=== PATIENT | male | born 1950 | race Caucasian/White ===

== ENCOUNTER 2020-08-05 13:33 | Outpatient (REF) | payer OTHER, SELFPAY ==
[2020-08-05 15:44] LABS: Blood Urea Nitrogen 28 mg/dL (9-16); Estimated Glomerular Filt Rate > 60
== END 2020-08-05 13:34 | disposition home or self-care (01) ==
LOC: HO.LAB 13:33
PROVIDERS: PCP General Practice; Visit Provider Surgery
DX: R22.1 Localized swelling, mass and lump, neck (principal)
CPT/HCPCS: 36415; 82565; 84520; 99202

== ENCOUNTER 2020-10-01 12:11 | Outpatient (REF) | payer MEDICARE, SELFPAY ==
--- NOTE | ~2020-10-01 | CT_ITS ---
EXAMINATION: CT SOFT TISSUE NECK WITH CONTRAST CLINICAL INFORMATION: Localized swelling, mass and lump. COMPARISON: None TECHNIQUE: Following the intravenous administration of 100 mL of Omnipaque 350 intravenous contrast, helical imaging was performed in the axial plane with generation of coronal and sagittal reformatted images. This CT examination was performed using dose optimization techniques as appropriate, variously including the following: *Automated exposure control *Adjustment of mA and/or kV according to patient size (this includes techniques or standardized protocols for targeted exams where dose is matched to indication/reason for exam; i.e. extremities or head) *Use of iterative reconstruction technique DLP: 307 mGy-cm FINDINGS: No cervical adenopathy is identified. The parotid glands are homogeneous in attenuation. The submandibular glands are normal. No contour abnormality or pathologic enhancement is seen within the oral cavity or pharyngeal mucosal space. However, the oral cavity is limited in visualization secondary to dental amalgam and filling-related artifacts. The laryngeal structures are normal. The parapharyngeal fat is preserved. The carotid sheath vasculature opacify normally. No extra mucosal soft tissue mass or fluid collection is seen. No retropharyngeal fluid collection is seen. The thyroid gland is normal. The superior mediastinum is unremarkable. The lung apices are clear. There are small polyps or retention cyst bilateral maxillary sinuses. The rest of the paranasal sinuses and mastoid air cells are well-aerated. The temporomandibular joints are normal. No periapical disease is identified. No osseous abnormalities are seen. The imaged portions of the brain parenchyma are unremarkable. CT/CT soft tissue neck w con IMPRESSION: Bilateral polyps and/or retention cysts in bilateral maxillary sinuses, larger on the left than right. Otherwise, unremarkable CT neck with IV contrast.
[2020-10-01 13:23] LABS: Blood Urea Nitrogen 20 mg/dL (9-16); Estimated Glomerular Filt Rate > 60
[2020-10-01] MEDS: iohexoL 350 MG/ML 100 ML INFUS..BTL IV (14:44)
== END 2020-10-01 12:12 | disposition home or self-care (01) ==
LOC: HO.CT 12:11
PROVIDERS: PCP General Practice; Visit Provider Surgery
DX: R22.1 Localized swelling, mass and lump, neck (principal)
CPT/HCPCS: 36415; 70491; 82565; 84520; Q9967

== ENCOUNTER → 2020-10-09 15:43 | Outpatient (BNVA) | payer MEDICARE, SELFPAY | PROVIDERS: PCP General Practice; Visit Provider Surgery | DX: R22.1 Localized swelling, mass and lump, neck (principal) | CPT/HCPCS: Q3014 ==

== ENCOUNTER 2022-04-01 14:25 | Emergency (ER) | payer MEDICARE, SELFPAY ==
--- NOTE | ~2022-04-01 | XR_ITS ---
EXAMINATION: XR ELBOW, LEFT CLINICAL INFORMATION: Left elbow pain. COMPARISON: None TECHNIQUE: AP, lateral, and oblique views of the left elbow. FINDINGS: Moderate degenerative joint changes are seen with joint space narrowing, periarticular sclerosis and marginal osteophyte formation. There is no acute fracture or dislocation. No definitive joint effusion. The soft tissues are unremarkable. XR/XR elbow LT min 3V IMPRESSION: Moderate degenerative joint changes. No overt acute abnormality.
[2022-04-01 15:29] VITALS: BP 145/69; PULSE 76; RESP 16; TEMP 36.5; O2SAT 98; BMI 23.6
--- NOTE | 2022-04-01 16:45 | ED_ITS ---
HPI - Extremity Problem General Chief complaint: Extremity Injury, Upper Stated complaint: pain in L arm Time Seen by Provider: 04/01/22 16:18 Source: patient Mode of arrival: ambulatory Limitations: language barrier (Armenian-speaking medical lab specialist utilized) History of Present Illness HPI Narrative: Patient is a 71-year-old male who presents to the emergency department for evaluation of left elbow pain. He reports onset to be 3-4 days ago. Pain is diffusely throughout the elbow, made worse with extension and flexion of the elbow. Overall Not worsening over the past few days but also not improving. H as trial Tylenol at home significant improvement. Denies any precipitating injury. Denies any past injury to this elbow. Denies numbness or tingling to the lower arm or hand, denies cold sensation. Denies weakness. Denies redness, swelling, rash, lesions, fevers, chills. He does report a history of joint pain to the bilateral knees and shoulders as well. Related Data Home Medications Medication Instructions Recorded Confirmed aspirin 81 mg chewable tablet 1 tab PO DAILY 08/05/20 10/09/20 atorvastatin 80 mg tablet 80 mg PO DAILY 08/05/20 10/09/20 blood pressure test kit-large #1 ea 08/05/20 10/09/20 lisinopril 20 mg tablet 20 mg PO DAILY 08/05/20 10/09/20 metformin 500 mg tablet 500 mg PO 08/05/20 10/09/20 omeprazole 40 mg capsule,delayed 40 mg PO DAILY 08/05/20 10/09/20 release sitagliptin 100 mg tablet 100 mg PO DAILY 08/05/20 10/09/20 zolpidem 10 mg tablet 10 mg PO BEDTIME PRN insomnia 08/05/20 10/09/20 Previous Rx's Medication Instructions Recorded diclofenac sodium 3 % topical gel 1 appl topical BID #100 grams 04/01/22 Allergies Allergy/AdvReac Type Severity Reaction Status Date / Time atorvastatin [Lipitor] Allergy Unknown unknown Verified 08/05/20 14:12 No Known Allergies Allergy Verified 08/05/20 14:12 Review of Systems Review of Systems: Constitutional: No weight loss, fever, chills, weakness or fatigue. Skin: No rash or itching. Cardiovascular: No chest pain No palpitations Respiratory: No shortness of breath, cough or sputum production. Gastrointestinal: No nausea, vomiting or diarrhea. No abdominal pain Genitourinary: No burning micturition. No urinary frequency or incontinence. Musculoskeletal: Positive joint pain Psychiatric: No depression or anxiety. Yes all other systems are reviewed and are negative [facility] Past Medical History Attestation statement: The following information was validated with the patient. Source: old records reviewed Medical History Mass of left side of neck Surgical History History of cholecystectomy Family History Family History Sister History of pancreatic cancer Social History Social History Alcohol intake: current Alcohol intake frequency: holidays/special occasions only Advance Directives: No Advance Directives Information Provided: No Physical Exam Vital Signs: Vital Signs: Last Vital Signs Temp 97.7 F 04/01/22 15:29 Pulse 76 04/01/22 15:29 Resp 16 04/01/22 15:29 BP 145/69 H 04/01/22 15:29 Pulse Ox 98 04/01/22 15:29 O2 Del Method 04/01/22 15:29 BMI result Body Mass Index 23.6 Appearance: Alert.?Oriented to person, place and time. No acute distress.?Normal affect. Eyes: Pupils equal, round and reactive to light.? ENT: Pharynx normal.?? Neck: Normal inspection.? Neck supple.?? CVS: Heart sounds normal. Normal heart rate and rhythm.? Pulses normal.?? Respiratory: No respiratory distress.? Lung sounds clear to auscultation bilaterally?? Abdomen: Soft and non-tender. Normoactive bowel sounds. Skin: Skin warm and dry.? Normal skin color.? Extremities: No lower extremity edema.? Left elbow with no acute deformity, no swelling, warmth, erythema. Decreased flexion and extension. Full AROM to left wrist. Neuro: Moves all extremities spontaneously. Sensation intact bilaterally. No focal neuro deficits. Ambulates with normal steady gait. Course Course Course Narrative: Patient is a 71-year-old male with a past medical history of hyperlipidemia, hypertension, diabetes who presents emergency department for evaluation of atraumatic left elbow pain. He is overall well-appearing. Vital signs are stable, afebrile without tachycardia. Left elbow with limited range of motion with extension and flexion your diffuse tenderness upon palpation medially and laterally, however no erythema warmth or swelling. Does not appear consistent with septic arthritis. XR obtained reveals no acute fracture or dislocation, there is however degenerative changes. Discussed these findings with patient, advised outpatient follow-up with primary care provider, reviewed gentle stretching/exercise, Tylenol, NSAID, new prescription for diclofenac gel. Reviewed worsening signs and symptoms to return back to the emergency department for. All questions were answered. Patient discharged home in stable condition. MDM - Extremity (Nontraumatic) Medical Records Attestation: I reviewed the patient's medical records. Imaging Data XR elbow: Radiologist's impression: XR/XR elbow LT min 3V IMPRESSION: Moderate degenerative joint changes. No overt acute abnormality. Discharge Plan Discharge Clinical Impression: Arthritis of elbow, left Patient Disposition: Home, Self-Care Instructions: Osteoarthritis (ED) Additional Instructions: Please engage in gentle stretching exercises to the left elbow. Apply Diclofenac gel to the left elbow twice daily as directed, prescription was sent to pharmacy You can take Tylenol 500 mg, 2 tablets (1,000mg) every 4-6 hours as needed for pain, but not to exceed 3 doses daily (3,000mg). Follow-up with your primary care provider within 1 week. If your pain is not improving over the next week or 2 you may need to be evaluated by Orthopedics. Return to the emergency department any new or worsening symptoms or concerns ? Prescriptions: New diclofenac sodium 3 % gel 1 appl topical BID Qty: 100 0RF No Action lisinopril 20 mg tablet 20 mg PO DAILY zolpidem 10 mg tablet 10 mg PO BEDTIME PRN (Reason: insomnia) omeprazole 40 mg capsule,delayed release(DR/EC) 40 mg PO DAILY aspirin 81 mg tablet,chewable 1 tab PO DAILY metformin 500 mg tablet 500 mg PO Januvia 100 mg tablet 100 mg PO DAILY (DME) blood pressure test kit-large Kit See Rx Instructions .ROUTE .MEDSUPPLY Qty: 1 Rx Instructions: As directed atorvastatin 80 mg tablet 80 mg PO DAILY Referrals: Haven Stiles MD [Primary Care Provider] - Monique Fishman PA-C [Physician Film Processor] - Interventions: ED Discharge Assessment Last Done: 04/01/22 18:21 Discharge Date/Time: 04/01/22 18:23
== END 2022-04-01 18:23 | disposition home or self-care (01) ==
PROVIDERS: Emergency Provider Emergency Medicine; PCP General Practice
DX: M19.022 Primary osteoarthritis, left elbow (principal)
CPT/HCPCS: 73080; 99283

== ENCOUNTER 2022-04-16 12:34 | Outpatient (REF) | payer OTHER, SELFPAY | END 2022-04-16 12:35 | disposition home or self-care (01) | LOC: HO.HOSX 12:34 | PROVIDERS: Visit Provider Physician Assistant | DX: Z13.89 Encounter for screening for other disorder (principal) ==

== ENCOUNTER 2022-05-07 14:19 | Outpatient (REF) | payer OTHER, SELFPAY ==
--- NOTE | ~2022-05-07 | XR_ITS ---
EXAMINATION: XR SHOULDER, RIGHT CLINICAL INFORMATION: Pain in the right shoulder COMPARISON: X-ray the right shoulder December 2017 TECHNIQUE: AP external rotation, Grashey, scapular Y, and axillary views of the right shoulder. FINDINGS: The bones and soft tissues are normal. No fracture. Glenohumeral and acromioclavicular alignment is anatomic with normal joint space. No abnormal soft tissue calcifications. XR/XR shoulder RT min 2V IMPRESSION: Normal right shoulder.
== END 2022-05-07 14:20 | disposition home or self-care (01) ==
LOC: HO.XRAY 14:19
PROVIDERS: PCP General Practice; Visit Provider Emergency Medicine
DX: M25.511 Pain in right shoulder (principal)
CPT/HCPCS: 73030

== ENCOUNTER → 2022-06-11 14:46 | Outpatient (BNVA) | payer OTHER, SELFPAY | PROVIDERS: PCP General Practice; Visit Provider Physician Assistant | DX: M75.21 Bicipital tendinitis, right shoulder (principal); M75.81 Other shoulder lesions, right shoulder | CPT/HCPCS: 20610; 99202; J1020 ==

== ENCOUNTER 2022-07-03 16:33 | Emergency (ER) | payer OTHER, SELFPAY ==
--- NOTE | ~2022-07-03 | XR_ITS ---
EXAMINATION: CR X-RAY SHOULDER AND HUMERUS RIGHT CLINICAL INFORMATION: 05/07/2022 right shoulder and elbow radiographs. COMPARISON: None TECHNIQUE: 3 views of the right shoulder and 2 views of the right humerus were obtained. FINDINGS: There is no acute fracture or dislocation. The joint spaces are unremarkable. The right humerus is intact. The visualized right ribs are intact with the soft tissues are unremarkable. XR/XR humerus RT IMPRESSION: Unremarkable right shoulder/humerus.
--- NOTE | ~2022-07-03 | XR_ITS ---
EXAMINATION: CR X-RAY SHOULDER AND HUMERUS RIGHT CLINICAL INFORMATION: 05/07/2022 right shoulder and elbow radiographs. COMPARISON: None TECHNIQUE: 3 views of the right shoulder and 2 views of the right humerus were obtained. FINDINGS: There is no acute fracture or dislocation. The joint spaces are unremarkable. The right humerus is intact. The visualized right ribs are intact with the soft tissues are unremarkable. XR/XR shoulder RT min 2V IMPRESSION: Unremarkable right shoulder/humerus.
--- NOTE | 2022-07-03 17:10 | ED_ITS ---
HPI - General Adult General Chief complaint: Extremity Injury, Upper <CAR Fishman - Last Filed: 07/03/22 17:16> Stated complaint: Shoulder pain, prev. inj? injections arent helping <CAR Fishman - Last Filed: 07/03/22 17:16> Time Seen by Provider: 07/03/22 18:25 <CAR Fishman - Last Filed: 07/03/22 17:16> Source: patient <Aye Baig NP - Last Filed: 07/03/22 23:20> Mode of arrival: ambulatory <Aye Baig NP - Last Filed: 07/03/22 23:20> Limitations: language barrier <Aye aBig NP - Last Filed: 07/03/22 23:20> History of Present Illness HPI narrative: 71-year-old male presents with several months of right shoulder pain. Patient did have a follow-up with physical therapy but did not attend, has had prior injections to the shoulder which he states did not relieve his pain. He does not report trauma, repetitive motion, or loss of sensation, decreased range of motion or decreased strength. <Aye Baig NP - Last Filed: 07/03/22 23:20> Onset (ago): month(s) <Aye Baig NP - Last Filed: 07/03/22 23:20> Location: right and upper extremity <Aye Baig NP - Last Filed: 07/03/22 23:20> Radiation: non-radiation <Aye Baig NP - Last Filed: 07/03/22 23:20> Severity: moderate <Aye Baig NP - Last Filed: 07/03/22 23:20> Severity scale (1-10): 6 <Aye Baig NP - Last Filed: 07/03/22 23:20> Quality: aching <Aye Baig NP - Last Filed: 07/03/22 23:20> Pain Consistency: constant <Aye Baig NP - Last Filed: 07/03/22 23:20> Relieving factors: rest <Aye Baig NP - Last Filed: 07/03/22 23:20> Exacerbating factors: movement <Aye Baig NP - Last Filed: 07/03/22 23:20> Associated symptoms: denies other symptoms <Aye Baig NP - Last Filed: 07/03/22 23:20> Treatments prior to arrival: none <Aye Baig NP - Last Filed: 07/03/22 23:20> Related Data Home medications: Home Medications Medication Instructions Recorded Confirmed aspirin 81 mg chewable tablet 1 tab PO DAILY 08/05/20 10/09/20 atorvastatin 80 mg tablet 80 mg PO DAILY 08/05/20 10/09/20 blood pressure test kit-large #1 ea 08/05/20 10/09/20 lisinopril 20 mg tablet 20 mg PO DAILY 08/05/20 10/09/20 metformin 500 mg tablet 500 mg PO 08/05/20 10/09/20 omeprazole 40 mg capsule,delayed 40 mg PO DAILY 08/05/20 10/09/20 release sitagliptin phosphate 100 mg tablet 100 mg PO DAILY 08/05/20 10/09/20 zolpidem 10 mg tablet 10 mg PO BEDTIME PRN insomnia 08/05/20 10/09/20 Previous Rx's Medication Instructions Recorded diclofenac sodium 3 % topical gel 1 appl topical BID #100 grams 04/01/22 <CAR Fishman - Last Filed: 07/03/22 17:16> Allergies/adverse reactions: Allergies Allergy/AdvReac Type Severity Reaction Status Date / Time atorvastatin [Lipitor] Allergy Unknown unknown Verified 06/11/22 14:54 No Known Allergies Allergy Verified 06/11/22 14:54 <CAR Fishman - Last Filed: 07/03/22 17:16> Review of Systems Review of Systems: Constitutional: No Fever, No Chills Cardiovascular: No Chest Pain, No SOB Respiratory: No Cough, No Dyspnea Gastrointestinal: No Nausea, No Vomiting, No Diarrhea, No abdominal Pain Genitourinary: No Dysuria, No Hematuria Musculoskeletal: positive right shoulder pain, No Myalgias, No Joint Swelling Skin: No Skin lacerations, No rash Neuro: No Weakness, No Numbness, No Paresthesias, No Dizziness, No Headache <RANCHO Vang Last Filed: 07/03/22 23:20> Yes all other systems are reviewed and are negative <Aye Baig NP - Last Filed: 07/03/22 23:20> [facility] Past Medical History Attestation statement: The following information was validated with the patient. <Aye Baig NP - Last Filed: 07/03/22 23:20> Source: old records reviewed <Aye Baig NP - Last Filed: 07/03/22 23:20> Medical History: Medical History Mass of left side of neck <CAR Fishman - Last Filed: 07/03/22 17:16> Surgical History: Surgical History History of cholecystectomy <CAR Fishman - Last Filed: 07/03/22 17:16> Family History Family History: Family History Sister History of pancreatic cancer <CAR Fishman - Last Filed: 07/03/22 17:16> Social History Social History: Social History Alcohol intake: current Alcohol intake frequency: holidays/special occasions only Patient Tobacco Use Status: Never used Tobacco Advance Directives: No Advance Directives Information Provided: Yes Current occupational status: disabled Current occupation: right hand dominant <CAR Fishman - Last Filed: 07/03/22 17:16> Physical Exam ED Vital Signs: Vital Signs - 24 hr 07/03/22 17:12 Temperature 97.7 F Pulse Rate 78 Respiratory Rate 18 Blood Pressure 127/69 Pulse Oximetry 98 Oxygen Delivery Method Room Air BMI result Body Mass Index 23.6 <CAR Fishman - Last Filed: 07/03/22 17:16> Vital Signs - 24 hr 07/03/22 17:12 Temperature 97.7 F Pulse Rate 78 Respiratory Rate 18 Blood Pressure 127/69 Pulse Oximetry 98 Oxygen Delivery Method Room Air BMI result Body Mass Index 23.6 <Aye Baig NP - Last Filed: 07/03/22 23:20> Appearance: Alert. Oriented X3. No acute distress. Eyes: Pupils equal, round and reactive to light. ENT: Pharynx normal. Neck: Normal inspection. Neck supple. CVS: Normal heart rate and rhythm. Pulses normal. Respiratory: No respiratory distress. Breath sounds normal. Abdomen: Soft and nontender. No distention or rigidity. No pulsatile masses. Skin: Skin warm and dry. Normal skin color. Normal skin turgor. Extremities: No lower extremity edema. Full range of motion to all extremities. Full active and passive range of motion. Brisk capillary refill and equal pulses. Strength 5/5 bilaterally. Neuro: No motor deficit. No sensory deficit. Cranial nerves 2-12 intact <Aye Baig NP - Last Filed: 07/03/22 23:20> Course Course Course Narrative: RME performed by Coty Tsang PA-C. Patient is a 71 year old male presenting to the emergency department with right shoulder pain. Patient states that he has chronic right shoulder pain secondary to rotator cuff tendonitis and bicep tendonitis of the right side. Patient states that the pain started after a fall. Patient states that he has had an injection in the right arm a month ago but it hasn't helped. XR of the right shoulder / humerus ordered. Patient placed back in waiting room pending results and room availability. <CAR Fishman - Last Filed: 07/03/22 17:16> RME performed by Coty Tsang PA-C. Patient is a 71 year old male presenting to the emergency department with right shoulder pain. Patient states that he has chronic right shoulder pain secondary to rotator cuff tendonitis and bicep tendonitis of the right side. Patient states that the pain started after a fall. Patient states that he has had an injection in the right arm a month ago but it hasn't helped. XR of the right shoulder / humerus ordered. Patient placed back in waiting room pending results and room availability. 71-year-old male presents for chronic right shoulder pain. X-rays were completed while he was in the emergency department waiting room which are negative for acute findings. Physical exam indicates tenderness to the acromion process however he does have full range of motion, full adduction and abduction, internal and external rotation of the shoulder. Strength 5/5, equal mica laminating machine feeder strength. Brisk capillary refill, and equal pulses. Considering the physical exam is unremarkable, and patient has prior history of injections, and poor compliance with physical therapy referral, I will refer patient back to his primary care physician for physical therapy referral once again, as well as referral to pain management for consult. Will give Toradol IM as patient did not take any medications to help alleviate his pain today. Patient verbalized understanding of and agrees to plan of care discharge home. Verbalized signs and symptoms indicating need for emergent intervention. director social utilized for all correspondence. Google translate utilized for discharge instructions. <Aye Baig NP - Last Filed: 07/03/22 23:20> Medications Administered Discontinued Medications Generic Name Dose Route Start Last Admin Trade Name Freq PRN Reason Stop Dose Admin Ketorolac Tromethamine 30 mg 07/03/22 18:35 07/03/22 18:47 Ketorolac Tromethamine 30 Mg/Ml Vial IM 07/03/22 18:36 30 mg ONCE ONE Administration <CAR Fishman - Last Filed: 07/03/22 17:16> Medications Administered Discontinued Medications Generic Name Dose Route Start Last Admin Trade Name Freq PRN Reason Stop Dose Admin Ketorolac Tromethamine 30 mg 07/03/22 18:35 07/03/22 18:47 Ketorolac Tromethamine 30 Mg/Ml Vial IM 07/03/22 18:36 30 mg ONCE ONE Administration <Aye Baig NP - Last Filed: 07/03/22 23:20> Medical Decision Making Differential Diagnosis Differential Diagnoses: The differential diagnosis associated with the presentation includes <Aye Baig NP - Last Filed: 07/03/22 23:20> Osteoarthritis, tendinitis, calcific tendinitis, musculoskeletal strain <Aye Baig NP - Last Filed: 07/03/22 23:20> Independent Interpretation I performed an independent interpretation of an: Plain X-Ray <Aye Baig NP - Last Filed: 07/03/22 23:20> Radiology Impression Discussion of test interpretation with radiology: I have reviewed the radiologist's reading. <Aye Baig NP - Last Filed: 07/03/22 23:20> Radiologist Impression: EXAMINATION: CR X-RAY SHOULDER AND HUMERUS RIGHT CLINICAL INFORMATION: 05/07/2022 right shoulder and elbow radiographs.? COMPARISON: None? TECHNIQUE: 3 views of the right shoulder and 2 views of the right humerus were obtained.? FINDINGS: There is no acute fracture or dislocation. The joint spaces are unremarkable. The right humerus is intact. The visualized right ribs are intact with the soft tissues are unremarkable.? XR/XR humerus RT IMPRESSION: Unremarkable right shoulder/humerus.? <Aye Baig NP - Last Filed: 07/03/22 23:20> External Record Review External record reviewed: Outpatient record <Aye Baig NP - Last Filed: 07/03/22 23:20> Discharge Plan Discharge Clinical Impression: Osteoarthritis of right shoulder, Chronic right shoulder pain <CAR Fishman - Last Filed: 07/03/22 17:16> Patient Disposition: Home, Self-Care <CAR Fishman - Last Filed: 07/03/22 17:16> Instructions: Osteoarthritis (ED), Arthralgia (ED), Arm Pain (ED) <CAR Fishman - Last Filed: 07/03/22 17:16> Additional Instructions: Le evaluaron por dolor cr?jacob en [facility]. Bryson un seguimiento con wilson m?dico de atenci?n primaria para obtener diana remisi?n a fisioterapia. Le dimos diana dosis de Toradol mientras estaba en el departamento de emergencias. Por favor, no tome Motrin hasta la medianoche. Lo he referido al Dr. Medina para el control del dolor. Llame y solicite diana veronique para diana evaluaci?n del dolor cr?jacob en [facility]. Sienna por elegir sajan departamento de emergencias para wilson evaluaci?n. Por favor, bryson un seguimiento con el m?dico de atenci?n primaria seg?n sea necesario. Regrese al departamento de emergencias por cualquier s?ntoma nuevo, preocupante o que empeore. You were evaluated for chronic right shoulder pain. Please follow-up with your primary care physician for physical therapy referral. We gave you a dose of Toradol while in the emergency department. Please do not take Motrin until midnight I have referred you to Dr. Medina for pain management. Please call and request an appointment for evaluation for chronic right shoulder pain. Thank you for choosing this emergency department for evaluation. Please follow-up with primary care physician as needed. Return to the emergency department for any new, concerning, or worsening symptoms. <CAR Fishman - Last Filed: 07/03/22 17:16> Prescriptions: No Action diclofenac sodium 3 % gel 1 appl topical BID Qty: 100 0RF lisinopril 20 mg tablet 20 mg PO DAILY zolpidem 10 mg tablet 10 mg PO BEDTIME PRN (Reason: insomnia) omeprazole 40 mg capsule,delayed release(DR/EC) 40 mg PO DAILY aspirin 81 mg tablet,chewable 1 tab PO DAILY metformin 500 mg tablet 500 mg PO Januvia 100 mg tablet 100 mg PO DAILY (DME) blood pressure test kit-large Kit See Rx Instructions .ROUTE .MEDSUPPLY Qty: 1 Rx Instructions: As directed atorvastatin 80 mg tablet 80 mg PO DAILY <CAR Fishman - Last Filed: 07/03/22 17:16> Referrals: Haven Stiles MD [Primary Care Provider] - 2 weeks (Chronic right shoulder pain) Wilner Medina MD [Physician] - 2 weeks (Chronic right shoulder pain) <CAR Fishman - Last Filed: 07/03/22 17:16> Interventions: ED Discharge Assessment Last Done: 07/03/22 19:09 <CAR Fishman - Last Filed: 07/03/22 17:16> Discharge Date/Time: 07/03/22 19:09 <CAR Fishman - Last Filed: 07/03/22 17:16> Print Language: Slovak <CAR Fishman - Last Filed: 07/03/22 17:16>
[2022-07-03 17:12] VITALS: BP 127/69; PULSE 78; RESP 18; TEMP 36.5; O2SAT 98; BMI 23.6
[2022-07-03] MEDS: Ketorolac Tromethamine 30 MG/ML VIAL IM (18:47)
== END 2022-07-03 19:09 | disposition home or self-care (01) ==
PROVIDERS: Emergency Provider Emergency Medicine; PCP General Practice
DX: M19.011 Primary osteoarthritis, right shoulder (principal); G89.29 Other chronic pain; M25.511 Pain in right shoulder
CPT/HCPCS: 73030; 73060; 96372; 99283; 99284; J1885

== ENCOUNTER 2022-08-11 11:00 | Outpatient (RCR) | payer OTHER, SELFPAY ==
--- NOTE | 2022-08-07 14:34 | MHC.PT.EP ---
[facility] [place] [facility] [place] [facility] [place] [facility] [address]ina Kirk [address] [phone] F: [phone] F: [phone] F: [phone] F: [phone] Physical Therapy Plan of Care Date of Evaluation: Date of Surgery: Diagnosis: right shoulder bicipital tendonitis (MD Dx) chronic R shoulder pain, ? RTC tear, cannot R/O cervical involvement due to radicular sxs Assessment: Patient is a 71 y.o. male who is referred to PT by CAR Keyes with Dx of R shoulder bicipital tendonitis. PT diagnosis is chronic R shoulder pain, questionable RTC tear due to limitations, cannot rule out cervical involvement as it does cause pain but not familiar pain but he has R UE radicular sxs. Patient impairments include pain, limited ROM, weakness. Patient current functional limitations are reaching overhead, daughter helps with cook/clean, unable to work (lifting anything).Patient will benefit from skilled PT to address aforementioned impairments and functional limitations to meet established goals. Patient prognosis is good, due to he may be a good candidate for further imaging. Frequency and Duration: The patient will be seen 2x/week for 4 weeks Short Term Goals: 2 weeks Patient demonstrates consistency and independence with HEP to self manage symptoms. Patient is able to centralize R hand symptoms with PT treatment. Hydrant Setter Goals: 4 weeks Patient presents with increased R shoulder flexion 170 degrees to reach to cabinets. Patient prssents with increased R shoulder flexion strength 4/5 to be able to lift/carry groceries. Treatment Plan: Modalities to reduce pain, spasms and effusion. Manual therapy to restore motion and function. Therapeutic exercise to improve strength and flexibility. Neuromuscular re-education for posture and balance. Therapeutic activities to return to functional activities of daily living. Electronically signed by: Jemima Garcia, PT, DPT Please sign and return to therapist. Thank you for your referral.
--- NOTE | 2022-09-03 16:52 | MHC.PT.DC ---
[facility] [place] Office [place] Office [place] Office [address] Shala Kirk [address] [phone] F: [phone] F: [phone] F: [phone] F: [phone] Physical Therapy Discharge Report Diagnosis: right shoulder bicipital tendonitis ( Dx) chronic R shoulder pain, ? RTC tear, cannot R/O cervical involvement due to radicular sxs Date of Surgery: Date of Evaluation: 08/07/22 Date of Discharge: 09/03/22 Treatments to Date: 2 Cancellations to Date: No Shows to Date: 4 Discharge Status: Visit Non-compliance Discharge Summary: Patient ceased attending PT on his own accord and did not show to any remaining PT session after first 2 visits. He is discharged from PT at this time. Electronically signed by: Jemima Garcia, PT, DPT Please sign and return to therapist. Thank you for your referral.
== END 2022-09-03 16:53 | disposition home or self-care (01) ==
LOC: HO.PT 11:00
PROVIDERS: PCP General Practice; Visit Provider Physician Assistant
DX: M75.21 Bicipital tendinitis, right shoulder (principal); M75.80 Other shoulder lesions, unspecified shoulder
CPT/HCPCS: 97035; 97110; 97161

== ENCOUNTER → 2022-09-17 09:27 | Outpatient (BNVA) | payer OTHER, SELFPAY | PROVIDERS: PCP General Practice; Visit Provider Physician Assistant | DX: M75.21 Bicipital tendinitis, right shoulder (principal); M75.81 Other shoulder lesions, right shoulder | CPT/HCPCS: 99212 ==

== ENCOUNTER 2022-10-25 20:59 | Emergency (ER) | payer OTHER, SELFPAY ==
--- NOTE | ~2022-10-25 | XR_ITS ---
EXAMINATION: XR SHOULDER, RIGHT CLINICAL INFORMATION: Pain COMPARISON: 07/03/2022 TECHNIQUE: Three views of the right shoulder. FINDINGS: Glenohumeral alignment is anatomic. There is mild spurring along the inferior glenoid. No acute fracture is seen. Acromioclavicular joint is intact. XR/XR shoulder RT min 2V IMPRESSION: No acute findings. Mild spurring along the inferior glenoid.
[2022-10-25 21:35] VITALS: BP 163/82; PULSE 78; RESP 18; TEMP 36.6; O2SAT 97; BMI 24.1
--- NOTE | 2022-10-26 00:49 | ED_ITS ---
HPI - Extremity Problem General Chief complaint: Extremity Injury, Upper Stated complaint: sharp pain in r arm Time Seen by Provider: 10/26/22 00:29 Source: patient Mode of arrival: ambulatory Limitations: no limitations History of Present Illness HPI Narrative: Patient comes to the emergency room complaining of chronic right shoulder pain. Patient has been seen by her primary care physician, has been doing physical therapy. Unfortunately, patient has skipped a few sessions because he had a family emergency in [place] and could not attend physical therapy for 2 weeks, patient was expelled from the PT program. Patient has also been seen by Orthopedics, last time approximately a month ago, given injections for bicipital tendinitis of the right shoulder. She comes in complaining of worsening pain. No falls, no new injuries. Patient still able to move his arm. Related Data Home Medications Medication Instructions Recorded Confirmed aspirin 81 mg chewable tablet 1 tab PO DAILY 08/05/20 10/09/20 atorvastatin 80 mg tablet 80 mg PO DAILY 08/05/20 10/09/20 blood pressure test kit-large #1 ea 08/05/20 10/09/20 lisinopril 20 mg tablet 20 mg PO DAILY 08/05/20 10/09/20 metformin 500 mg tablet 500 mg PO 08/05/20 10/09/20 omeprazole 40 mg capsule,delayed 40 mg PO DAILY 08/05/20 10/09/20 release sitagliptin phosphate 100 mg tablet 100 mg PO DAILY 08/05/20 10/09/20 zolpidem 10 mg tablet 10 mg PO BEDTIME PRN insomnia 08/05/20 10/09/20 Previous Rx's Medication Instructions Recorded diclofenac sodium 3 % topical gel 1 appl topical BID #100 grams 04/01/22 tramadol 50 mg tablet 50 mg PO BID PRN pain #7 tabs 10/26/22 Allergies Allergy/AdvReac Type Severity Reaction Status Date / Time atorvastatin [Lipitor] Allergy Unknown unknown Verified 10/25/22 21:39 Review of Systems Review of Systems: Constitutional : No Weight loss, No Fever, No Chills, No Night Sweats, No Fatigue, No Malaise ENT/Mouth : No Hearing loss, No Ear Pain, No Nasal Congestion, No Sinus Pain, No Hoarseness, No sore throat, No Rhinorrhea, No Swallowing Difficulty Eyes: No Eye Pain, No Swelling, No Redness, No Foreign Body, No Discharge, No Vision Changes Cardiovascular : No Chest Pain, No SOB, No Dyspnea on Exertion, No Orthopnea, No Edema, No Palpitations Respiratory : No Cough, No Sputum, No Wheezing, No Smoke Exposure, No Dyspnea Gastrointestinal : No Nausea, No Vomiting, No Diarrhea, No Constipation, No abdominal Pain, No Hematochezia, No Melena Genitourinary : no irregular bleeding, No Dysuria, No Urinary Frequency, No Hematuria, No Urinary Incontinence, No Urgency, No Flank Pain, No Urinary Flow Changes, No Hesitancy Musculoskeletal : Chronic right shoulder pain, No Myalgias, No Joint Swelling Skin : No Skin Lesions, No rash Neuro : No Weakness, No Numbness, No Paresthesias, No Loss of Consciousness, No Dizziness, No Headache Psych : No Anxiety/Panic, No Depression, No SI/HI/AH/VH, No Social Issues, Heme/Lymph: No Bruising, No Bleeding,No Lymphadenopathy Endocrine : No Polyuria, No Polydipsia, No Temperature Intolerance [facility] Past Medical History Medical History Mass of left side of neck Surgical History History of cholecystectomy Family History Family History Sister History of pancreatic cancer Social History Social History Alcohol intake: current Alcohol intake frequency: holidays/special occasions only Patient Tobacco Use Status: Never used Tobacco Current occupational status: disabled Current occupation: right hand dominant Physical Exam Vital Signs: Vital Signs: Last Vital Signs Temp 97.8 F 10/25/22 21:35 Pulse 78 10/25/22 21:35 Resp 18 10/25/22 21:35 BP 163/82 H 10/25/22 21:35 Pulse Ox 97 10/25/22 21:35 O2 Del Method Room Air 10/25/22 21:35 BMI result Body Mass Index 24.1 Const: Other: Appearance: Alert. Oriented X3. No acute distress. Eyes: Pupils equal, round and reactive to light. ENT: Pharynx normal. Neck: Normal inspection. Neck supple. No lymph nodes noted. No crepitus CVS: Normal heart rate and rhythm. Pulses normal. Normal S1 and S2 Respiratory: No respiratory distress. Breath sounds normal. No Wheezing. No rales Abdomen: Soft and nontender. No rigidity. No distention. Skin: Skin warm and dry. Normal skin color. Normal skin turgor. Extremities: No lower extremity edema. No Lacerations. No Rash. Patient is able to flex and extend the shoulders but with pain, limited range of motion. No deformity, no erythema, no swelling of the joint Neuro: Oriented X 3. No motor deficit. No sensory deficit. Moving all extremities. No slurred speech. CN 2 through 12 grossly intact Psych: calm, cooperative, normal affect Medical Decision Making Medical Decision Making MDM Narrative: -discussed with the patient that he may need to finish his physical therapy course, may need more joint injections, or an MRI. At this time in the ED, we can provide pain relief. Patient agreed to take 1 tablet of tramadol. Patient will be giving a small prescription and if needed, patient's primary care physician can extend the prescription. Discharge Plan Discharge Clinical Impression: Chronic right shoulder pain Patient Disposition: Home, Self-Care Instructions: Calcific Tendinitis (ED), Arthralgia (ED) Additional Instructions: Please follow-up with your primary care physician tomorrow. If you have any worsening or new symptoms, please return to the emergency room or call 911 Prescriptions: New tramadol 50 mg tablet 50 mg PO BID PRN (Reason: pain) Qty: 7 0RF No Action diclofenac sodium 3 % gel 1 appl topical BID Qty: 100 0RF lisinopril 20 mg tablet 20 mg PO DAILY zolpidem 10 mg tablet 10 mg PO BEDTIME PRN (Reason: insomnia) omeprazole 40 mg capsule,delayed release(DR/EC) 40 mg PO DAILY aspirin 81 mg tablet,chewable 1 tab PO DAILY metformin 500 mg tablet 500 mg PO Januvia 100 mg tablet 100 mg PO DAILY (DME) blood pressure test kit-large Kit See Rx Instructions .ROUTE .MEDSUPPLY Qty: 1 Rx Instructions: As directed atorvastatin 80 mg tablet 80 mg PO DAILY
[2022-10-26] MEDS: traMADoL HCL 50 MG TABLET PO (00:52)
== END 2022-10-26 01:06 | disposition home or self-care (01) ==
PROVIDERS: Emergency Provider Emergency Medicine; PCP General Practice
DX: G89.29 Other chronic pain (principal); M25.511 Pain in right shoulder; Z79.82 Long term (current) use of aspirin; Z79.02 Long term (current) use of antithrombotics/antiplatelets; Z79.84 Long term (current) use of oral hypoglycemic drugs
CPT/HCPCS: 73030; 99283

== ENCOUNTER 2022-11-09 09:34 | Outpatient (REF) | payer OTHER, SELFPAY ==
--- NOTE | ~2022-11-09 | MR_ITS ---
EXAMINATION: MR SHOULDER WITHOUT CONTRAST, RIGHT CLINICAL INFORMATION: Right shoulder pain and crepitus. Decreased range of motion. COMPARISON: Most recent right shoulder radiographs dated 10/25/2022. TECHNIQUE: MRI of the shoulder without contrast was performed on a high-field scanner. FINDINGS: ROTATOR CUFF: Irregular, complete full-thickness tear of the supraspinatus tendon with extension through the majority of the infraspinatus tendon. Overall tearing measures up to 3.1 x 3.7 cm with the torn tendon fibers retracted proximal to the humeral head apex. There are posterior and bursal surface infraspinatus tendon fibers which remain intact. Mild subscapularis tendinosis with distal articular surface partial tearing measuring up to 2.4 cm in ML dimension. Mild supraspinatus and infraspinatus muscle atrophy. BICEPS: Intact. CORACOACROMIAL ARCH: The undersurface of the acromion is curved with small subacromial spurs. Moderate acromioclavicular osteoarthritis. LABRUM/CAPSULE: Linear fluid signal within the undersurface of the superior labrum, likely indicating a nondisplaced undersurface tear. Intact inferior joint capsule. GLENOHUMERAL JOINT/MARROW: Mild glenohumeral articular cartilage signal heterogeneity with tiny marginal osteophytes. Degenerative cystic change at the greater tuberosity. Small joint effusion. MR/MR shoulder RT wo con IMPRESSION: 1. Complete, full-thickness tear of the supraspinatus tendon with extension through the majority of the infraspinatus tendon. The torn tendon fibers are retracted proximal to the humeral head apex. Mild supraspinatus and infraspinatus muscle atrophy. 2. Mild subscapularis tendinosis with distal articular surface partial tearing measuring 2.4 cm in ML dimension. 3. Moderate acromioclavicular osteoarthritis with small subacromial spurs. 4. Probable nondisplaced undersurface tear of the superior labrum. 5. Mild glenohumeral osteoarthritis. Small joint effusion.
== END 2022-11-09 09:35 | disposition home or self-care (01) ==
LOC: HO.MRI 09:34
PROVIDERS: PCP General Practice; Visit Provider Physician Assistant
DX: M75.21 Bicipital tendinitis, right shoulder (principal)
CPT/HCPCS: 73221

== ENCOUNTER 2023-01-07 13:16 | Outpatient (AMB) | payer OTHER, SELFPAY ==
--- NOTE | 2023-01-07 13:17 | A.OFFVIS_ITS ---
Intake Intake Visit Reasons: OV- MRI review/discuss surgery Intake Note: is a 72 year old male who presents today for an MRI follow up of Right shoulder/biceps. Allergies atorvastatin [Lipitor] Allergy (Unknown, Verified 01/07/23 13:19) unknown HPI OV- MRI review/discuss surgery HPI Details is a 72 year old man who presents for an MRI review of his right shoulder/biceps He complains of pain with daily activity, worse with overhead activity, lifting, and at night. He says his pain has been present for ~9 months after a lifting injury, and he found no relief from PT or prior injections [facility] Medical History Mass of left side of neck Surgical History History of cholecystectomy Family History Sister History of pancreatic cancer Social History Alcohol intake: current Alcohol intake frequency: holidays/special occasions on ly Patient Tobacco Use Status: Never used Tobacco Current occupational status: disabled Current occupation: right hand dominant Review of Systems Const All systems reviewed & are unremarkable except as noted in HPI and below Physical Exam Const General: no acute distress, alert and awake Orientation/consciousness: patient oriented x3 HEENT Head: Yes normocephalic and Yes atraumatic Eyes EOM: EOMs intact bilaterally Resp Effort & Inspection: normal respiratory effort and able to speak in complete sentences Cardio Jugular venous distension: no JVD Skin General skin exam: turgor normal Rashes: no rashes Neuro General: patient oriented x3 Extrem Other: Right Shoulder: 4/5 empty can ER 45 degrees Passively full ROM Psych Appearance: grossly normal Affect: normal affect Attitude: cooperative Results Reviewed Results Reviewed: I personally reviewed relevant MR images 1.? Complete, full-thickness tear of the supraspinatus tendon with extension through the majority of the infraspinatus tendon. The torn tendon fibers are retracted proximal to the humeral head apex. Mild supraspinatus and infraspinatus muscle atrophy. ? 2.? Mild subscapularis tendinosis with distal articular surface partial tearing measuring 2.4 cm in ML dimension. ? 3.? Moderate acromioclavicular osteoarthritis with small subacromial spurs. ? 4.? Probable nondisplaced undersurface tear of the superior labrum. ? 5.? Mild glenohumeral osteoarthritis. Small joint effusion. Assessment & Plan Assessment & Plan (1) Right rotator cuff tear: Code(s): M75.101 - Unspecified rotator cuff tear or rupture of right shoulder, not specified as traumatic Plan: This is a 72 year old man with a complete, full-thickness tear of the right supraspinatus tendon. He has pain with daily activity, worse with overhead activity, heavy lifting, and at night. He has failed conservative treatment options, feels limited in his ADLs, and that his QOL is diminished. He finds no relief of his pain with Tramadol or NSAIDs. I had a long discussion with him co ncerning his diagnosis and treatment options. I recommend a right shoulder RTC repair. I discussed the risks, benefits, and alternatives including, but not limited to, the risk of pain, infection, stiffness, need for further surgery as well as potential medical complications such as blood clots, pulmonary embolism and cardiac complications. There is some retraction and although he states this was an acute injury I did warn him of the possibility that we will not be able to repair the cuff. He expressed understanding. I discussed the recovery timeline and process as well as the importance of PT. is a good candidate for this surgery, and he wishes to proceed with this decision. He will speak with Latoya to schedule this procedure. He is a Diabetic but says this is well- controlled. Plan Scribed for Inocente Huerta MD by Deepak Cornelius, medical research scientist, on 01/07/23 at 1:55 PM, EST. Coding Level of Care Code Est Pt Level 4 (26042) Diagnoses Right rotator cuff tear M75.101
== END 2023-01-07 14:05 | disposition home or self-care (01) ==
PROVIDERS: PCP General Practice; Visit Provider Orthopaedic Surgery
DX: M75.121 Complete rotator cuff tear or rupture of right shoulder, not specified as traumatic (principal); M19.011 Primary osteoarthritis, right shoulder; S43.431A Superior glenoid labrum lesion of right shoulder, initial encounter
CPT/HCPCS: 20610; 99214

== ENCOUNTER → 2023-01-07 13:16 | Outpatient (BNVA) | payer OTHER, SELFPAY | PROVIDERS: PCP General Practice; Visit Provider Orthopaedic Surgery | DX: M75.101 Unspecified rotator cuff tear or rupture of right shoulder, not specified as traumatic (principal) | CPT/HCPCS: 20610; 99212 ==

== ENCOUNTER 2023-02-03 09:03 | Day surgery (SDC) | payer OTHER, SELFPAY ==
[2023-02-03] VITALS (9 sets, daily range): BP systolic 127–151; BP diastolic 69–82; PULSE 69–88; RESP 16–18; TEMP 36.3–36.8; O2SAT 96–99; BMI 23.9
--- NOTE | 2023-02-03 | ECG_ITS ---
Test Reason : dm, htn Blood Pressure : / mmHG Vent. Rate : 072 BPM Atrial Rate : 072 BPM P-R Int : 156 ms QRS Dur : 092 ms QT Int : 362 ms P-R-T Axes : 051 047 044 degrees QTc Int : 396 ms Normal sinus rhythm Normal ECG When compared with ECG of 09-JUL-2009 11:19, No significant change was found Referred By: Maddie Kilgore Electronically Signed By:JITENDRA PALMER
--- NOTE | 2023-02-03 09:05 | HO.ANESPROP2 ---
HPI - Anesthesia Eval Consult details Narrative: for rotator cuff reoair PMFSH Active Problems Active Problems: All Active Problems (Updated 01/07/23 @ 15:18 by Deepak Cornelius) Right rotator cuff tear (Acute) Rotator cuff tendonitis (Acute) Biceps tendonitis on right (Acute) Osteoarthritis of right shoulder (Acute) Mass of left side of neck (Acute) Past Medical History Medical History (Updated 02/03/23 @ 09:10 by Risa Lam RN) Mass of left side of neck Palpitations Family History Family History Sister History of pancreatic cancer Family history of problems with anesthesia: No Surgical History Surgical History History of cholecystectomy History of Problems with Anesthesia: No Social History Social History Alcohol intake: current Alcohol intake frequency: holidays/special occasions only Patient Tobacco Use Status: Never used Tobacco Current occupational status: disabled Current occupation: right hand dominant Meds Allergies Allergy/AdvReac Type Severity Reaction Status Date / Time atorvastatin [Lipitor] Allergy Unknown unknown Verified 01/07/23 13:19 Active Medications: Current Medications Lactated Ringer's (Lr) 1,000 mls @ 100 mls/hr IVCONT .Q10H MELINDA Cefazolin Sodium/Dextrose (Ancef) 2 gm in 50 mls @ 100 mls/hr IV PREOP ONE Stop: 02/03/23 09:33 Home Medications Medication Instructions Recorded Confirmed Last Taken Type aspirin 81 mg chewable tablet 1 tab PO DAILY 08/05/20 10/09/20 Unknown History atorvastatin 80 mg tablet 80 mg PO DAILY 08/05/20 10/09/20 Unknown History blood pressure test kit-large #1 ea 08/05/20 10/09/20 Unknown History lisinopril 20 mg tablet 20 mg PO DAILY 08/05/20 10/09/20 Unknown History metformin 500 mg tablet 500 mg PO 08/05/20 10/09/20 Unknown History omeprazole 40 mg capsule,delayed 40 mg PO DAILY 08/05/20 10/09/20 Unknown History release sitagliptin phosphate 100 mg tablet 100 mg PO DAILY 08/05/20 10/09/20 Unknown History zolpidem 10 mg tablet 10 mg PO BEDTIME PRN insomnia 08/05/20 10/09/20 Unknown History Exam Exam Date and Time: February 03, 2023904 Airway Mallampati Class: II TM Dist: >3cm Neck ROM: Full Heart: rrr Lungs: cta Assessment and Plan Assessment Anesthesia Assessment: Anesthesia Plan Discussed Final Anesthetic Review Family History of Problems with Anesthesia: No History of Problems with Anesthesia: No NPO: Yes ASA Class: III Final Preanesthetic Review: No Changes in Pt Med Stat, Meds/Allgs Chart Reviewed, Consent Obtained/Reviewed and Anes Risks/Benef Reviewed Patient Risk: Intermediate Anesthetic Plan Anesthetic Plan: GA and Regional Block Disposition: Standard PACU
--- OUTSIDE RECORDS SUMMARY | 2023-02-03 09:06 | XMS_ITS | Patient Health Record ---
Author Name Unknown Organization [facility] Address [address] [place] [address] Care Team Providers Care Under Seal Operator Name Role Phone Thierno Oakleydeepthi Primary Care Provider Jacob Roca Unavailable [phone] Nataliia Stark Unavailable [phone] ALLERGIES No Known Allergies RESULTS Component Value Reference Range Notes Hemoglobin A1c Reviewed date:10/15/2022 03:25:18 AM Interpretation: Performing Lab: Notes/Report: Hemoglobin A1c 7.4 REASON FOR REFERRAL No Information MEDICATIONS Medication SIG (Take, Route, Frequency, Duration) Notes Start Date End Date Status Atorvastatin Calcium 80 MG 1 tablet Oral ly Once a day Active Aspirin 81 MG 1 tablet Orally Once a day Active metFORMIN HCl 500 MG 1 tablet with meals Orally Twice a day Active Lisinopril 20 MG 1 tablet Orally Once a day Active Januvia 100 MG 1 tablet Orally Once a day Active Ibuprofen 800 MG 1 tablet with food o r milk as needed Orally Three times a day Active Methocarbamol 500 MG 1 tablet as needed Orally twice a day Active Zolpidem Tartrate 10 MG 1 tablet at bedt charles as needed Orally Once a day Active IMMUNIZATIONS Vaccine Route Administration Date Status Comme nts Flu Vac (Fluzone /Alfuria) QIV PFS Unknown 04/18/2021 A dministered Moderna COVID-19 Vaccine IM Unknown 08/19/2020 Administ ered Moderna COVID-19 Vaccine IM Unknown 09/16/2020 Administ ered Moderna COVID-19 Vaccine IM Unknown 05/19/2021 Administ ered SOCIAL HISTORY Sex Assigned At : Social History Observation Description Sex Assigned At Unknown PROBLEMS Problem Type ICD Code Onset Dates Problem Status W/U Status Risk SNOMED Code Notes Problem Anemia (D64.9) Active confirmed Anemia (908964999) Problem Essential (primary) hypertension (I10) Active confirmed Essential hypertension (57661784) Problem Insomnia (G47.00) Active confirmed Inso mnia (713819731) Problem Vitamin D deficiency (E55.9) Active confirmed Vitamin D deficiency (52735944) Problem Hyperlipidemia (E78.5) Active confirmed Hyperlipidemia (04321276) Problem DM (diabetes mellitus) (E11.9) Active confirmed DM - Diabe mari mellitus (71584996) Problem H. pylori infection (B96.81) Active confirmed Helicobacter pylori gastrointestinal tract infection (452367406) Problem Illiteracy (Z55.0) Active confirmed Illiteracy (771201599) Problem Forgetfulness (R68.89) Active confirmed Forgetful (55782502) Problem Tubular adenoma (D36.9) Active confirmed Tubular adenoma (005605811) Problem Age-related nuclear cataract of both eyes (H25.13) Active confirmed 942767387 Problem Back pain of lumbar region with sciatica (M54.40) Active confirmed Sciatica (03343265) Problem Cardiovascular event risk (Z91.89) Active confirmed Cardiovascular event risk (965813496) Encounters Encounter Location Date Provider Diagnosis [address] [address] 04/01/2022 Nataliia Stark Essential (primary) hypertension I10 ; DM (diabetes mellitus) E11.9 ; Insomnia G47.00 ; Hyperlipidemia E78.5 ; Anemia D64.9 ; Tubular adenoma D36.9 ; Vitamin D deficiency E55.9 ; Cardiovascular event risk Z91.89 ; H. pylori infection B96.81 ; Back pain of lumbar region with sciatica M54.40 ; Illiteracy Z55.0 ; Forgetfulness R68.89 and Age-related nuclear cataract of both eyes H25.13 [facility] [address] [place] [address] 09/25/2022 Jacob Sepulveda Essential (primary) hypertension I10 ; DM (diabetes mellitus) E11.9 ; Insomnia G47.00 ; Hyperlipidemia E78.5 ; Anemia D64.9 ; Tubular adenoma D36.9 ; Vitamin D deficiency E55.9 ; Cardiovascular event risk Z91.89 ; H. pylori infection B96.81 ; Back pain of lumbar region with sciatica M54.40 ; Illiteracy Z55.0 ; Forgetfulness R68.89 and Age-related nuclear cataract of both eyes H25.13 ASSESSMENTS Encounter Date Diagnosis Assessment Notes Treatment Notes Treatment Clinical Notes 04/01/2022 Essential (primary) hypertension (ICD-10 - I10) 09/25/2022 Essential (primary) hypertension (ICD-10 - I10) 09/25/2022 DM (diabetes mellitus) (ICD-10 - E11.9) 04/01/2022 DM (diabetes mellitus) (ICD-10 - E11.9) 04/01/2022 Insomnia (ICD-10 - G47.00) 09/25/2022 Insomnia (ICD-10 - G47.00) 04/01/2022 Hyperlipidemia (ICD-10 - E78.5) 09/25/2022 Hyperlipidemia (ICD-10 - E78.5) 04/01/2022 Anemia (ICD-10 - D64.9) 09/25/2022 Anemia (ICD-10 - D64.9) 04/01/2022 Tubular adenoma (ICD-10 - D36.9) 09/25/2022 Tubular adenoma (ICD-10 - D36.9) 04/01/2022 Vitamin D deficiency (ICD-10 - E55.9) 09/25/2022 Vitamin D deficiency (ICD-10 - E55.9) 04/01/2022 Cardiovascular event risk (ICD-10 - Z91.89) 09/25/2022 Cardiovascular event risk (ICD-10 - Z91.89) 04/01/2022 H. pylori infection (ICD-10 - B96.81) 09/25/2022 H. pylori infection (ICD-10 - B96.81) 09/25/2022 Back pain of lumbar region with sciatica (ICD-10 - M54.40) 04/01/2022 Back pain of lumbar region with sciatica (ICD-10 - M54.40) 04/01/2022 Illiteracy (ICD-10 - Z55.0) 09/25/2022 Illiteracy (ICD-10 - Z55.0) 09/25/2022 Forgetfulness (ICD-1 0 - R68.89) 04/01/2022 Forgetfulness (ICD-1 0 - R68.89) 09/25/2022 Age-related nuclear cataract of both eyes (ICD-10 - H25.13) 04/01/2022 Age-related nuclear cataract of both eyes (ICD-10 - H25.13) PLAN OF TREATMENT No Information Insurance Providers Payer Name Payer Address Payer Phone Subscriber Number Group Number Insured Name Patient Relationship to Insured Coverage Start Date Coverage End Date [facility] [employer] ([id number] [facility] [address] [place] [address] [id number] Carlos Hobbs Self - patient is the insured 8 9 MEDICAL (GENERAL) HISTORY Surgical History Surgery Date(Month/Year) cholecystectomy kidney stones
--- NOTE | 2023-02-03 09:20 | PC.NURSE ---
LABS BEING DRAWN
[2023-02-03 09:27] LABS: Hematocrit 41.5 % (42.0-52.0); Hemoglobin 13.6 g/dl (14.0-18.0); Mean Corpuscular HGB Conc 32.8 g/dl (31.0-36.0); Mean Corpuscular Hemoglobin 28.5 pg (27.0-33.0); Platelet Count 241 X10*3/uL (160-400); Red Blood Count 4.77 X10*6/uL (4.60-5.80); Red Cell Distribution Width 13.8 % (11.0-16.0); White Blood Count 6.9 X10*3/uL (4.8-10.8)
--- NOTE | 2023-02-03 09:31 | PC.NURSE ---
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 PATIENT POOR HISTORIAN WITH THE CARDIOLOGY.
[2023-02-03 09:47] LABS: Anion Gap 12 (12-20); Blood Urea Nitrogen 24 mg/dL (9-16); Calcium 9.9 mg/dL (8.4-10.2); Carbon Dioxide 26 mmol/L (22-29); Chloride 107 mmol/L (96-108); Creatinine Clr Calc Pharmacy 48.3; Estimated Glomerular Filt Rate > 60; Glucose Fasting 148 mg/dL (60-99); Potassium 5.3 mmol/L (3.3-5.1); Sodium 140 mmol/L (135-145)
[2023-02-03] MEDS: Lactated Ringers 1,000 ML 100 ML IVCONT (09:48)
[2023-02-03 09:51] LABS: Glucose, Whole Blood 133 mg/dL (60-115)
[2023-02-03 10:12] LABS: Base Excess Bedside Calculated 2 mmol/L (-3-3); Glucose, i-STAT 139 mg/dL (60-115); HCO3 Bedside Calculated 27 mmol/L (22-26); Hematocrit Bedside 37 %PCV (42-52); Hemoglobin Bedside 12.6 g/dL (14.0-18.0); Potassium Bedside 4.5 mmol/L (3.3-5.1); Sodium Bedside 139 mmol/L (135-145); TCO2 Bedside 28 mmol/L (24-29); pCO2 Bedside 45 mmhg (35-48); pH Bedside 7.39 (7.35-7.45)
--- NOTE | 2023-02-03 10:17 | MHC.SHP ---
Pre-Procedural Eval Section A Date of Service: 02/03/23 The patient is an INPATIENT: No Changes since office visit: No Cold of Flu in the past 2 weeks, No New Medical Problems, No Changes in Medication and No Patient answered all questions The History & Physical has been completed within 30 days and I have reviewed it.: Yes Section B Chief Complaint: Unspecified rotator cuff tear or rupture of right Allergies: Allergies Allergy/AdvReac Type Severity Reaction Status Date / Time atorvastatin [Lipitor] Allergy Unknown unknown Verified 01/07/23 13:19 Plan I have reviewed the history and physical and performed a pertinent physical examination on my patient. No changes have occurred unless specified. Time Spent With Patient Time: Total time managing care of this patient today ____ minutes.
--- NOTE | 2023-02-03 13:04 | P.BOP_ITS ---
Brief Operative Note Date of Service: 02/03/23 Pre-op diagnosis: left RTC tear Post-op diagnosis: same Procedure: Left rtc repair and SAD Implants: Vill[employer]enor [employer]hew Helacoil double loaded x 4 and 5.5 knotless Helacoil x 2 Surgeon: Inocente Huerta MD Anesthesia: GETA and regional Was an Sports Physiotherapist used for this Procedure?: Yes Sports Physiotherapist: Rukhsana Willett Estimated blood loss (mL): 5 IV fluids (mL): 1,000 Pathology: none sent Condition: stable Disposition: PACU
--- NOTE | 2023-02-03 13:06 | W.PM.OPN ---
Operative Note Operative Note Date of Service: 02/03/23 Narrative: Date of Service: 02/03/23 Pre-op diagnosis: Right RTC tear Post-op diagnosis: same Procedure: Right rtc repair and SAD Implants: Vill[employer]en[employer]hew Helacoil double loaded x 4 and 5.5 knotless Helacoil x 2 Surgeon: Inocente Huerta MD Anesthesia: GETA and regional Was an Quarter Inspector used for this Procedure?: Yes Quarter Inspector: Rukhsana Willett Estimated blood loss (mL): 5 IV fluids (mL): 1,000 Pathology: none sent Condition: stable Disposition: PACU Procedure in detail: Patient was brought to the operating room and placed the the beach chair position. All bony prominences were well padded and the limb was prepped and draped in standard sterile fashion. A time out was called to identify proper site, proper procedure and proper surgeon. IV antibiotics per weight were administered. I began by making a posterolateral stab incision with a 15 blade. A blunt trochar was placed into the glenohumeral joint and I insufflated the joint with saline and a 30 degree arthroscope was placed. I established an outside- in anterior portal just distal to the biceps tendon. I then began my inspection of the glenohumeral joint. There was an intact biceps that with fraying of the posterosuperior labrum and G2 degenerative changes of the humeral head and G1 changes of the glenoid. There was a full thickness undersurface RTC tear. The subcapularis was intact. I debrided the loose cartilage of the glenoid and the degenerative labral tearing. I then removed the trochar and entered the subacromial space. A direct lateral portal was then established and I performed a bursectomy. The cuff was then examined. There was a complete full thickness tear of the supra and infraspinatus with mild retraction. The tear was mobile. I placed three medial row double loaded anchors and then brought the suture tape through the medial cuff. One of the anchors pulled out and an additional one was implanted in the same space. I then debrided the bare area down to bleeding bone and, using a cross bridge configuration, brought 6 limbs to each of two lateral 5.5 anchors. This re-approximated the cuff anatomy near anatomically. I then performed a 5 mm subacromial decompression. Once I was satisfied with the repair final images were captured and I removed all instrumentation. Portals were closed with nylon. Patient was placed in an abduction sling, extubated and brought to the recovery room in stable condition. There were no known complications.
[2023-02-04 06:39] LABS: pO2 Bedside < 50 mmhg (83-108)
== END 2023-02-03 14:52 | disposition home or self-care (01) ==
PROVIDERS: Nurse Practitioner; PCP General Practice; Visit Provider Orthopaedic Surgery
PROC: (CPT 29827; principal; 2023-02-03 11:00)
DX: M75.101 Unspecified rotator cuff tear or rupture of right shoulder, not specified as traumatic (principal); M25.511 Pain in right shoulder; M19.011 Primary osteoarthritis, right shoulder; Z87.828 Personal history of other (healed) physical injury and trauma; I10 Essential (primary) hypertension; R22.1 Localized swelling, mass and lump, neck; Z88.8 Allergy status to other drugs, medicaments and biological substances; Z90.49 Acquired absence of other specified parts of digestive tract; R00.2 Palpitations; Z79.82 Long term (current) use of aspirin; Z79.84 Long term (current) use of oral hypoglycemic drugs; Z79.899 Other long term (current) drug therapy
CPT/HCPCS: 29827; 29826; 36415; 80048; 82947; 85027; 93005; C1713; J0171; J0690; J1100; J2405

== ENCOUNTER → 2023-02-03 09:03 | Outpatient (BNV) | payer OTHER, SELFPAY | PROVIDERS: PCP General Practice; Visit Provider Orthopaedic Surgery | DX: M75.121 Complete rotator cuff tear or rupture of right shoulder, not specified as traumatic (principal) | CPT/HCPCS: 29826; 29827 ==

== ENCOUNTER 2023-02-17 12:30 | Outpatient (AMB) | payer OTHER, SELFPAY ==
--- NOTE | 2023-02-17 12:34 | MHC.OFFVIS ---
Intake Intake Visit Reasons: PO - Right Should w/ RTC Repair 02/03/23 NE Intake Note: is a 72 year old male who presents today for a post op appointment s/p right shoulder w/ RTC repair 02/03/23 NE. Patient reports he is still having pain near the incision site. Allergies atorvastatin [Lipitor] Allergy (Unknown, Verified 01/07/23 13:19) unknown HPI PO - Right Should w/ RTC Repair 02/03/23 NE HPI Details 72-year-old male who returns to the office today with an platinum smith for post-op right shoulder and RTC repair, 02/03/[address] Huerta. He continues to have pain in his shoulder near the incision site. He also c/o discomfort in his shoulder with the use of sling which makes him difficult to sleep at night. [facility] Medical History (Updated 02/17/23 @ 13:27 by Monique Fishman PA-C) Palpitations Mass of left side of neck Surgical History History of cholecystectomy Family History Sister History of pancreatic cancer Social History Alcohol intake: current Alcohol intake frequency: holidays/special occasions only Patient Tobacco Use Status: Never used Tobacco Current occupational status: disabled Current occupation: right hand dominant Review of Systems Const All systems reviewed & are unremarkable except as noted in HPI and below Physical Exam Extrem Other: Right shoulder: Normal to inspection. Incision clean, dry and intact. He has no significant swelling. There is some ecchymosis along the proximal bicep region. NVI. Assessment & Plan Assessment & Plan (1) Biceps tendonitis on right: Code(s): M75.21 - Bicipital tendinitis, right shoulder (2) Rotator cuff tendonitis: Code(s): M75.80 - Other shoulder lesions, unspecified shoulder Qualifiers: Laterality: right Qualified Code(s): M75.81 - Other shoulder lesions, right shoulder Plan Intraoperative photos were reviewed with the patient today. I did explain the extent of the surgery. He will begin physical therapy tomorrow to work on ROM and periscapular stabilization. I stressed the importance of sling use and no reaching or lifting above shoulder height. Sutures removed today, steri strips applied. He will see back in the office in [address] Huerta, sooner if needed. Patient Instructions: Scribed for Monique Fishman PA-C, by Mateo Cazares, biomedical engineer, on 02/17/2023 at 12:30 PM EST. I, Monique Fishman PA-C, have personally reviewed and agree with the information entered by the scribe. Coding Level of Care Code Global (79552) Diagnoses Biceps tendonitis on right M75.21 Tendinitis of right rotator cuff M75.81 Laterality: right
== END 2023-02-17 13:18 | disposition home or self-care (01) ==
PROVIDERS: PCP General Practice; Visit Provider Physician Assistant
DX: M75.21 Bicipital tendinitis, right shoulder (principal); M75.81 Other shoulder lesions, right shoulder
CPT/HCPCS: 99024

== ENCOUNTER → 2023-02-17 12:30 | Outpatient (BNVA) | payer OTHER, SELFPAY | PROVIDERS: PCP General Practice; Visit Provider Physician Assistant ==

== ENCOUNTER 2023-03-18 14:03 | Outpatient (AMB) | payer OTHER, SELFPAY ==
--- NOTE | 2023-03-18 14:04 | A.OFFVIS_ITS ---
Intake Vital Signs 03/18/23 14:07 Height 5 ft 5 in Intake Visit Reasons: p.o -Rt rtc repair 02/03 w NE Intake Note: is a 72 year old -- hand dominant male who presents today for a post operative appointment s/p Right Rotator Cuff Repair 02/03/23. Patient reports that he is having continued pain. Allergies atorvastatin [Lipitor] Allergy (Unknown, Verified 03/18/23 14:05) unknown HPI p.o -Rt rtc repair 02/03 w NE HPI Details is a 72 year old man who presents ~10 weeks S/P right RTC repair with SAD. Romanian patient. He complains of continues pain that radiates from his shoulder down into his elbow. He has been attending PT and is seen today wearing his sling [facility] Medical History Palpitations Mass of left side of neck Surgical History History of cholecystectomy Family History Sister History of pancreatic cancer Social History Alcohol intake: current Alcohol intake frequency: holidays/special occasions only Patient Tobacco Use Status: Never used Tobacco Current occupational status: disabled Current occupation: right hand dominant Review of Systems Const All systems reviewed & are unremarkable except as noted in HPI and below Physical Exam Const General: no acute distress, alert and awake Orientation/consciousness: patient oriented x3 HEENT Head: Yes normocephalic and Yes atraumatic Eyes EOM: EOMs intact bilaterally Resp Effort & Inspection: normal respiratory effort and able to speak in complete sentences Cardio Jugular venous distension: no JVD Skin General skin exam: turgor normal Rashes: no rashes Neuro General: patient oriented x3 Extrem Other: Right Shoulder: Well-healed portals passive Psych Appearance: grossly normal Affect: normal affect Attitude: cooperative Assessment & Plan Assessment & Plan (1) Status post right rotator cuff repair: Code(s): Z98.890 - Other specified postprocedural states Plan: This is a 72 year old man S/P right RTC repair with SAD, DOS: 02/03/23. He continues to have pain that radiates down from his shoulder into his hand. He has been attending PT and has been wearing his sling since his surgery. I recommend he continue with PT, avoid any heavy or overhead activities, and NSAIDs. He will follow up in 6 weeks. Sent narcotics and recommend decrease dose. Discussed that pain is expected and he needs to take it ez which he is NOT doing. Plan Scribed for Inocente Huerta MD by Deepak Cornelius, medical claims examiner, on 03/18/23 at 2 :20 PM, EST. Medications: Changed From oxycodone-acetaminophen 5-325 mg Partial Fill upon patient request. 1 tab PO Q6H 7 days PRN 28 tabs 0RF pain (scale score 4-6) To oxycodone-acetaminophen 5-325 mg (Percocet) Partial Fill upon patient request. 1 tab PO DAILY 28 days PRN 28 tabs 0RF pain (scale score 4-6) Coding Level of Care Code Global (26866) Diagnoses Status post right rotator cuff repair Z98.890
== END 2023-03-18 15:18 | disposition home or self-care (01) ==
PROVIDERS: PCP General Practice; Visit Provider Orthopaedic Surgery
DX: Z98.890 Other specified postprocedural states (principal)
CPT/HCPCS: 99024

== ENCOUNTER → 2023-03-18 14:03 | Outpatient (BNVA) | payer OTHER, SELFPAY | PROVIDERS: PCP General Practice; Visit Provider Orthopaedic Surgery ==

== ENCOUNTER 2023-04-20 08:46 | Outpatient (REF) | payer OTHER, SELFPAY ==
[2023-04-20 11:38] LABS: MANUAL DIFF FLAG NO
[2023-04-20 11:40] LABS: Basophils Absolute Auto 0.1 X10*3/uL (0.0-0.2); Basophils Percent Auto 0.8 % (0-2); Eosinophils Absolute Auto 0.3 X10*3/uL (0.0-0.4); Eosinophils Percent Auto 4.4 % (0-4); Hematocrit 37.5 % (42.0-52.0); Imm Gran Abs Auto 0.02 X10*3/uL (0.00-0.03); Imm Gran Pct Auto 0.3 % (0.0-0.4); Lymphocytes Absolute Auto 1.6 X10*3/uL (1.2-4.9); Mean Corpuscular Volume 90.6 fL (80.0-98.0); Mean Platelet Volume 10.9 fL (9.4-12.4); Monocytes Absolute Auto 0.4 X10*3/uL (0.1-1.2); Monocytes Percent Auto 6.7 % (2-11); Neutrophils Absolute Auto 4.2 x10*3/uL (2.0-8.3); Neutrophils Percent Auto 63.8 % (45-73); Platelet Count 240 X10*3/uL (160-400); Red Blood Count 4.14 X10*6/uL (4.60-5.80); Red Cell Distribution Width 13.8 % (11.0-16.0); White Blood Count 6.6 X10*3/uL (4.8-10.8)
[2023-04-20 11:49] LABS: Estimated Average Glucose 157 mg/dL; Hemoglobin A1c % 7.1 % (<6.0)
[2023-04-20 12:00] LABS: Alanine Aminotransferase 9 U/L (0-40); Albumin Level 4.4 g/dL (3.5-5.0); Alkaline Phosphatase 63 U/L (39-117); Anion Gap 11 (12-20); Aspartate Amino Transferase 16 U/L (5-37); Bilirubin Direct 0.1 mg/dL (0.0-0.5); Bilirubin Total 0.4 mg/dL (0.0-1.0); Blood Urea Nitrogen 20 mg/dL (9-16); Calcium 9.5 mg/dL (8.4-10.2); Carbon Dioxide 28 mmol/L (22-29); Chloride 103 mmol/L (96-108); Cholesterol 249 mg/dL (<200); Estimated Glomerular Filt Rate > 60; Glucose Random 140 mg/dL (60-115); HDL Cholesterol 45 mg/dL (>40); LDL Cholesterol Calculated 166 mg/dL (<100); Potassium 4.4 mmol/L (3.3-5.1); Sodium 138 mmol/L (135-145); Total Protein 7.5 g/dL (6.5-8.0); Triglycerides 194 mg/dL (<150)
[2023-04-20 12:13] LABS: HBS Num1 279.41 mIU/mL (0-7.99); HBsAGNum1 0.31 S/CO (0.00-0.99); HIV AB/AG Nonreactive (Nonreactive); HIV Num 1 0.07 S/CO (0.00-0.99); Hepatitis A Antibody IgG REACTIVE (Nonreactive); Hepatitis B Surface Antigen Negative (Negative); ~HepC Num1 0.02 S/CO (0.00-0.79); ~Hepatitis A Antibody IgG 12.35 S/CO (0.00-0.99); ~Hepatitis B Surface Antibody REACTIVE (Nonreactive); ~Hepatitis C Antibody Nonreactive (Nonreactive)
[2023-04-20 12:14] LABS: Syphilis Screen Nonreactive (Nonreactive)
[2023-04-20 12:15] LABS: Creatinine Urine 122.74 mg/dL
[2023-04-20 12:16] LABS: Free T4 (Free Thyroxine) 0.96 ng/dL (0.71-1.85); Thyroid Stimulating Hormone 1.29 uIU/mL (0.32-4.0); Vitamin D 25-OH Total 35.3 ng/mL (>30)
[2023-04-20 13:32] LABS: CT PCR NOT DETECTED (Not Detect.); NG PCR NOT DETECTED (Not Detect.)
[2023-04-21 16:19] LABS: Iron 51 mcg/dL (45-160); Percent Iron Saturation 18 % (15-50); Total Iron Binding Capacity 286 mcg/dL (228-428); Unsaturated Iron Binding 235 ug/dL
[2023-04-21 16:47] LABS: Vitamin B12 467 pg/mL (200-900)
== END 2023-04-20 08:47 | disposition home or self-care (01) ==
LOC: HO.HHCL 08:46
PROVIDERS: Visit Provider Family Medicine
DX: E11.65 Type 2 diabetes mellitus with hyperglycemia (principal); Z20.2 Contact with and (suspected) exposure to infections with a predominantly sexual mode of transmission; E55.9 Vitamin D deficiency, unspecified
CPT/HCPCS: 0353U; 80048; 80061; 80076; 82043; 82306; 82570; 82607; 82746; 83036; 83540; 84439; 84443; 85025; 86706; 86708; 86780; 86803; 87340; 87389

== ENCOUNTER 2023-05-03 10:36 | Outpatient (AMB) | payer OTHER, SELFPAY ==
--- NOTE | 2023-05-03 10:39 | A.OFFVIS_ITS ---
Intake Intake Visit Reasons: p.o -Rt rtc repair 02/03 w NE Intake Note: is a 72 year old right hand dominant male who presents today for a post operative appointment s/p Right Rotator Cuff Repair 02/03/23 Allergies atorvastatin [Lipitor] Allergy (Unknown, Verified 05/03/23 10:42) unknown HPI p.o -Rt rtc repair 02/03 w NE HPI Details is a 72 year old man who presents ~3 months S/P right RTC repair with SAD. Upper Sorbian patient. He complains of night pain and right hand numbness at night. [facility] Medical History Palpitations Mass of left side of neck Surgical History History of cholecystectomy Family History Sister History of pancreatic cancer Alcohol intake: current Alcohol intake frequency: holidays/special occasions only Patient Tobacco Use Status: Never used Tobacco Current occupational status: disabled Current occupation: right hand dominant Physical Exam Const General: no acute distress, alert and awake Orientation/consciousness: patient oriented x3 HEENT Head: Yes normocephalic and Yes atraumatic Eyes EOM: EOMs intact bilaterally Resp Effort & Inspection: normal respiratory effort and able to speak in complete sentences Cardio Jugular venous distension: no JVD Skin General skin exam: turgor normal Rashes: no rashes Neuro General: patient oriented x3 Extrem Other: Right Shoulder: Well-healed portals passive Active ( with scapular recruitment). Right hand with TTP over LF A1 ashley and mildly + Tinel's at cubital tunnel. Psych Appearance: grossly normal Affect: normal affect Attitude: cooperative Assessment & Plan Assessment & Plan (1) Status post right rotator cuff repair: Code(s): Z98.890 - Other specified postprocedural states Plan: This is a 72 year old man S/P right RTC repair with SAD, DOS: 02/03/23. He continues to have pain that radiates down from his shoulder. He has been attending PT. I recommend he continue with PT, avoid any heavy or overhead activities, and NSAIDs. He should be mindful to not overuse his shoulder and not to push through pain. HE has been openly non compliant with his shoulder. It appears that the cuff is still intact. . (2) Numbness and tingling in right hand: Code(s): R20.0 - Anesthesia of skin; R20.2 - Paresthesia of skin Plan: EMG/NCV ordered. Orders: Orders NE nerve conduction velocity Today R20.0 - Anesthesia of skin NE electromyogram (EMG) Today R20.0 - Anesthesia of skin, R20.2 - Paresthesia of skin Coding Level of Care Code Global (20013) Diagnoses Status post right rotator cuff repair Z98.890 Numbness and tingling in right hand R20.0; R20.2
== END 2023-05-03 11:42 | disposition home or self-care (01) ==
PROVIDERS: PCP General Practice; Visit Provider Orthopaedic Surgery
DX: Z98.890 Other specified postprocedural states (principal); R20.0 Anesthesia of skin; R20.2 Paresthesia of skin
CPT/HCPCS: 99024

== ENCOUNTER → 2023-05-03 10:36 | Outpatient (BNVA) | payer OTHER, SELFPAY | PROVIDERS: PCP General Practice; Visit Provider Orthopaedic Surgery ==

== ENCOUNTER 2023-05-06 14:00 | Outpatient (RCR) | payer OTHER, SELFPAY ==
[2023-02-18 09:17] VITALS: BP 139/68; PULSE 73
--- NOTE | 2023-02-18 11:00 | MHC.PT.EP ---
[facility] [place] Office [place] Office [place] Office [address] [phone] F: [phone] F: [phone] F: [phone] F: [phone] Physical Therapy Plan of Care Date of Evaluation: 02/18/23 Date of Surgery: 02/03/23 Diagnosis: Unspecified rotator cuff tear or rupture of R shoulder, not specified as traumatic R RTC repair and SAD Assessment: is a 72 year old male who is referred to PT for Unspecified rotator cuff tear or rupture of R shoulder, not specified as traumatic, R RTC repair and SAD . He is 2 weeks post op. Supraspinatus and infraspinatus repair was done per op notes. Subscap was intact. On PT examination he came in with a sling which was not in a good position, presented with TTP all along shoulder joint line, decreased shoulder ROM, 9/10 shoulder pain at rest and with movement and altered posture. He lives with his daughter and is independent with self care activities but his daughter does all IADLS at home. He is unemployed. He would benefit from skilled PT to address the aforementioned impairments and improve tolerance to functional activities. Frequency and Duration: The patient will be seen 2 week for 12 weeks Short Term Goals: 1. Pt will demonstrate correct technique for donning and doffing sling in 2 weeks. 2. Pt will be able to move his shoulder through all planes of motion with pain no more than 3/10 which will enable him to dress himself without modifications in 6 weeks Cake Washer Goals: 1. Pt will demonstrate an increase in muscle strength by 1 grade which will enable him to participate in cleaning and cooking at home with pain no more than 3/10 in 10 weeks. 2. Pt will be independent with [facility] for symptom management and maintenance following d/c in 12 weeks. Treatment Plan: Modalities to reduce pain, spasms and effusion. Manual therapy to restore motion and function. Therapeutic exercise to improve strength and flexibility. Neuromuscular re-education for posture and balance. Therapeutic activities to return to functional activities of daily living. Electronically signed by: Vielka Capone PT DPT Please sign and return to therapist. Thank you for your referral.
--- NOTE | 2023-05-25 09:44 | MHC.PT.DC ---
[facility] [place] Office [place] Office [place] Office [address] Shala Kirk [address] [phone] F: [phone] F: [phone] F: [phone] F: [phone] Physical Therapy Discharge Report Diagnosis: Unspecified rotator cuff tear or rupture of R shoulder, not specified as traumatic R RTC repair and SAD Date of Surgery: 02/03/23 Date of Evaluation: 02/18/23 Date of Discharge: 05/25/23 Treatments to Date: 19 Cancellations to Date: 1 No Shows to Date: 0 Discharge Status: Improved Function Independent with HEP Discharge Summary: completed 19 PT visits and is independent with all HEP. He made significant improvements with PT. He is therefore being d/c from PT. Electronically signed by: Vielka Capone, PT DPT Please sign and return to therapist. Thank you for your referral.
== END 2023-05-25 09:44 | disposition home or self-care (01) ==
LOC: HO.PT 14:00
PROVIDERS: PCP General Practice; Visit Provider Physician Assistant
DX: M75.21 Bicipital tendinitis, right shoulder (principal); M75.101 Unspecified rotator cuff tear or rupture of right shoulder, not specified as traumatic
CPT/HCPCS: 97110; 97112; 97140; 97161; 97530

== ENCOUNTER 2023-05-28 11:03 | Outpatient (REF) | payer OTHER, SELFPAY | END 2023-05-28 11:04 | disposition home or self-care (01) | LOC: HO.HHCX 11:03 | PROVIDERS: Visit Provider Family Medicine | DX: M54.9 Dorsalgia, unspecified (principal); M79.601 Pain in right arm | CPT/HCPCS: 72040; 72070; 73030 ==

== ENCOUNTER 2023-06-17 12:46 | Outpatient (REF) | payer OTHER, SELFPAY ==
--- NOTE | 2023-06-17 12:54 | EMG_ITS ---
Chief complaint: Complaining of right hand numbness He did have Right Rotator Cuff Repair 02/03/23. Reason for referral: Evaluate for Carpal Tunnel Syndrome Referred by: Dr. Huerta Procedure done: Right upper extremity NCS/EMG Precautions and/or limitations: Kazakh speaking, seen with a teletype telegrapher The limb temperature was monitored continuously and remained between 32-36 degrees C during the performance of the NCS. Nerve Conduction Studies Anti Sensory Summary Table ?Stim Site NR Onset (ms) Norm Onset (ms) Peak (ms) Norm Peak (ms) O-P Amp (?V) Norm O-P Amp Site1 Site2 Delta-0 (ms) Dist (cm) Roman (m/s) Norm Roman (m/s) Right Median Anti Sensory (2nd Digit) Wrist ? 5.1 6.3 <3.6 8.9 >10 Wrist 2nd Digit 5.1 14.0 27 Right Radial Anti Sensory (Thumb) Forearm ? 1.9 2.3 <3.1 22.2 Forearm Thumb 1.9 0.0 Right Ulnar Anti Sensory (5th Digit) Wrist ? 2.1 3.1 <3.7 33.2 >15.0 Wrist 5th Digit 2.1 14.0 67 Motor Summary Table ?Stim Site NR Onset (ms) Norm Onset (ms) O-P Amp (mV) Norm O-P Amp iAmp (mV) Amp (1st) (%) Site1 Site2 Delta-0 (ms) Dist (cm) Roman (m/s) Norm Roman (m/s) Right Median Motor (Abd Poll Brev) Wrist ? 9.1 <3.9 2.5 >4.5 3.3 100.0 Elbow Wrist 4.8 23.0 48 >45 Elbow ? 13.9 1.9 2.4 76.0 Right Ulnar Motor (Abd Dig Minimi) Wrist ? 3.0 <3.0 7.8 >5 11.6 100.0 B Elbow Wrist 3.9 21.0 54 >45 B Elbow ? 6.9 6.8 10.8 87.2 A Elbow B Elbow 1.7 10.0 59 >45 A Elbow ? 8.6 6.6 9.9 84.6 EMG ?Side Muscle Nerve Root Ins Act Fibs Psw Amp Dur Poly Recrt Int Pat Comment Right 1stDorInt Ulnar C8-T1 Nml Nml Nml Nml Nml 0 Nml Complete Right FlexCarRad Median C6-7 Nml Nml Nml Nml Nml 0 Nml Complete Right Biceps Musculocut C5-6 Nml Nml Nml Nml Nml 0 Nml Complete Right Triceps Radial C6-7-8 Nml Nml Nml Nml Nml 0 Nml Complete Right Deltoid Axillary C5-6 Nml Nml Nml Nml Nml 0 Nml Complete Paraspinal EMG ?Side Muscle Nerve Root Ins Act Fibs Psw Comment Right Cervical Upper Rami Nml Nml Nml Right Cervical Mid Rami Nml Nml Nml Right Cervical Lower Rami Nml Nml Nml FINDINGS: Right median motor nerve showed prolonged distal latency, small amplitude and normal conduction velocity. Right median sensory nerve showed prolonged peak latency and small amplitude. All other nerves tested were within normal. Concentric needle EMG was performed in selected muscles of the right upper extremity and cervical paraspinals. Study did not reveal signs of electric abnormalities as shown in the table below. IMPRESSION: 1. This is an abnormal study. 2. 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 3. There is no electrodiagnostic evidence for ulnar neuropathy, brachial plexopathy, or cervical radiculopathy. Thank you for your kind referral. Heena Albarado MD, JACKELIN Board Certified, [place] Board of Physical Medicine and Rehabilitation (ABPMR) Board Certified, [place] Board of Electrodiagnostic Medicine (ABEM) CODIN [id number] MTDD
== END 2023-06-17 12:47 | disposition home or self-care (01) ==
LOC: HO.NEURO 12:46
PROVIDERS: PCP Family Medicine; Visit Provider Orthopaedic Surgery
DX: R20.0 Anesthesia of skin (principal); R20.2 Paresthesia of skin; M79.601 Pain in right arm
CPT/HCPCS: 95886; 95909

== ENCOUNTER → 2023-06-17 12:54 | Outpatient (BNV) | payer OTHER, SELFPAY | PROVIDERS: PCP Family Medicine; Visit Provider Physical Medicine & Rehabilitation | DX: G56.11 Other lesions of median nerve, right upper limb (principal); R20.2 Paresthesia of skin | CPT/HCPCS: 95886; 95909 ==

== ENCOUNTER 2023-08-31 18:02 | Outpatient (REF) | payer OTHER, SELFPAY | END 2023-08-31 18:03 | disposition home or self-care (01) | LOC: HO.HHCLNP 18:02 | PROVIDERS: Visit Provider Internal Medicine | DX: R39.9 Unspecified symptoms and signs involving the genitourinary system (principal) | CPT/HCPCS: 87086 ==

== ENCOUNTER 2023-10-29 16:13 | Emergency (ER) | payer OTHER, SELFPAY ==
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
[2023-10-29 16:26] VITALS: BP 100/62; BP 92/56; PULSE 80; RESP 16; TEMP 36.8; O2SAT 98; BMI 25.4
[2023-10-29 16:36] LABS: Glucose, Whole Blood 141 mg/dL (60-115)
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
[2023-10-29 16:52] LABS: MANUAL DIFF FLAG NO
[2023-10-29 17:00] LABS: Basophils Absolute Auto 0.1 X10*3/uL (0.0-0.2); Basophils Percent Auto 0.7 % (0-2); Eosinophils Absolute Auto 0.3 X10*3/uL (0.0-0.4); Eosinophils Percent Auto 4.4 % (0-4); Hematocrit 34.2 % (42.0-52.0); Hemoglobin 11.1 g/dl (14.0-18.0); Imm Gran Abs Auto 0.03 X10*3/uL (0.00-0.03); Imm Gran Pct Auto 0.4 % (0.0-0.4); Lymphocytes Absolute Auto 1.7 X10*3/uL (1.2-4.9); Lymphocytes Percent Auto 24.4 % (20-40); Mean Corpuscular HGB Conc 32.5 g/dl (31.0-36.0); Mean Corpuscular Hemoglobin 27.3 pg (27.0-33.0); Mean Corpuscular Volume 84.2 fL (80.0-98.0); Monocytes Absolute Auto 0.6 X10*3/uL (0.1-1.2); Monocytes Percent Auto 8.5 % (2-11); Neutrophils Absolute Auto 4.2 x10*3/uL (2.0-8.3); Neutrophils Percent Auto 61.6 % (45-73); Platelet Count 237 X10*3/uL (160-400); Red Blood Count 4.06 X10*6/uL (4.60-5.80); Red Cell Distribution Width 14.8 % (11.0-16.0); White Blood Count 6.8 X10*3/uL (4.8-10.8)
[2023-10-29 17:04] LABS: Ethanol 236 mg/dL
[2023-10-29 17:08] LABS: Alanine Aminotransferase 11 U/L (0-40); Alkaline Phosphatase 58 U/L (39-117); Anion Gap 12 (12-20); Aspartate Amino Transferase 15 U/L (5-37); Bilirubin Total 0.3 mg/dL (0.0-1.0); Blood Urea Nitrogen 21 mg/dL (9-16); Calcium 8.5 mg/dL (8.4-10.2); Carbon Dioxide 21 mmol/L (22-29); Chloride 104 mmol/L (96-108); Creatinine Clr Calc Pharmacy 38.5; Estimated Glomerular Filt Rate 47; Glucose Random 139 mg/dL (60-115); Lipase 36 U/L (8-78); Magnesium 2.4 mg/dL (1.6-2.6); Potassium 4.9 mmol/L (3.3-5.1); Sodium 132 mmol/L (135-145); Total Protein 6.9 g/dL (6.5-8.0)
[2023-10-29 17:09] LABS: Prothrombin Time 11.6 SEC (11.1-13.3)
[2023-10-29 17:16] LABS: Troponin-I High Sensitivity < 2.7 ng/L (<3.5-35.0)
--- NOTE | 2023-10-29 17:34 | PC.NURSE ---
pt to ct scan
[2023-10-29] MEDS: 0.9 % Sodium Chloride 1,000 ML 999 ML IV (17:50)
--- NOTE | 2023-10-29 17:51 | PC.NURSE ---
IVF per order
--- OUTSIDE RECORDS SUMMARY | 2023-10-29 17:52 | XMS_ITS | Patient Health Record ---
Author Organization [facility] liance Address [address] [place] [address] Care Team Providers Care Hospital Supervisor Name Role Phone Papi Oakleyerick Primary Care Provider Unavailabl e Clinical, Operations Unavailable Unavailable Gilda Quarles Unavailable [phone] Maddie Graff Unavailable [phone] ALLERGIES No Known Allergies REASON FOR REFERRAL No Information MEDICATIONS Medication SIG (Take, Route, Frequency, Duration) Notes Start Date End Date Status oxyCODONE HCl 5 MG 1 tablet as needed Orally three times daily Active Methocarbamol 500 MG 1 tablet as needed Orally twice a day Active Ibuprofen 800 MG 1 tablet with food or milk as needed Orally Three times a day Active Lisinopril 20 MG 1 tablet Orally Once a day Active metFORMIN HCl 500 MG 1 tablet with meals Orally Twice a day Active Januvia 100 MG 1 tablet Orally Once a day Active Atorvastatin Calcium 80 MG 1 tablet Orally Once a day Active Gabapentin 300 MG 1 capsule Orally Once a day Active Omeprazole 40 MG 1 capsule 30 minutes before morning meal Orally Once a day Active Zolpidem Tartrate 10 MG 1 tablet at bedtime as needed Orally Once a day Active Aspirin 81 MG 1 tablet Orally Once a day doctor discontinued Not-Taking IMMUNIZATIONS Vaccine Route Administration Date Status Comme nts COVID-19 COMIRNATY Vaccine, Fall 2022, SARS-CoV-2 virus strain Omicron XBB.1.5 Unknown 05/28/2023 Administered Flu Vac (Fluzone /Alfuria) QIV PFS Unknown 04/18/2021 A dministered Flu Vac (Fluzone /Alfuria) QIV PFS Unknown 05/28/2023 A dministered Moderna COVID-19 Vaccine IM Unknown 08/19/2020 Administ ered Moderna COVID-19 Vaccine IM Unknown 09/16/2020 Administ ered Moderna COVID-19 Vaccine IM Unknown 05/19/2021 Administ ered SOCIAL HISTORY Sex Assigned At : Social History Observation Description Sex Assigned At Unknown PROBLEMS Problem Type ICD Code Onset Dates Problem Status W/U Status Risk SNOMED Code Notes Problem Anemia (D64.9) Active confirmed Anemia (643917958) Problem Essential (primary) hypertension (I10) Active confirmed Essential hypertension (70720688) Problem Insomnia (G47.00) Active confirmed Inso mnia (663928240) Problem CAD in telida artery (I25.10) Active confirmed 51425049 Problem Vitamin D deficiency (E55.9) Active confirmed Vitamin D deficiency (56691677) Problem Hyperlipidemia (E78.5) Active confirmed Hyperlipidemia (31371721) Problem Dorsalgia (M54.9) Active confirmed 1618 90794 Problem DM (diabetes mellitus) (E11.9) Active confirmed DM - Diabe mari mellitus (37159994) Problem H. pylori infection (B96.81) Active confirmed Helicobacter py olivia gastrointestinal tract infection (019413689) Problem Spondylosis (M47.9) Active confirmed 6204622 Problem Illiteracy (Z55.0) Active confirmed Illiteracy (660423472) Problem Forgetfulness (R68.89) Active confirmed Forgetful (79289055) Problem Tubular adenoma (D36.9) Active confirmed Tubular adenoma (979605511) Problem Pain in right shoulder (M25.511) Active confirmed [id number] Problem Age-related nuclear cataract of both eyes (H25.13) Active confirmed 109808060 Problem Other chronic pain (G89.29) Active confirmed 90812425 Problem Osteoarthritis, unspecified osteoarthritis type, unspecified site (M19.90) Active confirmed 010800053 Problem Back pain of lumbar region with sciatica (M54.40) Active confirmed Sciatica (12249239) Problem Cardiovascular event risk (Z91.89) Active confirmed Cardiovascular event risk (040208879) Problem Tear of right rotator cuff, unspecified tear extent, unspecified whether traumatic (M75.101) Active confirmed [id number] Encounters Encounter Location Date Provider Diagnosis [address] [address] 03/09/2023 Maddie Graff [facility] [address] [place] [address] 04/22/2023 Gilda Quarles [facility] 10/22/2023 Operati ons Clinical Illiteracy Z55.0 ; Forgetfulness R68.89 ; Essential (primary) hypertension I10 ; CAD in telida artery I25.10 ; Osteoarthritis, unspecified osteoarthritis type, unspecified site M19.90 ; Age-related nuclear cataract of both eyes H25.13 ; DM (diabetes mellitus) E11.9 ; Tear of right rotator cuff, unspecified tear extent, unspecified whether traumatic M75.101 ; Spondylosis M47.9 ; Dorsalgia M54.9 ; Insomnia G47.00 ; Hyperlipidemia E78.5 ; Anemia D64.9 ; Tubular adenoma D36.9 ; Vitamin D deficiency E55.9 ; Cardiovascular event risk Z91.89 ; H. pylori infection B96.81 ; Back pain of lumbar region with sciatica M54.40 ; Other chronic pain G89.29 and Pain in right shoulder M25.511 ASSESSMENTS Encounter Date Diagnosis Assessment Notes Treatment Notes Treatment Clinical Notes 10/22/2023 Illiteracy (ICD-10 - Z55.0) 10/22/2023 Forgetfulness (ICD-1 0 - R68.89) 10/22/2023 Essential (primary) hypertension (ICD-10 - I10) 10/22/2023 CAD in telida artery (ICD-10 - I25.10) 10/22/2023 Osteoarthritis, unspecified osteoarthritis type, unspecified site (ICD-10 - M19.90) 10/22/2023 Age-related nuclear cataract of both eyes (ICD-10 - H25.13) 10/22/2023 DM (diabetes mellitus) (ICD-10 - E11.9) 10/22/2023 Tear of right rotato r cuff, unspecified tear extent, unspecified whether traumatic (ICD-10 - M75.101) 10/22/2023 Spondylosis (ICD-10 - M47.9) 10/22/2023 Dorsalgia (ICD-10 - M54.9) 10/22/2023 Insomnia (ICD-10 - G47.00) 10/22/2023 Hyperlipidemia (ICD-10 - E78.5) 10/22/2023 Anemia (ICD-10 - D64.9) 10/22/2023 Tubular adenoma (ICD-10 - D36.9) 10/22/2023 Vitamin D deficiency (ICD-10 - E55.9) 10/22/2023 Cardiovascular event risk (ICD-10 - Z91.89) 10/22/2023 H. pylori infection (ICD-10 - B96.81) 10/22/2023 Back pain of lumbar region with sciatica (ICD-10 - M54.40) 10/22/2023 Other chronic pain (ICD-10 - G89.29) 10/22/2023 Pain in right shoulder (ICD-10 - M25.511) PLAN OF TREATMENT No Information Insurance Providers Payer Name Payer Address Payer Phone Subscriber Number Group Number Insured Name Patient Relationship to Insured Coverage Start Date Coverage End Date [facility] ([id number]) [id number] [facility] [address] [place] [address] [id number] Carlos Hobbs Self - patient is the insured 8 9 MEDICAL (GENERAL) HISTORY Surgical History Surgery Date(Month/Year) cholecystectomy kidney stones
[2023-10-29 18:38] LABS: Appearance Urine Clear; Color Urine Yellow; Glucose Urine UA Negative (Negative); Leukocyte Esterase Urine Negative (Negative); Nitrite Urine Negative (Negative); Urine Blood Negative (Negative); Urine Ketones Negative (Negative); Urine Protein Negative (Neg-Trace)
[2023-10-29 18:40] LABS: Amphetamine Screen Urine Not Detected (Not Detect); Barbiturates, Urine Not Detected (Not Detect); Benzodiazepines Screen Urine Not Detected (Not Detect); Buprenorphine Scr Not Detected (Not Detect); Cannabinoid Screen Urine Not Detected (Not Detect); Cocaine Screen Urine Not Detected (Not Detect); Fentanyl, urine Not Detected (Not Detect); Methadone Screen, Urine Not Detected (Not Detect); Opiate Screen Urine Not Detected (Not Detect); Oxycodone Screen Urine Positive (Not Detect); Phencyclidine Screen Urine Not Detected (Not Detect)
[2023-10-29 19:56] VITALS: BP 133/75; PULSE 80; RESP 20; TEMP 36.8; O2SAT 98
[2023-10-29 21:15] VITALS: BP 130/72; PULSE 78; RESP 20; TEMP 36.7; O2SAT 98
[2023-10-29 21:28] VITALS: BP 130/72; PULSE 78; RESP 20; TEMP 36.7; O2SAT 98
== END 2023-10-29 21:29 | disposition home or self-care (01) ==
PROVIDERS: Nurse Practitioner Family; Emergency Provider Emergency Medicine
DX: N17.9 Acute kidney failure, unspecified (principal); R93.89 Abnormal findings on diagnostic imaging of other specified body structures; T14.90XA Injury, unspecified, initial encounter; V43.52XA Car driver injured in collision with other type car in traffic accident, initial encounter; Y93.9 Activity, unspecified; Y92.410 Unspecified street and highway as the place of occurrence of the external cause; Y99.9 Unspecified external cause status; R93.3 Abnormal findings on diagnostic imaging of other parts of digestive tract; R41.82 Altered mental status, unspecified; I95.9 Hypotension, unspecified; R10.31 Right lower quadrant pain; I11.0 Hypertensive heart disease with heart failure; E11.9 Type 2 diabetes mellitus without complications
CPT/HCPCS: 36415; 70450; 71250; 72125; 74176; 80053; 80307; 81003; 82947; 83690; 83735; 84484; 85025; 85610; 93005; 96360; 99284

== ENCOUNTER → 2023-10-29 16:45 | Outpatient (BNV) | payer OTHER, SELFPAY | PROVIDERS: Emergency Provider Emergency Medicine; Visit Provider Internal Medicine Cardiovascular Disease | DX: R41.82 Altered mental status, unspecified (principal) | CPT/HCPCS: 93010 ==

== ENCOUNTER 2023-11-09 12:05 | Emergency (ER) | payer OTHER, SELFPAY ==
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
--- NOTE | ~2023-11-09 | CT_ITS ---
EXAMINATION: CT HEAD WITHOUT CONTRAST CLINICAL INFORMATION: Left-sided headache. COMPARISON: CT dated 10/29/2023. TECHNIQUE: Contiguous axial imaging was performed from the skullbase to vertex without intravenous administration of contrast. This CT examination was performed using dose optimization techniques as appropriate, variously including the following: *Automated exposure control *Adjustment of mA and/or kV according to patient size (this includes techniques or standardized protocols for targeted exams where dose is matched to indication/reason for exam; i.e. extremities or head) *Use of iterative reconstruction technique DLP: 669 mGy-cm. FINDINGS: There is no evidence of acute intracranial hemorrhage or territorial infarction. No abnormal mass effect or midline shift is seen. No extra-axial fluid collections are identified. There is stable mild generalized brain parenchymal volume loss and mild ex vacuo prominence of the ventricles. Scattered areas of low-density in the cerebral white matter are also unchanged from suspected chronic ischemic microangiopathy. The osseous structures and soft tissues are normal. Retention cysts again visible in the maxillary sinuses. There is a mild amount of fluid in the dependent mastoid air cells bilaterally. CT/CT head/brain wo IV con IMPRESSION: No acute intracranial hemorrhage or territorial infarction. Stable mild chronic white matter microangiopathy.
--- NOTE | ~2023-11-09 | CT_ITS ---
EXAMINATION: CT abdomen pelvis w IV con CLINICAL INFORMATION: Reason for Exam RLQ pain and tenderenss COMPARISON: Recent CT scan from 10/29/2023 TECHNIQUE: Multidetector volumetric imaging was performed from the superior aspect of the liver through the pubic symphysis 85 mL of Omnipaque 350 injected Sagittal and coronal reformatted images were obtained on the technologist's workstation. This CT examination was performed using dose optimization techniques as appropriate, variously including the following: *Automated exposure control *Adjustment of mA and/or kV according to patient size (this includes techniques or standardized protocols for targeted exams where dose is matched to indication/reason for exam; i.e. extremities or head) *Use of iterative reconstruction technique DLP: 378 mGy-cm FINDINGS: LOWER THORAX: Included lung bases are clear. HEPATOBILIARY: No focal hepatic lesions. No biliary ductal dilatation. GALLBLADDER: Gallbladder has been removed. SPLEEN: Spleen is normal in size. PANCREAS: No focal mass or ductal dilatation. STOMACH AND GASTROINTESTINAL TRACT: There is a sliding hiatal hernia. Stomach is partially decompressed unopacified. There is heavy sigmoid diverticulosis without CT evidence of acute diverticulitis. Recently described segment of circumferential wall thickening of the transverse colon near the splenic flecture did not persist on today's exam, might have been peristalsis. No CT evidence of appendicitis. Short appendix with air. Melendrez image ADRENALS: No adrenal nodules. KIDNEYS/URETERS: No hydronephrosis, stones or solid mass lesions. URINARY BLADDER: Partially decompressed. PELVIC VISCERA: Prostate is enlarged 4.5 x 5.5 cm. PERITONEUM: No free air or fluid. LYMPH NODES: No lymphadenopathy. VASCULAR:Abdominal aorta normal in size, no aneurysm found. BONES, ABDOMINAL WALL AND SOFT TISSUES: Age-appropriate changes of the spine and skeletal system, no destructive osteolytic or osteosclerotic bone lesion found CT/CT abdomen pelvis w IV con IMPRESSION: 1. No CT evidence of acute intra-abdominal process to explain patient's pain symptoms. 2. Recently described segment of circumferential wall thickening of the transverse colon near the splenic flecture did not persist on today's exam, might have been peristalsis. 3. Heavy sigmoid diverticulosis without CT evidence of acute diverticulitis. 4. Enlarged prostate. 5. Status post cholecystectomy. 6. Sliding hiatal hernia.
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
[2023-11-09 12:42] VITALS: BP 128/74; PULSE 71; RESP 16; TEMP 36.9; O2SAT 97; BMI 29.0
[2023-11-09] MEDS: Acetaminophen 325 MG TABLET 975 MG PO (17:10)
[2023-11-09 17:41] VITALS: BP 139/66; PULSE 69; RESP 16; TEMP 36.9; O2SAT 98
[2023-11-09] MEDS: 0.9 % Sodium Chloride 1,000 ML 999 ML IV (18:25)
[2023-11-09 18:29] LABS: MANUAL DIFF FLAG NO
[2023-11-09 18:32] LABS: Basophils Absolute Auto 0.1 X10*3/uL (0.0-0.2); Basophils Percent Auto 0.7 % (0-2); Eosinophils Absolute Auto 0.3 X10*3/uL (0.0-0.4); Eosinophils Percent Auto 3.6 % (0-4); Hematocrit 35.2 % (42.0-52.0); Hemoglobin 11.5 g/dl (14.0-18.0); Imm Gran Abs Auto 0.02 X10*3/uL (0.00-0.03); Imm Gran Pct Auto 0.3 % (0.0-0.4); Lymphocytes Absolute Auto 1.4 X10*3/uL (1.2-4.9); Lymphocytes Percent Auto 19.5 % (20-40); Mean Corpuscular HGB Conc 32.7 g/dl (31.0-36.0); Mean Corpuscular Hemoglobin 27.8 pg (27.0-33.0); Mean Corpuscular Volume 85.2 fL (80.0-98.0); Mean Platelet Volume 10.4 fL (9.4-12.4); Monocytes Absolute Auto 0.5 X10*3/uL (0.1-1.2); Monocytes Percent Auto 7.4 % (2-11); Neutrophils Percent Auto 68.5 % (45-73); Platelet Count 213 X10*3/uL (160-400); Red Blood Count 4.13 X10*6/uL (4.60-5.80); Red Cell Distribution Width 14.7 % (11.0-16.0); White Blood Count 7.3 X10*3/uL (4.8-10.8)
[2023-11-09 18:47] LABS: Alanine Aminotransferase 9 U/L (0-40); Albumin Level 4.1 g/dL (3.5-5.0); Alkaline Phosphatase 60 U/L (39-117); Anion Gap 12 (12-20); Aspartate Amino Transferase 13 U/L (5-37); Bilirubin Direct < 0.2 mg/dL (0.0-0.5); Bilirubin Total 0.2 mg/dL (0.0-1.0); Blood Urea Nitrogen 33 mg/dL (9-16); Calcium 9.3 mg/dL (8.4-10.2); Carbon Dioxide 22 mmol/L (22-29); Chloride 110 mmol/L (96-108); Creatinine Clr Calc Pharmacy 50.7; Estimated Glomerular Filt Rate 53; Ethanol < 10 mg/dL; Glucose Random 149 mg/dL (60-115); Lipase 50 U/L (8-78); Potassium 4.6 mmol/L (3.3-5.1); Sodium 139 mmol/L (135-145); Total Protein 7.3 g/dL (6.5-8.0)
[2023-11-09] MEDS: iohexoL 350 MG/ML 100 ML INFUS..BTL 85 ML IV (19:15)
--- NOTE | 2023-11-09 19:22 | PC.NURSE ---
Assumed care of pt. Pt dasia mora, no acute distress at this time.pt taken to CT by polysomnograph tech
[2023-11-09 19:49] VITALS: BP 139/68; PULSE 69; RESP 16; TEMP 36.9
[2023-11-09 21:03] VITALS: BP 139/68; PULSE 69; RESP 16; TEMP 36.9
--- OUTSIDE RECORDS SUMMARY | 2023-11-12 10:01 | XMS_ITS | Patient Health Record ---
Author Organization [facility] li[facility] Address [address] [place] [address] Care Team Providers Care [employer] Supervisor Name Role Phone Tatyana Oakley Primary Care Provider Unavailabl e Clinical, Operations Unavailable Unavailable Gisell Steen Unavailable [phone] Gilda Quarles Unavailable [phone] Maddie Graff Unavailable [phone] ALLERGIES No Known Allergies REASON FOR REFERRAL Reason AFC Level 1 Diagnosis 1 Forgetfulness (R68.8 9) Diagnosis 2 Osteoarthritis, unsp ecified osteoarthritis type, unspecified site (M19.90) Diagnosis 3 DM (diabetes mellitu s) (E11.9) Diagnosis 4 Other chronic pain ( G89.29) Diagnosis 5 Illiteracy (Z55.0) Referring Provider First Name Operations Referring Provider Last Name Clinical Referring Provider Speciality Unknown Referred Provider [employer]. 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 SCO, Management Psychologist name and email address: [email or web address], Who is requesting AFC services and their relationship to the member? Member and daughter, Diagnosis with ICD10 code that supports need for AFC: forgetfulness R68.89, osteoarthritis M19.90, DM E11.9, other chronic pain G89.29, illiteracy Z55.0, What are the member's informal supports? daughter, Primary contact for Member: sayr Maricruz Arriaga [phone], Members preferred language: Montserratian, Provide name and contact info for [facility]: Amanda Richardson at [facility] [phone], Please identify [facility] program member will be using: [facility], ADL's requiring assistance: bathing and dressing d/t pain, weakness and impaired ROM., Member requires 24/7 supervision due to: forgetfulness, chronic pain, impaired ROM and weakness , [facility] Level recommendation: 1 Clinical Notes his referral is anthonygunjan linda sent to supply the member's demographic information ([facility] level 1). If approved an Approval Letter will be sent by [facility]'s Utilization Management department separately. If for any reason you are unable to accommodate this request, please contact [facility] at [phone] Referral Priority Routine MEDICATIONS Medication SIG (Take, Route, Frequency, Duration) [...] Notes Problem Anemia (D64.9) Active confirmed Anemia (935589854) Problem Essential (primary) hypertension (I10) Active confirmed Essential hypertension (02285195) Problem Insomnia (G47.00) Active confirmed Inso mnia (158156166) Problem CAD in [place] artery (I25.10) Active confirmed 68891718 Problem Vitamin D deficiency (E55.9) Active confirmed Vitamin D deficiency (32421093) Problem Hyperlipidemia (E78.5) Active confirmed Hyperlipidemia (74477989) Problem Dorsalgia (M54.9) Active confirmed 1618 61321 Problem DM (diabetes mellitus) (E11.9) Active confirmed DM - Diabe mari mellitus (94071058) Problem H. pylori infection (B96.81) Active confirmed Helicobacter py olivia gastrointestinal tract infection (190207641) Problem Spondylosis (M47.9) Active confirmed 1002547 Problem Illiteracy (Z55.0) Active confirmed Illiteracy (948692336) Problem Forgetfulness (R68.89) Active confirmed Forgetful (20106940) Problem Tubular adenoma (D36.9) Active confirmed Tubular adenoma (584095586) Problem Pain in right shoulder (M25.511) Active confirmed [id number] Problem Age-related nuclear cataract of both eyes (H25.13) Active confirmed 041059410 Problem Other chronic pain (G89.29) Active confirmed 57425007 Problem Osteoarthritis, unspecified osteoarthritis type, unspecified site (M19.90) Active confirmed 389616192 Problem Back pain of lumbar region with sciatica (M54.40) Active confirmed Sciatica (94649613) Problem Cardiovascular event risk (Z91.89) Active confirmed Cardiovascular event risk (356599130) Problem Tear of right rotator cuff, unspecified tear extent, unspecified whether traumatic (M75.101) Active confirmed [id number] Encounters Encounter Location Date Provider Diagnosis [facility] [address] [address] 03/09/2023 Maddie Graff [facility] [address] [place] [address] 11/08/2023 Gisell Steen [facility] [address] [place] [address] 04/22/2023 Gilda Quarles [facility] 10/22/2023 Operati ons Clinical Illiteracy Z55.0 ; Forgetfulness R68.89 ; Essential (primary) hypertension I10 ; CAD in [place] artery I25.10 ; Osteoarthritis, unspecified osteoarthritis type, [...] hypertension (ICD-10 - I10) 10/22/2023 CAD in [place] artery (ICD-10 - I25.10) 10/22/2023 Osteoarthritis, unspecified [...] Insured Coverage Start Date Coverage End Date [facility] SCO ([id number]) [address] [address] [id number] Carlos Hobbs Self - patient is the insured 8 9 MEDICAL (GENERAL) HISTORY Surgical History Surgery Date(Month/Year) cholecystectomy kidney stones
== END 2023-11-09 21:05 | disposition home or self-care (01) ==
PROVIDERS: Emergency Provider Emergency Medicine; PCP Family Medicine
DX: G44.309 Post-traumatic headache, unspecified, not intractable (principal); M54.9 Dorsalgia, unspecified; R10.31 Right lower quadrant pain
CPT/HCPCS: 36415; 70450; 72070; 72100; 74177; 80048; 80076; 80307; 83690; 85025; 86140; 96360; 99284; 99285; Q9967

== ENCOUNTER 2024-02-15 11:50 | Emergency (ER) | payer OTHER, SELFPAY ==
--- NOTE | ~2024-02-15 | CT_ITS ---
EXAMINATION: CT ABDOMEN AND PELVIS WITHOUT CONTRAST CLINICAL INFORMATION: Right lower quadrant pain COMPARISON: CT abdomen and pelvis 11/09/2023 TECHNIQUE: Multidetector volumetric imaging was performed from the superior aspect of the liver through the pubic symphysis. Sagittal and coronal reformatted images were obtained on the technologist's workstation. This CT examination was performed using dose optimization techniques as appropriate, variously including the following: *Automated exposure control *Adjustment of mA and/or kV according to patient size (this includes techniques or standardized protocols for targeted exams where dose is matched to indication/reason for exam; i.e. extremities or head) *Use of iterative reconstruction technique DLP: 409 mGy-cm FINDINGS: LUNG BASES: The visualized lung bases are unremarkable. LIVER, GALLBLADDER, AND BILIARY TREE: The liver is normal in size, shape, and attenuation. No focal hepatic lesion or biliary ductal dilatation is present. Status post cholecystectomy. PANCREAS: Unremarkable. SPLEEN: Unremarkable. ADRENAL GLANDS: Unremarkable. KIDNEYS AND URETERS: The kidneys are normal in size, shape, and attenuation. No hydronephrosis, hydroureter, or calculi seen. No perinephric stranding. BLADDER: Bladder is empty and thick walled. GASTROINTESTINAL TRACT: Small hiatal hernia is present. Extensive diverticular disease is present throughout the entire colon without evidence of diverticulitis The small and large bowel are otherwise unremarkable. No evidence of appendicitis. ABDOMINAL WALL: No significant hernia is appreciated. LYMPH NODES: No retroperitoneal lymphadenopathy. VASCULAR: Mild calcific plaque in the aorta without aneurysm. PELVIC VISCERA: There is moderate to marked BPH. Seminal vesicles appear normal. OSSEOUS STRUCTURES: The bladder is empty and thick walled CT/CT abdomen pelvis wo IV con IMPRESSION: 1. A cause for the patient's right lower quadrant pain has not been found. 2. Incidental note made of cholecystectomy, small hiatal hernia, extensive colonic diverticulosis without diverticulitis and BPH. Fleischner guidelines were followed. Electronically signed by: Maxwell Morales MD 02/15/2024 04:30 PM EDT
--- NOTE | 2024-02-15 12:06 | ED_ITS ---
HPI - General Adult General Chief complaint: Abdominal Pain Stated complaint: appendix pain? Related Data Home Medications ?Medication ?Instructions ?Recorded ?Confirmed aspirin 81 mg chewable tablet 1 tab PO DAILY 08/05/20 10/09/20 atorvastatin 80 mg tablet 80 mg PO DAILY 08/05/20 10/09/20 blood pressure test kit-large #1 ea 08/05/20 10/09/20 lisinopril 20 mg tablet 20 mg PO DAILY 08/05/20 10/09/20 metformin 500 mg tablet 500 mg PO 08/05/20 10/09/20 omeprazole 40 mg capsule,delayed 40 mg PO DAILY 08/05/20 10/09/20 release sitagliptin phosphate 100 mg tablet 100 mg PO DAILY 08/05/20 10/09/20 zolpidem 10 mg tablet 10 mg PO BEDTIME PRN insomnia 08/05/20 10/09/20 Previous Rx's ?Medication ?Instructions ?Recorded diclofenac sodium 3 % topical gel 1 appl topical BID #100 grams 04/01/22 tramadol 50 mg tablet 50 mg PO BID PRN pain #7 tabs 10/26/22 morphine 15 mg tablet,extended 15 mg PO Q12H pain severe 3 days 02/03/23 release (MS Contin) #6 tabs oxycodone-acetaminophen 5 mg-325 1 tab PO DAILY PRN pain (scale 03/18/23 mg tablet (Percocet) score 4-6) 28 days #28 tabs dicyclomine 20 mg tablet 20 mg PO TID #20 tabs 03/24/24 Allergies Allergy/AdvReac Type Severity Reaction Status Date / Time atorvastatin [Lipitor] Allergy Unknown unknown Verified 04/03/24 03:54 [facility] Past Medical History Medical History Palpitations Mass of left side of neck Surgical History History of cholecystectomy Family History Family History Sister History of pancreatic cancer Social History Social History Alcohol intake: current Alcohol intake frequency: holidays/special occasions only Alcohol type: beer and hard liquor Patient Tobacco Use Status: Never used Tobacco Current occupational status: disabled Current occupation: right hand dominant Physical Exam ED Vital Signs: BMI result Body Mass Index 24.3 Course Course Course Narrative: This is an RME done by CAR Fernandez: Additional HPI, ROS, PE not included below will be deferred to primary provider. 73yo M w/ PMHx of left-sided neck mass and cholecystectomy presents with RLQ abdominal pain described as pinching or poking on and off x1 year and now believes something is leaking . Has not had a colonoscopy in several years. Denies CP, SOB, N/V. Appearance: Alert.? Oriented X3.? No acute cardiopulmonary distress distress.? Head: Normocephalic, atraumatic Neck: Normal inspection. CVS: Pulses normal.? Respiratory: No respiratory distress.? Skin: ? Normal skin color. Neuro: Oriented X 3.? Medical Decision Making Lab Data 02/15/24 13:06 02/15/24 13:06 Labs: Lab Results 02/15/24 Range/Units 13:06 WBC 5.8 (4.8-10.8) X10*3/uL RBC 4.56 L (4.60-5.80) X10*6/uL Hgb 13.1 L (14.0-18.0) g/dl Hct 39.4 L (42.0-52.0) % MCV 86.4 (80.0-98.0) fL MCH 28.7 (27.0-33.0) pg MCHC 33.2 (31.0-36.0) g/dl RDW 14.5 (11.0-16.0) % Plt Count 242 (160-400) X10*3/uL MPV 9.7 (9.4-12.4) fL Immature Gran % (Auto) 0.3 (0.0-0.4) % Neut % (Auto) 64.8 (45-73) % Lymph % (Auto) 22.5 (20-40) % [place] % (Auto) 7.7 (2-11) % Eos % (Auto) 3.8 (0-4) % Baso % (Auto) 0.9 (0-2) % Lymph # (Auto) 1.3 (1.2-4.9) X10*3/uL [place] # (Auto) 0.5 (0.1-1.2) X10*3/uL Eos # (Auto) 0.2 (0.0-0.4) X10*3/uL Baso # (Auto) 0.1 (0.0-0.2) X10*3/uL Abs Immat Gran (auto) 0.02 (0.00-0.03) X10*3/uL Absolute Neuts (auto) 3.8 (2.0-8.3) x10*3/uL Absolute Nucleated RBC 0.000 (0.0-0.012) X10*3/uL Nucleated RBC % (auto) 0.0 (0.0-0.2) /100WBC Sodium 139 (135-145) mmol/L Potassium 4.7 (3.3-5.1) mmol/L Chloride 107 (96-108) mmol/L Carbon Dioxide 26 (22-29) mmol/L Anion Gap 11 L (12-20) BUN 16 (9-16) mg/dL Creatinine 1.03 (0.5-1.4) mg/dL Estim Creat Clear Calc 63.6 Estimated GFR > 60 Random Glucose 180 H (60-115) mg/dL Calcium 9.2 (8.4-10.2) mg/dL Magnesium 2.1 (1.6-2.6) mg/dL Total Bilirubin 0.3 (0.0-1.0) mg/dL AST 15 (5-37) U/L ALT 16 (0-40) U/L Alkaline Phosphatase 64 (39-117) U/L Total Protein 7.2 (6.5-8.0) g/dL Albumin 4.2 (3.5-5.0) g/dL Lipase 40 (8-78) U/L Discharge Plan Discharge Clinical Impression: Eloped from emergency department Patient Disposition: Left W/O Completing Treatment Prescriptions: No Action diclofenac sodium 3 % gel 1 appl topical BID Qty: 100 0RF morphine [MS Contin] 15 mg tablet extended release 15 mg PO Q12H 3 Days Qty: 6 0RF Rx Instructions: Partial Fill upon patient request. tramadol 50 mg tablet 50 mg PO BID PRN (Reason: pain) Qty: 7 0RF dicyclomine 20 mg tablet 20 mg PO TID Qty: 20 0RF lisinopril 20 mg tablet 20 mg PO DAILY zolpidem 10 mg tablet 10 mg PO BEDTIME PRN (Reason: insomnia) omeprazole 40 mg capsule,delayed release(DR/EC) 40 mg PO DAILY aspirin 81 mg tablet,chewable 1 tab PO DAILY metformin 500 mg tablet 500 mg PO sitagliptin phosphate 100 mg tablet 100 mg PO DAILY (DME) blood pressure test kit-large Kit See Rx Instructions .ROUTE .MEDSUPPLY Qty: 1 Rx Instructions: As directed atorvastatin 80 mg tablet 80 mg PO DAILY oxycodone-acetaminophen [Percocet] 5-325 mg tablet 1 tab PO DAILY PRN (Reason: pain (scale score 4-6)) 28 Days Qty: 28 0RF Rx Instructions: Partial Fill upon patient request. Discharge Date/Time: 02/15/24 17:02
[2024-02-15 12:08] VITALS: BP 123/73; PULSE 83; RESP 16; TEMP 36.6; O2SAT 97; BMI 24.3
[2024-02-15 13:11] LABS: MANUAL DIFF FLAG NO
[2024-02-15 13:13] LABS: Basophils Absolute Auto 0.1 X10*3/uL (0.0-0.2); Basophils Percent Auto 0.9 % (0-2); Eosinophils Absolute Auto 0.2 X10*3/uL (0.0-0.4); Eosinophils Percent Auto 3.8 % (0-4); Hematocrit 39.4 % (42.0-52.0); Hemoglobin 13.1 g/dl (14.0-18.0); Imm Gran Abs Auto 0.02 X10*3/uL (0.00-0.03); Imm Gran Pct Auto 0.3 % (0.0-0.4); Lymphocytes Absolute Auto 1.3 X10*3/uL (1.2-4.9); Lymphocytes Percent Auto 22.5 % (20-40); Mean Corpuscular HGB Conc 33.2 g/dl (31.0-36.0); Mean Corpuscular Hemoglobin 28.7 pg (27.0-33.0); Mean Corpuscular Volume 86.4 fL (80.0-98.0); Mean Platelet Volume 9.7 fL (9.4-12.4); Monocytes Absolute Auto 0.5 X10*3/uL (0.1-1.2); Monocytes Percent Auto 7.7 % (2-11); Neutrophils Absolute Auto 3.8 x10*3/uL (2.0-8.3); Neutrophils Percent Auto 64.8 % (45-73); Platelet Count 242 X10*3/uL (160-400); Red Blood Count 4.56 X10*6/uL (4.60-5.80); Red Cell Distribution Width 14.5 % (11.0-16.0); White Blood Count 5.8 X10*3/uL (4.8-10.8)
[2024-02-15 13:39] LABS: Alanine Aminotransferase 16 U/L (0-40); Albumin Level 4.2 g/dL (3.5-5.0); Alkaline Phosphatase 64 U/L (39-117); Anion Gap 11 (12-20); Aspartate Amino Transferase 15 U/L (5-37); Bilirubin Total 0.3 mg/dL (0.0-1.0); Blood Urea Nitrogen 16 mg/dL (9-16); Calcium 9.2 mg/dL (8.4-10.2); Carbon Dioxide 26 mmol/L (22-29); Chloride 107 mmol/L (96-108); Creatinine Clr Calc Pharmacy 63.6; Estimated Glomerular Filt Rate > 60; Glucose Random 180 mg/dL (60-115); Lipase 40 U/L (8-78); Magnesium 2.1 mg/dL (1.6-2.6); Potassium 4.7 mmol/L (3.3-5.1); Sodium 139 mmol/L (135-145); Total Protein 7.2 g/dL (6.5-8.0)
--- OUTSIDE RECORDS SUMMARY | 2024-02-15 15:23 | XMS_ITS ---
Author Organization [facility] liance Address [address] [place] [address] Care Team Providers Care Marble Worker Name Role Phone Amanda Barragan Primary Care Provider Gilda Aguila [phone] REASON FOR VISIT MDS Encounters Encounter Location Date Provider Diagnosis [facility] [address] [address] 04/22/2023 Gilda Quarles PLAN OF TREATMENT No Information
--- OUTSIDE RECORDS SUMMARY | 2024-02-15 15:23 | XMS_ITS ---
Author Organization [facility] liance Address [address] [place] [address] Care Team Providers Care Urology Physician Assistant Name Role Phone Amanda Barragan Primary Care Provider Unavaila ble Clinical, Operations Unavailable Unavailable ALLERGIES No Known Allergies REASON FOR VISIT MDS assessment MEDICATIONS Medication SIG (Take, Route, Frequency, Duration) Notes Start Date End Date Status Lisinopril 20 MG 1 tablet Orally Once a day Active metFORMIN HCl 500 MG 1 tablet with meals Orally Twice a day Active Atorvastatin Calcium 80 MG 1 tablet Orally Once a day Active Zolpidem Tartrate 10 MG 1 tablet at bedtime as needed Orally Once a day Active Aspirin 81 MG 1 tablet Orally Once a day doctor discontinued Not-Taking oxyCODONE HCl 5 MG 1 tablet as needed Orally three times daily Active Methocarbamol 500 MG 1 tablet as needed Orally twice a day Active Ibuprofen 800 MG 1 tablet with food or milk as needed Orally Three times a day Active Januvia 100 MG 1 tablet Orally Once a day Active Omeprazole 40 MG 1 capsule 30 minutes before morning meal Orally Once a day Active Gabapentin 300 MG 1 capsule Orally Once a day Active PROBLEMS Problem Type ICD Code Onset Dates Problem Status W/U Status Risk SNOMED Code Notes Problem CAD in [place] artery (I25.10) Active confirmed 37106267 Problem Osteoarthritis, unspecified osteoarthritis type, unspecified site (M19.90) Active confirmed 198238008 Problem Tear of right rotator cuff, unspecified tear extent, unspecified whether traumatic (M75.101) Active confirmed 13111153460200427 Problem Spondylosis (M47.9) Active confirmed 6788127 Problem Dorsalgia (M54.9) Active confirmed 1618 00007 Problem Other chronic pain (G89.29) Active confirmed 44532067 Problem Pain in right shoulder (M25.511) Active confirmed [id number] Encounters Encounter Location Date Provider Diagnosis [facility] 10/22/2023 Operations Clin ical Illiteracy Z55.0 ; Forgetfulness R68.89 ; Essential (primary) hypertension I10 ; CAD in [place] artery I25.10 ; Osteoarthritis, unspecified osteoarthritis type, [...] hypertension (ICD-10 - I10) 10/22/2023 CAD in [place] artery (ICD-10 - I25.10) 10/22/2023 Osteoarthritis, unspecified [...] - M25.511) PLAN OF TREATMENT No Information History and Physical Notes * HPI (History of Present Illness) Category Sub-Category Detail Notes Depression Screening PHQ-9 Little inte rest or pleasure in doing things: Not at all Feeling down, depressed, or hopeless: No t at all Trouble falling or staying asleep, or sl eeping too much: Several days Feeling tired or having little energy: M ore than half the days Poor appetite or overeating: Not at all Feeling bad about yourself o r that you are a failure, or have let yourself or your family down: Not at all Trouble concentrating on thi ngs, such as reading the newspaper or watching television: Not at all Moving or speaking so slowly that other people could have noticed; or the opposite, being so fidgety or restless that you have been moving around a lot more than usual: Not at all Thoughts that you would be b elmer off or of hurting yourself in some way: Not at all Total Score: 3 Interpretation: Minimal Depression COVID-19 Screening (Question s Revised 10/09/2019) COVID-19 Screening Member or any household memb er has any new or worsening breathing problems:: No Member or any household memb er has other general or non-respiratory symptoms:: No Member or any household memb er has been in close contact with anyone diagnosed or suspected case of COVID:: No Virtual Care Visit Information Visit Location, Methods & Consent: *REQUIRED* Virtual Care communication method:: Phone (audio only) Patient's location during visit:: Member 's home Provider's location during visit:: Eloyi luanne's home office Member Verbal Consent Obtained:: Yes
--- OUTSIDE RECORDS SUMMARY | 2024-02-15 15:23 | XMS_ITS ---
Author Organization [facility] lianc Address [address] [place] [address] Care Team Providers Care Spool Winder Name Role Phone Amanda Barragan Primary Care Provider Gisell Peace Unavailable [phone] REASON FOR VISIT DME Outreach Encounters Encounter Location Date Provider Diagnosis [facility] [address] [place] [address] 11/08/2023 Gisell Steen PLAN OF TREATMENT No Information
--- OUTSIDE RECORDS SUMMARY | 2024-02-15 15:23 | XMS_ITS | Patient Health Record ---
Author Organization [facility] liance Address [address] [place] [address] Care Team Providers Care Plasticator Name Role Phone Amanda Barragan Primary Care Provider Unavaila ble Clinical, Operations Unavailable Unavailable Gisell Steen Unavailable [phone] Gilda Quarles Unavailable [phone] Maddie Graff Unavailable [phone] ALLERGIES No Known Allergies REASON FOR REFERRAL Reason AFC Level 1 Diagnosis 1 Forgetfulness (R68.8 9) Diagnosis 2 Osteoarthritis, unsp ecified osteoarthritis type, unspecified site (M19.90) Diagnosis 3 DM (diabetes mellitu s) (E11.9) Diagnosis 4 Other chronic pain ( G89.29) Diagnosis 5 Illiteracy (Z55.0) Referring Provider First Name Operations Referring Provider Last Name Clinical Referring Provider Speciality Unknown Referred Provider [employer]. Referred Provider Specialty Adult Foster Care Procedure 1 Adult foster care Le daniele 1 parlor chaperone ([id number]) General Notes Ariela Johansen 09/2023 09:09:43 AM >Faxed , Is member ICO or SCO? SCO, Drip Pumper name and email address: [email or web address], Who is requesting AFC services and their relationship to the member? Member and daughter, Diagnosis with ICD10 code that supports need for AFC: forgetfulness R68.89, osteoarthritis M19.90, DM E11.9, other chronic pain G89.29, illiteracy Z55.0, What are the member's informal supports? daughter, Primary contact for Member: kat Arriaga [phone], Members preferred language: Sami, Provide name and contact info for GSS[facility]/LTSC: Amanda Richardson at [facility] [phone], Please identify [facility] program member will be using: [facility], ADL's requiring assistance: bathing and dressing d/t pain, weakness and impaired ROM., Member requires 24/7 supervision due to: forgetfulness, chronic pain, impaired ROM and weakness , [facility] Level recommendation: 1 Clinical Notes his referral is lacie mckeon sent to supply the member's demographic information ([facility] level 1). If approved an Approval Letter will be sent by [facility]'s Utilization Management department separately. If for any reason you are unable to accommodate this request, please contact [facility] at [phone] Referral Priority Routine Reason REHAB (1) SHOWER C HAIR WITH BACK AND ARMS (1) TOILET SAFETY FRAME (VERSAFRAME) (2) SUCTION GRAB BARS Height/Weight: 5'5 160lbs Prescriber: Tatiana Guajardo Diagnosis 1 Osteoarthritis, unsp ecified osteoarthritis type, unspecified site (M19.90) Referring Provider First Name Operations Referring Provider Last Name Clinical Referring Provider Speciality Unknown Referred Provider Amy Medickobe l Supply General Notes Honey Bae 11:38:34 AM > If unable to process this request, please contact Honey Bae [phone] [email or web address] Clinical Notes This activity is to inform you that [facility] Sr Specialist for Rehab Services, Gisell Steen is recommending the following DME., Service/Item requested: SHOWER CHAIR WITH BACK AND ARMS; TOILET SAFETY FRAME (VERSAFRAME); SUCTION GRAB BARS (QUANTITY X2), Pertinent Diagnosis and ICD10 Code: M19.90 Osteoarthritis, unspecified osteoarthritis type, unspecified site, Vendor (If known. Otherwise, leave blank): AMY, Frequency and Duration:, Quantity:, Size:, Height/Weight: 5'5 160lbs, Special instructions (address for delivery, language, contact and #, installation/assembly required? etc.) If any of the requested items are not currently available, please contact sender. CONTACT MYRON THEODORE AT [phone] - THANK YOU., Does member have a prescription for this order? No Referral Priority Routine MEDICATIONS Medication SIG (Take, [...] Notes Problem Anemia (D64.9) Active confirmed Anemia (007946768) Problem Essential (primary) hypertension (I10) Active confirmed Essential hypertension (71425698) Problem Insomnia (G47.00) Active confirmed Inso mnia (945735240) Problem CAD in [place] artery (I25.10) Active confirmed 24730788 Problem Vitamin D deficiency (E55.9) Active confirmed Vitamin D deficiency (72270355) Problem Hyperlipidemia (E78.5) Active confirmed Hyperlipidemia (54762144) Problem Dorsalgia (M54.9) Active confirmed 1618 34583 Problem DM (diabetes mellitus) (E11.9) Active confirmed DM - Diabe mari mellitus (92355062) Problem H. pylori infection (B96.81) Active confirmed Helicobacter py olivia gastrointestinal tract infection (094143784) Problem Spondylosis (M47.9) Active confirmed 0346964 Problem Illiteracy (Z55.0) Active confirmed Illiteracy (802933063) Problem Forgetfulness (R68.89) Active confirmed Forgetful (82653476) Problem Tubular adenoma (D36.9) Active confirmed Tubular adenoma (077122348) Problem Pain in right shoulder (M25.511) Active confirmed 99465853503475795 Problem Age-related nuclear cataract of both eyes (H25.13) Active confirmed 837876265 Problem Other chronic pain (G89.29) Active confirmed 94863315 Problem Osteoarthritis, unspecified osteoarthritis type, unspecified site (M19.90) Active confirmed 686127649 Problem Back pain of lumbar region with sciatica (M54.40) Active confirmed Sciatica (20972402) Problem Cardiovascular event risk (Z91.89) Active confirmed Cardiovascular event risk (384829295) Problem Tear of right rotator cuff, unspecified tear extent, unspecified whether traumatic (M75.101) Active confirmed [id number] Encounters Encounter Location Date Provider Diagnosis [facility] [address] [address] 03/09/2023 Maddie Graff [address] [address] 11/08/2023 Gisell Steen [address] [address] 04/22/2023 Gilda Quarles [facility] 10/22/2023 Operati ons Clinical Illiteracy Z55.0 ; Forgetfulness R68.89 ; Essential (primary) hypertension I10 ; CAD in [place] artery I25.10 ; Osteoarthritis, unspecified osteoarthritis type, [...] hypertension (ICD-10 - I10) 10/22/2023 CAD in [place] artery (ICD-10 - I25.10) 10/22/2023 Osteoarthritis, unspecified [...] Insured Coverage Start Date Coverage End Date [facility] SCO ([id number]) [address] [facility] [address] [place] [address] [id number] Carlos Hobbs Self - patient is the insured 8 9 MEDICAL (GENERAL) HISTORY Surgical History Surgery Date(Month/Year) cholecystectomy kidney stones
== END 2024-02-15 17:02 | disposition left against medical advice (07) ==
PROVIDERS: Physician Assistant; Emergency Provider Emergency Medicine; PCP Family Medicine
DX: R10.31 Right lower quadrant pain (principal); Z53.21 Procedure and treatment not carried out due to patient leaving prior to being seen by health care provider
CPT/HCPCS: 36415; 74176; 80053; 83690; 83735; 85025; 99281

== ENCOUNTER 2024-02-29 14:17 | Outpatient (REF) | payer OTHER, SELFPAY ==
--- NOTE | ~2024-02-29 | XR_ITS ---
EXAMINATION: XR THORACIC SPINE CLINICAL INFORMATION: Fall with mid back pain. COMPARISON: Thoracic spine 11/09/2023. TECHNIQUE: 2 views of the thoracic spine were obtained. FINDINGS: Alignment is anatomic. No visible compression fracture. Mild degenerative changes in the spine. The paraspinous lines appear normal. The included portions of the lungs and mediastinum are unremarkable. Cholecystectomy clips in the upper abdomen. XR/XR thoracic spine 2V IMPRESSION: Mild degenerative changes. No visible fracture. Electronically signed by: Jose Benson MD 02/29/2024 02:47 PM EDT
== END 2024-02-29 14:18 | disposition home or self-care (01) ==
LOC: HO.HHCX 14:17
PROVIDERS: Visit Provider Nurse Practitioner Primary Care
DX: M54.6 Pain in thoracic spine (principal)
CPT/HCPCS: 72070

== ENCOUNTER 2024-03-15 12:34 | Outpatient (REF) | payer OTHER, SELFPAY | END 2024-03-15 12:35 | disposition home or self-care (01) | LOC: HO.US 12:34 | PROVIDERS: PCP Family Medicine; Visit Provider Family Medicine | DX: Z13.89 Encounter for screening for other disorder (principal) ==

== ENCOUNTER 2024-03-23 23:11 | Emergency (ER) | payer OTHER, SELFPAY ==
[2024-03-23 23:20] VITALS: BP 176/85; PULSE 76; RESP 18; TEMP 36.7; O2SAT 99; BMI 24.7
--- NOTE | 2024-03-23 23:50 | ED.ABDPAIN ---
HPI - Abdominal Pain General Chief Complaint: Abdominal Pain Stated Complaint: abdominal pain Time Seen by Provider: 03/23/24 23:50 Source: patient Mode of arrival: ambulatory Limitations: no limitations History of Present Illness ED Provider: joe NYE narrative: Patient has chronic abdominal pain had multiple CT scan which was negative last CT scan was 02/28 comes here for similar pain which is going for last few days patient does take oxycodone for arthritis and abdominal pain had normal bowel movement today if pain gets worse after eating food pain is mostly in the lower abdomen had last bowel movement today no fever no chills no urinary symptom Related Data Home Medications ?Medication ?Instructions ?Recorded ?Confirmed aspirin 81 mg chewable tablet 1 tab PO DAILY 08/05/20 10/09/20 atorvastatin 80 mg tablet 80 mg PO DAILY 08/05/20 10/09/20 blood pressure test kit-large #1 ea 08/05/20 10/09/20 lisinopril 20 mg tablet 20 mg PO DAILY 08/05/20 10/09/20 metformin 500 mg tablet 500 mg PO 08/05/20 10/09/20 omeprazole 40 mg capsule,delayed 40 mg PO DAILY 08/05/20 10/09/20 release sitagliptin phosphate 100 mg tablet 100 mg PO DAILY 08/05/20 10/09/20 zolpidem 10 mg tablet 10 mg PO BEDTIME PRN insomnia 08/05/20 10/09/20 Previous Rx's ?Medication ?Instructions ?Recorded diclofenac sodium 3 % topical gel 1 appl topical BID #100 grams 04/01/22 tramadol 50 mg tablet 50 mg PO BID PRN pain #7 tabs 10/26/22 morphine 15 mg tablet,extended 15 mg PO Q12H pain severe 3 days 02/03/23 release (MS Contin) #6 tabs oxycodone-acetaminophen 5 mg-325 1 tab PO DAILY PRN pain (scale 03/18/23 mg tablet (Percocet) score 4-6) 28 days #28 tabs dicyclomine 20 mg tablet 20 mg PO TID #20 tabs 03/24/24 Allergies Allergy/AdvReac Type Severity Reaction Status Date / Time atorvastatin [Lipitor] Allergy Unknown unknown Verified 03/23/24 23:25 Review of Systems Review of Systems Yes all other systems are reviewed and are negative PMFSH Past Medical History Medical History Palpitations Mass of left side of neck Surgical History History of cholecystectomy Family History Family History Sister History of pancreatic cancer Social History Social History Alcohol intake: current Alcohol intake frequency: holidays/special occasions only Alcohol type: beer and hard liquor Patient Tobacco Use Status: Never used Tobacco Smoked in Last 30 Days: No Advance Directives: No Advance Directives Information Provided: No Current occupational status: disabled Current occupation: right hand dominant Physical Exam ED Vital Signs: Vital Signs - 24 hr 03/23/24 23:20 Temperature 98.1 F Pulse Rate 76 Respiratory Rate 18 Blood Pressure 176/85 H Pulse Oximetry 99 Oxygen Delivery Method Room Air BMI result Body Mass Index 24.7 Appearance: Alert. Oriented X3. No acute distress. Eyes: PERRLA, No Nystagmus ENT: Pharynx normal. Oral Mucosa moist Neck: Normal inspection. Neck supple. CVS: Normal heart rate and rhythm. Pulses normal. Respiratory: No respiratory distress. Equal air entry bilateral, no wheezing/rales/rhonchi Abdomen: Soft and mild lower abdomen deep tenderness no rebound tenderness or guarding Bowel sounds are present, no mass palpable, no CVA tenderness Skin: Skin warm and dry. Normal skin color. Normal skin turgor. Extremities: No lower extremity edema. No calf tenderness Neuro: Oriented X 3. No motor deficit. No sensory deficit.No cerebellar signs , cranial nerves II-XII intact Medical Decision Making Medical Decision Making [facility] Narrative: Patient has chronic lower abdominal pain with multiple CT scan negative today again came with a similar pain patient's oxycodone for generalized arthritis pain denies any constipation no history of diverticulitis no fever labs are stable without any signs of infection will discharge patient home on dicyclomine possible patient has IBS Differential Diagnosis Differential Diagnoses: The differential diagnosis associated with the presentation includes Diverticulitis/UTI/appendicitis/constipation Lab Data [facility] Lab Attestation statement: I reviewed the patient's lab results. 03/23/24 23:55 03/23/24 23:55 Labs: Lab Results 03/23/24 Range/Units 23:55 WBC 8.3 (4.8-10.8) X10*3/uL RBC 4.59 L (4.60-5.80) X10*6/uL Hgb 13.2 L (14.0-18.0) g/dl Hct 39.9 L (42.0-52.0) % MCV 86.9 (80.0-98.0) fL MCH 28.8 (27.0-33.0) pg MCHC 33.1 (31.0-36.0) g/dl RDW 14.3 (11.0-16.0) % Plt Count 247 (160-400) X10*3/uL MPV 9.5 (9.4-12.4) fL Immature Gran % (Auto) 0.4 (0.0-0.4) % Neut % (Auto) 59.2 (45-73) % Lymph % (Auto) 27.0 (20-40) % [place] % (Auto) 8.8 (2-11) % Eos % (Auto) 4.0 (0-4) % Baso % (Auto) 0.6 (0-2) % Lymph # (Auto) 2.2 (1.2-4.9) X10*3/uL [place] # (Auto) 0.7 (0.1-1.2) X10*3/uL Eos # (Auto) 0.3 (0.0-0.4) X10*3/uL Baso # (Auto) 0.1 (0.0-0.2) X10*3/uL Abs Immat Gran (auto) 0.03 (0.00-0.03) X10*3/uL Absolute Neuts (auto) 4.9 (2.0-8.3) x10*3/uL Absolute Nucleated RBC 0.000 (0.0-0.012) X10*3/uL Nucleated RBC % (auto) 0.0 (0.0-0.2) /100WBC Sodium 139 (135-145) mmol/L Potassium 3.9 (3.3-5.1) mmol/L Chloride 106 (96-108) mmol/L Carbon Dioxide 26 (22-29) mmol/L Anion Gap 11 L (12-20) BUN 20 H (9-16) mg/dL Creatinine 1.05 (0.5-1.4) mg/dL Estim Creat Clear Calc 56.1 Estimated GFR > 60 Random Glucose 98 (60-115) mg/dL Calcium 9.5 (8.4-10.2) mg/dL Total Bilirubin 0.4 (0.0-1.0) mg/dL Direct Bilirubin 0.1 (0.0-0.5) mg/dL AST 20 (5-37) U/L ALT 23 (0-40) U/L Alkaline Phosphatase 73 (39-117) U/L Total Protein 7.8 (6.5-8.0) g/dL Albumin 4.6 (3.5-5.0) g/dL Urine Color Yellow Urine Appearance Clear Urine pH 5.5 (5.0-9.0) Ur Specific Omer 1.010 (1.005-1.025) Urine Protein Negative (Neg-Trace) mg/dL Urine Glucose (UA) Negative (Negative) mg/dL Urine Ketones Negative (Negative) mg/dL Urine Blood Negative (Negative) Urine Nitrite Negative (Negative) Ur Leukocyte Esterase Negative (Negative) Discharge Plan Discharge Clinical Impression: Abdominal pain, chronic, bilateral lower quadrant Patient Disposition: Home, Self-Care Instructions: Abdominal Pain (ED) Additional Instructions: Cause of your pain is not clear your multiple CT scan in the past which were negative Drink plenty of fluids Medication as prescribed for abdominal pain Follow with stock receiver for further evaluation Prescriptions: New dicyclomine 20 mg tablet 20 mg PO TID Qty: 20 0RF No Action diclofenac sodium 3 % gel 1 appl topical BID Qty: 100 0RF morphine [MS Contin] 15 mg tablet extended release 15 mg PO Q12H 3 Days Qty: 6 0RF Rx Instructions: Partial Fill upon patient request. tramadol 50 mg tablet 50 mg PO BID PRN (Reason: pain) Qty: 7 0RF lisinopril 20 mg tablet 20 mg PO DAILY zolpidem 10 mg tablet 10 mg PO BEDTIME PRN (Reason: insomnia) omeprazole 40 mg capsule,delayed release(DR/EC) 40 mg PO DAILY aspirin 81 mg tablet,chewable 1 tab PO DAILY metformin 500 mg tablet 500 mg PO sitagliptin phosphate 100 mg tablet 100 mg PO DAILY (DME) blood pressure test kit-large Kit See Rx Instructions .ROUTE .MEDSUPPLY Qty: 1 Rx Instructions: As directed atorvastatin 80 mg tablet 80 mg PO DAILY oxycodone-acetaminophen [Percocet] 5-325 mg tablet 1 tab PO DAILY PRN (Reason: pain (scale score 4-6)) 28 Days Qty: 28 0RF Rx Instructions: Partial Fill upon patient request. Referrals: Jann Marin MD [Physician] - 2 weeks Print Language: French
[2024-03-24] LABS: MANUAL DIFF FLAG NO
[2024-03-24 00:01] LABS: Basophils Absolute Auto 0.1 X10*3/uL (0.0-0.2); Basophils Percent Auto 0.6 % (0-2); Eosinophils Absolute Auto 0.3 X10*3/uL (0.0-0.4); Hematocrit 39.9 % (42.0-52.0); Hemoglobin 13.2 g/dl (14.0-18.0); Imm Gran Abs Auto 0.03 X10*3/uL (0.00-0.03); Imm Gran Pct Auto 0.4 % (0.0-0.4); Lymphocytes Absolute Auto 2.2 X10*3/uL (1.2-4.9); Mean Corpuscular HGB Conc 33.1 g/dl (31.0-36.0); Mean Corpuscular Hemoglobin 28.8 pg (27.0-33.0); Mean Corpuscular Volume 86.9 fL (80.0-98.0); Mean Platelet Volume 9.5 fL (9.4-12.4); Monocytes Absolute Auto 0.7 X10*3/uL (0.1-1.2); Monocytes Percent Auto 8.8 % (2-11); Neutrophils Absolute Auto 4.9 x10*3/uL (2.0-8.3); Neutrophils Percent Auto 59.2 % (45-73); Platelet Count 247 X10*3/uL (160-400); Red Blood Count 4.59 X10*6/uL (4.60-5.80); Red Cell Distribution Width 14.3 % (11.0-16.0); White Blood Count 8.3 X10*3/uL (4.8-10.8)
[2024-03-24 00:02] LABS: Appearance Urine Clear; Color Urine Yellow; Glucose Urine UA Negative (Negative); Leukocyte Esterase Urine Negative (Negative); Nitrite Urine Negative (Negative); PH 5.5 (5.0-9.0); Urine Blood Negative (Negative); Urine Ketones Negative (Negative); Urine Protein Negative (Neg-Trace)
[2024-03-24 00:14] LABS: Alanine Aminotransferase 23 U/L (0-40); Albumin Level 4.6 g/dL (3.5-5.0); Alkaline Phosphatase 73 U/L (39-117); Anion Gap 11 (12-20); Aspartate Amino Transferase 20 U/L (5-37); Bilirubin Direct 0.1 mg/dL (0.0-0.5); Bilirubin Total 0.4 mg/dL (0.0-1.0); Blood Urea Nitrogen 20 mg/dL (9-16); Calcium 9.5 mg/dL (8.4-10.2); Carbon Dioxide 26 mmol/L (22-29); Chloride 106 mmol/L (96-108); Creatinine Clr Calc Pharmacy 56.1; Estimated Glomerular Filt Rate > 60; Glucose Random 98 mg/dL (60-115); Potassium 3.9 mmol/L (3.3-5.1); Sodium 139 mmol/L (135-145); Total Protein 7.8 g/dL (6.5-8.0)
--- OUTSIDE RECORDS SUMMARY | 2024-03-24 00:28 | XMS_ITS ---
Author Organization [facility] lianc Address [address] [place] [address] Care Team Providers Care Behavioral Sciences Department Chair Name Role Phone Amanda Barragan Primary Care Provider Unavaila Gisell Montoya Unavailable [phone] REASON FOR VISIT DME Outreach Encounters Encounter Location Date Provider Diagnosis [facility] [address] [place] [address] 11/08/2023 Gisell Steen PLAN OF TREATMENT No Information
--- OUTSIDE RECORDS SUMMARY | 2024-03-24 00:28 | XMS_ITS ---
Author Organization [facility] liance Address [address] [place] [address] Care Team Providers Care Php Programmer Name Role Phone Amanda Barragan Primary Care Provider UnavailGilda Hernández Unavailable [phone] REASON FOR VISIT MDS Encounters Encounter Location Date Provider Diagnosis [facility] [address] [place] [address] 04/22/2023 Gilda Quarles PLAN OF TREATMENT No Information
--- OUTSIDE RECORDS SUMMARY | 2024-03-24 00:28 | XMS_ITS ---
Author Organization [facility] liance Address [address] [place] [address] Care Team Providers Care Restaurant Culinary Manager Name Role Phone Amanda Barragan Primary Care [...] Risk SNOMED Code Notes Problem CAD in [place] artery (I25.10) Active confirmed 16628335 Problem Osteoarthritis, unspecified osteoarthritis type, unspecified site (M19.90) Active confirmed 872525950 Problem Tear of right rotator cuff, unspecified tear extent, unspecified whether traumatic (M75.101) Active confirmed [id number] Problem Spondylosis (M47.9) Active confirmed 1758717 Problem Dorsalgia (M54.9) Active confirmed 1618 11652 Problem Other chronic pain (G89.29) Active confirmed 62058588 Problem Pain in right shoulder (M25.511) Active confirmed [id number] Encounters Encounter Location Date Provider Diagnosis [facility] 10/22/2023 Operations Clin ical Illiteracy Z55.0 ; Forgetfulness R68.89 ; Essential (primary) hypertension I10 ; CAD in [place] artery I25.10 ; Osteoarthritis, unspecified osteoarthritis type, [...] hypertension (ICD-10 - I10) 10/22/2023 CAD in [place] artery (ICD-10 - I25.10) 10/22/2023 Osteoarthritis, unspecified [...]
--- OUTSIDE RECORDS SUMMARY | 2024-03-24 00:29 | XMS_ITS | Patient Health Record ---
Author Organization [facility] liance Address [address] [place] [address] Care Team Providers Care Phone Technician Name Role Phone Amanda Barragan Primary Care Provider Unavaila ble Clinical, Operations Unavailable Unavailable Gisell Steen Unavailable [phone] Gilda Quarles Unavailable [phone] ALLERGIES No Known Allergies REASON FOR REFERRAL Reason AFC Level 1 Diagnosis 1 Forgetfulness (R68.8 9) Diagnosis 2 Osteoarthritis, unsp ecified osteoarthritis type, unspecified site (M19.90) Diagnosis 3 DM (diabetes mellitu s) (E11.9) Diagnosis 4 Other chronic pain ( G89.29) Diagnosis 5 Illiteracy (Z55.0) Referring Provider First Name Operations Referring Provider Last Name Clinical Referring Provider Speciality Unknown Ref[facility] Referred Provider Specialty Adult Foster Care Procedure 1 Adult foster care Le daniele 1 tallow pumper ([id number]) General Notes Ariela Johansen 09/2023 09:09:43 AM >Faxed , Is member ICO or SCO? SCO, Supervisor Paper Coating name and email address: [email or web address], Who is requesting AFC services and their relationship to the member? Member and daughter, Diagnosis with ICD10 code that supports need for AFC: forgetfulness R68.89, osteoarthritis M19.90, DM E11.9, other chronic pain G89.29, illiteracy Z55.0, What are the member's informal supports? daughter, Primary contact for Member: kat Arriaga [phone], Members preferred language: Norwegian, Provide name and contact info for GSSC/LTSC: Amanda Richardson at [facility] [phone], Please identify AFC program member will be using: [facility], ADL's requiring assistance: bathing and dressing d/t pain, weakness and impaired ROM., Member requires 24/7 supervision due to: forgetfulness, chronic pain, impaired ROM and weakness , [facility] Level recommendation: 1 Clinical Notes his referral is lacie mckeon sent to supply the member's demographic information ([facility] level 1). If approved an Approval Letter will be sent by [facility]'s Utilization Management department separately. If for any reason you are unable to accommodate this request, please contact [facility] at [phone] Referral Priority Routine Reason REHAB (1) SHOWER C HAIR WITH BACK AND ARMS (1) TOILET SAFETY FRAME (VERSAFRAME) (2) SUCTION GRAB BARS Height/Weight: 5'5 160lbs Prescriber: Tatiana Guajardo Diagnosis 1 Osteoarthritis, unsp ecified osteoarthritis type, unspecified site (M19.90) Referring Provider First Name Operations Referring Provider Last Name Clinical Referring Provider Speciality Unknown Referred Provider [employer] General Notes Honey Bae 11:38:34 AM > If unable to process this request, please contact Honey Bae [phone] EXT [phone] [email or web address] Clinical Notes This activity is to inform you that [facility] Sr Specialist for Rehab Services, Gisell Steen is recommending the following DME., Service/Item requested: SHOWER CHAIR WITH BACK AND ARMS; TOILET SAFETY FRAME (VERSAFRAME); SUCTION GRAB BARS (QUANTITY X2), Pertinent Diagnosis and ICD10 Code: M19.90 Osteoarthritis, unspecified osteoarthritis type, unspecified site, Vendor (If known. Otherwise, leave blank): [employer], Frequency and Duration:, Quantity:, Size:, Height/Weight: 5'5 160lbs, Special instructions (address for delivery, language, contact and #, installation/assembly required? etc.) If any of the requested items are not currently available, please contact sender. CONTACT MYRON THEODORE AT [phone] - THANK YOU., Does member have a [...] Notes Problem Anemia (D64.9) Active confirmed Anemia (927256374) Problem Essential (primary) hypertension (I10) Active confirmed Essential hypertension (87050622) Problem Insomnia (G47.00) Active confirmed Inso mnia (458823180) Problem CAD in [place] artery (I25.10) Active confirmed 35911678 Problem Vitamin D deficiency (E55.9) Active confirmed Vitamin D deficiency (68669781) Problem Hyperlipidemia (E78.5) Active confirmed Hyperlipidemia (46806643) Problem Dorsalgia (M54.9) Active confirmed 1618 89750 Problem DM (diabetes mellitus) (E11.9) Active confirmed DM - Diabe mari mellitus (83849073) Problem H. pylori infection (B96.81) Active confirmed Helicobacter py olivia gastrointestinal tract infection (735636088) Problem Spondylosis (M47.9) Active confirmed 3954254 Problem Illiteracy (Z55.0) Active confirmed Illiteracy (523105723) Problem Forgetfulness (R68.89) Active confirmed Forgetful (08328793) Problem Tubular adenoma (D36.9) Active confirmed Tubular adenoma (570392791) Problem Pain in right shoulder (M25.511) Active confirmed 09026327590359602 Problem Age-related nuclear cataract of both eyes (H25.13) Active confirmed 686167093 Problem Other chronic pain (G89.29) Active confirmed 35401158 Problem Osteoarthritis, unspecified osteoarthritis type, unspecified site (M19.90) Active confirmed 134040717 Problem Back pain of lumbar region with sciatica (M54.40) Active confirmed Sciatica (74934325) Problem Cardiovascular event risk (Z91.89) Active confirmed Cardiovascular event risk (839480449) Problem Tear of right rotator cuff, unspecified tear extent, unspecified whether traumatic (M75.101) Active confirmed [id number] Encounters Encounter Location Date Provider Diagnosis [address] [address] 11/08/2023 Gisell Steen [address] [address] 04/22/2023 Gilda Quarles [facility] 10/22/2023 Operati ons Clinical Illiteracy Z55.0 ; Forgetfulness R68.89 ; Essential (primary) hypertension I10 ; CAD in [place] artery I25.10 ; Osteoarthritis, unspecified osteoarthritis type, [...] (ICD-10 - I10) 10/22/2023 CAD in [place] artery (ICD-10 - I25.10) 10/22/2023 Osteoarthritis, unspecified [...] Insured Coverage Start Date Coverage End Date [facility] SCO ([id number]) [address] [facility] [address] [place] [address] [id number] Carlos Hobbs Self - patient is the insured 8 9 MEDICAL (GENERAL) HISTORY Surgical History Surgery Date(Month/Year) cholecystectomy kidney stones
[2024-03-24] MEDS: Dicyclomine HCl 10 MG CAPSULE 20 MG PO (00:41)
[2024-03-24 00:46] VITALS: BP 176/85; PULSE 76; RESP 18; TEMP 36.7; O2SAT 99
== END 2024-03-24 00:48 | disposition home or self-care (01) ==
PROVIDERS: Emergency Provider Internal Medicine; PCP Family Medicine
DX: R10.32 Left lower quadrant pain (principal); R10.31 Right lower quadrant pain
CPT/HCPCS: 36415; 80048; 80076; 81003; 85025; 99283; 99284

== ENCOUNTER 2024-03-30 14:13 | Outpatient (REF) | payer OTHER, SELFPAY ==
--- NOTE | 2024-03-30 | EMG_ITS ---
Chief complaint: Right arm pain EMG done by me 06/17/2023 showed right moderate-severe Carpal Tunnel Syndrome. Reason for referral: Evaluate for persistent pain radiating down right arm Referred by: Dr. Barragan Procedure done: Right upper extremity NCS/EMG Precautions and/or limitations: None Croatian speaking, seen with a superintendent stations. The limb temperature was monitored continuously and remained between 32-36 degrees C during the performance of the NCS. Nerve Conduction Studies Anti Sensory Summary Table ?Stim Site NR Onset (ms) Norm Onset (ms) Peak (ms) Norm Peak (ms) O-P Amp (?V) Norm O-P Amp Site1 Site2 Delta-0 (ms) Dist (cm) Roman (m/s) Norm Roman (m/s) Right Median Anti Sensory (2nd Digit) Wrist ? 3.1 3.9 <3.6 10.8 >10 Wrist 2nd Digit 3.1 14.0 45 Right Radial Anti Sensory (Thumb) Forearm ? 1.9 2.5 <3.1 14.2 Forearm Thumb 1.9 0.0 Right Ulnar Anti Sensory (5th Digit) Wrist ? 2.2 2.8 <3.7 25.6 >15.0 Wrist 5th Digit 2.2 14.0 64 Motor Summary Table ?Stim Site NR Onset (ms) Norm Onset (ms) O-P Amp (mV) Norm O-P Amp iAmp (mV) Amp (1st) (%) Site1 Site2 Delta-0 (ms) Dist (cm) Roman (m/s) Norm Roman (m/s) Right Median Motor (Abd Poll Brev) Wrist ? 5.0 <3.9 4.7 >4.5 5.4 100.0 Elbow Wrist 4.8 23.0 48 >45 Elbow ? 9.8 4.3 5.1 91.5 Right Ulnar Motor (Abd Dig Minimi) Wrist ? 2.9 <3.0 6.8 >5 8.3 100.0 B Elbow Wrist 3.7 19.5 53 >45 B Elbow ? 6.6 6.1 7.7 89.7 A Elbow B Elbow 1.2 10.0 83 >45 A Elbow ? 7.8 6.1 7.8 89.7 EMG ?Side Muscle Nerve Root Ins Act Fibs Psw Amp Dur Poly Recrt Int Pat Comment Right 1stDorInt Ulnar C8-T1 Nml Nml Nml Nml Nml 0 Nml Complete Right FlexCarRad Median C6-7 Nml Nml Nml Nml Nml 0 Nml Complete Right Biceps Musculocut C5-6 Nml Nml Nml Nml Nml 0 Nml Complete Right Triceps Radial C6-7-8 Nml Nml Nml Nml Nml 0 Nml Complete Right Deltoid Axillary C5-6 Nml Nml Nml Nml Nml 0 Nml Complete FINDINGS: Right median motor nerve showed prolonged distal latency, normal amplitude and normal conduction velocity. Right median sensory nerve showed prolonged peak latency. All other nerves tested were within normal. Concentric needle EMG was performed in selected muscles of the right upper extremity. Study did not reveal signs of electric abnormalities as shown in the table above. IMPRESSION: 1. This is an abnormal study. 2. 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 3. There is no electrodiagnostic evidence for ulnar neuropathy, brachial plexopathy, or cervical radiculopathy. CLINICAL COMMENT: Same findings as EMG/NCS done 06/17/2023. Thank you for your kind referral. Heena Albarado MD, JACKELIN Board Certified, [place] Board of Physical Medicine and Rehabilitation (ABPMR) Board Certified, [place] Board of Electrodiagnostic Medicine (ABEM) COD[place] [id number] [facility]
== END 2024-03-30 14:14 | disposition home or self-care (01) ==
LOC: HO.NEURO 14:13
PROVIDERS: PCP Family Medicine; Visit Provider Family Medicine
DX: M79.601 Pain in right arm (principal)
CPT/HCPCS: 95886; 95909

== ENCOUNTER → 2024-03-30 14:17 | Outpatient (BNV) | payer OTHER, SELFPAY | PROVIDERS: PCP Family Medicine; Visit Provider Physical Medicine & Rehabilitation | DX: G56.01 Carpal tunnel syndrome, right upper limb (principal) | CPT/HCPCS: 95886; 95909 ==

== ENCOUNTER 2024-04-03 03:45 | Emergency (ER) | payer OTHER, SELFPAY ==
--- NOTE | 2024-04-03 | ECG_ITS ---
Test Reason : CHEST PAIN Blood Pressure : / mmHG Vent. Rate : 067 BPM Atrial Rate : 067 BPM P-R Int : 156 ms QRS Dur : 092 ms QT Int : 374 ms P-R-T Axes : 046 038 035 degrees QTc Int : 395 ms Normal sinus rhythm Minimal voltage criteria for LVH, may be normal variant ( Sokolow-Werner ) Borderline ECG When compared with ECG of 29-OCT-2023 16:50, No significant change was found Referred By: Generic ED Physician Electronically Signed By:QUAN BAKER
--- NOTE | ~2024-04-03 | XR_ITS ---
EXAMINATION: XR CHEST CLINICAL INFORMATION: Chest pain COMPARISON: None available. TECHNIQUE: Frontal view of the chest was obtained. FINDINGS: Normal appearance of the cardiomediastinal structures. No effusions or pneumothoraces. Normal pattern of pulmonary vasculature. No focal pulmonary consolidation. XR/XR chest 1V IMPRESSION: No acute cardiopulmonary abnormalities. Electronically signed by: Nolan Soriano MD 04/03/2024 05:19 AM EDT RP
[2024-04-03 03:50] VITALS: PULSE 62; RESP 16; TEMP 36.6; O2SAT 100; BMI 24.4
--- NOTE | 2024-04-03 03:57 | ED.CHESTPAIN ---
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 No recent travel or illness. He states it does not radiate. He has not had n/v. He has no diarrhea or abdominal pain. He notes the pain was dull at first at 9pm but it has not gone away so he came for eval to the ED. He tried to lay down but it wouldn't go away. States a long time in [place] had IN but no stents denies stress at home but asked for sleeping pills - instructed him to follow up with PCP MD complaint: chest heaviness Onset (ago): hour(s) (7) Timing of current episode: constant Prior episodes: Yes Onset: during rest Pain location: left chest Pain radiation: none Severity: mild Quality: tightness Relieving factors: nothing Exacerbating factors: nothing Associated symptoms: dyspnea Treatment prior to arrival: none Related Data Home Medications ?Medication ?Instructions ?Recorded ?Confirmed aspirin 81 mg chewable tablet 1 tab PO DAILY 08/05/20 10/09/20 atorvastatin 80 mg tablet 80 mg PO DAILY 08/05/20 10/09/20 blood pressure test kit-large #1 ea 08/05/20 10/09/20 lisinopril 20 mg tablet 20 mg PO DAILY 08/05/20 10/09/20 metformin 500 mg tablet 500 mg PO 08/05/20 10/09/20 omeprazole 40 mg capsule,delayed 40 mg PO DAILY 08/05/20 10/09/20 release sitagliptin phosphate 100 mg tablet 100 mg PO DAILY 08/05/20 10/09/20 zolpidem 10 mg tablet 10 mg PO BEDTIME PRN insomnia 08/05/20 10/09/20 Previous Rx's ?Medication ?Instructions ?Recorded diclofenac sodium 3 % topical gel 1 appl topical BID #100 grams 04/01/22 tramadol 50 mg tablet 50 mg PO BID PRN pain #7 tabs 10/26/22 morphine 15 mg tablet,extended 15 mg PO Q12H pain severe 3 days 02/03/23 release (MS Contin) #6 tabs oxycodone-acetaminophen 5 mg-325 1 tab PO DAILY PRN pain (scale 03/18/23 mg tablet (Percocet) score 4-6) 28 days #28 tabs dicyclomine 20 mg tablet 20 mg PO TID #20 tabs 03/24/24 Allergies Allergy/AdvReac Type Severity Reaction Status Date / Time atorvastatin [Lipitor] Allergy Unknown unknown Verified 04/03/24 03:54 Review of Systems Review of Systems: Constitutional : No Fever, No Chills ENT/Mouth : No sore throat, No Rhinorrhea, No Swallowing Difficulty Eyes: No Eye Pain, No Swelling, No Redness Cardiovascular : pos Chest Pain, positive SOB, No Orthopnea, no Edema Respiratory : No Cough, No Sputum, No Wheezing Gastrointestinal : No Nausea, No Vomiting, No Diarrhea, No abdominal Pain, No Hematochezia, No Melena Genitourinary : No Dysuria, No Urinary Frequency, No Hematuria Musculoskeletal : No joint pain, No Myalgias Skin : No Skin Lesions, No rash Neuro : No Weakness, No Numbness, No Dizziness, No Headache Psych : No Anxiety/Panic, No Depression All other systems reviewed and are negative [facility] Past Medical History Attestation statement: The following information was validated with the patient. Source: old records reviewed Medical History Palpitations Mass of left side of neck Surgical History History of cholecystectomy Family History Family History Sister History of pancreatic cancer Social History Social History Alcohol intake: current Alcohol intake frequency: holidays/special occasions only Alcohol type: beer and hard liquor Patient Tobacco Use Status: Never used Tobacco Smoked in Last 30 Days: No Use of substances other than those prescribed or required for medical reasons: No Advance Directives: No Advance Directives Information Provided: Yes Do you have a plan to hurt others: No Plan Current occupational status: disabled Current occupation: right hand dominant Physical Exam Vital Signs: Vital Signs: Last Vital Signs Temp 97.8 F 04/03/24 03:50 Pulse 62 04/03/24 03:50 Resp 16 04/03/24 03:50 Pulse Ox 100 04/03/24 03:50 O2 Del Method Room Air 04/03/24 03:50 BMI result Body Mass Index 24.4 Appearance: Alert. Oriented X3. No acute distress. Eyes: Pupils equal, round and reactive to light. ENT: Pharynx normal. Neck: Normal inspection. Neck supple. CVS: Normal heart rate and rhythm. Pulses normal. Respiratory: No respiratory distress. Breath sounds normal. Abdomen: Soft and nontender. Skin: Skin warm and dry. Normal skin color. Normal skin turgor. Extremities: No lower extremity edema. No calf ttp Neuro: Oriented X 3. No motor deficit. No sensory deficit. Medications Administered Discontinued Medications Generic Name Dose Route Start Last Admin Trade Name Freq PRN Reason Stop Dose Admin Famotidine 20 mg 04/03/24 04:06 04/03/24 04:14 Famotidine 20 Mg Tablet PO 04/03/24 04:07 20 mg ONCE ONE Administration Oxycodone HCl 2.5 mg 04/03/24 04:06 04/03/24 04:14 Oxycodone Hcl Immed Release 5 Mg Tablet PO 04/03/24 04:07 2.5 mg ONCE ONE Administration Medical Decision Making Medical Decision Making [facility] Narrative: 73 yo male with PMH of HTN, HLD, DM, arthritis here with c/o L sided chest pain after eating a quarter pounder he denies n/v/d he reports some mild dyspnea at this time pulses intact doubt dissection no radiation to the back either, he has no signs of DVT/hypoxia or tachycardia to suggest VTE. He will need EKG, troponin x 1 given onset 7 hours ago, CXR and pepcid along with PO pain control. It is somewhat atypical for ACS Differential Diagnosis Differential Diagnoses: The differential diagnosis associated with the presentation includes chest pain, GERD, doubt VTE no recent travel or procedures no signs of DVT no hypoxia or tachycardia Admission/Observation Consideration of admission/observation: Escalation of care including admission/observation considered EKG nonischemic and trop flat at 7 hours atypical pain doubt ACS stable for outpatient follow up with cards Lab Data [facility] Lab Attestation statement: I reviewed the patient's lab results. 04/03/24 03:59 04/03/24 03:59 Labs: Lab Results 04/03/24 Range/Units 03:59 WBC 7.8 (4.8-10.8) X10*3/uL RBC 4.56 L (4.60-5.80) X10*6/uL Hgb 13.1 L (14.0-18.0) g/dl Hct 39.5 L (42.0-52.0) % MCV 86.6 (80.0-98.0) fL MCH 28.7 (27.0-33.0) pg MCHC 33.2 (31.0-36.0) g/dl RDW 13.8 (11.0-16.0) % Plt Count 242 (160-400) X10*3/uL MPV 10.1 (9.4-12.4) fL Immature Gran % (Auto) 0.1 (0.0-0.4) % Neut % (Auto) 57.1 (45-73) % Lymph % (Auto) 29.7 (20-40) % [place] % (Auto) 7.8 (2-11) % Eos % (Auto) 4.7 H (0-4) % Baso % (Auto) 0.6 (0-2) % Lymph # (Auto) 2.3 (1.2-4.9) X10*3/uL [place] # (Auto) 0.6 (0.1-1.2) X10*3/uL Eos # (Auto) 0.4 (0.0-0.4) X10*3/uL Baso # (Auto) 0.1 (0.0-0.2) X10*3/uL Abs Immat Gran (auto) 0.01 (0.00-0.03) X10*3/uL Absolute Neuts (auto) 4.4 (2.0-8.3) x10*3/uL Absolute Nucleated RBC 0.000 (0.0-0.012) X10*3/uL Nucleated RBC % (auto) 0.0 (0.0-0.2) /100WBC Sodium 138 (135-145) mmol/L Potassium 4.2 (3.3-5.1) mmol/L Chloride 104 (96-108) mmol/L Carbon Dioxide 26 (22-29) mmol/L Anion Gap 12 (12-20) BUN 20 H (9-16) mg/dL Creatinine 1.21 (0.5-1.4) mg/dL Estim Creat Clear Calc 48.7 Estimated GFR 59 Random Glucose 149 H (60-115) mg/dL Calcium 9.7 (8.4-10.2) mg/dL Magnesium 2.2 (1.6-2.6) mg/dL Total Bilirubin 0.2 (0.0-1.0) mg/dL Direct Bilirubin < 0.2 (0.0-0.5) mg/dL AST 27 (5-37) U/L ALT 28 (0-40) U/L Alkaline Phosphatase 70 (39-117) U/L Troponin I High Sens < 2.7 (<3.5-35.0) ng/L B-Natriuretic Peptide 28 (<100) pg/mL Total Protein 7.8 (6.5-8.0) g/dL Albumin 4.4 (3.5-5.0) g/dL Lipase 31 (8-78) U/L Independent Interpretation I performed an independent interpretation of an: EKG and Plain X-Ray (normal ) Interpretation: Rate: 67 Rhythm: NSR [place]: normal Normal P waves. Normal MARGARITO. Normal QRS complex. ST T wave : no JONATHAN, inverted t wave V1 qTC: 395 prior studies: no change October 2023 The study has been interpreted contemporaneously by me. . Radiology Impression Discussion of test interpretation with radiology: I have reviewed the radiologist's reading. External Record Review External record reviewed: Outpatient record Discharge Plan Discharge Clinical Impression: Atypical chest pain Patient Disposition: Home, Self-Care Instructions: Chest Pain (ED) Additional Instructions: EKG and chest xray normal labs reassuring - normal tests of the blood for the heart, kidneys, liver and pancreas return for any worsening symptoms or concerns follow up with your doctor and geospatial applications developer Prescriptions: No Action diclofenac sodium 3 % gel 1 appl topical BID Qty: 100 0RF morphine [MS Contin] 15 mg tablet extended release 15 mg PO Q12H 3 Days Qty: 6 0RF Rx Instructions: Partial Fill upon patient request. tramadol 50 mg tablet 50 mg PO BID PRN (Reason: pain) Qty: 7 0RF dicyclomine 20 mg tablet 20 mg PO TID Qty: 20 0RF lisinopril 20 mg tablet 20 mg PO DAILY zolpidem 10 mg tablet 10 mg PO BEDTIME PRN (Reason: insomnia) omeprazole 40 mg capsule,delayed release(DR/EC) 40 mg PO DAILY aspirin 81 mg tablet,chewable 1 tab PO DAILY metformin 500 mg tablet 500 mg PO sitagliptin phosphate 100 mg tablet 100 mg PO DAILY (DME) blood pressure test kit-large Kit See Rx Instructions .ROUTE .MEDSUPPLY Qty: 1 Rx Instructions: As directed atorvastatin 80 mg tablet 80 mg PO DAILY oxycodone-acetaminophen [Percocet] 5-325 mg tablet 1 tab PO DAILY PRN (Reason: pain (scale score 4-6)) 28 Days Qty: 28 0RF Rx Instructions: Partial Fill upon patient request. Print Language: Tristanian
[2024-04-03 04:03] LABS: Basophils Absolute Auto 0.1 X10*3/uL (0.0-0.2); Basophils Percent Auto 0.6 % (0-2); Eosinophils Absolute Auto 0.4 X10*3/uL (0.0-0.4); Eosinophils Percent Auto 4.7 % (0-4); Hematocrit 39.5 % (42.0-52.0); Hemoglobin 13.1 g/dl (14.0-18.0); Imm Gran Abs Auto 0.01 X10*3/uL (0.00-0.03); Imm Gran Pct Auto 0.1 % (0.0-0.4); Lymphocytes Absolute Auto 2.3 X10*3/uL (1.2-4.9); Lymphocytes Percent Auto 29.7 % (20-40); MANUAL DIFF FLAG NO; Mean Corpuscular HGB Conc 33.2 g/dl (31.0-36.0); Mean Corpuscular Hemoglobin 28.7 pg (27.0-33.0); Mean Corpuscular Volume 86.6 fL (80.0-98.0); Mean Platelet Volume 10.1 fL (9.4-12.4); Monocytes Absolute Auto 0.6 X10*3/uL (0.1-1.2); Monocytes Percent Auto 7.8 % (2-11); Neutrophils Absolute Auto 4.4 x10*3/uL (2.0-8.3); Neutrophils Percent Auto 57.1 % (45-73); Platelet Count 242 X10*3/uL (160-400); Red Blood Count 4.56 X10*6/uL (4.60-5.80); Red Cell Distribution Width 13.8 % (11.0-16.0); White Blood Count 7.8 X10*3/uL (4.8-10.8)
--- OUTSIDE RECORDS SUMMARY | 2024-04-03 04:07 | XMS_ITS ---
Author Organization [facility] liance Address [address] [place] [address] Care Team Providers Care Fender Mechanic Apprentice Name Role Phone Marlamaninder Amanda Primary Care Provider Celeste Can Unavailable [phone] ALLERGIES No Known Allergies REASON FOR VISIT Med Rec MEDICATIONS Medication SIG (Take, Route, Frequency, Duration) Notes Start Date End Date Status Atorvastatin Calcium 80 MG 1 tablet Orally Once a day Active Lisinopril 20 MG 1 tablet Orally Once a day Active Aspirin 81 MG 1 tablet Orally Once a day doctor discontinued Not-Taking metFORMIN HCl 500 MG 1 tablet with meals Orally Twice a day Active Zolpidem Tartrate 10 MG 1 tablet at bedtime as needed Orally Once a day Active oxyCODONE HCl 5 MG 1 tablet as needed Orally three times daily Active Methocarbamol 500 MG 1 tablet as needed Orally twice a day Not-Taking Ibuprofen 800 MG 1 tablet with food or milk as needed Orally Three times a day Not-Taking Januvia 100 MG 1 tablet Orally Once a day Active Omeprazole 40 MG 1 capsule 30 minutes before morning meal Orally Once a day Active Diclofenac Sodium 1 % as directed Externally Active Acetaminophen ER 650 MG 2 tablets as needed Orally every 8 hrs Active Gabapentin 300 MG 1 capsule Orally Once a day Not-Taking Dicyclomine HCl 20 MG 1 tablet Orally Three times a day Active Baclofen 10 MG 1 tablet as needed Orally Twice a day Active Encounters Encounter Location Date Provider Diagnosis [facility] [address] [facility] [place] [place] [address] 03/27/2024 Celeste Carrizales PLAN OF TREATMENT No Information History and Physical Notes * HPI (History of Present Illness) Category Sub-Category Detail Notes Medication Review Medication Review What service was performed?: Routine medication review Visit/Encounter Type: Telephone Was the medication list in eCW updated?: Yes- new or changed medications added Were medication discrepancies/issues levy ntified?: No What interventions have been performed?: Remedia reviewed, Member/caregiver education, Allergies Updated
--- OUTSIDE RECORDS SUMMARY | 2024-04-03 04:07 | XMS_ITS ---
Author Organization [facility] liance Address [address] [place] [address] Care Team Providers Care Program Advocate Name Role Phone Amanda Barragan Primary Care [...] Risk SNOMED Code Notes Problem CAD in [place] artery (I25.10) Active confirmed 01281962 Problem Osteoarthritis, unspecified osteoarthritis type, unspecified site (M19.90) Active confirmed 199435646 Problem Tear of right rotator cuff, unspecified tear extent, unspecified whether traumatic (M75.101) Active confirmed [id number] Problem Spondylosis (M47.9) Active confirmed 9678029 Problem Dorsalgia (M54.9) Active confirmed 1618 41675 Problem Other chronic pain (G89.29) Active confirmed 43302407 Problem Pain in right shoulder (M25.511) Active confirmed [id number] Encounters Encounter Location Date Provider Diagnosis [facility] 10/22/2023 Operations Clin ical Illiteracy Z55.0 ; Forgetfulness R68.89 ; Essential (primary) hypertension I10 ; CAD in [place] artery I25.10 ; Osteoarthritis, unspecified osteoarthritis type, [...] hypertension (ICD-10 - I10) 10/22/2023 CAD in [place] artery (ICD-10 - I25.10) 10/22/2023 Osteoarthritis, unspecified [...]
--- OUTSIDE RECORDS SUMMARY | 2024-04-03 04:07 | XMS_ITS ---
Author Organization [facility] lianc Address [address] [place] [address] Care Team Providers Care Building Mover Name Role Phone Amanda Barragan Primary Care Provider Unavaila Gisell Montoya Unavailable [phone] REASON FOR VISIT DME Outreach Encounters Encounter Location Date Provider Diagnosis [facility] [address] [place] [address] 11/08/2023 Gisell Steen PLAN OF TREATMENT No Information
--- OUTSIDE RECORDS SUMMARY | 2024-04-03 04:07 | XMS_ITS | Patient Health Record ---
Author Organization [facility] liance Address [address] [place] [address] Care Team Providers Care On Air Talent Name Role Phone Amanda Barragan Primary Care Provider Unavaila ble Clinical, Operations Unavailable Unavailable Gisell Steen Unavailable [phone] Celeste Carrizales Unavailable [phone] Gilda Quarles Unavailable [phone] ALLERGIES No Known Allergies REASON FOR REFERRAL Reason AFC Level 1 Diagnosis 1 Forgetfulness (R68.8 9) Diagnosis 2 Osteoarthritis, unsp ecified osteoarthritis type, unspecified site (M19.90) Diagnosis 3 DM (diabetes mellitu s) (E11.9) Diagnosis 4 Other chronic pain ( G89.29) Diagnosis 5 Illiteracy (Z55.0) Referring Provider First Name Operations Referring Provider Last Name Clinical Referring Provider Speciality Unknown Referred Provider [employer]. Referred Provider Specialty Adult Foster Care Procedure 1 Adult foster care Le daniele 1 chief maintenance supervisor ([id number]) General Notes Ariela Johansen 09/2023 09:09:43 AM >Faxed , Is member ICO or SCO? SCO, Shift Lab Technician name and email address: [email or web address], Who is requesting AFC services and their relationship to the member? Member and daughter, Diagnosis with ICD10 code that supports need for AFC: forgetfulness R68.89, osteoarthritis M19.90, DM E11.9, other chronic pain G89.29, illiteracy Z55.0, What are the member's informal supports? daughter, Primary contact for Member: kat Arriaga [phone], Members preferred language: Persian, Provide name and contact info for [facility]/LT[facility]: Amanda Richardson at [facility] [phone], Please identify [facility] program member will be using: [facility], ADL's requiring assistance: bathing and dressing d/t pain, weakness and impaired ROM., Member requires 24/7 supervision due to: forgetfulness, chronic pain, impaired ROM and weakness , [facility] Level recommendation: 1 Clinical Notes his referral is lacie g sent to supply the member's demographic information ([facility] level 1). If approved an Approval Letter will be sent by [facility]'s Utilization Management department separately. If for any reason you are unable to accommodate this request, please contact [facility] at [phone] Referral Priority Routine Reason REHAB (1) SHOWER C HAIR WITH BACK AND ARMS (1) TOILET SAFETY FRAME (VERSAFRAME) (2) SUCTION GRAB BARS Height/Weight: 5'5 160lbs Prescriber: Tatiana Guajardo Diagnosis 1 Osteoarthritis, unsp ecified osteoarthritis type, unspecified site (M19.90) Referring Provider First Name Operations Referring Provider Last Name Clinical Referring Provider Speciality Unknown Referred Provider [employer] General Notes Honey Bae 11:38:34 AM > If unable to process this request, please contact Honey Bae [phone] [email or web address] Clinical Notes This activity is to inform you that [facility] Sr Specialist for Rehab Services, Gisell [...] please contact sender. CONTACT MYRON THEODORE AT [phone] - THANK YOU., Does member have a prescription for this order? No Referral Priority Routine MEDICATIONS Medication SIG (Take, Route, Frequency, Duration) Notes Start Date End Date Status Acetaminophen ER 650 MG 2 tablets as needed Orally every 8 hrs Active Aspirin 81 MG 1 tablet Orally Once a day doctor discontinued Not-Taking Gabapentin 300 MG 1 capsule Orally Once a day Not-Taking Dicyclomine HCl 20 MG 1 tablet Orally Three times a day Active metFORMIN HCl 500 MG 1 tablet with meals Orally Twice a day Active Baclofen 10 MG 1 tablet as needed Orally Twice a day Active Zolpidem Tartrate 10 MG 1 tablet at bedtime as needed Orally Once a day Active Omeprazole 40 MG 1 capsule 30 minutes before morning meal Orally Once a day Active oxyCODONE HCl 5 MG 1 tablet as needed Orally three times daily Active Methocarbamol 500 MG 1 tablet as needed Orally twice a day Not-Taking Atorvastatin Calcium 80 MG 1 tablet Orally Once a day Active Diclofenac Sodium 1 % as directed Externally Active Lisinopril 20 MG 1 tablet Orally Once a day Active Ibuprofen 800 MG 1 tablet with food or milk as needed Orally Three times a day Not-Taking Januvia 100 MG 1 tablet Orally Once a day Active IMMUNIZATIONS Vaccine [...] Notes Problem Anemia (D64.9) Active confirmed Anemia (341737103) Problem Essential (primary) hypertension (I10) Active confirmed Essential hypertension (24990351) Problem Insomnia (G47.00) Active confirmed Inso mnia (595455372) Problem CAD in [place] artery (I25.10) Active confirmed 92439394 Problem Vitamin D deficiency (E55.9) Active confirmed Vitamin D deficiency (55554669) Problem Hyperlipidemia (E78.5) Active confirmed Hyperlipidemia (97430822) Problem Dorsalgia (M54.9) Active confirmed 1618 30251 Problem DM (diabetes mellitus) (E11.9) Active confirmed DM - Diabe mari mellitus (15913897) Problem H. pylori infection (B96.81) Active confirmed Helicobacter py olivia gastrointestinal tract infection (341749117) Problem Spondylosis (M47.9) Active confirmed 7981539 Problem Illiteracy (Z55.0) Active confirmed Illiteracy (567468872) Problem Forgetfulness (R68.89) Active confirmed Forgetful (28785912) Problem Tubular adenoma (D36.9) Active confirmed Tubular adenoma (791219318) Problem Pain in right shoulder (M25.511) Active confirmed 79807910256186614 Problem Age-related nuclear cataract of both eyes (H25.13) Active confirmed 090207853 Problem Other chronic pain (G89.29) Active confirmed 17843721 Problem Osteoarthritis, unspecified osteoarthritis type, unspecified site (M19.90) Active confirmed 587751268 Problem Back pain of lumbar region with sciatica (M54.40) Active confirmed Sciatica (65875742) Problem Cardiovascular event risk (Z91.89) Active confirmed Cardiovascular event risk (965382487) Problem Tear of right rotator cuff, unspecified tear extent, unspecified whether traumatic (M75.101) Active confirmed 24957575473121332 Encounters Encounter Location Date Provider Diagnosis [facility] [address] [place] [address] 04/22/2023 Gilda Quarles [facility] 10/22/2023 Operati ons Clinical Illiteracy Z55.0 ; Forgetfulness R68.89 ; Essential (primary) hypertension I10 ; CAD in [place] artery I25.10 ; Osteoarthritis, unspecified osteoarthritis type, [...] G89.29 and Pain in right shoulder M25.511 [facility] [address] [facility] [place] [address] 11/08/2023 Gisell Mejiajuancho [facility] [address] [place] [address] 03/27/2024 Celeste Carrizales ASSESSMENTS Encounter Date Diagnosis Assessment Notes Treatment Notes Treatment Clinical Notes 10/22/2023 Illiteracy (ICD-10 - Z55.0) 10/22/2023 Forgetfulness (ICD-1 0 - R68.89) 10/22/2023 Essential (primary) hypertension (ICD-10 - I10) 10/22/2023 CAD in [place] artery (ICD-10 - I25.10) 10/22/2023 Osteoarthritis, unspecified [...] Insured Coverage Start Date Coverage End Date [facility] SCO ([id number]) [address] [facility] [address] [place] [address] [id number] Carlos Hobbs Self - patient is the insured 8 9 MEDICAL (GENERAL) HISTORY Surgical History Surgery Date(Month/Year) cholecystectomy kidney stones
[2024-04-03] MEDS: oxyCODONE HCl Immed Release 5 MG TABLET 2.5 MG PO (04:14)
[2024-04-03] MEDS: Famotidine 20 MG TABLET PO (04:14)
[2024-04-03 04:20] LABS: Alanine Aminotransferase 28 U/L (0-40); Albumin Level 4.4 g/dL (3.5-5.0); Alkaline Phosphatase 70 U/L (39-117); Anion Gap 12 (12-20); Aspartate Amino Transferase 27 U/L (5-37); Bilirubin Direct < 0.2 mg/dL (0.0-0.5); Bilirubin Total 0.2 mg/dL (0.0-1.0); Blood Urea Nitrogen 20 mg/dL (9-16); Calcium 9.7 mg/dL (8.4-10.2); Carbon Dioxide 26 mmol/L (22-29); Chloride 104 mmol/L (96-108); Creatinine Clr Calc Pharmacy 48.7; Estimated Glomerular Filt Rate 59; Glucose Random 149 mg/dL (60-115); Lipase 31 U/L (8-78); Magnesium 2.2 mg/dL (1.6-2.6); Potassium 4.2 mmol/L (3.3-5.1); Sodium 138 mmol/L (135-145); Total Protein 7.8 g/dL (6.5-8.0)
--- NOTE | 2024-04-03 04:21 | PC.NURSE ---
pt ambulated from waiting room with steady gait. geosciences associate professor at bedside. pt a&ox, vss, respirations even and unlabored, normal sinus 62-64. pt reports chest pain that started at 6pm last night, pt described pain as 'heart agitation' with pain radiating down LE. pt reports 2 prior MIs. 18g placed in r forearm. pt medicated per mar, tolerated well with water.
[2024-04-03 04:23] LABS: B Type Natriuretic Peptide 28 pg/mL (<100)
[2024-04-03 04:27] VITALS: PULSE 64
[2024-04-03 04:28] LABS: Troponin-I High Sensitivity < 2.7 ng/L (<3.5-35.0)
--- NOTE | 2024-04-03 04:44 | MHC.EDTECH ---
Addendum entered by Zelalem Perez 04/03/24 04:45: RN made aware. Original Note: patient assisted to bathroom to attempt to void. pt states that he was unable to go even though he feels the urge to void. pt also complains of 9/10 pain localized to the site of the IV in the right forearm.
[2024-04-03 05:47] VITALS: BP 167/89; PULSE 63; RESP 16; TEMP 36.7; O2SAT 98
== END 2024-04-03 05:51 | disposition home or self-care (01) ==
PROVIDERS: Emergency Provider Emergency Medicine
DX: R07.89 Other chest pain (principal); R06.02 Shortness of breath; E11.9 Type 2 diabetes mellitus without complications; I10 Essential (primary) hypertension; E78.00 Pure hypercholesterolemia, unspecified; Z79.82 Long term (current) use of aspirin; Z79.02 Long term (current) use of antithrombotics/antiplatelets; Z79.84 Long term (current) use of oral hypoglycemic drugs; Z79.899 Other long term (current) drug therapy
CPT/HCPCS: 36415; 71045; 80048; 80076; 83690; 83735; 83880; 84484; 85025; 93005; 99283; 99285

== ENCOUNTER → 2024-04-03 03:45 | Outpatient (BNV) | payer OTHER, SELFPAY | PROVIDERS: Emergency Provider Emergency Medicine; Visit Provider Internal Medicine | DX: R07.9 Chest pain, unspecified (principal) | CPT/HCPCS: 93010 ==

== ENCOUNTER 2024-04-05 13:41 | Outpatient (REF) | payer OTHER, SELFPAY ==
--- NOTE | ~2024-04-05 | US_ITS ---
EXAMINATION: US PELVIS LIMITED (BLADDER) CLINICAL INFORMATION: Thickened bladder wall seen on CT. COMPARISON: CT abdomen and pelvis of 02/15/2024. TECHNIQUE: Real-time imaging of the bladder. FINDINGS: BLADDER: Well-distended. Bilateral ureteral jets are demonstrated. Prevoid bladder volume is 215.0 mL. Postvoid bladder volume is 18.7 mL. Enlarged prostate with volume 54.9 mL. Diffuse thickening and trabeculation/irregularity of the bladder wall. US/US bladder IMPRESSION: Enlarged prostate with volume 54.9 mL. Diffuse thickening and trabeculation/irregularity of the bladder wall. . Electronically signed by: Katelyn Vallejo MD 05/30/2024 11:45 AM EST
--- NOTE | ~2024-04-05 | US_ITS ---
EXAMINATION: US PELVIS, LIMITED/FOLLOW UP CLINICAL INFORMATION: Right lower quadrant pain COMPARISON: CT abdomen pelvis 02/15/2024 TECHNIQUE: High frequency linear ultrasound transducer was used to examine the area of clinical concern. FINDINGS: No abnormality is seen. No masses are identified. No adenopathy or hernia is seen. No fluid collections were present. US/US pelvic limited IMPRESSION: No abnormality is seen. Electronically signed by: Maxwell Morales MD 04/19/2024 10:26 AM ELFEGO RAMIREZ
== END 2024-04-05 13:42 | disposition home or self-care (01) ==
LOC: HO.US 13:41
PROVIDERS: PCP Family Medicine; Visit Provider Family Medicine
DX: R10.31 Right lower quadrant pain (principal); G89.29 Other chronic pain
CPT/HCPCS: 76857

== ENCOUNTER 2024-06-29 13:00 | Outpatient (AMB) | payer OTHER, SELFPAY ==
--- NOTE | 2024-06-29 13:06 | A.OFFVIS_ITS ---
Intake Visit Reasons: BPH/ bladder wall thickening Intake Note: New Patient presents for initial visit for BPH Urology Medications: none Blood Thinner: none PVR: 40ml's Audio Visual Equipment Rental Clerk Required: No Accompanied by: Child Allergies atorvastatin [Lipitor] Allergy (Unknown, Verified 06/29/24 14:00) unknown Medication List - Last Reconciled 06/29/24 by DIDI Yi-SONYA atorvastatin 80 mg PO DAILY blood pressure test kit-large As directed diclofenac sodium 3% 1 appl topical BID lisinopril 20 mg PO DAILY metformin 500 mg PO oxycodone-acetaminophen 5-325 mg (Percocet) 1 tab PO DAILY PRN 28 days sitagliptin phosphate 100 mg PO DAILY zolpidem 10 mg PO BEDTIME PRN HPI Comments Details: Is a 73-year-old male patient of Dr. Schumacher who was accompanied by his daughter at today's office visit. He has a past medical history of hyperlipidemia, hypertension, diabetes, and insomnia. He presents to the office today as a new patient for bladder wall thickening. In discussion with the patient today discusses following up with his PCP regarding right lower abdominal pain he had been experiencing at which time a CT was ordered for further assessment evaluation. CT noted bladder wall thickening at which time a bladder ultrasound was ordered. These results were reviewed with the patient today 03/30. The bladder is well distended. Diffuse thickening and trabeculation of the bladder wall. Enlarged prostate measuring approximately 55 mL. When asked he does report noting concentrated urine he otherwise denies urinary urgency, urinary frequency, incontinence, nocturia, hematuria, dysuria, foul smelling urine, changes to urinary stream, flank pain, fever, and or chills. He is happy with his current voiding parameters. Daughter expresses his concerns regarding lack of sleep, poor eating habits, and ongoing right lower abdominal pain he experiences with eating. She is awaiting referral to GI as recommended by PCP. We discussed at length potential causes of bladder wall thickening as well as further treatment options. PRACHI offered however deferred. Discussed obtaining PSA for further assessment evaluation. In office urinalysis results reviewed with the patient today. PH 5.5. We discussed at length importance of adequate hydration relation to concentrated urine as well as overall health and well-being. PVR 40 mL. PFSH Medical History Palpitations Mass of left side of neck Surgical History History of cholecystectomy Family History Sister History of pancreatic cancer Social History Alcohol intake: current Alcohol intake frequency: holidays/special occasions only Alcohol type: beer and hard liquor Patient Tobacco Use Status: Never used Tobacco Current occupational status: disabled Current occupation: right hand dominant Review of Systems Const All systems reviewed & are unremarkable except as noted in HPI and below Reports as per HPI Physical Exam Const General: cooperative, healthy appearing, comfortable, no acute distress, well developed, alert and awake Orientation/consciousness: patient oriented x3 Limitations: no limitations HEENT Head: Yes normal to inspection, Yes normocephalic and Yes atraumatic Ears: hearing grossly normal bilaterally Eyes General: appearance normal, both eyes and all related structures Neck Neck: Yes normal visual inspection and Yes trachea midline Chest Chest palpation & inspection: normal inspection of the chest Resp Effort & Inspection: normal respiratory effort and able to speak in complete sentences Cardio Rate: regular rate GI Inspection: Yes normal to inspection General: Yes no CVA tenderness Back/Spine/Pelvis Back: no CVA tenderness Skin General skin exam: no rashes or lesions noted Neuro General: patient oriented x3 Extrem General: Yes normal to inspection Psych Appearance: grossly normal and well kempt Mental Status: mental status grossly normal Speech and movement: Normal speech and movement present and Clear speech present Affect: normal affect Attitude: cooperative Thought process: Normal thought process present Thought content: Normal thought content present Insight: Fair insight present (Psych) Judgement: Fair judgement present (Psych) Office Procedures Post Void Residual Post Residual Void Post Void Residual (PVR): 40 [id number] Void Residual by ultrasound Results AMB Urinalysis, Automated UA Leukoctes 0 Robert/uL Last Edit by Micah Ryan on 06/29/24 13:35 UA Nitrite Last Edit by Klausyce Evass on 06/29/24 13:35 UA Urobilinogen 0.2 mg/dL Last Edit by Klausyce Evass on 06/29/24 13:35 UA Protein 15 mg/dL Last Edit by Klausyce Evass on 06/29/24 13:35 UA pH 5.5 Last Edit by Klausyce Bress on 06/29/24 13:35 UA Blood 0 Carson/uL Last Edit by Klausyce Bress on 06/29/24 13:35 UA Specific [place] 1.030 Last Edit by Klausyce Bress on 06/29/24 13:35 UA Ketone Positive Last Edit by Klausyce Connor on 06/29/24 13:35 UA Bilirubin 1 mg/dL Last Edit by Micah Ryan on 06/29/24 13:35 UA Glucose 0 mg/dL Last Edit by Miach Ryan on 06/29/24 13:35 Results Reviewed Results Reviewed: Laboratory Last Values Urine pH (Auto) 5.5 06/29/24 13:34 Specific [place] (Auto) 1.030 06/29/24 13:34 Urine Protein (Auto) 15 mg/dL 06/29/24 13:34 Glucose (UA)(Auto) 0 mg/dL 06/29/24 13:34 Urine Ketones (Auto) Positive 06/29/24 13:34 Urine Blood (Auto) 0 Carson/uL 06/29/24 13:34 Urine Bilirubin (Auto) 1 mg/dL 06/29/24 13:34 Urine Urobilinogen (Auto) 0.2 mg/dL 06/29/24 13:34 Leukocyte Esterase (Auto) 0 Robert/uL 06/29/24 13:34 Date of Service: 04/05/24 EXAMINATION: US PELVIS LIMITED (BLADDER) CLINICAL INFORMATION: Thickened bladder wall seen on CT. COMPARISON: CT abdomen and pelvis of 02/15/2024. TECHNIQUE: Real-time imaging of the bladder. FINDINGS: BLADDER: Well-distended. Bilateral ureteral jets are demonstrated. Prevoid bladder volume is 215.0 mL. Postvoid bladder volume is 18.7 mL. Enlarged prostate with volume 54.9 mL. Diffuse thickening and trabeculation/irregularity of the bladder wall. IMPRESSION: Enlarged prostate with volume 54.9 mL. Diffuse thickening and trabeculation/irregularity of the bladder wall. Assessment & Plan Assessment & Plan (1) Enlarged prostate: Code(s): N40.0 - Benign prostatic hyperplasia without lower urinary tract symptoms Category: Medical (2) Bladder wall thickening: Code(s): N32.89 - Other specified disorders of bladder Category: Medical Plan In office urinalysis results reviewed with the patient today; as noted above. PVR 40 mL. PRACHI offered however deferred. Will obtain PSA for further assessment evaluation. Recent bladder ultrasound as well as CT results reviewed with the patient today; as noted above. We discussed at length potential causes of bladder wall thickening He reports be happy with current voiding parameters We discuss trial of Flomax to assist with relaxing bladder; he will think about this. We discussed importance of adequate hydration in relation to concentrated urine as well as overall health and well-being. Continue to follow-up with PCP and GI as planned. Follow-up in 1-3 months with lab to be completed prior; or sooner with any issues, concerns, and or questions. Orders: Orders AMB Urinalysis Automated Today Z13.9 - Encounter for screening, unspecified AMB Post Void Residual by ultrasound Today Z13.9 - Encounter for screening, unspecified Prostate Specific Antigen Today N40.0 - Benign prostatic hyperplasia without lower urinary tract symptoms Patient Instructions: The patient had an opportunity to ask questions regarding the treatment plan. All questions were answered. Physical exam, labs, and imaging were discussed and reviewed in detail. As well as risks, benefits, and discussion of treatment choices. No major barriers to understanding were identified. The patient expressed understanding and agreement with the above treatment plan. The patient was made aware they should contact our office by phone for worsening of their current condition, the appearance of new symptoms, or with any questions or concerns. Compliance is encouraged with any medications and follow up testing that is ordered. It is a privilege to be allowed the opportunity to participate in? your urological care.? Again, if you have any questions or concerns If you have any questions or concerns please do not hesitate to contact me. The office is [phone]. This note is constructed using voice recognition software. While every effort has been made to ensure accuracy manager property errors may have been included. Yours sincerely, RADHA Yi Coding Level of Care Code New Pt Level 4 (30488) Diagnoses Enlarged prostate N40.0 Bladder wall thickening N32.89 CPT Codes Post Residual Void - PVR CPT Code: 75715-[id number] Void Residual by ultrasound ([id number]) Time Spent (min) 35
== END 2024-06-29 14:10 | disposition home or self-care (01) ==
PROVIDERS: Visit Provider Nurse Practitioner Family
DX: N40.0 Benign prostatic hyperplasia without lower urinary tract symptoms (principal); N32.89 Other specified disorders of bladder; Z13.9 Encounter for screening, unspecified
CPT/HCPCS: 99204

== ENCOUNTER → 2024-06-29 13:00 | Outpatient (BNVA) | payer OTHER, SELFPAY | PROVIDERS: Visit Provider Nurse Practitioner Family | DX: N40.0 Benign prostatic hyperplasia without lower urinary tract symptoms (principal); N32.89 Other specified disorders of bladder | CPT/HCPCS: 51798; 81003; 99202 ==

== ENCOUNTER 2024-07-03 11:17 | Outpatient (REF) | payer OTHER, SELFPAY ==
[2024-07-03 13:54] LABS: Prostate Specific Antigen 2.27 ng/mL (<0.05-4.0)
--- OUTSIDE RECORDS SUMMARY | 2024-07-03 16:11 | XMS_ITS | Encounter Summary ---
Author Organization [employer] Address [address] [place] [address] Care Team Providers Care Production Manager Name Role Phone Haven Stiles MD Primary Care Provider [phone] Amanda Barragan DO Primary Care Provider [phone] Reason for Visit * Reason Onset Date Comments Med Refill 08/11/2022 Encounter Details Date Type Department Care Team (Late st Contact Info) Description 08/11/2022 Refill [facility] [address] [place], [place] [phone] Haven Stiles MD [address] [place], [place] [phone] Chronic right shoulder pain Social History Tobacco Use Types Packs/Day Years Used Date Smoking Tobacco: Never Smokeless Tobacco: Never Alcohol Use Standard Drinks/Week Comments Never 0 (1 standard drink = 0.6 oz pur e alcohol) PHQ-2 Answer Date Recorded Patient Health Questionnaire-2 Score 0 07/20/2022 Depression Answer Date Recorded Patient Health Questionnaire-2 Score 0 07/20/2022 Sex and Gender Information Value Date Recorded Sex Assigned at Male 04/06/2022 10:14 AM EDT Legal Sex Male 10:14 AM EDT Gender Identity Male 04/06/2022 10:14 AM EDT Sexual Orientation Straight 04/06/2022 10 :14 AM EDT COVID-19 Exposure Response Date Recorded In the last 10 days, have yo u been in contact with someone who was confirmed or suspected to have Coronavirus/COVID-19? No / Unsure 08/14/2022 2:23 PM EST documented as of this encounter Miscellaneous Notes * Telephone Encounter - Haja French - 08/11/2022 2:28 PM EST Tc from pt requesting med refill Oxycodone 5 mg Pt wants medication to be send to [facility] pharmacy. documented in this encounter Plan of Treatment Not on file documented as of this encounter Visit Diagnoses Diagnosis Chronic right shoulder pain Pain in joint, shoulder region documented in this encounter Care Teams Production Manager Relationship Specialty Start Date End Date Haven Stiles MD [address] [place] [address] PCP - General Family Medicine 06/25/20 12/25/22 Amanda Barragan DO [address] [place] [address] PCP - General Family Medicine 12/26/22 documented as of this encounter
--- OUTSIDE RECORDS SUMMARY | 2024-07-03 16:11 | XMS_ITS | Encounter Summary ---
Author Organization [email or web address] Address [address] [facility] 7[address] [place] [address] Care Team Providers Care Educational Technology Coordinator Name Role Phone Haven Stiles MD Primary Care Provider [phone] Amanda Barragan DO Primary Care Provider + [phone] Reason for Visit * Reason Onset Date Comments Med Refill 08/11/2022 Encounter Details Date Type Department Care Team (Late st Contact Info) Description 08/11/2022 Telephone [facility] [address] [place], [place] [phone] Haven Stiles MD [address] [place], [place] [phone] Med Refill Social History Tobacco Use Types Packs/Day Years [...] encounter Miscellaneous Notes * Telephone Encounter - Amanda Zuñiga LPN - 08/11/2022 4:04 PM EST Duplicate request medication has been queued to PCP for review. * Telephone Encounter - Haja French - 08/11/2022 2:40 PM EST Tc from pt requesting med refill Ambien 10 mg Pt requesting for medication to be send to [facility] pharmacy documented in this encounter Plan of Treatment Not on file documented as of this encounter Visit Diagnoses Not on filedocumented in this encounter Care Teams Educational Technology Coordinator Relationship Specialty Start Date End Date Haven Stiles MD [address] [place] [address] PCP - General Family Medicine 06/25/20 12/25/22 Amanda Barragan DO [address] [place] [address] PCP - General Family Medicine 12/26/22 documented as of this encounter
--- OUTSIDE RECORDS SUMMARY | 2024-07-03 16:11 | XMS_ITS | Patient Health Record ---
Author Organization [facility] Address [address] [place] [address] Care Team Providers Care Schedule Supervisor Name Role Phone Amanda Barragan Primary Care Provider Unavaila ble Clinical, Operations Unavailable Unavailable Gisell Steen Unavailable [phone] Celeste Carrizales Unavailable [phone] ALLERGIES No Known Allergies REASON FOR REFERRAL Reason AFC Level 1 Diagnosis 1 Forgetfulness (R68.8 9) Diagnosis 2 Osteoarthritis, unsp ecified osteoarthritis type, unspecified site (M19.90) Diagnosis 3 DM (diabetes mellitu s) (E11.9) Diagnosis 4 Other chronic pain ( G89.29) Diagnosis 5 Illiteracy (Z55.0) Referring Provider First Name Operations Referring Provider Last Name Clinical Referring Provider Speciality Unknown Referred Provider [email or web address]. Referred Provider Specialty Adult Foster Care Procedure 1 Adult foster care Le daniele 1 per diem physical therapist ([id number]) General Notes Ariela Johansen 09/2023 09:09:43 AM >Faxed , Is member ICO or SCO? SCO, Dancing Instructor name and email address: [email or web address], Who is requesting AFC services and their relationship to the member? Member and daughter, Diagnosis with ICD10 code that supports need for AFC: forgetfulness R68.89, osteoarthritis M19.90, DM E11.9, other chronic pain G89.29, illiteracy Z55.0, What are the member's informal supports? daughter, Primary contact for Member: dtr Maricruzkobe Arriaga [phone], Members preferred language: Cook Islander, Provide name and contact info for [facility]: Amanda Richardson at [facility] [phone], Please identify AFC program member will be using: [facility], ADL's requiring assistance: bathing and dressing d/t pain, weakness and impaired ROM., Member requires 24/7 supervision due to: forgetfulness, chronic pain, impaired ROM and weakness , [facility] Level recommendation: 1 Clinical Notes his referral is lacie mckeon sent to supply the member's demographic information ([facility] level 1). If approved an Approval Letter will be sent by [facility]'s Utilization Management department separately. If for any reason you are unable to accommodate this request, please contact [facility] at [phone] Referral Priority Routine Reason REHAB (1) SHOWER [...] process this request, please contact Honey Bae [phone] [phone] [email or web address] Clinical Notes This activity is to inform you that [facility] Sr Specialist for Rehab Services, Gisell Steen [...] please contact sender. CONTACT MYRON THEODORE AT [phone] - THANK YOU., Does member have a [...] virus strain Omicron XBB.1.5 Unknown 05/28/2023 Administered COVID-19 COMIRNATY Vaccine, Fall 2022, SARS-CoV-2 virus strain Omicron XBB.1.5 Unknown 03/09/2024 Administered Flu Vac (Fluzone /Alfuria) QIV PFS Unknown 04/18/2021 A dministered Flu Vac (Fluzone /Alfuria) QIV PFS Unknown 05/28/2023 A dministered Influenza, high dose seasonal Unknown 03/09/2024 Admini stered Moderna COVID-19 Vaccine IM Unknown 08/19/2020 Administ ered Moderna COVID-19 Vaccine IM Unknown 09/16/2020 Administ ered Moderna COVID-19 Vaccine IM Unknown 05/19/2021 Administ ered SOCIAL HISTORY Sex Assigned At : Social History Observation Description Sex Assigned At Unknown PROBLEMS Problem Type ICD Code Onset Dates Problem Status W/U Status Risk SNOMED Code Notes Problem Anemia (D64.9) Active confirmed Anemia (637551694) Problem Essential (primary) hypertension (I10) Active confirmed Essential hypertension (00577813) Problem Insomnia (G47.00) Active confirmed Inso mnia (933793981) Problem CAD in [place] artery (I25.10) Active confirmed 71320237 Problem Vitamin D deficiency (E55.9) Active confirmed Vitamin D deficiency (93992716) Problem Hyperlipidemia (E78.5) Active confirmed Hyperlipidemia (04419433) Problem Dorsalgia (M54.9) Active confirmed 1618 48547 Problem DM (diabetes mellitus) (E11.9) Active confirmed DM - Diabe mari mellitus (23203685) Problem H. pylori infection (B96.81) Active confirmed Helicobacter py olivia gastrointestinal tract infection (467336331) Problem Spondylosis (M47.9) Active confirmed 1707686 Problem Illiteracy (Z55.0) Active confirmed Illiteracy (291001185) Problem Forgetfulness (R68.89) Active confirmed Forgetful (24657419) Problem Tubular adenoma (D36.9) Active confirmed Tubular adenoma (673702317) Problem Pain in right shoulder (M25.511) Active confirmed 12312389228587947 Problem Age-related nuclear cataract of both eyes (H25.13) Active confirmed 230773866 Problem Other chronic pain (G89.29) Active confirmed 75311966 Problem Osteoarthritis, unspecified osteoarthritis type, unspecified site (M19.90) Active confirmed 418383891 Problem Back pain of lumbar region with sciatica (M54.40) Active confirmed Sciatica (11505894) Problem Cardiovascular event risk (Z91.89) Active confirmed Cardiovascular event risk (700307736) Problem Tear of right rotator cuff, unspecified tear extent, unspecified whether traumatic (M75.101) Active confirmed [id number] Encounters Encounter Location Date Provider Diagnosis [facility] [address] [place] [address] 11/08/2023 Gisell Steen [facility] [address] [place] [address] 03/27/2024 Celeste Carrizales [facility] 10/22/2023 Operati ons Clinical Illiteracy Z55.0 ; Forgetfulness R68.89 ; Essential (primary) hypertension I10 ; CAD in [place] artery I25.10 ; Osteoarthritis, unspecified osteoarthritis type, [...] hypertension (ICD-10 - I10) 10/22/2023 CAD in [place] artery (ICD-10 - I25.10) 10/22/2023 Osteoarthritis, unspecified [...] Insured Coverage Start Date Coverage End Date [facility] SCO ([id number]) [address] [facility] [address] [place] [address] [id number] Carlos Hobbs Self - patient is the insured 8 9 MEDICAL (GENERAL) HISTORY Surgical History Surgery Date(Month/Year) cholecystectomy kidney stones
--- OUTSIDE RECORDS SUMMARY | 2024-07-03 16:11 | XMS_ITS | Encounter Summary ---
Author Organization [employer] Address [address] [facility] [address] [place] [address] Care Team Providers Care Hospitality Ambassador Name Role Phone Haven Stiles MD Primary Care Provider [phone] Amanda Barragan DO Primary Care Provider + [phone] Reason for Visit * Reason Onset Date Comments Med Refill Tramadol Refused by PCP 10/06/2022 See note Encounter Details Date Type Department Care Team (Late st Contact Info) Description 10/06/2022 Refill [facility] [address] [place], [place] [phone] Haven Stiles MD [address] [place], [place] [phone] Chronic right shoulder pain Social History Tobacco [...] Orientation Straight 04/06/2022 10 :14 AM EDT documented as of this encounter Miscellaneous Notes * Telephone Encounter - Tiffany Savage RN - 10/06/2022 3:39 PM EDT TC via P/I#[id number], pt c/o he was busy and cant speak right now. Pt notified that his PCP will not be refilling his Tramadol prescription, If he has further questions he can call back at a more convenient time and speak with me about it. Pt stated he will call me back tomorrow. documented in this encounter Plan of Treatment Not on file documented as of this encounter Visit Diagnoses Diagnosis Chronic right shoulder pain Pain in joint, shoulder region documented in this encounter Care Teams Hospitality Ambassador Relationship Specialty Start Date End Date Haven Stiles MD [address] [place] [address] PCP - General Family Medicine 06/25/20 12/25/22 Amanda Barragan DO [address] [place] [address] PCP - General Family Medicine 12/26/22 documented as of this encounter
--- OUTSIDE RECORDS SUMMARY | 2024-07-03 16:11 | XMS_ITS | Encounter Summary ---
Author Organization [employer] Address [address] [facility] [address] [place] [address] Care Team Providers Care Flue Lining Dipper Name Role Phone Amanda Barragan DO Primary Care Provider [phone] Encounter Details Date Type Department Care Team (Late st Contact Info) Description 02/09/2023 Abstract [facility] MEDICINE [address] [place], [place] [phone] Amanda Barragan DO [address] [place], [place] [phone] Social History Tobacco Use Types Packs/Day Years [...] AM EDT documented as of this encounter Plan of Treatment Not on file documented as of this encounter Visit Diagnoses Not on filedocumented in this encounter Care Teams Flue Lining Dipper Relationship Specialty Start Date End Date Amanda Barragan DO [address] [place], [place] [phone] PCP - General Family Medicine 12/26/22 documented as of this encounter
--- OUTSIDE RECORDS SUMMARY | 2024-07-03 16:11 | XMS_ITS | Encounter Summary ---
Author Organization [employer] Address [address] [facility] [address] [place] [address] Care Team Providers Care Marketing Producer Name Role Phone Amanda Barragan DO Primary Care Provider + [phone] Reason for Visit * Reason Comments Med Refill Encounter Details Date Type Department Care Team (Late st Contact Info) Description 02/11/2024 Refill [facility] [address] [place], [place] [phone] Amanda Barragan DO [address] [place] [address] Chronic right shoulder pain Social History Tobacco Use Types Packs/Day Years Used Date Smoking Tobacco: Never Passive Smoke Exposure: Never Smokeless Tobacco: Never Alcohol Use Standard Drinks/Week Comments Never 0 (1 standard drink = 0.6 oz pur e alcohol) PHQ-2 Answer Date Recorded Patient Health Questionnaire-2 Score 0 07/20/2022 Housing Stability Answer Date Recorded What is your housing situation today? I have danish brooke 03/22/[address] you li ve. Do you have problems with any of the following? None of the above 03/22/2023 Food Insecurity Answer Date Recorded Within the past 12 months, y ou worried that your food would run out before you got money to buy more: Never True 03/22/2023 Within the past 12 months,th e food you bought just didn't last and you didn't have enough money to get more: Never True Transportation Answer Date Recorded In the past 12 months, has l ack of transportation kept you from medical appts, meetings, work or from getting things needed for daily living? No;Yes, it has kept me from medical appointments or getting medications. 03/16/2023 Utilities Answer Date Recorded In the past 12 months, has t he electric, gas, oil or water company threatened to shut off services in your home? No 03/22/2023 Depression Answer Date Recorded Patient Health Questionnaire-2 [...] region documented in this encounter Care Teams Marketing Producer Relationship Specialty Start Date End Date Amanda Barragan DO [address] [place] [address] PCP - General Family Medicine 12/26/22 documented as of this encounter
--- OUTSIDE RECORDS SUMMARY | 2024-07-03 16:11 | XMS_ITS ---
Author Organization [facility] Address [address] [place] [address] Care Team Providers Care Blast Furnace Tender Name Role Phone Amanda Barragan Primary Care Provider Unavaila Gisell Montoya Unavailable [phone] REASON FOR VISIT DME Outreach Encounters Encounter Location Date Provider Diagnosis [facility] [address] [place] [address] 11/08/2023 Gisell Steen PLAN OF TREATMENT No Information
--- OUTSIDE RECORDS SUMMARY | 2024-07-03 16:11 | XMS_ITS | Encounter Summary ---
Author Organization [employer] Address [address] [facility] 7t [place] [address] Care Team Providers Care Synthetic Chemist Name Role Phone Haven Stiles MD Primary Care Provider [phone] Amanda Barragan DO Primary Care Provider + [phone] Reason for Visit * Reason Comments Med Refill Encounter Details Date Type Department Care Team (Late st Contact Info) Description 10/12/2022 Refill [facility] [address] [place] [address] Dimple Finley MD [address] [place] [address] Chronic right shoulder pain Social History Tobacco [...] region documented in this encounter Care Teams Synthetic Chemist Relationship Specialty Start Date End Date Haven Stiles MD [address] [place] [address] PCP - General Family Medicine 06/25/20 12/25/22 Amanda Barragan DO [address] [place] [address] PCP - General Family Medicine 12/26/22 documented as of this encounter
--- OUTSIDE RECORDS SUMMARY | 2024-07-03 16:12 | XMS_ITS | Encounter Summary ---
Author Organization [employer] Address [address] [facility] 7[address] [place] [address] Care Team Providers Care Musical Instrument Maker Name Role Phone Laurel Amanda Primary Care Provider + [phone] Reason for Visit * Reason Comments Med Refill Encounter Details Date Type Department Care Team ([facility] st Contact Info) Description 06/13/2024 Refill [facility] [address] [place], [place] [phone] Haven Stiles MD [address] [place] [address] Chronic right shoulder pain Social History Tobacco [...] region documented in this encounter Care Teams Musical Instrument Maker Relationship Specialty Start Date End Date Amanda Barragan DO [address] [place] [address] PCP - General Family Medicine 12/26/22 documented as of this encounter
--- OUTSIDE RECORDS SUMMARY | 2024-07-03 16:12 | XMS_ITS | Encounter Summary ---
Author Organization [employer] Address [address] [facility] [address] [place] [address] Care Team Providers Care Sandwich Counter Attendant Name Role Phone Amanda Barragan DO Primary Care Provider + [phone] Reason for Visit * Reason Onset Date Comments Med Refill 04/20/2024 Encounter Details Date Type Department Care Team ([facility] st Contact Info) Description 04/20/2024 Telephone [facility] [address] [place], [place] [phone] Amanda Barragan DO [address] [place], [place] [phone] Med Refill Social History Tobacco Use Types [...] Telephone Encounter - Tiffany Savage RN - 04/20/2024 1:28 PM EST 04/13/24: Per PCP no refills until CUSTOMER SUPPORT REPRESENTATIVE appt. Pt was [facility] for 04/13/24, 03/29/24, 03/01/24 CUSTOMER SUPPORT REPRESENTATIVE appts. TC to patient @ both numbers, no answer. L/M asking him to call me back regarding his refill request. * Telephone Encounter - Anthony Chandler - 04/20/2024 12:42 PM EST TC from pt requesting medication refill. Medications needing refill : oxyCODONE (Roxicodone) 5 MG immediate release tablet To be sent to: [facility] documented in this encounter Plan of Treatment Not on file documented as of this encounter Visit Diagnoses Not on filedocumented in this encounter Care Teams Sandwich Counter Attendant Relationship Specialty Start Date End Date Amanda Barragan DO [address] [place] [phone] PCP - General Family Medicine 12/26/22 documented as of this encounter
--- OUTSIDE RECORDS SUMMARY | 2024-07-03 16:12 | XMS_ITS | Encounter Summary ---
Author Organization [employer] Address [address] [facility] 7[address] [place] [address] Care Team Providers Care Despatch Clerk Name Role Phone Amanda Barragan DO Primary Care Provider + [phone] Reason for Visit * Reason Onset Date Comments Appointment Request 06/15/2024 Encounter Details Date Type Department Care Team ([facility] st Contact Info) Description 06/15/2024 Telephone [facility] [address] [place], [place] [phone] Amanda Barragan DO [address] [place], [place] [phone] Appointment Request Social History Tobacco Use Types Packs/Day Years [...] encounter Miscellaneous Notes * Telephone Encounter - Maria Fernanda Bart - 06/19/2024 12:54 PM EST FYI to PCP - patient discharged from Medication Therapy Management effective today. Patient has had >3 consecutive canceled/no showed pharmacy visits and thus will be removed from the outreach list per existing workflow. If, upon further discussion, you feel patient would benefit from pharmacy services please issue a new referral to re-enroll. Thank you. * Telephone Encounter - oJse Rodríguez - 06/15/2024 2:37 PM EST Tc from pt stating he missed pharmacy appt and would like to reschedule. Pt is requesting a call back. Pt speaks albanian. documented in this encounter Plan of Treatment Not on file documented as of this encounter Visit Diagnoses Not on filedocumented in this encounter Care Teams Despatch Clerk Relationship Specialty Start Date End Date Amanda Barragan DO [address] [place] [id number] PCP - General Family Medicine 12/26/22 documented as of this encounter
--- OUTSIDE RECORDS SUMMARY | 2024-07-03 16:12 | XMS_ITS | Encounter Summary ---
Author Organization [employer] Address [address] [facility] 7[address] [place] [address] Care Team Providers Care Golf Club Weigher Name Role Phone Amanda Barragan DO Primary Care Provider + [phone] Reason for Visit * Reason Onset Date Comments Appointment Request 05/26/2023 Encounter Details Date Type Department Care Team ([facility] st Contact Info) Description 05/26/2023 Telephone [facility] [address] [place], [place] [phone] Amanda Barragan DO [address] [place], [place] [phone] Appointment Request Social History Tobacco Use Types [...] encounter Miscellaneous Notes * Telephone Encounter - Mike Rodriguez - 05/26/2023 1:50 PM EST Tc from pt requesting to r/s f/u appt scheduled for 05/28/23 , pt cancelled appt however would liketo to keep same appt day however zero availability, Welcome Desk Agent unable to book for June documented in this encounter Plan of Treatment Not on file documented as of this encounter Visit Diagnoses Not on filedocumented in this encounter Care Teams Golf Club Weigher Relationship Specialty Start Date End Date Amanda Barragan DO [address] [place] [id number] PCP - General Family Medicine 12/26/22 documented as of this encounter
--- OUTSIDE RECORDS SUMMARY | 2024-07-03 16:12 | XMS_ITS | Clinical Summary ---
Author Organization [employer] Address [address] [facility] 7t [place] [address] Care Team Providers Care Outreach Rep Name Role Phone MarlaAmanda dickens Primary Care Provider [phone] Allergies No known active allergies Medications glucose blood (FREESTYLE LITE) test strip USE TO TEST BLOOD SUGAR THREE TIMES DAILY 100 strip 6 06/30/19 24 Active naloxone (Narcan) 4 mg/0.1 mL nasal sprayIndicatio ns:Chronic low back pain, unspecified back pain laterality, unspecified whether sciatica present Administer 1 spray (4 mg) into affected nostril(s) if needed for opioid reversal. May repeat every 2-3 minutes if needed, alternating nostrils, until medical assistance becomes available. 2 each 3 01/12/20 24 025 Active glucose 4 g chewable tablet Chew 4 tablets (16 g) if needed for low blood sugar. 50 tablet 5 03/09/20 24 025 Active Blood Glucose Monitoring Suppl (FreeStyle Haigler Lite) w/Device kit Use to test blood sugar 2 times daily 1 kit 03/09/20 24 Active dicyclomine (Bentyl) 20 MG tablet Take 20 mg by mouth 3 times daily. 03/24/20 24 Active SITagliptin (Januvia) 100 MG tablet Take 1 tablet by mouth Once per day. Active polyethylene glycol, PEG, 3350 (MiraLax) 17 GM/SCOOP powder 17 grams in 8-12 oz fluid like water at bedtime prn constipation 527 g 2 04/03/20 24 Active metFORMIN (Glucophage) 500 MG tablet TAKE 1 TABLET BY MOUTH TWICE DAILY IN THE MORNING AND IN THE EVENING WITH MEALS 180 tablet 1 04/05/20 24 Active atorvastatin (Lipitor) 80 MG tablet TAKE 1 TABLET BY MOUTH EVERY DAY AT BEDTIME 90 tablet 1 04/05/20 24 Active omeprazole (PriLOSEC) [address] capsule TAKE 1 CAPSULE BY MOUTH EVERY DAY BEFORE BREAKFAST 90 capsule 1 04/05/20 24 Active acetaminophen (Tylenol 8 Hour) 650 MG ER tablet TAKE 1 TABLET BY MOUTH EVERY 8 HOURS NEEDED FOR MILD PAIN, DO NOT BREAK, CRUSH, DISSOLVE OR CHEW 50 tablet 1 04/21/20 24 Active lisinopril 20 MG tablet TAKE 1 TABLET BY MOUTH EVERY DAY 90 tablet 1 05/23/20 24 Active zolpidem (Ambien) 10 MG tabletIndicati ons:Primary insomnia TAKE 1 TABLET BY MOUTH AT BEDTIME 30 tablet 2 06/14/19 25 Active zolpidem (Ambien) 10 MG tabletIndicati ons:Primary insomnia TAKE 1 TABLET BY MOUTH AT BEDTIME 30 tablet 2 03/06/20 24 025 Discontinued oxyCODONE (Roxicodone) 5 MG immediate release tabletIndicati ons:Chronic right shoulder pain TAKE 1 TABLET BY MOUTH EVERY 8 HOURS NEEDED FOR SEVERE PAIN 21 tablet 06/02/20 24 025 Discontinued oxyCODONE (Roxicodone) 5 MG immediate release tabletIndicati ons:Chronic right shoulder pain TAKE 1 TABLET BY MOUTH EVERY 8 HOURS NEEDED FOR SEVERE PAIN 21 tablet 06/14/19 25 025 Active Problems Problem Noted Date Diagnosed Date Diverticulosis 03/09/2024 Cerebral microvascular disease 03/09/2024 Chronic gastroesophageal reflux disease 04/16/20 23 Status post right rotator cuff repair 04/14/2023 Coronary artery disease 04/14/2023 Chronic right shoulder pain 06/30/2018 Assessment & Plan (11/11/2022 2:07 PM EDT): I explained that I cannot prescribe narcotics to him, given that it is not recommended for bicipital tendonitis, and he is taking benzos and age > 65, and he did not come to his appointment followup with ortho to review MRI I will prescribe Nabumetone 750mg BID for now Assessment & Plan (07/21/2022 3:37 PM EST): Trial oxycodone and exercises Oxycodone 5mg BID Warned of dangers of taking benzodiazepines and opioids together He agrees that he will stop Ambien during this time frame I will not co-prescribe the meds so he needs to put the Ambien away while taking oxycodone Cervical spondylosis 12/29/2017 Hypertensive retinopathy 09/28/2017 Chronic low back pain 09/27/2017 Type 2 diabetes mellitus 08/02/2016 Assessment & Plan (07/21/2022 3:38 PM EST): Current A1c: 7.5 BMP: Cr 0.91/K 5.5 Microalbumin: Foot Exam: Complete at follow up Eye Exam: missed, needs to reschedule at [facility] Lipid panel: today ASCVD: Calculate pending updated labs Statin: Yes ASA: Yes LESVIA/ARB: Yes Encouraged regular aerobic exercise for improved glycemic control Encouraged daily foot checks Encouraged lean protein snacks and to avoid foods high in sugar and simple carbohydrates Treatment Goals: A1c goal: <7% FBG goal: <130 2 hour post prandial goal: <180 History of Helicobacter pylori infection 016 Essential hypertension 04/20/2016 Hyperlipidemia 04/20/2016 Insomnia 04/20/2016 Assessment & Plan (07/21/2022 3:39 PM EST): Stop Ambien and take Oxycodone at night instead He says pain is stopping him from sleeping so he will treat the pain and see how he sleeps Anemia 04/20/2016 Tubular adenoma of colon 04/20/2016 Vitamin D deficiency 04/20/2016 Resolved Problems Problem Noted Date Diagnosed Date Resolved Date Preop examination 08/31/2023 03/09/2024 Assessment & Plan (08/31/2023 10:49 AM EDT): RCRI score is 0 which is 3.9% Surgery should proceed as schedule I advise NPO after midnight the day of the procedure but he needs to take his blood pressure medication the morning of the procedure with small sip of water is here today for pre-operative evaluation. Reports no sx of CP, SOB, MOROCHO, at rest or with exertion. No paroxsysmal nocturnal orthopnea, LE swelling or palpitations. No h/o CVD, diabetes, kidney disease, recent anticoagulant or antithrombotic use, personal h/o coagulopathy. No allergies to iodine, latex or tape. . Can run across street or walk up flight of stairs without SOB or CP. UTI symptoms 08/31/2023 03/09/2024 Lumbar spondylosis 04/14/2023 Shoulder pain 06/30/2018 04/14/2023 Vascular calcification 12/29/201704/14 Rash 04/20/2016 04/14/2023 Encounters Date Type Department Care Team Description 07/03/2024 Refill [facility] [address] [place] [address] Amanda Barragan DO Chronic right shoulder pain 07/03/2024 Telephone [facility] [address] [place] [phone] Amanda Barragan DO No Show 06/15/2024 Telephone [facility] [address] [place] [phone] Amanda Barragan DO Appointment Request 06/13/2024 Refill [facility] [address] [place] [address] Haven Stiles MD Chronic right shoulder pain 06/13/2024 Refill [facility] [address] [place] [address] Amanda Barragan DO Primary insomnia 06/06/2024 Telephone [facility] [address] [place] [address] Amanda Barragan DO 06/05/2024 Telephone [facility] [address] [place] [address] Christina Davis RN 06/02/2024 Refill [facility] [address] [place] [address] Amanda Barragan DO Chronic right shoulder pain 05/29/2024 Telephone [facility] [address] [place] [address] Tiffany Savage RN NCNS for GREEN FEED ATTENDANT RV today 05/29/2024 Telephone [facility] [address] [place] [address] [place] [address] Tiffany Savage, VERO Recommend GREEN FEED ATTENDANT Tier 1 05/23/2024 Orders Only [facility] [address] [facility] [place] [address] Amanda Barragan DO Essential hypertension (Primary Dx) 05/21/2024 Refill [facility] [address] [place] [address] Amanda Barragan DO 05/18/2024 Refill [facility] [address] [place] [address] Amanda Barragan DO Chronic right shoulder pain 05/15/2024 Telephone [facility] [address] [place] [address] Amanda Barragan DO Medication Question 04/26/2024 9:30 AM EST Clinical Support [facility] [address] [place] [phone] Tiffany Savage RN Chronic right shoulder pain (Primary Dx) 04/26/2024 Travel 04/24/2024 Refill [facility] [address] [place] [address] Amanda Barragan DO Chronic right shoulder pain 04/21/2024 Orders Only [facility] [address] [place] [address] Amanda Barragan DO Bladder wall thickening (Primary Dx); Tubular adenoma 04/20/2024 Telephone [facility] [address] [place] [address] Amanda Barragan DO Med Refill 04/20/2024 Refill [facility] [address] [place] [address] Amanda Barragan DO 04/17/2024 Travel 04/17/2024 Telephone [facility] [address] [place] [address] Tiffany Ferro RN Results 04/16/2024 Orders Only [facility] [address] [place] [address] Amanda Barragan DO History of smoking (Primary Dx); Right groin pain 04/14/2024 Telephone [facility] [address] [place] [address] Amanda Barragan DO Med Refill 04/13/2024 Refill [facility] [address] [place] [address] WestonMartha gonzalez, FINAL CANOE INSPECTOR 04/03/2024 Telephone [facility] [address] [place] [address] Shonna Umanzor, RN Nurse Triage (Requesting medication after ED visit) 04/03/2024 Telephone [place] [facility] [address] [place] [address] Amanda Barragan DO 04/03/2024 Refill [facility] [address] [place], [place] [phone] Amanda Barragan DO 04/03/2024 Refill [facility] [address] [place], [place] [phone] Amanda Barragan DO from Last 3 Months Immunizations Name Administration Dates Next Due Hep B, adult 03/31/2024 Influenza High-dose Quadriva lent Preservative Free 05/01/2020 Influenza Injectable Quadriv alant Preservative Free IIV4 MDCK 03/08/2017 Influenza injectable quadriv alent IIV4 with preservative 04/20/2016 Influenza injectable quadriv alent preservative free 05/28/2023,04/18/2021 Influenza, High Dose Seasona l, Preservative Free 03/09/2024,05/16/2019,03/05/2018 Pfizer Covid-19 Vaccine 12+ 03/09/2024, 3 Pneumococcal Conjugate PCV 13 06/15/2016 Pneumococcal Conjugate PCV 20 03/31/2024 Pneumococcal Polysaccharide PPSV23 09/27/2017 Td (adult), 5 Lf tetanus tox oid, preservative free, adsorbed 08/12/2015 Tdap 08/12/2015 Zoster, live 06/16/2016 Family History Medical History Relation Name Comments Stroke Father Heart disease Mother Relation Name Status Comments Father Mother Social History Tobacco Use Types Packs/Day Years Used Date Smoking Tobacco: Never Passive Smoke Exposure: Never Smokeless Tobacco: Never Tobacco Cessation:Counseling Given: Not Answered Alcohol Use Standard Drinks/Week Comments Never 0 [...] Orientation Straight 04/06/2022 10 :14 AM EDT Last Filed Vital Signs Vital Sign Reading Time Taken Comments Blood Pressure 140/64 03/31/2024 11:15 AM EDT Pulse 77 03/09/2024 11:50 AM EDT Temperature 36.4 ??C (97.6 ??F) 03/09/2024 11:50 AM E DT Respiratory Rate 16 03/09/2024 11:50 AM EDT Oxygen Saturation 98% 02/29/2024 12:55 PM EDT room air Inhaled Oxygen Concentration - - Weight 66.3 kg (146 lb 3.2 oz) 03/09/2024 11:50 AM EDT Height 165.1 cm (5' 5 ) 03/09/2024 11:50 AM EDT Body Mass Index 24.33 03/09/2024 11:50 AM EDT Plan of Treatment Health Maintenance Due Date Last Done Comments CT Colonography 1952 FIT DNA/Cologuard 1950 FIT 1950 FOBT 1950 Sigmoidoscopy 1950 Diabetes: Foot Exam 1962 Alcohol/Substance Use Screening 1964 RSV Patients and Patients Aged 60 years or older (1 - Risk 60-74 years 1-dose series) 2012 Zoster Vaccines (2 of 3) 08/11/2016 06/16/2016 Depression Screening 07/20/2023 07/20/2022, 07/20/19 23 SDOH Screening 07/20/2023 07/20/2022 Diabetes: Urine Protein Screening 04/20/2024 04/20/2023, 07/20/2022, 03/02/2022, Additional history exists Lipid Panel 04/20/2024 04/20/2023, 07/08, 11/27/2020, Additional history exists Hepatitis B Vaccines (2 of 3 - 19+ 3-dose series) 04/28/2024 03/31/2024 Diabetes: Hemoglobin A1C 06/09/2024 024, 08/31/2023, 04/20/2023, Additional history exists Tobacco Screening 03/09/2025 03/09/2024 Colonoscopy 04/24/2025 04/24/2015 Colorectal Cancer Screening 04/24/2025 Eye Exam 06/18/2025 06/18/2023, 06/07, 06/18/2023, Additional history exists DTaP/Tdap/Td Vaccines (2 - Td or Tdap) 08/11/2025 08/12/2015, 08/12/2015 Hepatitis C Screening Completed 04/20/2023 COVID-19 Vaccine Completed 03/09/2024, , 05/19/2021, Additional history exists Influenza Vaccine Completed 03/09/2024, , 04/18/2021, Additional history exists Pneumococcal Vaccine: 65+ Years Completed 03/31/2024, 09/27/2017, 06/15/2016 HIB Vaccines Aged Out No longer eligi ble based on patient's age to complete this topic HPV Vaccines Aged Out No longer eligi ble based on patient's age to complete this topic Hepatitis A Vaccines Aged Out No long er eligible based on patient's age to complete this topic IPV Vaccines Aged Out No longer eligi ble based on patient's age to complete this topic Meningococcal Vaccine Aged Out No junaid jillian eligible based on patient's age to complete this topic RSV under 20 months Aged Out No longe r eligible based on patient's age to complete this topic Rotavirus Vaccines Aged Out No longer eligible based on patient's age to complete this topic Procedures Procedure Name Priority Date/Time Associated Diagnosis Comments POCT ARBEN-14 URINE DRUG SCREEN Routine 04/26/2024 9:43 AM EST Chronic right shoulder pain US BLADDER Routine 04/05/2024 3:20 PM EDT Bladder wall thickening US PELVIS LIMITED Routine 04/05/2024 2:1 0 PM EDT POCT GLYCATED HEMOGLOBIN, TOTAL Routine 03/09/2024 12:10 PM EDT Type 2 diabetes mellitus with hyperglycemia, without long-term current use of insulin (CMS/HCC) ALBUMIN, RANDOM URINE W/CREATININE Routine 04/20/2023 9:01 AM EST HEPATITIS C AB W/REFL TO HCV RNA, QN, PCR Routine 04/20/2023 8:54 AM EST LIPID PANEL, STANDARD Routine 04/20/2023 8:54 AM EST Type 2 diabetes mellitus with hyperglycemia, without long-term current use of insulin (CMS/HCC) HM COLONOSCOPY Routine 04/24/2015 9:07 AM EST from Last 3 Months or Most Recently Relevant to Health Maintenance Results * POCT ARBEN-14 Urine Drug Screen (04/26/2024 9:43 AM EST) Oxycodone Screen, Urine Positive Urine Urine specimen obtained by clean catch procedure / Unknown 04/26/2024 9:43 AM EST Narrative Tiffany Savage RN - 04/26/2024 9:43 AM EST UTOX cup Lot#[id number] Exp. 01/24/26 Internal Pass Control us Amanda Barragan DO POINT OF CARE TEST ENTER/NOREEN T ORDERABLES Final Result * US BLADDER (04/05/2024 3:20 PM EDT) Anatomical Region Laterality Modality Abdomen Ultrasound 04/05/2024 3:20 PM EDT Narrative 05/30/2024 11:48 AM EST ? [facility] ?[address] ?[place] [address] ? Ultrasound Report ? Signed ? Patient: Carlos Arriaga ?MR#: [id number] ?? 1585 ? : 1950 ?Acct:[id number] ? Age/Sex: 73 / M ?ADM Date: 04/05/24 ? Loc: HO.US ? Attending Dr: Amanda Barragan DO ? Ordering Physician: Amanda Barragan DO ?? Date of Service: 04/05/24 ?? Procedure(s): US bladder ?? Accession Number(s): [id number] ? cc: Amanda Barragan DO ? EXAMINATION: ?? US PELVIS LIMITED (BLADDER) ? CLINICAL INFORMATION: ?? Thickened bladder wall seen on CT. ? COMPARISON: ?? CT abdomen and pelvis of 02/15/2024. ? TECHNIQUE: ?? Real-time imaging of the bladder. ? FINDINGS: ? BLADDER: Well-distended. Bilateral ureteral jets are demonstrated. ?? Prevoid bladder volume is 215.0 mL. Postvoid bladder volume is 18.7 mL. ? Enlarged prostate with volume 54.9 mL. ? Diffuse thickening and trabeculation/irregularity of the bladder wall. ? US/US bladder ?? IMPRESSION: ?? Enlarged prostate with volume 54.9 mL. ?? Diffuse thickening and trabeculation/irregularity of the bladder wall. ?? . ? Electronically signed by: ??Katelyn Vallejo MD ??05/30/2024 11:45 AM EST ?? RP ? Dictated By: ?Katelyn Vallejo MD ? Signed By: ?<Electronically signed by Katelyn Vallejo MD in OV> ? 05/30/24 1145 ? DD/ 1520 ? TD/TT: 04/05/24 1535 ? Crepe Machine Operator: ? Procedure Note Donotuseinterpreter, Image - 05/30/2024 [place] [address] Ultrasound Report Signed Patient: Horace Arriaga#: [id number] 1585 : 1950cct:[id number] Age/Sex: 73 / MADM Date: 04/05/24 Loc: HO.US Attending Dr: Amanda Barragan DO Ordering Physician: Amanda Barragan DO Date of Service: 04/05/24 Procedure(s): US bladder Accession Number(s): [id number] cc: Amanda Barragan DO EXAMINATION: US PELVIS LIMITED (BLADDER) CLINICAL INFORMATION: Thickened bladder wall seen on CT. COMPARISON: CT abdomen and pelvis of 02/15/2024. TECHNIQUE: Real-time imaging of the bladder. FINDINGS: BLADDER: Well-distended. Bilateral ureteral jets are demonstrated. Prevoid bladder volume is 215.0 mL. Postvoid bladder volume is 18.7 mL. Enlarged prostate with volume 54.9 mL. Diffuse thickening and trabeculation/irregularity of the bladder wall. US/US bladder IMPRESSION: Enlarged prostate with volume 54.9 mL. Diffuse thickening and trabeculation/irregularity of the bladder wall. . Electronically signed by: Katelyn Vallejo MD 05/30/2024 11:45 AM EST Dictated By: Katelyn Vallejo MD Signed By: <Electronically signed by Katelyn Vallejo MD in OV> 05/30/24 1145 DD/ 1520 TD/TT: 04/05/24 1535 Crepe Machine Operator: us Amanda Barragan DO IMG US PROCEDURES Edited Res ult - Final * US Pelvis Limited (04/05/2024 2:10 PM EDT) Anatomical Region Laterality Modality Pelvis Ultrasound 04/05/2024 2:10 PM EDT Narrative 04/19/2024 10:29 AM EST ? [facility] ?[address] ?[place] [address] ? Ultrasound Report ? Signed ? Patient: Carlos Arriaga ?MR#: [id number] ?? 1585 ? : 1950 ?Acct:[id number] ? Age/Sex: 73 / M ?ADM Date: 04/05/24 ? Loc: HO.US ? Attending Dr: Amanda Barragan DO ? Ordering Physician: Amanda Barragan DO ?? Date of Service: 04/05/24 ?? Procedure(s): US pelvic limited ?? Accession Number(s): [id number] ? cc: Amanda Barragan DO ? EXAMINATION: ?? US PELVIS, LIMITED/FOLLOW UP ? CLINICAL INFORMATION: ?? Right lower quadrant pain ? COMPARISON: ?? CT abdomen pelvis 02/15/2024 ? TECHNIQUE: ?? High frequency linear ultrasound transducer was used to examine the ?? area of clinical concern. ? FINDINGS: ?? No abnormality is seen. No masses are identified. No adenopathy or ?? hernia is seen. No fluid collections were present. ? US/US pelvic limited ?? IMPRESSION: ?? No abnormality is seen. ? Electronically signed by: ??Maxwell Morales MD ??04/19/2024 10:26 AM EST ?? RP ? Dictated By: ?Maxwell Morales MD ? Signed By: ?<Electronically signed by Maxwell Morales MD in OV> ? 04/19/24 1026 ? DD/ 1410 ? TD/TT: 04/05/24 1430 ? Crepe Machine Operator: SS ? Procedure Note Jung Andrade - 04/19/[address] [address] Ultrasound Report Signed Patient: Horace Arriaga#: [id number] 1585 : 3Acct:[id number] Age/Sex: 73 / MADM Date: 04/05/24 Loc: HO.US Attending Dr: Amanda Barragan DO Ordering Physician: Amanda Barragan DO Date of Service: 04/05/24 Procedure(s): US pelvic limited Accession Number(s): [id number] cc: Amanda Barragan DO EXAMINATION: US PELVIS, LIMITED/FOLLOW UP CLINICAL INFORMATION: Right lower quadrant pain COMPARISON: CT abdomen pelvis 02/15/2024 TECHNIQUE: High frequency linear ultrasound transducer was used to examine the area of clinical concern. FINDINGS: No abnormality is seen. No masses are identified. No adenopathy or hernia is seen. No fluid collections were present. US/US pelvic limited IMPRESSION: No abnormality is seen. Electronically signed by: Maxwell Morales MD 04/19/2024 10:26 AM EST RP Dictated By: Maxwell Morales MD Signed By: <Electronically signed by Maxwell Morales MD in OV> 04/19/24 1026 DD/ 1410 TD/TT: 04/05/24 1430 Crepe Machine Operator: SS Amanda Barragan DO IMG US PROCEDURES Final Resu lt * (ABNORMAL) POCT HGB A1C (03/09/2024 12:10 PM EDT) Hemoglobin A1C 7.1(A) 4.0 - 6.0 % QC Media Lot # [id number] Lot# Expiration Date Blood 03/09/2024 12:1 0 PM EDT Amanda Barragan DO POINT OF CARE TEST ENTER/NOREEN T ORDERABLES Final Result * Albumin, Random Urine W/Creatinine (04/20/2023 9:01 AM EST) Creatinine, Urine 122.74 mg/dL [facility] Microalbumin Urine 5.0 mg/L [facility] Microalbum Creatinine Ratio Ur 4.0 <30 ug/mg cr [facility] Comment:Albumin/Creatinine R atio Reference Ranges: Normal: < 30 ug/mg creatinine Microalbuminuria: 30 - 300 ug/mg creatinineClinical Albuminuria: > 300 ug/mg creatinine 04/20/2023 9:01 AM EST 04/20/2023 11:20 AM EST us Amanda Barragan DO LAB URINE ORDERABLES Final R esult Performing Organization Address [facility] Co de Phone Number [facility] [address] [place] [phone] * Hepatitis C Antibody with Reflex to HCV, RNA, Quantitative, Real-Time PCR (04/20/2023 8:54 AM EST) Hepatitis C Antibody Nonreactive Nonreactive [facility] Comment:Antibodies to HCV no t detected; does not exclude early acuteHCV infection. 04/20/2023 8:54 AM EST 04/20/2023 11:32 AM EST us Amanda Barragan DO LAB BLOOD ORDERABLES Final R esult Performing Organization Address [facility] de Phone Number [facility] [address] [place] [phone] * (ABNORMAL) Lipid Panel, Standard (04/20/2023 8:54 AM EST) Triglycerides 194(H) <150 mg/dL [facility] Comment:Desirable Triglyceri de: less than 150 mg/dLBorderline High Triglyceride 150-199 mg/dLHigh Triglyceride: 200-499 mg/dLVery High Triglyceride: greater than or equal to 5OO mg/dL Cholesterol 249(H) <200 mg/dL [facility] Comment:Desirable Cholestero l: less than 200 mg/dLBorderline High Cholesterol: 200-239 mg/dLHigh Cholesterol: greater than 239 mg/dL LDL Cholesterol Calculated 166(H) <100 mg/dL [facility] Comment:Desirable LDL: less than 100 mg/dLNear Optimal/Above Optimal LDL: 110- 129 mg/dLBorderline High LDL: 130-159 mg/dLHigh LDL: 160-189 mg/dLVery High LDL: greater than or equal to 190 mg/dL HDL Cholesterol 45 >40 mg/dL [facility] Comment:Desirable HDL: great er than 40 mg/dL Note: This HDL assay may give artificially low results in patients with liver disease. Blood Venous blood specimen / Unknown 04/20/2023 8:54 AM EST 04/20/2023 11:32 AM EST us Amanda Barragan DO LAB BLOOD ORDERABLES Final R esult [facility] [address] [place] [phone] * Hm Colonoscopy (04/24/2015 9:07 AM EST) us Historical Provider HEALTH MAINTENANCE Final Result from Last 3 Months or Most Recently Relevant to Health Maintenance [place] [address] [place] [address] - [facility] Care Teams Outreach Rep Relationship Specialty Start Date End Date Amanda Barragan DO [address] [place], [place] [phone] PCP - General Family Medicine 12/26/22
--- OUTSIDE RECORDS SUMMARY | 2024-07-03 16:12 | XMS_ITS ---
Author Organization [facility] liance Address [address] [place] [address] Care Team Providers Care Mop Worker Name Role Phone Amanda Barragan Primary [...] Risk SNOMED Code Notes Problem CAD in curyung artery (I25.10) Active confirmed 68183981 Problem Osteoarthritis, unspecified osteoarthritis type, unspecified site (M19.90) Active confirmed 509186763 Problem Tear of right rotator cuff, unspecified tear extent, unspecified whether traumatic (M75.101) Active confirmed [id number] Problem Spondylosis (M47.9) Active confirmed 8126661 Problem Dorsalgia (M54.9) Active confirmed 1618 50959 Problem Other chronic pain (G89.29) Active confirmed 36355055 Problem Pain in right shoulder (M25.511) Active confirmed [id number] Encounters Encounter Location Date Provider Diagnosis [facility] 10/22/2023 [facility] Z55.0 ; Forgetfulness R68.89 ; Essential (primary) hypertension I10 ; CAD in curyung artery I25.10 ; Osteoarthritis, unspecified osteoarthritis type, [...] hypertension (ICD-10 - I10) 10/22/2023 CAD in curyung artery (ICD-10 - I25.10) 10/22/2023 Osteoarthritis, unspecified [...]
--- OUTSIDE RECORDS SUMMARY | 2024-07-03 16:12 | XMS_ITS | Encounter Summary ---
Author Organization [employer] Address [address] [facility] 7t [place] [address] Care Team Providers Care Hot Plate Plywood Press Operator Name Role Phone Haven Stiles MD Primary Care Provider [phone] Amanda Barragan DO Primary Care Provider [phone] Reason for Visit * Reason Comments Med Refill Encounter Details Date Type Department Care Team (Late st Contact Info) Description 07/20/2022 Refill [facility] MEDICINE 230 [place], [place] [phone] Haven Stiles MD [address] [place], [place] [phone] Chronic right shoulder pain Social History Tobacco [...] suspected to have Coronavirus/COVID-19? No / Unsure 07/20/2022 2:06 PM EST documented as of this encounter Plan of Treatment Not on file documented as of this encounter Visit Diagnoses Diagnosis Chronic right shoulder pain Pain in joint, shoulder region documented in this encounter Care Teams Hot Plate Plywood Press Operator Relationship Specialty Start Date End Date Haven Stiles MD [address] [place] [address] PCP - General Family Medicine 06/25/20 12/25/22 Amanda Barragan DO [address] [place] [address] PCP - General Family Medicine 12/26/22 documented as of this encounter
--- OUTSIDE RECORDS SUMMARY | 2024-07-03 16:12 | XMS_ITS | Encounter Summary ---
Author Organization [employer] Address 75 [facility] 7t [place] [address] Care Team Providers Care Graphics Intern Name Role Phone Amanda Barragan DO Primary Care Provider + [phone] Reason for Visit * Reason Comments Med Refill Encounter Details Date Type Department Care Team ([facility] st Contact Info) Description 06/13/2024 Refill [facility] CHC MED & PEDS [address] [place], [place] [phone] Amanda Barragan DO 230 [facility] [place] [address] Primary insomnia Social History Tobacco Use Types Packs/Day Years [...] as of this encounter Visit Diagnoses Diagnosis Primary insomnia Persistent disorder of initiating or maintaining sleep documented in this encounter Care Teams Graphics Intern Relationship Specialty Start Date End Date Amanda Barragan DO 230 [place] [address] PCP - General Family Medicine 12/26/22 documented as of this encounter
--- OUTSIDE RECORDS SUMMARY | 2024-07-03 16:12 | XMS_ITS | Encounter Summary ---
Author Organization [employer] Address 75 [facility] 7t [place] [address] Care Team Providers Care Honing Machine Set Up Operator Tool Name Role Phone Amanda Barragan DO Primary Care Provider + [phone] Reason for Visit * Reason Comments Med Refill Encounter Details Date Type Department Care Team ([facility] st Contact Info) Description 04/02/2023 Refill [facility] CHC MED & PEDS [address] [place], [place] [phone] Amanda Barragan DO 230 [facility] [place] [address] Primary insomnia Social History Tobacco Use Types [...] sleep documented in this encounter Care Teams Honing Machine Set Up Operator Tool Relationship Specialty Start Date End Date Amanda Barragan DO 230 [place] [address] PCP - General Family Medicine 12/26/22 documented as of this encounter
--- OUTSIDE RECORDS SUMMARY | 2024-07-03 16:12 | XMS_ITS | Encounter Summary ---
Author Organization [employer] Address [address] [facility] 7t [place] [address] Care Team Providers Care Religious Ritual Slaughterer Name Role Phone Amanda Barragan DO Primary Care Provider + [phone] Reason for Visit * Reason Comments Med Refill Encounter Details Date Type Department Care Team ([facility] st Contact Info) Description 05/18/2024 Refill [facility] CHC MED & PEDS [address] [place], [place] [phone] Amanda Barragan DO 230 [facility] [place] [address] Chronic right shoulder pain Social History Tobacco [...] region documented in this encounter Care Teams Religious Ritual Slaughterer Relationship Specialty Start Date End Date Amanda Barragan DO 230 [place] [address] PCP - General Family Medicine 12/26/22 documented as of this encounter
--- OUTSIDE RECORDS SUMMARY | 2024-07-03 16:12 | XMS_ITS | Encounter Summary ---
Author Organization [employer] Address 75 [facility] 7t [place] [address] Care Team Providers Care Medical Transport Specialist Name Role Phone Amanda Barragan DO Primary Care Provider + [phone] Reason for Visit * Reason Onset Date Comments No Show 07/03/2024 Encounter Details Date Type Department Care Team ([facility] st Contact Info) Description 07/03/2024 Telephone [facility] MEDICINE 230 [place], [place] [phone] Amanda Barragan DO 230 [place], [place] [phone] No Show Social History Tobacco Use Types Packs/Day Years [...] encounter Miscellaneous Notes * Telephone Encounter - Ofe Larry - 07/03/2024 11:51 AM EST Pt no showed to appt on 07/03/24 documented in this encounter Plan of Treatment Not on file documented as of this encounter Visit Diagnoses Not on filedocumented in this encounter Care Teams Medical Transport Specialist Relationship Specialty Start Date End Date Amanda Barragan DO [address] [place] [address] PCP - General Family Medicine 12/26/22 documented as of this encounter
--- OUTSIDE RECORDS SUMMARY | 2024-07-03 16:12 | XMS_ITS | Encounter Summary ---
Author Organization [employer] Address 75 [facility] 7t [place] [address] Care Team Providers Care Lock Fitter Name Role Phone Amanda Barragan DO Primary Care Provider + [phone] Encounter Details Date Type Department Care Team ([facility] st Contact Info) Description 06/06/[address] [facility] MEDICINE 230 [place], [place] [phone] Amanda Barragan DO 230 [place], [place] [phone] Social History Tobacco Use Types Packs/Day Years [...] on filedocumented in this encounter Care Teams Lock Fitter Relationship Specialty Start Date End Date Amanda Barragan DO 230 [place] [address] PCP - General Family Medicine 12/26/22 documented as of this encounter
--- OUTSIDE RECORDS SUMMARY | 2024-07-03 16:12 | XMS_ITS ---
Author Organization [facility] Address [address] [place] [address] Care Team Providers Care Edge Blacker Name Role Phone Marlamaninder Amanda Primary Care Provider Celeste Can Unavailable [phone] ALLERGIES No Known Allergies REASON FOR VISIT [...] Active Encounters Encounter Location Date Provider Diagnosis [facility] [address] [facility] [place] [address] 03/27/2024 Celeste Carrizales PLAN OF TREATMENT No [...]
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
--- OUTSIDE RECORDS SUMMARY | 2024-07-03 16:12 | XMS_ITS | Encounter Summary ---
Author Organization [employer] Address 75 [facility] 7t [place] [address] Care Team Providers Care Float Tender Name Role Phone Brooklyn Barraganfer Primary Care Provider + [phone] Encounter Details Date Type Department Care Team ([facility] st Contact Info) Description 06/05/2024 Telephone [facility] MEDICINE 230 [place], [place] [phone] Christina Davis, RN 230 [place] [address] Social History Tobacco Use Types Packs/Day Years [...] encounter Miscellaneous Notes * Telephone Encounter - Christina Davis RN - 06/06/2024 12:21 PM EST RN reviewed US bladder results which returned showing enlarged prostate with volume 54.9 mL. Patient referred to urology on 04/21/24 and needs to attend scheduled urology appointment on 06/29/24. TC x2 placed to patient [phone] in regards to above message. Patient verbalized understanding and did not have any further questions. Patient to f/u PRN. * Telephone Encounter - Christina Davis RN - 06/05/2024 4:29 PM EST RN reviewed US bladder results which returned showing enlarged prostate with volume 54.9 mL. Patient referred to urology on 04/21/24 and needs to attend scheduled urology appointment on 06/29/24. TC placed to patient [phone] however no answer, RN left VM requesting CB to red team nurses. TC placed to [phone] however a male answered the phone stating wrong number . TC placed to [phone] however no answer and VM is full. RN will re-attempt in AM. documented in this encounter Plan of Treatment Not on file documented as of this encounter Visit Diagnoses Not on filedocumented in this encounter Care Teams Float Tender Relationship Specialty Start Date End Date Amanda Barragan DO [address] [place] [address] PCP - General Family Medicine 12/26/22 documented as of this encounter
--- OUTSIDE RECORDS SUMMARY | 2024-07-03 16:12 | XMS_ITS | Encounter Summary ---
Author Organization [employer] Address 75 [facility] 7t [place] [address] Care Team Providers Care Research Test Engine Operator Name Role Phone Laurel Amanda Primary Care Provider + [phone] Reason for Visit * Reason Comments Med Refill Encounter Details Date Type Department Care Team ([facility] st Contact Info) Description 04/13/2024 Refill [facility] MEDICINE 230 [place], [place] [phone] [facility] 230 [place] [address] Social History Tobacco Use Types Packs/Day Years [...] on filedocumented in this encounter Care Teams Research Test Engine Operator Relationship Specialty Start Date End Date Amanda Barragan DO 230 [place] [address] PCP - General Family Medicine 12/26/22 documented as of this encounter
--- OUTSIDE RECORDS SUMMARY | 2024-07-03 16:13 | XMS_ITS | Encounter Summary ---
Author Organization [employer] Address 75 [facility] 7t [place] [address] Care Team Providers Care Mint Wafer Depositor Name Role Phone Laurel Amanda Primary Care Provider + [phone] Reason for Visit * Reason Comments Med Refill Encounter Details Date Type Department Care Team ([facility] st Contact Info) Description 04/05/2023 Refill [facility] MEDICINE 230 [place], [place] [phone] Tatyana Oakley MD Social History Tobacco Use Types Packs/Day [...] on filedocumented in this encounter Care Teams Mint Wafer Depositor Relationship Specialty Start Date End Date Amanda Barragan DO [address] [place] [address] PCP - General Family Medicine 12/26/22 documented as of this encounter
--- OUTSIDE RECORDS SUMMARY | 2024-07-03 16:13 | XMS_ITS | Encounter Summary ---
Author Organization [employer] Address 75 [facility] 7t [place] [address] Care Team Providers Care Batter Out Name Role Phone Amanda Barragan DO Primary Care Provider + [phone] Reason for Visit * Reason Comments Med Refill Encounter Details Date Type Department Care Team ([facility] st Contact Info) Description 03/13/2024 Refill [facility] CHC MED & PEDS [address] [place], [place] [phone] Amanda Barragan DO 230 [facility] [place] [address] Chronic right shoulder pain Social History Tobacco [...] region documented in this encounter Care Teams Batter Out Relationship Specialty Start Date End Date Amanda Barragan DO 230 [place] [address] PCP - General Family Medicine 12/26/22 documented as of this encounter
== END 2024-07-03 11:18 | disposition home or self-care (01) ==
LOC: HO.10HDL 11:17
PROVIDERS: Visit Provider Nurse Practitioner Family
DX: N40.0 Benign prostatic hyperplasia without lower urinary tract symptoms (principal); Z12.5 Encounter for screening for malignant neoplasm of prostate
CPT/HCPCS: 36415; 84153

== ENCOUNTER 2024-08-30 22:05 | Emergency (ER) | payer OTHER, SELFPAY ==
--- NOTE | 2024-08-30 | ECG_ITS ---
Test Reason : CP Blood Pressure : */* mmHG Vent. Rate : 73 BPM Atrial Rate : 73 BPM P-R Int : 160 ms QRS Dur : 98 ms QT Int : 354 ms P-R-T Axes : 24 25 36 degrees QTcB Int : 389 ms Normal sinus rhythm Normal ECG When compared with ECG of 03-Apr-2024 03:45, No significant change was found Referred By: Generic ED Physician Electronically Signed By: SORAYA ALMONTE MD
--- NOTE | ~2024-08-30 | XR_ITS ---
CLINICAL HISTORY: cp EXAM: One view chest x-ray COMPARISON: CR/SR - XR CHEST 1V - 04/03/24 03:59 EDT FINDINGS: Normal cardiac, mediastinal, and hilar contours. Normal heart size. No pleural effusion or pneumothorax. Lungs are clear. No acute bone finding. IMPRESSION: 1. No acute cardiopulmonary process demonstrated. This document has been electronically signed by: Reuben Singh MD on 08/30/2024 22:49:58
[2024-08-30 22:18] VITALS: BP 161/79; PULSE 77; RESP 18; TEMP 37.2; O2SAT 97; BMI 22.3
[2024-08-30 22:43] LABS: MANUAL DIFF FLAG NO
[2024-08-30 22:44] LABS: Basophils Percent Auto 0.4 % (0-2); Eosinophils Absolute Auto 0.3 X10*3/uL (0.0-0.4); Eosinophils Percent Auto 2.3 % (0-4); Hematocrit 38.3 % (42.0-52.0); Hemoglobin 12.9 g/dl (14.0-18.0); Imm Gran Abs Auto 0.05 X10*3/uL (0.00-0.03); Imm Gran Pct Auto 0.4 % (0.0-0.4); Lymphocytes Absolute Auto 1.8 X10*3/uL (1.2-4.9); Lymphocytes Percent Auto 16.2 % (20-40); Mean Corpuscular HGB Conc 33.7 g/dl (31.0-36.0); Mean Corpuscular Hemoglobin 29.3 pg (27.0-33.0); Mean Corpuscular Volume 86.8 fL (80.0-98.0); Mean Platelet Volume 9.8 fL (9.4-12.4); Monocytes Absolute Auto 0.7 X10*3/uL (0.1-1.2); Neutrophils Absolute Auto 8.4 x10*3/uL (2.0-8.3); Neutrophils Percent Auto 74.7 % (45-73); Platelet Count 224 X10*3/uL (160-400); Red Blood Count 4.41 X10*6/uL (4.60-5.80); Red Cell Distribution Width 12.9 % (11.0-16.0); White Blood Count 11.3 X10*3/uL (4.8-10.8)
[2024-08-30 22:52] VITALS: BP 136/69; PULSE 75; RESP 15; TEMP 36.8; O2SAT 98
[2024-08-30 23:02] LABS: Alanine Aminotransferase 23 U/L (0-40); Albumin Level 4.4 g/dL (3.5-5.0); Alkaline Phosphatase 69 U/L (39-117); Anion Gap 11 (12-20); Aspartate Amino Transferase 20 U/L (5-37); Bilirubin Total 0.2 mg/dL (0.0-1.0); Blood Urea Nitrogen 24 mg/dL (9-16); Calcium 9.3 mg/dL (8.4-10.2); Carbon Dioxide 24 mmol/L (22-29); Chloride 108 mmol/L (96-108); Creatinine Clr Calc Pharmacy 48.3; Estimated Glomerular Filt Rate > 60; Glucose Random 160 mg/dL (60-115); Potassium 5.2 mmol/L (3.3-5.1); Sodium 138 mmol/L (135-145); Total Protein 7.4 g/dL (6.5-8.0)
[2024-08-30 23:08] LABS: Troponin-I High Sensitivity 3.2 ng/L (<3.5-35.0)
[2024-08-30 23:20] LABS: Influenza A PCR NEGATIVE (Negative); Influenza B PCR NEGATIVE (Negative); Resp Syncy Virus RNA Qual PCR NEGATIVE (Negative); SARS COV2 PCR INHOUSE NEGATIVE (Negative)
--- NOTE | 2024-08-30 23:48 | ED_ITS ---
HPI - Chest Pain General Chief Complaint: Chest Pain Stated Complaint: high blood pressure Time Seen by Provider: 08/30/24 23:47 Source: patient Mode of arrival: ambulatory Limitations: no limitations History of Present Illness ED Provider: HPI narrative: Patient's history of hypertension taking lisinopril 20 mg daily in a.m. by mistake today at 21:00 he took the extra dose patient has felt very anxious no chest pain no palpitation on arrival patient's blood pressure was 161/79 Related Data Home Medications ?Medication ?Instructions ?Recorded ?Confirmed atorvastatin 80 mg tablet 80 mg PO DAILY 08/05/20 06/29/24 blood pressure test kit-large #1 ea 08/05/20 06/29/24 lisinopril 20 mg tablet 20 mg PO DAILY 08/05/20 06/29/24 metformin 500 mg tablet 500 mg PO 08/05/20 06/29/24 sitagliptin phosphate 100 mg tablet 100 mg PO DAILY 08/05/20 06/29/24 zolpidem 10 mg tablet 10 mg PO BEDTIME PRN insomnia 08/05/20 06/29/24 Previous Rx's ?Medication ?Instructions ?Recorded diclofenac sodium 3 % topical gel 1 appl topical BID #100 grams 04/01/22 oxycodone-acetaminophen 5 mg-325 1 tab PO DAILY PRN pain (scale 03/18/23 mg tablet (Percocet) score 4-6) 28 days #28 tabs Allergies Allergy/AdvReac Type Severity Reaction Status Date / Time atorvastatin [Lipitor] Allergy Unknown unknown Verified 08/30/24 22:26 Review of Systems 2 Review of Systems: Yes all other systems are reviewed and are negative [facility] Past Medical History Medical History Palpitations Mass of left side of neck Surgical History History of cholecystectomy Family History Family History Sister History of pancreatic cancer Social History Social History Alcohol intake: current Alcohol intake frequency: holidays/special occasions only Alcohol type: beer and hard liquor Patient Tobacco Use Status: Never used Tobacco Advance Directives: No Advance Directives Information Provided: Yes Do you have a plan to hurt others: No Plan Current occupational status: disabled Current occupation: right hand dominant Physical Exam 2 Vital Signs: Vital Signs: Last Vital Signs Temp 98.3 F 08/31/24 00:05 Pulse 74 08/31/24 00:05 Resp 16 08/31/24 00:05 BP 138/73 08/31/24 00:05 Pulse Ox 98 08/31/24 00:05 O2 Del Method Room Air 08/31/24 00:05 BMI result Body Mass Index 22.3 Appearance: Alert. Oriented X3. No acute distress. Anxious Eyes: PERRLA, No Nystagmus ENT: Pharynx normal. Oral Mucosa moist Neck: Normal inspection. Neck supple. CVS: Normal heart rate and rhythm. Pulses normal. Respiratory: No respiratory distress. Equal air entry bilateral, no wheezing/rales/rhonchi Abdomen: Soft and nontender. Bowel sounds are present, no mass palpable, no CVA tenderness Skin: Skin warm and dry. Normal skin color. Normal skin turgor. Extremities: No lower extremity edema. No calf tenderness Neuro: Oriented X 3. No motor deficit. No sensory deficit.No cerebellar signs , cranial nerves II-XII intact Medical Decision Making Medical Decision Making [facility] Narrative: Patient's with history of hypertension took extra dose of lisinopril blood pressure stable no orthostatic hypotension patient re-educated about the dosage of lisinopril and keep an eye on the blood pressure monitoring for next 24 hours Lab Data [facility] Lab Attestation statement: I reviewed the patient's lab results. 08/30/24 22:38 08/30/24 22:38 Labs: Lab Results 08/30/24 Range/Units 22:38 WBC 11.3 H (4.8-10.8) X10*3/uL RBC 4.41 L (4.60-5.80) X10*6/uL Hgb 12.9 L (14.0-18.0) g/dl Hct 38.3 L (42.0-52.0) % MCV 86.8 (80.0-98.0) fL MCH 29.3 (27.0-33.0) pg MCHC 33.7 (31.0-36.0) g/dl RDW 12.9 (11.0-16.0) % Plt Count 224 (160-400) X10*3/uL MPV 9.8 (9.4-12.4) fL Immature Gran % (Auto) 0.4 (0.0-0.4) % Neut % (Auto) 74.7 H (45-73) % Lymph % (Auto) 16.2 L (20-40) % Williams % (Auto) 6.0 (2-11) % Eos % (Auto) 2.3 (0-4) % Baso % (Auto) 0.4 (0-2) % Lymph # (Auto) 1.8 (1.2-4.9) X10*3/uL Williams # (Auto) 0.7 (0.1-1.2) X10*3/uL Eos # (Auto) 0.3 (0.0-0.4) X10*3/uL Baso # (Auto) 0.0 (0.0-0.2) X10*3/uL Abs Immat Gran (auto) 0.05 H (0.00-0.03) X10*3/uL Absolute Neuts (auto) 8.4 H (2.0-8.3) x10*3/uL Absolute Nucleated RBC 0.000 (0.0-0.012) X10*3/uL Nucleated RBC % (auto) 0.0 (0.0-0.2) /100WBC Sodium 138 (135-145) mmol/L Potassium 5.2 H D (3.3-5.1) mmol/L Chloride 108 (96-108) mmol/L Carbon Dioxide 24 (22-29) mmol/L Anion Gap 11 L (12-20) BUN 24 H (9-16) mg/dL Creatinine 1.19 (0.5-1.4) mg/dL Estim Creat Clear Calc 48.3 Estimated GFR > 60 Random Glucose 160 H (60-115) mg/dL Calcium 9.3 (8.4-10.2) mg/dL Total Bilirubin 0.2 (0.0-1.0) mg/dL AST 20 (5-37) U/L ALT 23 (0-40) U/L Alkaline Phosphatase 69 (39-117) U/L Troponin I High Sens 3.2 (<3.5-35.0) ng/L Total Protein 7.4 (6.5-8.0) g/dL Albumin 4.4 (3.5-5.0) g/dL Influenza Type A (PCR) NEGATIVE (Negative) Influenza Type B (PCR) NEGATIVE (Negative) RSV RNA Qual (PCR) NEGATIVE (Negative) SARS-CoV-2 RNA (RT-PCR) NEGATIVE (Negative) Independent Interpretation I performed an independent interpretation of an: EKG Interpretation: Normal sinus rhythm heart rate 73 beats per minute normal intervals normal axis no acute ST-T no acute ischemia Discharge Plan Discharge Clinical Impression: Accidental overdose Patient Disposition: Home, Self-Care Instructions: Adult Overdose (ED) Additional Instructions: Do not take extra on prescribed dosage of your medication without consulting your PCP Check your blood pressure next 24 hours as he took extra blood pressure medication it made dropped If blood pressure is lower than 120/80 do not take the blood pressure medicine in the morning otherwise take the routine dose of 20 mg lisinopril If blood pressure less than 1120/80 laid down have some fluid with salt and rechecked blood pressure If blood pressure is persistently low or less than 100/60 call your PCP or come to the ER Prescriptions: No Action diclofenac sodium 3 % gel 1 appl topical BID Qty: 100 0RF lisinopril 20 mg tablet 20 mg PO DAILY zolpidem 10 mg tablet 10 mg PO BEDTIME PRN (Reason: insomnia) metformin 500 mg tablet 500 mg PO sitagliptin phosphate 100 mg tablet 100 mg PO DAILY (DME) blood pressure test kit-large Kit See Rx Instructions .ROUTE .MEDSUPPLY Qty: 1 Rx Instructions: As directed atorvastatin 80 mg tablet 80 mg PO DAILY oxycodone-acetaminophen [Percocet] 5-325 mg tablet 1 tab PO DAILY PRN (Reason: pain (scale score 4-6)) 28 Days Qty: 28 0RF Rx Instructions: Partial Fill upon patient request. Interventions: ED Discharge Assessment Last Done: 08/31/24 00:05 Discharge Date/Time: 08/31/24 00:06 Print Language: Danish
[2024-08-30 23:49] VITALS: BP 138/73; PULSE 74; RESP 16; TEMP 36.8; O2SAT 98
[2024-08-31 00:05] VITALS: BP 138/73; PULSE 74; RESP 16; TEMP 36.8; O2SAT 98
== END 2024-08-31 00:06 | disposition home or self-care (01) ==
PROVIDERS: Emergency Provider Internal Medicine; PCP Family Medicine
DX: T46.4X1A Poisoning by angiotensin-converting-enzyme inhibitors, accidental (unintentional), initial encounter (principal); F41.9 Anxiety disorder, unspecified; Y92.019 Unspecified place in single-family (private) house as the place of occurrence of the external cause; I10 Essential (primary) hypertension; Z79.899 Other long term (current) drug therapy; Z03.818 Encounter for observation for suspected exposure to other biological agents ruled out
CPT/HCPCS: 0241U; 36415; 71045; 80053; 84484; 85025; 93005; 99283; 99284

== ENCOUNTER → 2024-08-30 22:18 | Outpatient (BNV) | payer OTHER, SELFPAY | PROVIDERS: Emergency Provider Internal Medicine; PCP Family Medicine; Visit Provider Internal Medicine Cardiovascular Disease | DX: R07.9 Chest pain, unspecified (principal) | CPT/HCPCS: 93010 ==

== ENCOUNTER → 2024-08-30 22:35 | Outpatient (BNV) | payer OTHER, SELFPAY | PROVIDERS: Visit Provider Radiology Diagnostic Radiology | DX: R07.9 Chest pain, unspecified (principal) | CPT/HCPCS: 71045 ==

== ENCOUNTER 2024-09-07 14:34 | Outpatient (REF) | payer OTHER, SELFPAY ==
[2024-09-07 17:03] LABS: Urine Cytology See Pathology rpt
--- OUTSIDE RECORDS SUMMARY | 2024-09-07 17:12 | XMS_ITS | Encounter Summary ---
Author Organization [employer] Address 75 [facility] 7t [place] [address] Care Team Providers Care Vehicle Monitor Technician Name Role Phone Haven Stiles MD Primary Care Provider [phone] Amanda Barragan DO Primary Care Provider [phone] Reason for Visit * Reason Onset Date Comments Med Refill 08/11/2022 Encounter Details Date Type Department Care Team (Late st Contact Info) Description 08/11/2022 Refill [facility] MEDICINE [address] [place], [place] [phone] Haven Stiles MD [address] [place], [place] [phone] Chronic right shoulder pain Social History Tobacco [...] Pt wants medication to be send to [facility] pharmacy. documented in this encounter Plan of Treatment Not on file documented as of this encounter Visit Diagnoses Diagnosis Chronic right shoulder pain Pain in joint, shoulder region documented in this encounter Care Teams Vehicle Monitor Technician Relationship Specialty Start Date End Date Haven Stiles MD [address] [place] [address] PCP - General Family Medicine 06/25/20 12/25/22 Amanda Barragan DO [address] [place] [address] PCP - General Family Medicine 12/26/22 documented as of this encounter
--- OUTSIDE RECORDS SUMMARY | 2024-09-07 17:12 | XMS_ITS | Patient Health Record ---
Author Organization [facility] liance Address [address] [place] [address] Care Team Providers Care Principle Industrial Hygienist Name Role Phone Amanda Barragan Primary Care Provider Unavaila ble Clinical, Operations Unavailable Unavailable Gisell Steen Unavailable [phone] Celeste Carrizales Unavailable [phone] Allergies No Known Allergies Reason For Referral Reason AFC Level 1 Diagnosis 1 Forgetfulness (R68.8 9) Diagnosis 2 Osteoarthritis, unsp ecified osteoarthritis type, unspecified site (M19.90) Diagnosis 3 DM (diabetes mellitu s) (E11.9) Diagnosis 4 Other chronic pain ( G89.29) Diagnosis 5 Illiteracy (Z55.0) Referring Provider First Name Operations Referring Provider Last Name Clinical Referring Provider Speciality Unknown Referred Provider Access [facility] Referred Provider Specialty Adult Foster Care Procedure 1 Adult foster care Le daniele 1 drill rig operator helper ([id number]) General Notes Ariela Johansen 09/2023 09:09:43 AM >Faxed , Is member ICO or SCO? SCO, Middle School Technology Teacher name and email address: [email or web address], Who is requesting AFC services and their relationship to the member? Member and daughter, Diagnosis with ICD10 code that supports need for AFC: forgetfulness R68.89, osteoarthritis M19.90, DM E11.9, other chronic pain G89.29, illiteracy Z55.0, What are the member's informal supports? daughter, Primary contact for Member: kat Arriaga [phone], Members preferred language: Mohawk, Provide name and contact info for GSS[facility]/LTSC: Amanda Richardson at [facility] [phone], Please identify AFC program member will be using: [facility], ADL's requiring assistance: bathing and dressing d/t pain, weakness and impaired ROM., Member requires 24/7 supervision due to: forgetfulness, chronic pain, impaired ROM and weakness , [facility] Level recommendation: 1 Clinical Notes his referral is lacie mckeon sent to supply the member's demographic information ([facility] level 1). If approved an Approval Letter will be sent by [facility]'s Utilization Management department separately. If for any reason you are unable to accommodate this request, please contact [facility] at [phone] Referral Priority Routine Reason REHAB (1) SHOWER [...] process this request, please contact Honey Bae [phone] [email or web address] Clinical Notes This activity is to inform you that [facility] Sr Specialist for Rehab Services, Gisell [...] please contact sender. CONTACT MYRON THEODORE AT [phone] - THANK YOU., Does member have a prescription for this order? No Referral Priority Routine Medications Medication SIG (Take, Route, Frequency, Duration) [...] 1 tablet Orally Once a day Active Immunizations Vaccine Route Administration Date Status Comme nts [...] COVID-19 Vaccine IM Unknown 05/19/2021 Administ ered Problems Problem Type SNOMED Code ICD Code Onset Dates Problem Status W/U Status Risk Notes Problem Anemia (391743349) Anemia (D64.9) Active confir med Problem Essential hypertension (05430007) Essential (primary) hypertension (I10) Active confirmed Problem Insomnia (518863302) Insomnia (G47.00) Active c onfirmed Problem 10153199 CAD in sioux artery (I25.10) Active confirmed Problem Vitamin D deficiency (43792536) Vitamin D deficiency (E55.9) Active confirmed Problem Hyperlipidemia (30988598) Hyperlipidemia (E78.5) Active confirmed Problem 773468662 Dorsalgia (M54.9) Active confirmed Problem DM - Diabetes mellitus (55453488) DM (diabetes mellitus) (E11.9) Active confirmed Problem Helicobacter pylori gastrointestinal tract infection (535516809) H. pylori infection (B96.81) Active confirmed Problem 2077501 Spondylosis (M47.9) Active confirmed Problem Illiteracy (648690381) Illiteracy (Z55.0) Active confirmed Problem Forgetful (06468127) Forgetfulne ss (R68.89) Active confirmed Problem Tubular adenoma (503337097) Tubular adenoma (D36.9) Active confirmed Problem 01093480830309658 Pain in right shoulder (M25.511) Active confirmed Problem 434242139 Age-related nuclear cataract of both eyes (H25.13) Active confirmed Problem 57034139 Other chronic pain (G89.29) Active confirmed Problem 548933850 Osteoarthritis, unspecified osteoarthritis type, unspecified site (M19.90) Active confirmed Problem Sciatica (87230439) Back pain of lumbar region with sciatica (M54.40) Active confirmed Problem Cardiovascular event risk (491521227) Cardiovascular event risk (Z91.89) Active confirmed Problem 70632743635910390 Tear of right rotator cuff, unspecified tear extent, unspecified whether traumatic (M75.101) Active confirmed Encounters Encounter Location Date Provider Diagnosis [address] [address] 11/08/2023 Gisell Steen [address] [address] 03/27/2024 Celeste Carrizales [facility] 10/22/2023 Operati ons Clinical Illiteracy Z55.0 ; Forgetfulness R68.89 ; Essential (primary) hypertension I10 ; CAD in sioux artery I25.10 ; Osteoarthritis, unspecified osteoarthritis type, [...] found diagnoses in remedia. 10/22/2023 CAD in sioux artery (ICD-10 - I25.10) found diagnoses in [...] risk (ICD-10 - Z91.89) [facility] 10/22/2023 H. pylori infection (ICD-10 - B96.81) [facility]. 10/22/2023 Back pain of lumbar region with sciatica (ICD-10 - M54.40) [facility] 10/22/2023 Other chronic pain (ICD-10 - G89.29) found diagnoses [facility]. 10/22/2023 Pain in right shoulder (ICD-10 - M25.511) [facility] diagnoses [facility]. Plan Of Treatment No Information Insurance Providers Payer Name Payer Address Payer Phone Subscriber Number Group Number Insured Name Patient Relationship to Insured Coverage Start Date Coverage End Date [facility] Jermyn SCO ([id number]) [id number] [phone] [id number] Carlos Hobbs Self - patient is the insured 8 9 Medical (General) History Surgical History Surgery Date(Month/Year) cholecystectomy kidney stones
--- OUTSIDE RECORDS SUMMARY | 2024-09-07 17:12 | XMS_ITS | Encounter Summary ---
Author Organization [employer] Address 75 [facility] 7t [place] [address] Care Team Providers Care Logging Truck Driver Name Role Phone Amanda Barragan DO Primary Care Provider Encounter Details Date Type Department Care Team (Late st Contact Info) Description 02/09/2023 Abstract [facility] MEDICINE [address] [place], [place] [phone] Amanda Barragan DO [address] [place], [place] [phone] Social History Tobacco Use Types Packs/Day Years [...] on filedocumented in this encounter Care Teams Logging Truck Driver Relationship Specialty Start Date End Date Amanda Barragan DO [address] [place], [place] [phone] PCP - General Family Medicine 12/26/22 documented as of this encounter
--- OUTSIDE RECORDS SUMMARY | 2024-09-07 17:12 | XMS_ITS | Encounter Summary ---
Author Organization [employer] Address 75 [facility] 7t [place] [address] Care Team Providers Care Screw Driver Operator Name Role Phone MarlaAmanda dickens Primary Care Provider + [phone] Encounter Details Date Type Department Care Team ([facility] st Contact Info) Description 09/07/2024 Orders Only [facility] MEDICINE [address] [place], [place] [phone] Geneva Orozco ANP [address] [place], [place] [phone] Social History Tobacco Use Types Packs/Day Years [...] on filedocumented in this encounter Care Teams Screw Driver Operator Relationship Specialty Start Date End Date Amanda Barragan DO [address] [place] [address] PCP - General Family Medicine 12/26/22 documented as of this encounter
--- OUTSIDE RECORDS SUMMARY | 2024-09-07 17:12 | XMS_ITS | Clinical Summary ---
Author Organization [email or web address] Address 75 [facility] 7t [place] [address] Care Team Providers Care Textile Chemist Name Role Phone MarlaAmanda dickens Primary Care Provider Allergies No known active allergies Medications glucose [...] 2024 Active Blood Glucose Monitoring Suppl (FreeStyle [place] Lite) w/Device kit Use to test blood [...] Eye Exam: missed, needs to reschedule at [facility] Lipid panel: today ASCVD: Calculate pending updated [...] Department Care Team Description 09/07/2024 Orders Only [facility] MEDICINE [address] [place] [address] Geneva Orozco ANP 09/07/2024 Refill [facility] P[facility]S [address] [place] [address] Amanda Barragan DO Chronic right shoulder pain 09/07/2024 Refill [facility] [address] [place] [address] Amanda Barragan DO Primary insomnia 09/01/2024 Refill [facility] [address] [place], [place] [phone] Amanda Barragan DO Primary insomnia 08/24/2024 Refill [facility] P[facility] [address] [place] [address] Amanda Barragan, Chronic right shoulder pain 08/07/2024 Refill [facility] [address] [place] [address] Amanda Barragan, Chronic right shoulder pain 07/26/2024 Telephone [facility] [address] [place] [phone] Amanda Barragan, Recall Letter (Recall Letter sent 07/26/24.) 07/21/2024 Refill [facility] PED[facility] [address] [place] [address] Amanda Barragan, Chronic right shoulder pain (Primary Dx) 07/03/2024 Refill [facility] [address] [place] [address] Amanda Barragan, Chronic right shoulder pain 07/03/2024 Telephone [facility] [address] [place] [phone] Amanda Barragan, No Show 06/15/[address] [address] Amanda Barragan, Appointment Request 06/13/2024 Refill [facility] [address] [place] [address] Haven Stiles MD Chronic right shoulder pain 06/13/2024 Refill [facility] [address] [place] [address] Amnada Barragan, Primary insomnia from Last 3 Months [...] 9:01 AM EST) Creatinine, Urine 122.74 mg/dL [facility] Microalbumin Urine 5.0 mg/L [facility] Microalbum Creatinine Ratio Ur 4.0 <30 ug/mg cr [facility] Comment:Albumin/Creatinine R atio Reference Ranges: Normal: < 30 ug/mg creatinine Microalbuminuria: 30 - 300 ug/mg creatinineClinical Albuminuria: > 300 ug/mg creatinine 04/20/2023 9:01 AM EST 04/20/2023 11:20 AM EST Amanda Barragan DO LAB URINE ORDERABLES Final R esult Performing Organization Address City/[facility] Co de Phone Number [facility] [address] [place] [address] [phone] * Hepatitis C Antibody with Reflex to HCV, RNA, Quantitative, Real-Time PCR (04/20/2023 8:54 AM EST) Hepatitis C Antibody Nonreactive Nonreactive [facility] Comment:Antibodies to HCV no t detected; does not exclude early acuteHCV infection. 04/20/2023 8:54 AM EST 04/20/2023 11:32 AM EST Amanda Barragan DO LAB BLOOD ORDERABLES Final R esult Performing Organization Address City/[facility] Co de Phone Number [facility] [address] [place] [phone] * (ABNORMAL) Lipid Panel, Standard (04/20/2023 8:54 AM EST) Triglycerides 194(H) <150 mg/dL [facility] Comment:Desirable Triglyceri de: less than 150 mg/dLBorderline High Triglyceride 150-199 mg/dLHigh Triglyceride: 200-499 mg/dLVery High Triglyceride: greater than or equal to 5OO mg/dL Cholesterol 249(H) <200 mg/dL [facility] Comment:Desirable Cholestero l: less than 200 mg/dLBorderline High Cholesterol: 200-239 mg/dLHigh Cholesterol: greater than 239 mg/dL LDL Cholesterol Calculated 166(H) <100 mg/dL [facility] Comment:Desirable LDL: less than 100 mg/dLNear Optimal/Above Optimal LDL: 110- 129 mg/dLBorderline High LDL: 130-159 mg/dLHigh LDL: 160-189 mg/dLVery High LDL: greater than or equal to 190 mg/dL HDL Cholesterol 45 >40 mg/dL [facility] Comment:Desirable HDL: great er than 40 mg/dL Note: This HDL assay may give artificially low results in patients with liver disease. Blood Venous blood specimen / Unknown 04/20/2023 8:54 AM EST 04/20/2023 11:32 AM EST Amanda Barragan DO LAB BLOOD ORDERABLES Final R esult [facility] [address] [place] [address] [phone] * Hm Colonoscopy (04/24/2015 9:07 AM EST) Historical Provider HEALTH MAINTENANCE Final Result from Last 3 Months or Most Recently Relevant to Health Maintenance Insurance [facility] [facility] [facility] Care Teams Textile Chemist Relationship Specialty Start Date End Date Amanda Barragan DO [address] [place] [address] PCP - General Family Medicine 12/26/22
--- OUTSIDE RECORDS SUMMARY | 2024-09-07 17:12 | XMS_ITS | Encounter Summary ---
Author Organization [employer] Address 75 [facility] 7t [place] [address] Care Team Providers Care Driver/Sales Workers Name Role Phone Laurel Amanda Primary Care Provider + [phone] Encounter Details Date Type Department Care Team (Late st Contact Info) Description 10/18/2023 Orders Only [facility] MED[facility]INE [address] [place] [address] Provider, MD Sandeep Social History Tobacco Use [...] EDT Narrative 11/09/2023 5:13 PM EDT ? [facility] ?[address] ?[place] [address] ?XRay Report ? Signed ? Patient: Carlos Arriaga ?MR#: [id number] ?? 1585 ? : 1950 ?Acct:[id number] ? Age/Sex: 73 / M ?ADM Date: 11/09/23 ? Loc: HO.ED ? Attending Dr: ? Ordering Physician: Jil Loza ?? Date of Service: 11/09/23 ?? Procedure(s): XR lumbar spine 2-3V ?? Accession Number(s): [id number] ? cc: Amanda Barragan DO; Jil Loza [...] 1709 ? DD/ 1459 ? TD/TT: ? Real Estate Legal Assistant: ? Procedure Note Jung Andrade - 11/09/2023 [place] [address] XRay Report Signed Patient: Horace Arriaga#: [id number] : 3Acct:[id number] Age/Sex: 73 / MADM Date: 11/09/23 Loc: HO.ED Attending Dr: Ordering Physician: Jil Loza Date of Service: 11/09/23 Procedure(s): XR lumbar spine 2-3V Accession Number(s): [id number] cc: Amanda Barragan DO; Jil Loza X-RAY [...] in OV> 11/09/23 1709 DD/ 1459 TD/TT: Real Estate Legal Assistant: [facility] External Provider IMG XR PROCEDURES Final Result * XR Thoracic Spine 2 Views (11/09/2023 2:59 PM EDT) Anatomical Region Laterality Modality Spine, T-spine Radiographic Chantal ging 11/09/2023 2:59 PM EDT Narrative 11/09/2023 5:13 PM EDT ? [facility] ?[address] ?[place] [address] ?XRay Report ? Signed ? Patient: Bart, ?MR#: [id number] ?? 1585 ? : 1950 ?Acct:[id number] ? Age/Sex: 73 / M ?ADM Date: 06/04/24 ? Loc: HO.ED ? Attending Dr: ? Ordering Physician: Jil Loza ?? Date of Service: 11/09/23 ?? Procedure(s): XR thoracic spine 2V ?? Accession Number(s): [id number] ? cc: Amanda Barragan DO; Jil Loza [...] 1709 ? DD/ 1459 ? TD/TT: ? Real Estate Legal Assistant: ? Procedure Note Raymond, Image - 11/09/2023 [place] [address] XRay Report Signed Patient: Horace Arriaga#: [id number] 1585 : 3Acct:[id number] Age/Sex: 73 / MADM Date: 11/09/23 Loc: HO.ED Attending Dr: Ordering Physician: Jil Loza Date of Service: 11/09/23 Procedure(s): XR thoracic spine 2V Accession Number(s): [id number] cc: Amanda Barragan DO; Jil Loza X-RAY [...] in OV> 11/09/23 1709 DD/ 1459 TD/TT: Real Estate Legal Assistant: [facility] External Provider IMG XR PROCEDURES Final Result * CT Head w/o Contrast (11/09/2023 1:30 PM EDT) Anatomical Region Laterality Modality Head, Neck Computed Tomogra phy 11/09/2023 1:30 PM EDT Narrative 11/09/2023 2:05 PM EDT ? [facility] ?[address] ?[place] [address] ? CT Scan Report ? Signed ? Patient: Bart, ?MR#: [id number] ?? 1585 ? : 1950 ?Acct:[id number] ? Age/Sex: 73 / M ?ADM Date: 06/04/24 ? Loc: HO.ED ? Attending Dr: ? Ordering Physician: iJl Loza ?? Date of Service: 11/09/23 ?? Procedure(s): CT head/brain wo IV con ?? Accession Number(s): [id number] ? cc: Amanda Barragan DO; Jil Loza [...] 1401 ? DD/ 1330 ? TD/TT: ? Real Estate Legal Assistant: DZ ? Procedure Note Jung Andrade - 11/09/[address] [address] [address] Scan Report Signed Patient: Horace Arriaga#: [id number] : 3Acct:[id number] Age/Sex: 73 / MADM Date: 06/04/24 Loc: HO.ED Attending Dr: Ordering Physician: Jil Loza Date of Service: 11/09/23 Procedure(s): CT head/brain wo IV con Accession Number(s): [id number] cc: Amanda Barragan DO; Jil Loza EXAMINATION: [...] in OV> 11/09/23 1401 DD/ 1330 TD/TT: Real Estate Legal Assistant: SHYANN [facility] External Provider IMG CT PROCEDURES Final Result * Hm Colonoscopy (04/24/2015 9:07 AM EST) Historical Provider HEALTH MAINTENANCE Final Result documented in this encounter Visit Diagnoses Not on filedocumented in this encounter Care Teams Driver/Sales Workers Relationship Specialty Start Date End Date Amanda Barragan DO [address] [place] [address] PCP - General Family Medicine 12/26/22 documented as of this encounter
--- OUTSIDE RECORDS SUMMARY | 2024-09-07 17:12 | XMS_ITS | Encounter Summary ---
Author Organization [employer] Address [address] [facility] 7t [place] [address] Care Team Providers Care Manufacturing Software Engineer Name Role Phone Amanda Barragan DO Primary Care Provider + [phone] Reason for Visit * Reason Comments Med Refill Encounter Details Date Type Department Care Team ([facility] st Contact Info) Description 09/01/2024 Refill [facility] MED & PEDS [address] [place], [place] [phone] Amanda Barragan DO [address] [facility] [place] [address] Primary insomnia Social History Tobacco Use Types [...] sleep documented in this encounter Care Teams Manufacturing Software Engineer Relationship Specialty Start Date End Date Amanda Barragan DO [address] [place] [address] PCP - General Family Medicine 12/26/22 documented as of this encounter
--- OUTSIDE RECORDS SUMMARY | 2024-09-07 17:12 | XMS_ITS | Encounter Summary ---
Author Organization [employer] Address [address] [facility] 7t [place] [address] Care Team Providers Care Money Room Teller Name Role Phone Haven Stiles MD Primary Care Provider [phone] Amanda Barragan DO Primary Care Provider + [phone] Reason for Visit * Reason Comments Med Refill Encounter Details Date Type Department Care Team (Late st Contact Info) Description 10/12/2022 Refill [facility] [address] [place] [address] Dimple Finley MD [address] [place] [address] Chronic right shoulder pain Social History Tobacco [...] region documented in this encounter Care Teams Money Room Teller Relationship Specialty Start Date End Date Haven Stiles MD [address] [place] [address] PCP - General Family Medicine 06/25/20 12/25/22 Amanda Barragan DO [address] [place] [address] PCP - General Family Medicine 12/26/22 documented as of this encounter
--- OUTSIDE RECORDS SUMMARY | 2024-09-07 17:12 | XMS_ITS | Encounter Summary ---
Author Organization [employer] Address 75 [facility] 7t [place] [address] Care Team Providers Care Research Asst Name Role Phone Amanda Barragan DO Primary Care Provider [phone] Encounter Details Date Type Department Care Team (Late st Contact Info) Description 09/07/2024 Refill [facility] [address] [place], [place] [phone] Amanda Barragan DO [address] [place] [address] Chronic right shoulder pain Social History Tobacco [...] 09/07/2024 1:16 PM EDT Received fax from [facility] requesting refill on Oxycodone 5 mg. documented in this encounter Plan of Treatment Not on file documented as of this encounter Visit Diagnoses Diagnosis Chronic right shoulder pain Pain in joint, shoulder region documented in this encounter Care Teams Research Asst Relationship Specialty Start Date End Date Amanda Barragan DO [address] [place] [address] PCP - General Family Medicine 12/26/22 documented as of this encounter
--- OUTSIDE RECORDS SUMMARY | 2024-09-07 17:12 | XMS_ITS | Encounter Summary ---
Author Organization [employer] Address 75 [facility] 7t [place] [address] Care Team Providers Care Supervisor Rubber Covering Name Role Phone Laurel Amanda Primary Care Provider + [phone] Reason for Visit * Reason Comments Med Refill Encounter Details Date Type Department Care Team ([facility] st Contact Info) Description 04/05/[address] [facility] MEDICINE [address] [place], [place] [phone] Tatyana Oakley MD Social History Tobacco Use [...] on filedocumented in this encounter Care Teams Supervisor Rubber Covering Relationship Specialty Start Date End Date Amanda Barragan DO [address] [place] [address] PCP - General Family Medicine 12/26/22 documented as of this encounter
--- OUTSIDE RECORDS SUMMARY | 2024-09-07 17:12 | XMS_ITS | Encounter Summary ---
Author Organization [employer] Address 75 [facility] 7t [place] [address] Care Team Providers Care Ocean Freight Forwarder Name Role Phone Haven Stiles MD Primary Care Provider [phone] Amanda Barragan DO Primary Care Provider [phone] Reason for Visit * Reason Comments Med Refill Encounter Details Date Type Department Care Team (Late st Contact Info) Description 07/20/[address] [facility] MEDICINE [address] [place], [place] [phone] Haven Stiles MD [address] [place], [place] [phone] Chronic right shoulder pain Social History Tobacco [...] region documented in this encounter Care Teams Ocean Freight Forwarder Relationship Specialty Start Date End Date Haven Stiles MD [address] [place] [address] PCP - General Family Medicine 06/25/20 12/25/22 Amanda Barragan DO [address] [place] [address] PCP - General Family Medicine 12/26/22 documented as of this encounter
--- OUTSIDE RECORDS SUMMARY | 2024-09-07 17:12 | XMS_ITS | Encounter Summary ---
Author Organization [employer] Address 75 [facility] 7t [place] [address] Care Team Providers Care Rental Clerk Name Role Phone Haven Stiles MD Primary Care Provider [phone] Amanda Barragan DO Primary Care Provider + [phone] Reason for Visit * Reason Onset Date Comments Med Refill 08/11/2022 Encounter Details Date Type Department Care Team (Late st Contact Info) Description 08/11/2022 Telephone [facility] MEDICINE [address] [place], [place] [phone] Haven Stiles MD [address] [place], [place] [phone] Med Refill Social History Tobacco Use Types [...] requesting for medication to be send to [facility] pharmacy documented in this encounter Plan of Treatment Not on file documented as of this encounter Visit Diagnoses Not on filedocumented in this encounter Care Teams Rental Clerk Relationship Specialty Start Date End Date Haven Stiles MD [address] [place] [address] PCP - General Family Medicine 06/25/20 12/25/22 Amanda Barragan DO [address] [place] [address] PCP - General Family Medicine 12/26/22 documented as of this encounter
--- OUTSIDE RECORDS SUMMARY | 2024-09-07 17:12 | XMS_ITS | Encounter Summary ---
Author Organization [employer] Address 75 [facility] 7t [place] [address] Care Team Providers Care Small Arms Repairer Name Role Phone Amanda Barragan DO Primary Care Provider + [phone] Reason for Visit * Reason Comments Med Refill Encounter Details Date Type Department Care Team ([facility] st Contact Info) Description 05/18/2024 Refill [facility] MED & PEDS [address] [place], [place] [phone] Amanda Barragan DO 230 [facility] [address] Chronic right shoulder pain Social History Tobacco [...] region documented in this encounter Care Teams Small Arms Repairer Relationship Specialty Start Date End Date Amanda Barragan DO [address] [place] [address] PCP - General Family Medicine 12/26/22 documented as of this encounter
--- OUTSIDE RECORDS SUMMARY | 2024-09-07 17:12 | XMS_ITS | Encounter Summary ---
Author Organization [employer] Address 75 [facility] 7t [place] [address] Care Team Providers Care Studio Operator Name Role Phone Amanda Barragan DO Primary Care Provider + [phone] Reason for Visit * Reason Comments Med Refill Encounter Details Date Type Department Care Team ([facility] st Contact Info) Description 03/13/2024 Refill [facility] MED & PEDS [address] [place], [place] [phone] Amanda Barragan DO 230 [facility] [place] [address] Chronic right shoulder pain Social History Tobacco [...] region documented in this encounter Care Teams Studio Operator Relationship Specialty Start Date End Date Amanda Barragan DO [address] [place] [address] PCP - General Family Medicine 12/26/22 documented as of this encounter
--- OUTSIDE RECORDS SUMMARY | 2024-09-07 17:12 | XMS_ITS | Encounter Summary ---
Author Organization [employer] Address [address] [facility] 7t [place] [address] Care Team Providers Care Search Advertising Strategist Name Role Phone Laurel Amanda Primary Care Provider + [phone] Reason for Visit * Reason Comments Med Refill Encounter Details Date Type Department Care Team ([facility] st Contact Info) Description 04/13/2024 Refill [facility] MEDICINE [address] [place], [place] [phone] [facility] [address] [place] [address] Social History Tobacco Use Types Packs/Day Years [...] on filedocumented in this encounter Care Teams Search Advertising Strategist Relationship Specialty Start Date End Date Amanda Barragan DO [address] [place] [address] PCP - General Family Medicine 12/26/22 documented as of this encounter
--- OUTSIDE RECORDS SUMMARY | 2024-09-07 17:12 | XMS_ITS | Encounter Summary ---
Author Organization [employer] Address 75 [facility] 7t [place] [address] Care Team Providers Care Oracle Database Developer Name Role Phone Amanda Barragan DO Primary Care Provider + [phone] Reason for Visit * Reason Onset Date Comments Med Refill 04/20/2024 Encounter Details Date Type Department Care Team ([facility] st Contact Info) Description 04/20/2024 Telephone [facility] MEDICINE [address] [place], [place] [phone] Amanda Barragan DO [address] [place], [place] [phone] Med Refill Social History Tobacco Use Types [...] EST 04/13/24: Per PCP no refills until [facility] appt. Pt was [facility] for 04/13/24, 03/29/24, 03/01/24 [facility] RO[facility] appts. TC to patient @ both numbers, no answer. L/M asking him to call me back regarding his refill request. * Telephone Encounter - Anthony Chandler - 04/20/2024 12:42 PM EST TC from pt requesting medication refill. Medications needing refill : oxyCODONE (Roxicodone) 5 MG immediate release tablet To be sent to: [facility] documented in this encounter Plan of Treatment Not on file documented as of this encounter Visit Diagnoses Not on filedocumented in this encounter Care Teams Oracle Database Developer Relationship Specialty Start Date End Date Amanda Barragan DO [address] [place] [address] PCP - General Family Medicine 12/26/22 documented as of this encounter
--- OUTSIDE RECORDS SUMMARY | 2024-09-07 17:12 | XMS_ITS | Encounter Summary ---
Author Organization [email or web address] Address 75 [facility] 7t [place] [address] Care Team Providers Care Rest Room Attendant Name Role Phone Amanda Barragan DO Primary Care Provider + [phone] Reason for Visit * Reason Onset Date Comments Med Refill 09/07/2024 Encounter Details Date Type Department Care Team (Late st Contact Info) Description 09/07/2024 Refill [facility] MED & PEDS [address] [place], [place] [phone] Amanda Barragan DO [address] [place], [place] [phone] Primary insomnia Social History Tobacco Use Types [...] Zuñiga LPN - 09/07/2024 1:15 PM EDT SENIOR ACCOUNTING CLERK checked on 09/07/24. Last seen 03/09/24. documented in this encounter Plan of Treatment Not on file documented as of this encounter Visit Diagnoses Diagnosis Primary insomnia Persistent disorder of initiating or maintaining sleep documented in this encounter Care Teams Rest Room Attendant Relationship Specialty Start Date End Date Amanda Barragan DO [address] [place] [address] PCP - General Family Medicine 12/26/22 documented as of this encounter
--- OUTSIDE RECORDS SUMMARY | 2024-09-07 17:12 | XMS_ITS | Encounter Summary ---
Author Organization [employer] Address 75 [facility] 7t [place] [address] Care Team Providers Care Picking Belt Operator Name Role Phone Amanda Barragan DO Primary Care Provider + [phone] Reason for Visit * Reason Comments Med Refill Encounter Details Date Type Department Care Team ([facility] st Contact Info) Description 04/02/2023 Refill [facility] MED & PEDS [address] [place], [place] [phone] Amanda Barragan DO 230 [facility] [place] [address] Primary insomnia Social History Tobacco Use Types [...] sleep documented in this encounter Care Teams Picking Belt Operator Relationship Specialty Start Date End Date Amanda Barragan DO [address] [place] [address] PCP - General Family Medicine 12/26/22 documented as of this encounter
--- OUTSIDE RECORDS SUMMARY | 2024-09-07 17:12 | XMS_ITS | Encounter Summary ---
Author Organization [employer] Address 75 [facility] 7t [place] [address] Care Team Providers Care Precision Machining Instructor Name Role Phone Amanda Barragan DO Primary Care Provider + [phone] Reason for Visit * Reason Comments Med Refill Encounter Details Date Type Department Care Team (Late st Contact Info) Description 02/11/2024 Refill [facility] MED & PEDS [address] [place], [place] [phone] Amanda Barragan DO [address] [facility] [place] [address] Chronic right shoulder pain Social History Tobacco [...] region documented in this encounter Care Teams Precision Machining Instructor Relationship Specialty Start Date End Date Amanda Barragan DO [address] [place] [address] PCP - General Family Medicine 12/26/22 documented as of this encounter
--- OUTSIDE RECORDS SUMMARY | 2024-09-07 17:12 | XMS_ITS | Encounter Summary ---
Author Organization [employer] Address [address] [facility] 7t [place] [address] Care Team Providers Care Blooming Mill Supervisor Name Role Phone Haven Stiles MD Primary Care Provider [phone] Amanda Barragan DO Primary Care Provider + [phone] Reason for Visit * Reason Onset Date Comments Med Refill Tramadol Refused by PCP 10/06/2022 See note Encounter Details Date Type Department Care Team (Late st Contact Info) Description 10/06/2022 Refill [facility] [address] [place], [place] [phone] Haven Stiles MD [address] [place], [place] [phone] Chronic right shoulder pain Social History Tobacco [...] - 10/06/2022 3:39 PM EDT TC via [id number], pt c/o he was busy and cant [...] region documented in this encounter Care Teams Blooming Mill Supervisor Relationship Specialty Start Date End Date Haven Stiles MD [address] [place] [address] PCP - General Family Medicine 06/25/20 12/25/22 Amanda Barragan DO [address] [place] [address] PCP - General Family Medicine 12/26/22 documented as of this encounter
== END 2024-09-07 14:35 | disposition home or self-care (01) ==
LOC: HO.LNP 14:34
PROVIDERS: Visit Provider Nurse Practitioner Family
DX: R31.29 Other microscopic hematuria (principal)
CPT/HCPCS: 51798; 81003; 88112; 99212

== ENCOUNTER 2024-09-07 14:34 | Outpatient (AMB) | payer OTHER, SELFPAY ==
--- NOTE | 2024-09-07 14:53 | A.OFFVIS_ITS ---
Intake Visit Reasons: 2m/PSA Intake Note: Patient presents today for follow up on: BPH and PSA Results Urology Medications: none Blood Thinner: none PVR: 19ml's Employee Relations Consultant Required: No Accompanied by: Daughter Allergies atorvastatin [Lipitor] Allergy (Unknown, Verified 09/07/24 15:28) unknown Medication List - Last Reconciled 09/07/24 by RADHA Yi atorvastatin 80 mg PO DAILY blood pressure test kit-large As directed diclofenac sodium 3% 1 appl topical BID lisinopril 20 mg PO DAILY metformin 500 mg PO omeprazole 40 mg PO DAILY oxycodone-acetaminophen 5-325 mg (Percocet) 1 tab PO DAILY PRN 28 days sitagliptin phosphate 100 mg PO DAILY zolpidem 10 mg PO BEDTIME PRN HPI Comments Details: Is a 73-year-old male patient of Dr. Schumacher who was accompanied by his daughter at today's office visit. He has a past medical history of hyperlipidemia, hypertension, diabetes, and insomnia. He presents to the office today for follow-up. Of note, patient was last seen approximately 3 months ago as a new patient for bladder wall thickening at which time a PSA was ordered for further assessment evaluation. These results were communicated with the patient and his daughter today. PSA 07/01 2.3. When asked patient denies any bothersome urinary issues or concerns. Previous bladder ultrasound 03/30 noted bladder wall thickening and enlarged prostate measuring approximately 55 mL. When asked he denies urinary urgency, urinary frequency, incontinence, nocturia, hematuria, dysuria, foul smelling urine, changes to urinary stream, flank pain, fever, and or chills. He is happy with his current voiding parameters. We discussed at length potential causes of bladder wall thickening as well as further treatment options. In office urinalysis results reviewed with the patient today. PVR 19ml's. Patient does report ongoing episodes of chest pain. Patient's daughter reports multiple ER visits for ongoing episodes of anxiety and generalized chest pain he continues to experience. I advised seeking emergency room care for further assessment evaluation. Overall prostate health is stable, with the recent PSA reading within normal ranges for monitoring without immediate intervention. The patient also acknowledged the need for a gastroenterological referral due to outstanding colonoscopy engagement, reflecting awareness of additional health maintenance requirements. Plan The primary approach for addressing the patient?s chest pain and anxiety involves non-pharmacological strategies aimed at relaxation, with guidance to pursue activities that can alleviate psychological stress. If symptoms persist or worsen, an emergency evaluation is advised. The patient will benefit from further follow-up with mental health services to effectively manage anxiety. Regarding urological health, observation is recommended given the stable prostate and bladder function. Regular monitoring of PSA levels will continue, while the patient remains watchful for any urinary changes which may necessitate earlier review. The previously established management plan for bladder wall th ickening is to continue with regular check-ups to ensure no deterioration in urinary function. For identified delays in colonoscopy, a referral to a acquisitions logistics analyst will be arranged to facilitate this overdue screening. Patient was informed and verbally consented to the use of an ambient scribe for clinic note documentation during this visit. [facility] Medical History Palpitations Mass of left side of neck Surgical History History of cholecystectomy Family History Sister History of pancreatic cancer Social History Alcohol intake: current Alcohol intake frequency: holidays/special occasions only Alcohol type: beer and hard liquor Patient Tobacco Use Status: Never used Tobacco Current occupational status: disabled Current occupation: right hand dominant Review of Systems Const All systems reviewed & are unremarkable except as noted in HPI and below Reports as per HPI Physical Exam Const General: cooperative, healthy appearing, comfortable, no acute distress, well developed, alert and awake Orientation/consciousness: patient oriented x3 Limitations: no limitations HEENT Head: Yes normal to inspection, Yes normocephalic and Yes atraumatic Ears: hearing grossly normal bilaterally Eyes General: appearance normal, both eyes and all related structures Neck Neck: Yes normal visual inspection and Yes trachea midline Chest Chest palpation & inspection: normal inspection of the chest Resp Effort & Inspection: normal respiratory effort and able to speak in complete sentences Cardio Rate: regular rate GI Inspection: Yes normal to inspection General: Yes no CVA tenderness Back/Spine/Pelvis Back: no CVA tenderness Skin General skin exam: no rashes or lesions noted Neuro General: patient oriented x3 Extrem General: Yes normal to inspection Psych Appearance: grossly normal and well kempt Mental Status: mental status grossly normal Speech and movement: Normal speech and movement present and Clear speech present Affect: normal affect Attitude: cooperative Thought process: Normal thought process present Thought content: Normal thought content present Insight: Fair insight present (Psych) Judgement: Fair judgement present (Psych) Office Procedures Post Void Residual Post Residual Void Post Void Residual (PVR): 19 [id number] Void Residual by ultrasound Results AMB Urinalysis, Automated UA Leukoctes 0 Robert/uL Last Edit by Micah Velasquezisabela on 09/07/24 15:07 UA Nitrite Last Edit by Micah Ryan on 09/07/24 15:07 UA Urobilinogen 0.2 mg/dL Last Edit by Micah Ryan on 09/07/24 15:07 UA Protein 0 mg/dL Last Edit by [employer]ur[employer] on 09/07/24 15:07 UA pH 6.0 Last Edit by [employer] Connor on 09/07/24 15:07 UA Blood 25 Carson/uL Last Edit by Micah Velasquezisabela on 09/07/24 15:07 UA Specific [place] 1.025 Last Edit by [employer] Eva[employer]urr on 09/07/24 15:07 UA Ketone Last Edit by [employer] Connor on 09/07/24 15:07 UA Bilirubin 0 mg/dL Last Edit by [employer] on 09/07/24 15:07 UA Glucose 0 mg/dL Last Edit by [employer] on 09/07/24 15:07 Results Reviewed Results Reviewed: Laboratory Last Values Urine pH (Auto) 6.0 09/07/24 15:06 Specific [place] (Auto) 1.025 09/07/24 15:06 Urine Protein (Auto) 0 mg/dL 09/07/24 15:06 Glucose (UA)(Auto) 0 mg/dL 09/07/24 15:06 Urine Blood (Auto) 25 Carson/uL 04/03/25 15:06 Urine Bilirubin (Auto) 0 mg/dL 09/07/24 15:06 Urine Urobilinogen (Auto) 0.2 mg/dL 09/07/24 15:06 Leukocyte Esterase (Auto) 0 Robert/uL 09/07/24 15:06 Assessment & Plan Assessment & Plan (1) Bladder wall thickening: Code(s): N32.89 - Other specified disorders of bladder Category: Medical (2) Enlarged prostate: Code(s): N40.0 - Benign prostatic hyperplasia without lower urinary tract symptoms Category: Medical Plan In office urinalysis results reviewed with the patient today; as noted above. PVR 19 mL. Recent PSA results reviewed with the patient today; as noted above. We discussed at length potential causes and affects of enlarged prostate as well as bladder wall thickening; we discussed further treatment options and risks and benefits of these treatment options. Patient currently denies any bothersome urinary issues or concerns. He reports be happy with current voiding parameters. Advise seeking treatment for generalized chest pain. Referral submitted for gastroenterology as requested. Follow-up in 6 months with PVR; or sooner with any issues, concerns, and or questions. Orders: Orders AMB Urinalysis Automated Today Z13.9 - Encounter for screening, unspecified AMB Post Void Residual by ultrasound Today N40.0 - Benign prostatic hyperplasia without lower urinary tract symptoms Urine Cytology Today R31.29 - Other microscopic hematuria Referrals Gastroenterology Referral Z01.89 - Encounter for other specified special examinations Patient Instructions: The patient had an opportunity to ask questions regarding the treatment plan. All questions were answered. Physical exam, labs, and imaging were discussed and reviewed in detail. As well as risks, benefits, and discussion of treatment choices. No major barriers to understanding were identified. The patient expressed understanding and agreement with the above treatment plan. The patient was made aware they should contact our office by phone for worsening of their current condition, the appearance of new symptoms, or with any questions or concerns. Compliance is encouraged with any medications and follow up testing that is ordered. It is a privilege to be allowed the opportunity to participate in? your urological care.? Again, if you have any questions or concerns If you have any questions or concerns please do not hesitate to contact me. The office is [phone]. This note is constructed using voice recognition software. While every effort has been made to ensure accuracy manager fire errors may have been included. Yours sincerely, DIDI Yi-BC Coding Level of Care Code Est Pt Level 4 (12548) Complex EM visit Add On G2211 Diagnoses Bladder wall thickening N32.89 Enlarged prostate N40.0 CPT Codes Post Residual Void - PVR CPT Code: 74500-Bfmj Void Residual by ultrasound ([id number]) Time Spent (min) 30
--- OUTSIDE RECORDS SUMMARY | 2024-09-07 16:06 | XMS_ITS | Encounter Summary ---
Author Organization [employer] Address [address] [place] [address] Care Team Providers Care Director Of Analytical Development Name Role Phone Amanda Barragan DO Primary Care Provider + [phone] Reason for Visit * Reason Comments Med Refill Encounter Details Date Type Department Care Team ([facility] st Contact Info) Description 03/13/2024 Refill [facility] MED & PEDS [address] [place], [place] [phone] Amanda Barragan DO [address] [facility] [place] [address] Chronic right shoulder pain Social History Tobacco [...] region documented in this encounter Care Teams Director Of Analytical Development Relationship Specialty Start Date End Date Amanda Barragan DO [address] [place] [address] PCP - General Family Medicine 12/26/22 documented as of this encounter
--- OUTSIDE RECORDS SUMMARY | 2024-09-07 16:06 | XMS_ITS | Encounter Summary ---
Author Organization [employer] Address [address] [facility] [address] [place] [address] Care Team Providers Care Earth Science Laboratory Technician Name Role Phone Amanda Barragan DO Primary Care Provider + [phone] Reason for Visit * Reason Comments Med Refill Encounter Details Date Type Department Care Team ([facility] st Contact Info) Description 04/02/2023 Refill [facility] CHC MED & PEDS [address] [place], [place] [phone] Amanda Barragan DO [address] [place] [address] Primary insomnia Social History Tobacco Use Types [...] sleep documented in this encounter Care Teams Earth Science Laboratory Technician Relationship Specialty Start Date End Date Amanda Barragan DO [address] [place] [address] PCP - General Family Medicine 12/26/22 documented as of this encounter
--- OUTSIDE RECORDS SUMMARY | 2024-09-07 16:06 | XMS_ITS | Encounter Summary ---
Author Organization [employer] Address [address] [facility] [address] [place] [address] Care Team Providers Care Yoke Setter Name Role Phone Amanda Barragan DO Primary Care Provider + [phone] Reason for Visit * Reason Onset Date Comments Med Refill 09/07/2024 Encounter Details Date Type Department Care Team (Late st Contact Info) Description 09/07/2024 Refill [facility] CHC MED & PEDS [address] [place], [place] [phone] Amanda Barragan DO [address] [place], [place] [phone] Primary insomnia Social History Tobacco Use Types [...] Telephone Encounter - Amanda Zuñiga LPN - 09/07/2024 1:15 PM EDT MANAGER STEEL checked on 09/07/24. Last seen 03/09/24. documented in this encounter Plan of Treatment Not on file documented as of this encounter Visit Diagnoses Diagnosis Primary insomnia Persistent disorder of initiating or maintaining sleep documented in this encounter Care Teams Yoke Setter Relationship Specialty Start Date End Date Amanda Barragan DO [address] [place] [id number] PCP - General Family Medicine 12/26/22 documented as of this encounter
--- OUTSIDE RECORDS SUMMARY | 2024-09-07 16:06 | XMS_ITS | Encounter Summary ---
Author Organization [employer] Address [address] [facility] [address] [place] [address] Care Team Providers Care Wheat And Oats Flake Miller Name Role Phone Haven Stiles MD Primary Care Provider [phone] Amanda Barragan DO Primary Care Provider + [phone] Reason for Visit * Reason Onset Date Comments Med Refill 08/11/2022 Encounter Details Date Type Department Care Team (Late st Contact Info) Description 08/11/2022 Telephone [facility] MED[facility]INE [address] [place], [place] [phone] Haven Stiles MD [address] [place], [place] [phone] Med Refill Social History Tobacco Use Types [...] requesting for medication to be send to [facility] pharmacy documented in this encounter Plan of Treatment Not on file documented as of this encounter Visit Diagnoses Not on filedocumented in this encounter Care Teams Wheat And Oats Flake Miller Relationship Specialty Start Date End Date Haven Stiles MD [address] [place] [address] PCP - General Family Medicine 06/25/20 12/25/22 Amanda Barragan DO [address] [place] [address] PCP - General Family Medicine 12/26/22 documented as of this encounter
--- OUTSIDE RECORDS SUMMARY | 2024-09-07 16:06 | XMS_ITS | Encounter Summary ---
Author Organization [employer] Address [address] [facility] [address] [place] [address] Care Team Providers Care Cardiology Rn Name Role Phone Laurel Amanda Primary Care Provider + [phone] Reason for Visit * Reason Comments Med Refill Encounter Details Date Type Department Care Team ([facility] st Contact Info) Description 04/05/2023 Refill [facility] MEDICINE [address] [place], [place] [phone] Tatyana Oakley MD Social History Tobacco Use [...] on filedocumented in this encounter Care Teams Cardiology Rn Relationship Specialty Start Date End Date Amanda Barragan DO [address] [place] [id number] PCP - General Family Medicine 12/26/22 documented as of this encounter
--- OUTSIDE RECORDS SUMMARY | 2024-09-07 16:06 | XMS_ITS | Encounter Summary ---
Author Organization [employer] Address [address] [facility] [address] [place] [address] Care Team Providers Care Group Manager Name Role Phone Amanda Barragan DO Primary Care Provider + [phone] Reason for Visit * Reason Onset Date Comments Med Refill 04/20/2024 Encounter Details Date Type Department Care Team ([facility] st Contact Info) Description 04/20/2024 Telephone [facility] MEDICINE [address] [place], [place] [phone] Amanda Barragan DO [address] [place], [place] [phone] Med Refill Social History Tobacco Use Types [...] EST 04/13/24: Per PCP no refills until LOADING SHOVEL OILER appt. Pt was [facility] for 04/13/24, 03/29/24, 03/01/24 LOADING SHOVEL OILER appts. TC to patient @ both numbers, no answer. L/M asking him to call me back regarding his refill request. * Telephone Encounter - Anthony Chandler - 04/20/2024 12:42 PM EST TC from pt requesting medication refill. Medications needing refill : oxyCODONE (Roxicodone) 5 MG immediate release tablet To be sent to: [facility] documented in this encounter Plan of Treatment Not on file documented as of this encounter Visit Diagnoses Not on filedocumented in this encounter Care Teams Group Manager Relationship Specialty Start Date End Date Amanda Barragan DO [address] [place] [id number] PCP - General Family Medicine 12/26/22 documented as of this encounter
--- OUTSIDE RECORDS SUMMARY | 2024-09-07 16:06 | XMS_ITS | Encounter Summary ---
Author Organization [employer] Address [address] [facility] 7t [place] [address] Care Team Providers Care Hand Cutter Apprentice Name Role Phone Amanda Barragan DO Primary Care Provider + [phone] Reason for Visit * Reason Comments Med Refill Encounter Details Date Type Department Care Team (Late st Contact Info) Description 02/11/2024 Refill [facility] MED [facility] PEDS [address] [place], [place] [phone] Amanda Barragan DO [address] [facility] [place] [address] Chronic right shoulder pain Social History Tobacco [...] region documented in this encounter Care Teams Hand Cutter Apprentice Relationship Specialty Start Date End Date Amanda Barragan DO [address] [place] [address] PCP - General Family Medicine 12/26/22 documented as of this encounter
--- OUTSIDE RECORDS SUMMARY | 2024-09-07 16:06 | XMS_ITS | Encounter Summary ---
Author Organization [employer] Address [address] [facility] 7t [place] [address] Care Team Providers Care Stadium Attendant Name Role Phone Amanda Barragan DO Primary Care Provider [phone] Encounter Details Date Type Department Care Team (Late st Contact Info) Description 09/07/2024 Refill [facility] [address] [place], [place] [phone] Amanda Barragan DO 230 [place] [address] Chronic right shoulder pain Social History Tobacco [...] as of this encounter Miscellaneous Notes * Addendum Note - Felix Davis RN - 09/07/2024 1:27 PM EDTAddended by: FELIX DAVIS on: 09/07/2024 01:27 PM Modules accepted: Orders * Telephone Encounter - Amanda Zuñiga LPN - 09/07/2024 1:16 PM EDT Received fax from [facility] requesting refill on Oxycodone 5 mg. documented in this encounter Plan of Treatment Not on file documented as of this encounter Visit Diagnoses Diagnosis Chronic right shoulder pain Pain in joint, shoulder region documented in this encounter Care Teams Stadium Attendant Relationship Specialty Start Date End Date Amanda Barragan DO [address] [place] [address] PCP - General Family Medicine 12/26/22 documented as of this encounter
--- OUTSIDE RECORDS SUMMARY | 2024-09-07 16:06 | XMS_ITS | Encounter Summary ---
Author Organization [employer] Address [address] [facility] 7t [place] [address] Care Team Providers Care Renal Dialysis Rn Name Role Phone Haven Stiles MD Primary Care Provider [phone] Amanda Barragan DO Primary Care Provider + [phone] Reason for Visit * Reason Comments Med Refill Encounter Details Date Type Department Care Team (Late st Contact Info) Description 10/12/2022 Refill [facility] [address] [place] [address] Dimple Finley MD [address] [place] [address] Chronic right shoulder pain Social History Tobacco [...] region documented in this encounter Care Teams Renal Dialysis Rn Relationship Specialty Start Date End Date Haven Stiles MD [address] [place] [address] PCP - General Family Medicine 06/25/20 12/25/22 Amanda Barragan DO [address] [place] [address] PCP - General Family Medicine 12/26/22 documented as of this encounter
--- OUTSIDE RECORDS SUMMARY | 2024-09-07 16:06 | XMS_ITS ---
Author Organization [facility] liance Address [address] [place] [address] Care Team Providers Care Office Analyst Name Role Phone Amanda Barragan Primary Care Provider Unavaila ble Clinical, Operations Unavailable Unavailable Allergies No Known Allergies REASON FOR VISIT MDS assessment Medications Medication SIG (Take, Route, Frequency, Duration) Notes [...] 1 capsule Orally Once a day Active Problems Problem Type SNOMED Code ICD Code Onset Dates Problem Status W/U Status Risk Notes Problem 23662600 CAD in nikolski artery (I25.10) Active confirmed Problem 769425596 Osteoarthritis, unspecified osteoarthritis type, unspecified site (M19.90) Active confirmed Problem 87761690363054578 Tear of right rotator cuff, unspecified tear extent, unspecified whether traumatic (M75.101) Active confirmed Problem 4280184 Spondylosis (M47.9) Active confirmed Problem 643499604 Dorsalgia (M54.9) Active confirmed Problem 58977630 Other chronic pain (G89.29) Active confirmed Problem 38573976459394257 Pain in right shoulder (M25.511) Active confirmed Encounters Encounter Location Date Provider Diagnosis Ward Comm [facility] 10/22/2023 Operations [facility] ical Illiteracy Z55.0 ; Forgetfulness R68.89 ; Essential (primary) hypertension I10 ; CAD in nikolski artery I25.10 ; Osteoarthritis, unspecified osteoarthritis type, [...] G89.29 and Pain in right shoulder M25.511 Assessments Encounter Date Diagnosis (ICD Code) Assessment Notes Treatment Notes Treatment Clinical Notes Section Notes 10/22/2023 Illiteracy (ICD-10 - Z55.0) found diagnoses in remedia. 10/22/2023 Forgetfulness (ICD-10 - R68.89) found diagnoses in remedia. 10/22/2023 Essential (primary) hypertension (ICD-10 - I10) found diagnoses in remedia. 10/22/2023 CAD in nikolski artery (ICD-10 - I25.10) found diagnoses in remedia. 10/22/2023 Osteoarthritis, unspecified osteoarthritis type, unspecified site (ICD-10 - M19.90) found diagnoses in remedia. 10/22/2023 Age-related nuclear cataract of both eyes (ICD-10 - H25.13) found diagnoses in remedia. 10/22/2023 DM (diabetes mellitus) (ICD-10 - E11.9) found diagnoses in remedia. 10/22/2023 Tear of right rotator cuff, unspecified tear extent, unspecified whether traumatic (ICD-10 - M75.101) found diagnoses in remedia. 10/22/2023 Spondylosis (ICD-10 - M47.9) found diagnoses in remedia. 10/22/2023 Dorsalgia (ICD-10 - M54.9) found diagnoses in remedia. 10/22/2023 Insomnia (ICD-10 - G47.00) found diagnoses in remedia. 10/22/2023 Hyperlipidemia (ICD-10 - E78.5) found diagnoses in remedia. 10/22/2023 Anemia (ICD-10 - D64.9) found diagnoses in remedia. 10/22/2023 Tubular adenoma (ICD-10 - D36.9) found diagnoses in remedia. 10/22/2023 Vitamin D deficiency (ICD-10 - E55.9) found diagnoses in remedia. 10/22/2023 Cardiovascular event risk (ICD-10 - Z91.89) found diagnoses in remedia. 10/22/2023 H. pylori infection (ICD-10 - B96.81) found diagnoses in remedia. 10/22/2023 Back pain of lumbar region with sciatica (ICD-10 - M54.40) found diagnoses in remedia. 10/22/2023 Other chronic pain (ICD-10 - G89.29) found diagnoses in remedia. 10/22/2023 Pain in right shoulder (ICD-10 - M25.511) found diagnoses in remedia. Plan Of Treatment No Information Progress Notes * Kasey BARNETTOB: [birth year] (73 yo M)Acc No.[id number]:10/22/2023 Patient:?Carlos BARNETT ??External Provider:?Operations Clinical?Resource:Zina Scruggs :1950???Age:73 Y???Sex:Male Asif e:10/22/2023 Address:[address] [place] [phone] Pcp:Tatyana Oakley Patient's Default Facility:[facility] Subjective: * Chief Complaints: * ???MDS assessment * HPI: ???Depression Screening:?PHQ-9?Little interest or pleasure in doing things?Not at all ?Feeling down, depressed, or hopeless?Not at all ?Trouble falling or staying asleep, or sleeping too much?Several days ?Feeling tired or having little energy?More than half the days ?Poor appetite or overeating?Not at all ?Feeling bad about yourself or that you are a failure, or have let yourself or your family down?Not at all ?Trouble concentrating on things, such as reading the newspaper or watching television?Not at all ?Moving or speaking so slowly that other people could have noticed; or the opposite, being so fidgety or restless that you have been moving around a lot more than usual?Not at all ?Thoughts that you would be better off or of hurting yourself in some way?Not at all ?Total Score?3 ?Interpretation?Minimal Depression ???Virtual Care Visit Information:?Visit Location, Methods & Consent:?*REQUIRED* Virtual Care communication method:?Phone (audio only) ?Patient's location during visit:?Member's home ?Provider's location during visit:?Provider's home office ?Member Verbal Consent Obtained:?Yes ???COVID-19 Screening (Questions Revised 10/09/2019):?COVID-19 Screening?Member or any household member has any new or worsening breathing problems:?No ?Member or any household member has other general or non-respiratory symptoms:?No ?Member or any household member has been in close contact with anyone diagnosed or suspected case of COVID:?No * Medical History:?? * Surgical History:? * Hospitalization/Major Diagno stic Procedure:? * Medications:?TakingGabapenti n 300 MG Capsule 1 capsule Orally Once a day Omeprazole 40 MG Capsule Delayed Release 1 capsule 30 minutes before morning meal Orally Once a day oxyCODONE HCl 5 MG Tablet 1 tablet as needed Orally three times daily Methocarbamol 500 MG Tablet 1 tablet as needed Orally twice a day Ibuprofen 800 MG Tablet 1 tablet with food or milk as needed Orally Three times a day Januvia 100 MG Tablet 1 tablet Orally Once a day Atorvastatin Calcium 80 MG Tablet 1 tablet Orally Once a day Lisinopril 20 MG Tablet 1 tablet Orally Once a day metFORMIN HCl 500 MG Tablet 1 tablet with meals Orally Twice a day Zolpidem Tartrate 10 MG Tablet 1 tablet at bedtime as needed Orally Once a day Taking Gabapentin 300 MG Capsule 1 capsule Orally Once a day Taking Omeprazole 40 MG Capsule Delayed Release 1 capsule 30 minutes before morning meal Orally Once a day Taking oxyCODONE HCl 5 MG Tablet 1 tablet as needed Orally three times daily Taking Methocarbamol 500 MG Tablet 1 tablet as needed Orally twice a day Taking Ibuprofen 800 MG Tablet 1 tablet with food or milk as needed Orally Three times a day Taking Januvia 100 MG Tablet 1 tablet Orally Once a day Taking Atorvastatin Calcium 80 MG Tablet 1 tablet Orally Once a day Taking Lisinopril 20 MG Tablet 1 tablet Orally Once a day Taking metFORMIN HCl 500 MG Tablet 1 tablet with meals Orally Twice a day Taking Zolpidem Tartrate 10 MG Tablet 1 tablet at bedtime as needed Orally Once a day Not-TakingAspirin 81 MG Tablet Chewable 1 tablet Orally Once a day , Notes to Pharmacist: doctor discontinuedMedication List reviewed and reconciled with the patientNot-Taking Aspirin 81 MG Tablet Chewable 1 tablet Orally Once a day , Notes to Pharmacist: doctor discontinuedMedication List reviewed and reconciled with the patient * Allergies:?N.K.D.A.no[Allerg ies Verified] Objective: * Vitals:?Pain scale:50-10 member stated. Assessment: * Assessment: 1.?Illiteracy - Z55.0?2.?For getfulness - R68.89?3.?Essential (primary) hypertension - I10?4.?CAD in nikolski artery - I25.10?5.?Osteoarthritis, unspecified osteoarthritis type, unspecified site - M19.90?6.?Age-related nuclear cataract of both eyes - H25.13?7.?DM (diabetes mellitus) - E11.9?8.?Tear of right rotator cuff, unspecified tear extent, unspecified whether traumatic - M75.101?9.?Spondylosis - M47.9?10.?Dorsalgia - M54.9?11.?Insomnia - G47.00?12.?Hyperlipidemia - E78.5?13.?Anemia - D64.9?14.?Tubular adenoma - D36.9?15.?Vitamin D deficiency - E55.9?16.?Cardiovascular event risk - Z91.89?17.?H. pylori infection - B96.81?18.?Back pain of lumbar region with sciatica - M54.40?19.?Other chronic pain - G89.29?20.?Pain in right shoulder - M25.511? found diagnoses in remedia. Plan: * Treatment: * Procedure Codes:? Care Plan: * Problems:? * * Sign off status: Completed true * Provider:?Operations Clinical Date:?10/05 Generated for Iban mccain/Elvira/Tamarasmitting on:?09/07/2024 04:06 PM EDT History and Physical Notes * HPI (History of Present Illness) Category Sub-Category Detail Notes Category Not es Depression Screening PHQ-9 Little inte rest or [...]
--- OUTSIDE RECORDS SUMMARY | 2024-09-07 16:06 | XMS_ITS ---
Author Organization [facility] Address [address] [place] [address] Care Team Providers Care Aws Solution Architect Name Role Phone Amanda Barragan Primary Care Provider Stephaniea iGsell Montoya Unavailable [phone] REASON FOR VISIT DME Outreach Encounters Encounter Location Date Provider Diagnosis [address] [phone] 11/08/2023 Gisell Steen Plan Of Treatment No Information Progress Notes * Jesus BARNETTsDOB: [birth year] (73 yo M)Acc No.[id number]:11/08/2023 Patient:?Carlos BARNETT :1950???Age:73 Y???Sex:Male Address:[address] [facility] , [place] [id number] * true * Date:? Generated for Broi adán/Elvira/eTransmitting on:?09/07/2024 01:14 PM EDT
--- OUTSIDE RECORDS SUMMARY | 2024-09-07 16:06 | XMS_ITS | Encounter Summary ---
Author Organization [employer] Address [address] [facility] 7t [place] [address] Care Team Providers Care Sewing Inspector Name Role Phone MarlaAmanda dickens Primary Care Provider + [phone] Encounter Details Date Type Department Care Team ([facility] st Contact Info) Description 09/07/2024 Orders Only [facility] MEDICINE [address] [place], [place] [phone] Geneva Orozco ANP [address] [place], [place] [phone] Social History Tobacco Use Types Packs/Day Years [...] on filedocumented in this encounter Care Teams Sewing Inspector Relationship Specialty Start Date End Date Amanda Barragan DO [address] [place] [phone] PCP - General Family Medicine 12/26/22 documented as of this encounter
--- OUTSIDE RECORDS SUMMARY | 2024-09-07 16:06 | XMS_ITS | Clinical Summary ---
Author Organization [employer] Address [address] [facility] 7t [place] [address] Care Team Providers Care Fish Agent Name Role Phone MarlaAmanda dickens Primary Care Provider [phone] Allergies No known active allergies Medications glucose [...] becomes available. 2 each 3 01/12/20 24 2024 Active glucose 4 g chewable tablet Chew 4 tablets (16 g) if needed for low blood sugar. 50 tablet 5 03/09/20 24 2024 Active Blood Glucose Monitoring Suppl (FreeStyle [place] Lite) w/Device kit Use to test blood sugar 2 times daily 1 kit 03/09/20 Active dicyclomine (Bentyl) 20 MG tablet Take [...] BEDTIME 90 tablet 1 04/05/20 24 Active acetaminophen (Tylenol 8 [...] BY MOUTH AT BEDTIME 30 tablet 2 09/08/19 25 Active oxyCODONE (Roxicodone) 5 MG immediate release tabletIndicati ons:Chronic right shoulder pain Take 1 tablet (5 mg) by mouth every 8 (eight) hours if needed for severe pain. 15 tablet 09/08/19 25 Active omeprazole (PriLOSEC) [address] capsule Do not crush or chew. 09/08/19 25 Active omeprazole (PriLOSEC) [address] capsule TAKE 1 CAPSULE BY MOUTH EVERY DAY BEFORE BREAKFAST 90 capsule 1 04/05/20 24 2024 Discontinued(I neffective) zolpidem (Ambien) 10 MG tabletIndicati ons:Primary insomnia TAKE 1 TABLET BY MOUTH AT BEDTIME 30 tablet 2 06/14/19 25 2024 Discontinued(R eorder (will not trigger notification to Pharmacy)) oxyCODONE (Roxicodone) 5 MG immediate release tabletIndicati ons:Chronic right shoulder pain Take 1 tablet (5 mg) by mouth every 8 (eight) hours if needed for severe pain for up to 5 days. 15 tablet 07/21/19 25 2024 Discontinued oxyCODONE (Roxicodone) 5 MG immediate release tabletIndicati ons:Chronic right shoulder pain TAKE 1 TABLET BY MOUTH EVERY 8 HOURS NEEDED FOR SEVERE PAIN FOR UP TO 5 DAYS 15 tablet 08/10/19 25 2024 Discontinued(R eorder (will not trigger notification to Pharmacy)) oxyCODONE (Roxicodone) 5 MG immediate release tabletIndicati ons:Chronic right shoulder pain Take 1 tablet (5 mg) by mouth every 8 (eight) hours if needed for severe pain. 15 tablet 08/25/19 25 2024 Discontinued(R eorder (will not trigger notification to Pharmacy)) Active Problems Problem Noted Date Diagnosed Date Diverticulosis 03/09/2024 Cerebral microvascular disease 03/09/2024 Chronic gastroesophageal reflux disease 04/16/20 Status post right rotator cuff repair 04/14/2023 [...] Eye Exam: missed, needs to reschedule at [facility] Lipid panel: today ASCVD: Calculate pending updated [...] Encounters Date Type Department Care Team Description 09/07/2024 Orders Only [facility] MEDICINE [address] [place] [address] Geneva Orozco ANP 09/07/2024 Refill [facility]C MED & PEDS [address] [place] [address] Amanda Barragan DO Chronic right shoulder pain 09/07/2024 Refill [facility] MED & PEDS [address] [place] [address] Amanda Barragan DO Primary insomnia 09/01/2024 Refill [facility]S [address] [place], [place] [phone] Amanda Barragan DO Primary insomnia 08/24/2024 Refill [facility] MED & PEDS [address] [place] [address] Amanda Barragan, Chronic right shoulder pain 08/07/2024 Refill [facility] MED & PEDS [address] [place] [address] Amanda Barragan, Chronic right shoulder pain 07/26/2024 Telephone [facility] MEDICINE [address] [place] [address] Amanda Barragan, Recall Letter (Recall Letter sent 07/26/24.) 07/21/2024 Refill [facility] MED & PEDS [address] [place] [address] Amanda Barragan, Chronic right shoulder pain (Primary Dx) 07/03/2024 Refill [facility] & P[facility] [address] [place] [address] Amanda Barragan, Chronic right shoulder pain 07/03/2024 Telephone [facility] MEDICINE [address] [place] [address] Amanda Barragan, No Show 06/15/[address] [address] Amanda Barragan, Appointment Request 06/13/2024 Refill [facility] PEDS [address] [place] [address] Haven Stiles MD Chronic right shoulder pain 06/13/2024 Refill [facility] & PED[facility] [address] [place] [address] Amanda Barragan, Primary insomnia from Last 3 Months Immunizations Name Administration [...] , 04/18/2021, Additional history exists Pneumococcal Vaccine: 50+ Years Completed 03/31/2024, 09/27/2017, 06/15/2016 HIB Vaccines [...] Name Priority Date/Time Associated Diagnosis Comments POCT GLYCATED HEMOGLOBIN, TOTAL Routine 03/09/2024 12:10 [...] Recently Relevant to Health Maintenance Results * (ABNORMAL) POCT HGB A1C (03/09/2024 12:10 PM EDT) Hemoglobin A1C 7.1(A) 4.0 - 6.0 % QC Media Lot # [id number] Lot# Expiration Date Blood 03/09/2024 12:1 0 PM EDT Amanda Barragan DO POINT OF CARE TEST ENTER/NOREEN T ORDERABLES Final Result * Albumin, Random Urine W/Creatinine (04/20/2023 9:01 AM EST) Creatinine, Urine 122.74 mg/dL [facility] Microalbumin Urine 5.0 mg/L [facility] Microalbum Creatinine Ratio Ur 4.0 <30 ug/mg cr [facility] Comment:Albumin/Creatinine R atio Reference Ranges: Normal: < 30 ug/mg creatinine Microalbuminuria: 30 - 300 ug/mg creatinineClinical Albuminuria: > 300 ug/mg creatinine 04/20/2023 9:01 AM EST 04/20/2023 11:20 AM EST Amanda Barragan DO LAB URINE ORDERABLES Final R esult Performing Organization Address City/[facility] [employer] Phone Number [facility] [address] [place] [phone] * Hepatitis C Antibody with Reflex to HCV, RNA, Quantitative, Real-Time PCR (04/20/2023 8:54 AM EST) Hepatitis C Antibody Nonreactive Nonreactive [facility] Comment:Antibodies to HCV no t detected; does not exclude early acuteHCV infection. 04/20/2023 8:54 AM EST 04/20/2023 11:32 AM EST Amanda Barragan DO LAB BLOOD ORDERABLES Final R esult Performing Organization Address City/[facility] [employer] Phone Number [facility] [address] [place] [phone] * (ABNORMAL) Lipid Panel, Standard (04/20/2023 8:54 AM EST) Triglycerides 194(H) <150 mg/dL [facility] Comment:Desirable Triglyceri de: less than 150 mg/dLBorderline High Triglyceride 150-199 mg/dLHigh Triglyceride: 200-499 mg/dLVery High Triglyceride: greater than or equal to 5OO mg/dL Cholesterol 249(H) <200 mg/dL [facility] Comment:Desirable Cholestero l: less than 200 mg/dLBorderline High Cholesterol: 200-239 mg/dLHigh Cholesterol: greater than 239 mg/dL LDL Cholesterol Calculated 166(H) <100 mg/dL [facility] Comment:Desirable LDL: less than 100 mg/dLNear Optimal/Above Optimal LDL: 110- 129 mg/dLBorderline High LDL: 130-159 mg/dLHigh LDL: 160-189 mg/dLVery High LDL: greater than or equal to 190 mg/dL HDL Cholesterol 45 >40 mg/dL [facility] Comment:Desirable HDL: great er than 40 mg/dL Note: This HDL assay may give artificially low results in patients with liver disease. Blood Venous blood specimen / Unknown 04/20/2023 8:54 AM EST 04/20/2023 11:32 AM EST Amanda Barragan DO LAB BLOOD ORDERABLES Final R esult [facility] [address] [place] [address] [phone] * Hm Colonoscopy (04/24/2015 9:07 AM EST) Historical Provider HEALTH MAINTENANCE Final Result from Last 3 Months or Most Recently Relevant to Health Maintenance Insurance [employer] [facility] Care Teams Fish Agent Relationship Specialty Start Date End Date Amanda Barragan DO [address] [place] [address] PCP - General Family Medicine 12/26/22
--- OUTSIDE RECORDS SUMMARY | 2024-09-07 16:06 | XMS_ITS | Encounter Summary ---
Author Organization [employer] Address [address] [facility] 7t [place] [address] Care Team Providers Care Boatswains Mate Name Role Phone Amanda Barragan DO Primary Care Provider + [phone] Reason for Visit * Reason Comments Med Refill Encounter Details Date Type Department Care Team ([facility] st Contact Info) Description 09/01/[address] [facility] MED & PEDS [address] [place], [place] [phone] Amanda Barragan DO [address] [facility] [place] [address] Primary insomnia Social History Tobacco Use Types [...] sleep documented in this encounter Care Teams Boatswains Mate Relationship Specialty Start Date End Date Amanda Barragan DO [address] [place] [address] PCP - General Family Medicine 12/26/22 documented as of this encounter
--- OUTSIDE RECORDS SUMMARY | 2024-09-07 16:06 | XMS_ITS | Encounter Summary ---
Author Organization [employer] Address 75 [facility] 7t [place] [address] Care Team Providers Care Computed Tomography Technician Name Role Phone Laurel Amanda Primary Care Provider + [phone] Encounter Details Date Type Department Care Team (Late st Contact Info) Description 10/18/2023 Orders Only [facility] MEDICINE [address] [place] [address] Provider, MD Sandeep Social History Tobacco Use Types Packs/Day Years [...] EDT Narrative 11/09/2023 5:13 PM EDT ? [facility] ?[address] ?[place] [address] ?XRay Report ? Signed ? Patient: Carlos Arriaga ?MR#: [id number] ?? 1585 ? : 1950 ?Acct:[id number] ? Age/Sex: 73 / M ?ADM Date: 11/09/23 ? Loc: HO.ED ? Attending Dr: ? Ordering Physician: Jil Loza ?? Date of Service: 11/09/23 ?? Procedure(s): XR lumbar spine 2-3V ?? Accession Number(s): [id number] ? cc: Amanda Barragan DO; Jil Loza [...] 1709 ? DD/ 1459 ? TD/TT: ? Ram Press Operator: ? Procedure Note Jung Andrade - 11/09/2023 [place] [address] XRay Report Signed Patient: Horace Arriaga#: [id number] 1585 : 3Acct:[id number] Age/Sex: 73 / MADM Date: 11/09/23 Loc: HO.ED Attending Dr: Ordering Physician: Jil Loza Date of Service: 11/09/23 Procedure(s): XR lumbar spine 2-3V Accession Number(s): [id number] cc: Amanda Barragan DO; Jil Loza X-RAY [...] in OV> 11/09/23 1709 DD/ 1459 TD/TT: Ram Press Operator: [facility] External Provider IMG XR PROCEDURES Final Result * XR Thoracic Spine 2 Views (11/09/2023 2:59 PM EDT) Anatomical Region Laterality Modality Spine, T-spine Radiographic Chatnal ging 11/09/2023 2:59 PM EDT Narrative 11/09/2023 5:13 PM EDT ? [facility] ?[address] ?[place] [address] ?XRay Report ? Signed ? Patient: Bart, ?MR#: [id number] ?? 1585 ? : 1950 ?Acct:[id number] ? Age/Sex: 73 / M ?ADM Date: 06/04/24 ? Loc: HO.ED ? Attending Dr: ? Ordering Physician: Jil Loza ?? Date of Service: 11/09/23 ?? Procedure(s): XR thoracic spine 2V ?? Accession Number(s): [id number] ? cc: Amanda Barragan DO; Jil Loza [...] 1709 ? DD/ 1459 ? TD/TT: ? Ram Press Operator: ? Procedure Note Raymond, Image - 11/09/2023 [place] [address] XRay Report Signed Patient: Horace Arriaga#: [id number] 1585 : 3Acct:[id number] Age/Sex: 73 / MADM Date: 11/09/23 Loc: HO.ED Attending Dr: Ordering Physician: Jil Loza Date of Service: 11/09/23 Procedure(s): XR thoracic spine 2V Accession Number(s): [id number] cc: Amanda Barragan DO; Jil Loza X-RAY [...] in OV> 11/09/23 1709 DD/ 1459 TD/TT: Ram Press Operator: [facility] External Provider IMG XR PROCEDURES Final Result * CT Head w/o Contrast (11/09/2023 1:30 PM EDT) Anatomical Region Laterality Modality Head, Neck Computed Tomogra phy 11/09/2023 1:30 PM EDT Narrative 11/09/2023 2:05 PM EDT ? [facility] ?[address] ?[place] [address] ? CT Scan Report ? Signed ? Patient: Bart, ?MR#: [id number] ?? 1585 ? : 1950 ?Acct:[id number] ? Age/Sex: 73 / M ?ADM Date: 06/04/24 ? Loc: HO.ED ? Attending Dr: ? Ordering Physician: Jil Loza ?? Date of Service: 11/09/23 ?? Procedure(s): CT head/brain wo IV con ?? Accession Number(s): [id number] ? cc: Amanda Barragan DO; Jil Loza [...] 1401 ? DD/ 1330 ? TD/TT: ? Ram Press Operator: DZ ? Procedure Note Jung Andrade - 11/09/[address] [address] [address] Scan Report Signed Patient: Horace Arriaga#: [id number] 1585 : 3Acct:[id number] Age/Sex: 73 / MADM Date: 06/04/24 Loc: HO.ED Attending Dr: Ordering Physician: Jil Loza Date of Service: 11/09/23 Procedure(s): CT head/brain wo IV con Accession Number(s): [id number] cc: Amanda Barragan DO; Jil Loza EXAMINATION: [...] in OV> 11/09/23 1401 DD/ 1330 TD/TT: Ram Press Operator: SHYANN [facility] External Provider IMG CT PROCEDURES Final Result * Hm Colonoscopy (04/24/2015 9:07 AM EST) Historical Provider HEALTH MAINTENANCE Final Result documented in this encounter Visit Diagnoses Not on filedocumented in this encounter Care Teams Computed Tomography Technician Relationship Specialty Start Date End Date Amanda Barragan DO [address] [place] [address] PCP - General Family Medicine 12/26/22 documented as of this encounter
--- OUTSIDE RECORDS SUMMARY | 2024-09-07 16:06 | XMS_ITS | Encounter Summary ---
Author Organization [employer] Address 75 [facility] 7t [place] [address] Care Team Providers Care Shipwright Name Role Phone Amanda Barragan DO Primary Care Provider Encounter Details Date Type Department Care Team (Late st Contact Info) Description 02/09/2023 Abstract [facility] MEDICINE [address] [place], [place] [phone] Amanda Barragan DO [address] [place], [place] [phone] Social History Tobacco Use Types Packs/Day Years [...] on filedocumented in this encounter Care Teams Shipwright Relationship Specialty Start Date End Date Amanda Barragan DO [address] [place], [place] [phone] PCP - General Family Medicine 12/26/22 documented as of this encounter
--- OUTSIDE RECORDS SUMMARY | 2024-09-07 16:06 | XMS_ITS | Encounter Summary ---
Author Organization [employer] Address 75 [facility] 7t [place] [address] Care Team Providers Care Director Orange Name Role Phone Laurel Amanda Primary Care Provider + [phone] Reason for Visit * Reason Comments Med Refill Encounter Details Date Type Department Care Team ([facility] st Contact Info) Description 04/13/2024 Refill [facility] MEDICINE [address] [place], [place] [phone] [facility] [address] [place] [address] Social History Tobacco Use Types Packs/Day Years [...] on filedocumented in this encounter Care Teams Director Orange Relationship Specialty Start Date End Date Amanda Barragan DO [address] [place] [address] PCP - General Family Medicine 12/26/22 documented as of this encounter
--- OUTSIDE RECORDS SUMMARY | 2024-09-07 16:06 | XMS_ITS | Encounter Summary ---
Author Organization [employer] Address 75 [facility] 7t [place] [address] Care Team Providers Care Family Development Extension Specialist Name Role Phone Amanda Barragan DO Primary Care Provider + [phone] Reason for Visit * Reason Comments Med Refill Encounter Details Date Type Department Care Team ([facility] st Contact Info) Description 05/18/2024 Refill [facility] [address] [place], [place] [phone] Amanda Barragan DO 230 [facility] [place] [address] Chronic right shoulder pain Social History Tobacco [...] region documented in this encounter Care Teams Family Development Extension Specialist Relationship Specialty Start Date End Date Amanda Barragan DO [address] [place] [address] PCP - General Family Medicine 12/26/22 documented as of this encounter
--- OUTSIDE RECORDS SUMMARY | 2024-09-07 16:06 | XMS_ITS ---
Author Organization [facility] liance Address [address] [place] [address] Care Team Providers Care Stations Superintendent Name Role Phone Marlamaninder Amanda Primary Care Provider Celeste Can Unavailable [phone] Allergies No Known Allergies REASON FOR VISIT Med Rec Medications Medication SIG (Take, Route, Frequency, Duration) [...] Encounter Location Date Provider Diagnosis [facility] [address] [place] [address] 03/27/2024 Celeste Carrizales Plan Of Treatment No Information Progress Notes * Jesus BARNETTsDOB: [birth year] (73 yo M)Acc No.[id number]:03/27/2024 Patient:?Carlos BARNETT :1950???Age:73 Y???Sex:Male Address:[address] [place] [address], [address] , [place] [address] Subjective: * Chief Complaints: * ???Med Rec * HPI: ???Medication Review:?Medication Review?What service was performed??Routine medication review ?Visit/Encounter Type?Telephone ?Was the medication list in eCW updated??Yes- new or changed medications added ?Were medication discrepancies/issues identified??No ?What interventions have been performed??Remedia reviewed, Member/caregiver education, Allergies Updated * Medical History:?? * Surgical History:? * Hospitalization/Major Diagno stic Procedure:? * Medications:?TakingDiclofena c Sodium 1 % Gel as directed Externally Dicyclomine HCl 20 MG Tablet 1 tablet Orally Three times a day Baclofen 10 MG Tablet 1 tablet as needed Orally Twice a day Acetaminophen ER 650 MG Tablet Extended Release 2 tablets as needed Orally every 8 hrs Omeprazole 40 MG Capsule Delayed Release 1 capsule 30 minutes before morning meal Orally Once a day oxyCODONE HCl 5 MG Tablet 1 tablet as needed Orally three times daily Januvia 100 MG Tablet 1 tablet Orally Once a day Atorvastatin Calcium 80 MG Tablet 1 tablet Orally Once a day Lisinopril 20 MG Tablet 1 tablet Orally Once a day metFORMIN HCl 500 MG Tablet 1 tablet with meals Orally Twice a day Zolpidem Tartrate 10 MG Tablet 1 tablet at bedtime as needed Orally Once a day Taking Diclofenac Sodium 1 % Gel as directed Externally Taking Dicyclomine HCl 20 MG Tablet 1 tablet Orally Three times a day Taking Baclofen 10 MG Tablet 1 tablet as needed Orally Twice a day Taking Acetaminophen ER 650 MG Tablet Extended Release 2 tablets as needed Orally every 8 hrs Taking Omeprazole 40 MG Capsule Delayed Release 1 capsule 30 minutes before morning meal Orally Once a day Taking oxyCODONE HCl 5 MG Tablet 1 tablet as needed Orally three times daily Taking Januvia 100 MG Tablet 1 tablet [...] bedtime as needed Orally Once a day Not-TakingGabapentin 300 MG Capsule 1 capsule Orally Once a day Methocarbamol 500 MG Tablet 1 tablet as needed Orally twice a day Ibuprofen 800 MG Tablet 1 tablet with food or milk as needed Orally Three times a day Aspirin 81 MG Tablet Chewable 1 tablet Orally Once a day , Notes to Pharmacist: doctor discontinuedNot-Taking Gabapentin 300 MG Capsule 1 capsule Orally Once a day Not-Taking Methocarbamol 500 MG Tablet 1 tablet as needed Orally twice a day Not-Taking Ibuprofen 800 MG Tablet 1 tablet with food or milk as needed Orally Three times a day Not-Taking Aspirin 81 MG Tablet Chewable 1 tablet Orally Once a day , Notes to Pharmacist: doctor discontinued * Allergies:?N.K.D.A.no[Allerg ies Verified] Objective: Assessment: Plan: * Treatment: * Procedure Codes:? * true * Date:? Generated for Iban mccain/Elvira/Joanne on:?09/07/2024 01:14 PM EDT History and Physical Notes * HPI (History of Present Illness) Category Sub-Category Detail Notes Category Not es Medication Review Medication Review What service was performed?: Routine medication review Visit/Encounter Type: Telephone Was the medication list in eCW updated?: Yes- new or changed medications added Were medication discrepancies/issues levy ntified?: No What interventions have been performed?: Remedia reviewed, Member/caregiver education, Allergies Updated
--- OUTSIDE RECORDS SUMMARY | 2024-09-07 16:06 | XMS_ITS | Encounter Summary ---
Author Organization [employer] Address 75 [facility] 7t [place] [address] Care Team Providers Care Computer Equipment Installer Name Role Phone Haven Stiles MD Primary Care Provider [phone] Amanda Barragan DO Primary Care Provider [phone] Reason for Visit * Reason Comments Med Refill Encounter Details Date Type Department Care Team (Late st Contact Info) Description 07/20/2022 Refill [facility] MEDICINE [address] [place], [place] [phone] Haven Stiles MD [address] [place], [place] [phone] Chronic right shoulder pain Social History Tobacco [...] region documented in this encounter Care Teams Computer Equipment Installer Relationship Specialty Start Date End Date Haevn Stiles MD [address] [place] [address] PCP - General Family Medicine 06/25/20 12/25/22 Amanda Barragan DO [address] [place] [address] PCP - General Family Medicine 12/26/22 documented as of this encounter
--- OUTSIDE RECORDS SUMMARY | 2024-09-07 16:06 | XMS_ITS | Encounter Summary ---
Author Organization [employer] Address 75 [facility] 7t [place] [address] Care Team Providers Care Ditch Repairer Name Role Phone Haven Stiles MD Primary Care Provider [phone] Amanda Barragan DO Primary Care Provider + [phone] Reason for Visit * Reason Onset Date Comments Med Refill Tramadol Refused by PCP 10/06/2022 See note Encounter Details Date Type Department Care Team (Late st Contact Info) Description 10/06/2022 Refill [facility] [address] [place], [place] [phone] Haven Stiles MD [address] [place], [place] [phone] Chronic right shoulder pain Social History Tobacco [...] - 10/06/2022 3:39 PM EDT TC via P/I#[id number], pt c/o he was busy and cant [...] region documented in this encounter Care Teams Ditch Repairer Relationship Specialty Start Date End Date Haven Stiles MD [address] [place] [address] PCP - General Family Medicine 06/25/20 12/25/22 Amanda Barragan DO [address] [place] [address] PCP - General Family Medicine 12/26/22 documented as of this encounter
--- OUTSIDE RECORDS SUMMARY | 2024-09-07 16:06 | XMS_ITS | Encounter Summary ---
Author Organization [employer] Address 75 [facility] 7t [place] [address] Care Team Providers Care Hair Or Beauty Salon Assistant Name Role Phone Haven Stiles MD Primary Care Provider [phone] Amanda Barragan DO Primary Care Provider [phone] Reason for Visit * Reason Onset Date Comments Med Refill 08/11/2022 Encounter Details Date Type Department Care Team (Late st Contact Info) Description 08/11/2022 Refill [facility] MEDICINE [address] [place], [place] [phone] Haven Stiles MD [address] [place], [place] [phone] Chronic right shoulder pain Social History Tobacco [...] Pt wants medication to be send to [facility] pharmacy. documented in this encounter Plan of Treatment Not on file documented as of this encounter Visit Diagnoses Diagnosis Chronic right shoulder pain Pain in joint, shoulder region documented in this encounter Care Teams Hair Or Beauty Salon Assistant Relationship Specialty Start Date End Date Haven Stiles MD [address] [place] [address] PCP - General Family Medicine 06/25/20 12/25/22 Amanda Barragan DO [address] [place] [address] PCP - General Family Medicine 12/26/22 documented as of this encounter
== END 2024-09-07 15:35 | disposition home or self-care (01) ==
LOC: HO.HUSH 14:35
PROVIDERS: Visit Provider Nurse Practitioner Family
DX: N32.89 Other specified disorders of bladder (principal); N40.0 Benign prostatic hyperplasia without lower urinary tract symptoms; Z13.9 Encounter for screening, unspecified
CPT/HCPCS: 99214; G2211

== ENCOUNTER → 2024-11-15 04:11 | Outpatient (BNV) | payer OTHER, SELFPAY | PROVIDERS: Visit Provider Radiology Diagnostic Radiology | DX: K44.9 Diaphragmatic hernia without obstruction or gangrene (principal); K57.30 Diverticulosis of large intestine without perforation or abscess without bleeding; R07.9 Chest pain, unspecified; R06.02 Shortness of breath | CPT/HCPCS: 71046; 74176 ==

== ENCOUNTER 2024-11-15 04:25 | Emergency (ER) | payer OTHER, SELFPAY ==
--- NOTE | ~2024-11-15 | XR_ITS ---
CLINICAL HISTORY: CP/SOB Exam: PA and lateral views of the chest. Comparison: None. Findings: Lungs are well inflated. Heart size and pulmonary vasculature are within normal limits. No focal areas of consolidation. No pleural effusion or pneumothorax. Small hiatal hernia. Impression: No acute infiltrate. This document has been electronically signed by: Nestor Hooper MD on 11/15/2024 05:34:39
--- NOTE | ~2024-11-15 | CT_ITS ---
EXAMINATION: CT ABDOMEN PELVIS WITHOUT IV CONTRAST HISTORY: nausea, LUQ pain COMPARISON: Comparison is made with the prior examination dated 02/15/2024. TECHNIQUE: CT scan of the abdomen and pelvis was performed without contrast using standard departmental protocol. Coronal and sagittal reformatted images were generated and reviewed. Oral contrast material was not administered at the request of the referring physician. This CT exam was performed with one or more of the following dose reduction techniques: automated exposure control, adjustment of the mA and/or kV according to patient size, use of iterative reconstruction technique. DLP: 334 mGy-cm FINDINGS: LOWER CHEST: The visualized lung bases are clear. There is no pleural effusion. CARDIOVASCULATURE: The heart is normal in size. There is no pericardial effusion. LIVER: The liver is normal in size and contour. The liver has an unremarkable unenhanced appearance. GALLBLADDER / BILE DUCTS: The gallbladder is surgically absent. There is no intra or extrahepatic biliary ductal dilatation. SPLEEN: The spleen is normal in size and has an unremarkable unenhanced appearance. PANCREAS: The pancreas has an unremarkable unenhanced appearance. ADRENAL GLANDS: Unremarkable. KIDNEYS/RETROPERITONEUM: No renal calculi are identified. There is no hydronephrosis. LYMPH NODES: No retroperitoneal lymphadenopathy is identified in the abdomen or pelvis. VASCULATURE: The abdominal aorta demonstrates atherosclerotic calcification, but is normal in caliber. MESENTERY/PERITONEUM: No free fluid. No masses. There is no free intraperitoneal gas. STOMACH: Again seen is a large hiatal hernia. SMALL BOWEL: The small bowel is normal in caliber. COLON: There is extensive diverticulosis of the colon, without evidence of diverticulitis. APPENDIX: Normal. URINARY BLADDER/PELVIC ORGANS: The urinary bladder is unremarkable. The prostate is enlarged. 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 CT/CT abdomen pelvis wo IV con IMPRESSION: Large hiatal hernia. Colonic diverticulosis without evidence of diverticulitis. No acute abnormality is identified. Electronically signed by: Ras Garcia MD 11/15/2024 03:24 PM EDT
--- NOTE | 2024-11-15 04:26 | ECG_ITS ---
Test Reason : CHEST PAIN Blood Pressure : */* mmHG Vent. Rate : 72 BPM Atrial Rate : 72 BPM P-R Int : 148 ms QRS Dur : 90 ms QT Int : 356 ms P-R-T Axes : -1 24 27 degrees QTcB Int : 389 ms Normal sinus rhythm Normal ECG When compared with ECG of 30-Aug-2024 22:18, No significant change was found Referred By: Generic ED Physician Electronically Signed By: SORAYA ALMONTE MD
[2024-11-15 04:56] VITALS: BP 144/72; PULSE 73; RESP 16; TEMP 36.6; O2SAT 99; BMI 23.3
[2024-11-15 04:58] LABS: Basophils Percent Auto 0.7 % (0-2); Eosinophils Absolute Auto 0.3 X10*3/uL (0.0-0.4); Hematocrit 37.5 % (42.0-52.0); Hemoglobin 12.8 g/dl (14.0-18.0); Imm Gran Abs Auto 0.01 X10*3/uL (0.00-0.03); Imm Gran Pct Auto 0.2 % (0.0-0.4); Lymphocytes Absolute Auto 1.5 X10*3/uL (1.2-4.9); Lymphocytes Percent Auto 24.9 % (20-40); MANUAL DIFF FLAG NO; Mean Corpuscular HGB Conc 34.1 g/dl (31.0-36.0); Mean Corpuscular Hemoglobin 29.4 pg (27.0-33.0); Mean Platelet Volume 9.9 fL (9.4-12.4); Monocytes Absolute Auto 0.5 X10*3/uL (0.1-1.2); Monocytes Percent Auto 7.9 % (2-11); Neutrophils Absolute Auto 3.7 x10*3/uL (2.0-8.3); Neutrophils Percent Auto 61.3 % (45-73); Platelet Count 230 X10*3/uL (160-400); Red Blood Count 4.36 X10*6/uL (4.60-5.80); Red Cell Distribution Width 13.5 % (11.0-16.0)
[2024-11-15 05:20] LABS: Alanine Aminotransferase 38 U/L (0-40); Alkaline Phosphatase 75 U/L (39-117); Anion Gap 14 (12-20); Aspartate Amino Transferase 26 U/L (5-37); Bilirubin Total 0.2 mg/dL (0.0-1.0); Blood Urea Nitrogen 18 mg/dL (9-16); Calcium 9.6 mg/dL (8.4-10.2); Carbon Dioxide 24 mmol/L (22-29); Chloride 105 mmol/L (96-108); Estimated Glomerular Filt Rate > 60; Glucose Random 161 mg/dL (60-115); Potassium 5.4 mmol/L (3.3-5.1); Sodium 138 mmol/L (135-145); Total Protein 7.6 g/dL (6.5-8.0)
[2024-11-15 05:33] LABS: Troponin-I High Sensitivity < 2.7 ng/L (<3.5-35.0)
[2024-11-15 05:34] LABS: Influenza A PCR NEGATIVE (Negative); Influenza B PCR NEGATIVE (Negative); Resp Syncy Virus RNA Qual PCR NEGATIVE (Negative); SARS COV2 PCR INHOUSE NEGATIVE (Negative)
[2024-11-15] MEDS: Acetaminophen 325 MG TABLET 650 MG PO (06:20)
[2024-11-15 07:09] VITALS: BP 140/75; PULSE 70; RESP 18; TEMP 36.4; O2SAT 99
--- NOTE | 2024-11-15 09:16 | ED_ITS ---
HPI - Chest Pain General Chief Complaint: Chest Pain Stated Complaint: heart pain Time Seen by Provider: 11/15/24 13:56 Source: patient, family, old records reviewed and educational interpreter Mode of arrival: ambulatory Limitations: no limitations History of Present Illness ED Provider: MAGED NYE narrative: 74 yo male with PMH of arthritis, HTN, HLD, GERD, DM here with c/o insomnia for 2 days but then this AM around had LUQ pain was initially stating chest pain but then was asked to point to the pain he reports LUQ pain. He states it might have caused his L arm to hurt. He was sleeping when this happened. He has nausea. He denies recent URI. He is walking around the waiting room not labored in no distress. He denies any recent travel/procedures. He has no urinary or bowel movements. He has not had a fever. He has been able to eat and drink while waiting. MD complaint: chest pain (LUQ pain) Onset (ago): day(s) (3am today) Timing of current episode: constant Prior episodes: No Onset: during rest Pain location: other (LUQ) Pain radiation: left arm Severity: moderate Quality: aching Relieving factors: nothing Exacerbating factors: nothing Associated symptoms: nausea and dyspnea Treatment prior to arrival: none Related Data Home Medications ?Medication ?Instructions ?Recorded ?Confirmed atorvastatin 80 mg tablet 80 mg PO DAILY 08/05/20 09/07/24 blood pressure test kit-large #1 ea 08/05/20 09/07/24 lisinopril 20 mg tablet 20 mg PO DAILY 08/05/20 09/07/24 metformin 500 mg tablet 500 mg PO 08/05/20 09/07/24 sitagliptin phosphate 100 mg tablet 100 mg PO DAILY 08/05/20 09/07/24 zolpidem 10 mg tablet 10 mg PO BEDTIME PRN insomnia 08/05/20 09/07/24 omeprazole 40 mg capsule,delayed 40 mg PO DAILY 09/07/24 09/07/24 release Previous Rx's ?Medication ?Instructions ?Recorded diclofenac sodium 3 % topical gel 1 appl topical BID #100 grams 04/01/22 oxycodone-acetaminophen 5 mg-325 1 tab PO DAILY PRN pain (scale 03/18/23 mg tablet (Percocet) score 4-6) 28 days #28 tabs Allergies Allergy/AdvReac Type Severity Reaction Status Date / Time atorvastatin [Lipitor] Allergy Unknown unknown Verified 11/15/24 04:58 Review of Systems 2 Review of Systems: Constitutional : No Weight loss, No Fever, No Chills ENT/Mouth : No sore throat, No Rhinorrhea Eyes: No Swelling, No Redness Cardiovascular : pos Chest Pain, No SOB, NoEdema Respiratory : No Cough, No Sputum, No Wheezing Gastrointestinal : Positive Nausea, no Vomiting, positive Diarrhea, positive abdominal Pain, No Hematochezia, No Melena Genitourinary : No Dysuria, No Urinary Frequency, No Hematuria, No Urgency Musculoskeletal : No joint pain, No Myalgias, No Joint Swelling Skin : No Skin Lesions, No rash Neuro : No Weakness, No Numbness, No Dizziness, No Headache All other systems reviewed and are negative. [facility] Past Medical History Attestation statement: The following information was validated with the patient. Source: old records reviewed Medical History Palpitations Mass of left side of neck Surgical History History of cholecystectomy Family History Family History Sister History of pancreatic cancer Social History Social History Alcohol intake: current Alcohol intake frequency: holidays/special occasions only Alcohol type: beer and hard liquor Patient Tobacco Use Status: Never used Tobacco Advance Directives: No Advance Directives Information Provided: No Do you have a plan to hurt others: No Plan Current occupational status: disabled Current occupation: right hand dominant Physical Exam 2 Vital Signs: Vital Signs: Last Vital Signs Temp 97.5 F 11/15/24 07:09 Pulse 70 11/15/24 07:09 Resp 18 11/15/24 07:09 BP 140/75 H 11/15/24 07:09 Pulse Ox 99 11/15/24 07:09 O2 Del Method Room Air 11/15/24 07:09 BMI result Body Mass Index 23.3 Appearance: Alert. Oriented X3. No acute distress. Eyes: Pupils equal, round and reactive to light. ENT: Pharynx normal. Neck: Normal inspection. Neck supple. CVS: Normal heart rate and rhythm. Pulses normal. Respiratory: No respiratory distress. Breath sounds normal. Abdomen: Soft and ttp in LUQ which reproduces pain Skin: Skin warm and dry. Normal skin color. Normal skin turgor. Extremities: No lower extremity edema. No calf ttp Neuro: Oriented X 3. No motor deficit. No sensory deficit. CN2-12 intact Course Course Course Narrative: 74 yo male with PMH of arthritis, HTN, HLD, GERD, DM here with c/o insomnia for 2 days. He woke up with chest pain at 3am today radiating to the L arm. It felt like pressure. No cough, fevers. He felt nauseated. He has no pain now. The pains come and go. No recent travel or procedures. At this time labs, EKG, trop x 2. He is not toxic appearing. Walking around triage drinking fluids. this is a RAPID medical screening exam the rest of the history and physical exam is to be done by the main provider. MAGED 11/15/24 919am Reevaluation(s) Reevaluation #1: signed out to Carolyn VICKERS pending further work up 211pm Reevaluation #2: Received patient in sign out pending results of CT A/P. CT notable for large hiatal hernia. Results discussed with patient and all questions answered. Will refer to general surgery. Advised patient to eat several small meals throughout the day and avoid large meals, eating close to bed time. Stable for discharge. Return precautions discussed. Patient verbalized understanding of and agreement with plan. Time: 15:31 Medications Administered Discontinued Medications Generic Name Dose Route Start Last Admin Trade Name Ninfa PRN Reason Stop Dose Admin Acetaminophen 650 mg 11/15/24 06:18 11/15/24 06:20 Acetaminophen 325 Mg Tablet PO 11/15/24 06:19 650 mg ONCE ONE Administration Al Hydroxide/Mg Hydroxide 15 ml 11/15/24 13:56 11/15/24 14:13 Magnesium Hydrox/Alum Hydrox 30 Ml Oral.Susp PO 11/15/24 13:57 15 ml ONCE ONE Administration Lidocaine HCl 15 ml 11/15/24 13:56 11/15/24 14:13 Lidocaine Hcl Viscous 2 % 15 Ml Solution MUCOUS MEM 11/15/24 13:57 15 ml ONCE ONE Administration Medical Decision Making Medical Decision Making MDM Narrative: 74 yo male with PMH of arthritis, HTN, HLD, GERD, DM here with c/o LUQ abd pain with nausea and dyspnea he will need repeat troponin, basic labs, CT scan of LUQ, CXR. His symptoms seem more GI related and his abdominal exam he has LUQ pain. He has no fevers, his abdomen is not acute on exam. He has distal pulses intact doubt dissection, he has no risk factors for VTE and pulse/O2 normal. Differential Diagnosis Differential Diagnoses: The differential diagnosis associated with the presentation includes atypical ACS, pancreatitis, gas, mass, bloating, no tachycardia or hypoxia to suggest ACS/VTE walking around and comfortable doubt dissection - pulses intact Admission/Observation Consideration of admission/observation: Escalation of care including admission/observation considered repeat trop, EKG, CT scan reassuring stable for DC Lab Data MDM Lab Attestation statement: I reviewed the patient's lab results. 11/15/24 04:52 11/15/24 04:52 Labs: Lab Results 11/15/24 11/15/24 11/15/24 Range/Units 04:52 09:15 09:24 WBC 6.0 (4.8-10.8) X10*3/uL RBC 4.36 L (4.60-5.80) X10*6/uL Hgb 12.8 L (14.0-18.0) g/dl Hct 37.5 L (42.0-52.0) % MCV 86.0 (80.0-98.0) fL MCH 29.4 (27.0-33.0) pg MCHC 34.1 (31.0-36.0) g/dl RDW 13.5 (11.0-16.0) % Plt Count 230 (160-400) X10*3/uL MPV 9.9 (9.4-12.4) fL Immature Gran % (Auto) 0.2 (0.0-0.4) % Neut % (Auto) 61.3 (45-73) % Lymph % (Auto) 24.9 (20-40) % [place] % (Auto) 7.9 (2-11) % Eos % (Auto) 5.0 H (0-4) % Baso % (Auto) 0.7 (0-2) % Lymph # (Auto) 1.5 (1.2-4.9) X10*3/uL [place] # (Auto) 0.5 (0.1-1.2) X10*3/uL Eos # (Auto) 0.3 (0.0-0.4) X10*3/uL Baso # (Auto) 0.0 (0.0-0.2) X10*3/uL Abs Immat Gran (auto) 0.01 (0.00-0.03) X10*3/uL Absolute Neuts (auto) 3.7 (2.0-8.3) x10*3/uL Absolute Nucleated RBC 0.000 (0.0-0.012) X10*3/uL Nucleated RBC % (auto) 0.0 (0.0-0.2) /100WBC Sodium 138 (135-145) mmol/L Potassium 5.4 H (3.3-5.1) mmol/L Chloride 105 (96-108) mmol/L Carbon Dioxide 24 (22-29) mmol/L Anion Gap 14 (12-20) BUN 18 H (9-16) mg/dL Creatinine 1.16 (0.5-1.4) mg/dL Estim Creat Clear Calc 50.0 Estimated GFR > 60 POC Glucose 169 H (60-115) mg/dL Random Glucose 161 H (60-115) mg/dL Calcium 9.6 (8.4-10.2) mg/dL Total Bilirubin 0.2 (0.0-1.0) mg/dL AST 26 (5-37) U/L ALT 38 (0-40) U/L Alkaline Phosphatase 75 (39-117) U/L Troponin I High Sens < 2.7 < 2.7 (<3.5-35.0) ng/L B-Natriuretic Peptide Cancelled Total Protein 7.6 (6.5-8.0) g/dL Albumin 5.0 (3.5-5.0) g/dL Lipase 24 (8-78) U/L Influenza Type A (PCR) NEGATIVE (Negative) Influenza Type B (PCR) NEGATIVE (Negative) RSV RNA Qual (PCR) NEGATIVE (Negative) SARS-CoV-2 RNA (RT-PCR) NEGATIVE (Negative) Independent Interpretation I performed an independent interpretation of an: EKG, Plain X-Ray (normal ) and CT Scan Interpretation: Rate: 72 Rhythm: NSR [place]: normal Normal P waves. Normal MARGARITO. Normal QRS complex. ST T wave : peaked t waves, no JONATHAN qTC: 382 prior studies: no change from prior The study has been interpreted contemporaneously by me. Rate: 74 Rhythm: NSR [place]: normal Normal P waves. Normal MARGARITO. Normal QRS complex. ST T wave : no JONATHAN, same as priors qTC: 392 prior studies: no acute ischemia, similar appearance to priors from 2024 and 2023 The study has been interpreted contemporaneously by me. . Radiology Impression Discussion of test interpretation with radiology: I have reviewed the radiologist's reading. Independent Historian Clinical information obtained from an independent historian. History obtained from or confirmed by: Spouse External Record Review External record reviewed: Inpatient record and Outpatient record Discharge Plan Discharge Clinical Impression: Atypical chest pain, Acute upper abdominal pain, Hernia, hiatal Patient Disposition: Home, Self-Care Instructions: Chest Pain (ED), Acute Abdominal Pain (ED), Hiatal Hernia (DC), Laparoscopic Hiatal Hernia Repair (DC) Additional Instructions: EKG repeat labs reassuring Chest xray normal please continue your medications and follow up with your doctor return for any worsening symptoms or concerns. CT scan showed a large hiatal hernia-eat several small meals throughout the day and avoid eating large meals, avoid eating close to bedtime. Follow-up with general surgery to discuss treatment options. Prescriptions: No Action diclofenac sodium 3 % gel 1 appl topical BID Qty: 100 0RF lisinopril 20 mg tablet 20 mg PO DAILY zolpidem 10 mg tablet 10 mg PO BEDTIME PRN (Reason: insomnia) metformin 500 mg tablet 500 mg PO sitagliptin phosphate 100 mg tablet 100 mg PO DAILY (DME) blood pressure test kit-large Kit See Rx Instructions .ROUTE .MEDSUPPLY Qty: 1 Rx Instructions: As directed atorvastatin 80 mg tablet 80 mg PO DAILY omeprazole 40 mg capsule,delayed release(DR/EC) 40 mg PO DAILY oxycodone-acetaminophen [Percocet] 5-325 mg tablet 1 tab PO DAILY PRN (Reason: pain (scale score 4-6)) 28 Days Qty: 28 0RF Rx Instructions: Partial Fill upon patient request. [place]: [facility] [place] [facility] [place]] (large hiatal hernia) Print Language: Irish
[2024-11-15 09:19] LABS: Glucose, Whole Blood 169 mg/dL (60-115)
[2024-11-15 09:59] LABS: Troponin-I High Sensitivity < 2.7 ng/L (<3.5-35.0)
--- NOTE | 2024-11-15 13:59 | ECG_ITS ---
Test Reason : abdominal pain Blood Pressure : */* mmHG Vent. Rate : 74 BPM Atrial Rate : 74 BPM P-R Int : 156 ms QRS Dur : 88 ms QT Int : 354 ms P-R-T Axes : 35 50 48 degrees QTcB Int : 392 ms Normal sinus rhythm Normal ECG When compared with ECG of 15-Nov-2024 04:31, No significant change was found Referred By: Lexi Vang Electronically Signed By: SORAYA ALMONTE MD
[2024-11-15] MEDS: Magnesium Hydrox/Alum Hydrox 30 ML ORAL.SUSP 15 ML PO (14:13)
[2024-11-15] MEDS: Lidocaine HCl Viscous 2 % 15 ML SOLUTION MUCOUS MEM (14:13)
[2024-11-15 14:19] LABS: Lipase 24 U/L (8-78)
[2024-11-15 15:57] VITALS: BP 142/76; PULSE 72; RESP 18; TEMP 36.8; O2SAT 99
== END 2024-11-15 15:57 | disposition home or self-care (01) ==
PROVIDERS: Emergency Provider Emergency Medicine
DX: R07.89 Other chest pain (principal); R10.12 Left upper quadrant pain; K44.9 Diaphragmatic hernia without obstruction or gangrene; E11.9 Type 2 diabetes mellitus without complications; I10 Essential (primary) hypertension; K21.9 Gastro-esophageal reflux disease without esophagitis; Z03.818 Encounter for observation for suspected exposure to other biological agents ruled out; Z79.84 Long term (current) use of oral hypoglycemic drugs; Z79.02 Long term (current) use of antithrombotics/antiplatelets; Z79.899 Other long term (current) drug therapy
CPT/HCPCS: 0241U; 71046; 74176; 80053; 82947; 83690; 84484; 85025; 93005; 99283; 99284

== ENCOUNTER → 2024-11-15 04:26 | Outpatient (BNV) | payer OTHER, SELFPAY | PROVIDERS: Emergency Provider Emergency Medicine; Visit Provider Internal Medicine Cardiovascular Disease | DX: R07.9 Chest pain, unspecified (principal); R10.9 Unspecified abdominal pain | CPT/HCPCS: 93010 ==

== ENCOUNTER 2024-11-17 19:46 | Emergency (ER) | payer OTHER, SELFPAY ==
--- NOTE | ~2024-11-17 | CT_ITS ---
CLINICAL HISTORY: left lower chest and LUQ severe worsening abd pain CT abdomen and pelvis with contrast Comparison: CT of the abdomen and pelvis from 11/15/2024 Findings: Mild bibasilar atelectasis. Moderate hiatal hernia is partially imaged. No small bowel obstruction. Severe stool burden is present, including the cecum. Mild wall thickening of the large intestine is nonspecific including descending colon and splenic flexure. Mild colitis considered particularly in the splenic flexure. Multiple diverticula redemonstrated. The imaged appendix is mildly patulous measuring at the upper limits of normal without findings of acute appendicitis (imaged 387 of series 14). Mild fat deposition of the liver. Mild periportal edema. CBD dilatation is present as can be seen post cholecystectomy. The adrenal glands are normal. The spleen is nonenlarged. No significant change in mild/borderline pancreatic duct dilatation. No new or worsening lymphadenopathy. No free intraperitoneal air. No definite drainable abscess by CT. Cystic change of the prostate gland is nonspecific by CT with prostate gland measuring 6.2 cm transversely and indents upon the urinary bladder with nonspecific moderate wall thickening of the urinary bladder. Small fat containing inguinal hernias, left larger than right. Degenerative changes include lumbar facet arthropathy. 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 IMPRESSION: 1. Mild wall thickening of the large intestine is nonspecific and may reflect colitis, including splenic flexure. No small bowel obstruction. 2. Hiatal hernia is redemonstrated. 3. Wall thickening of the urinary bladder is nonspecific. 4. 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 This document has been electronically signed by: Deepak Lee MD on 11/18/2024 00:55:13
--- NOTE | ~2024-11-17 | XR_ITS ---
CLINICAL HISTORY: ABD PAIN, NAGA 1 view abdomen Comparison: CT of the abdomen from 11/15/2024 Findings: Mild atelectasis. No small bowel dilatation. Severe stool burden is present, including the cecum. Phleboliths are redemonstrated in the pelvis. Osteoarthritis of the both hips. Cholecystectomy clips are redemonstrated. IMPRESSION: 1. No small bowel obstruction. 2. Severe stool burden. This document has been electronically signed by: Deepak Lee MD on 11/17/2024 23:18:13
--- NOTE | ~2024-11-17 | XR_ITS ---
CLINICAL HISTORY: CP, SOB 2 view chest x-ray Comparison: Chest x-ray from 08/30/2024 Findings: No consolidation, pneumothorax, or pleural effusion. Mild bibasilar atelectasis/pneumonitis. Mild emphysematous changes. Question small hiatal hernia. Mediastinum is otherwise unremarkable. Mild right lateral rib deformities appear old. IMPRESSION: Mild atelectasis. This document has been electronically signed by: Deepak Lee MD on 11/17/2024 21:45:27
--- NOTE | ~2024-11-17 | CT_ITS ---
CLINICAL HISTORY: left lower chest and LUQ severe worsening abd pain CT chest with contrast Comparison: Chest x-ray from 11/17/2024 Findings: Mild bibasilar atelectasis. No consolidation, pneumothorax, or pleural effusion. Mild emphysematous changes suggested, including imaged lung apices. Calcified and noncalcified plaque include imaged aorta and its branches. Coronary artery calcifications noted with borderline cardiomegaly in the study with motion artifacts. Moderate hiatal hernia. Please refer to separate report for CT abdomen pelvis including the abdomen. Mild rib deformities appear old/chronic. Degenerative changes include imaged shoulders and imaged spine. Tendon anchor partially imaged in the right humerus. IMPRESSION: 1. Moderate hiatal hernia. 2. Mild atelectasis. 3. Multifocal atherosclerosis. This document has been electronically signed by: Deepak Lee MD on 11/18/2024 00:55:36
[2024-11-17 19:49] VITALS: BP 138/72; PULSE 76; O2SAT 98
[2024-11-17 19:59] VITALS: BP 107/65; PULSE 75; RESP 20; TEMP 36.7; O2SAT 95; BMI 22.4
--- NOTE | 2024-11-17 20:00 | ED.ABDPAIN ---
HPI - Abdominal Pain General Chief Complaint: Abdominal Pain Stated Complaint: abd pain d/t hernia diagnosed 2 days ago Time Seen by Provider: 11/17/24 22:23 History of Present Illness ED Provider: Jorge Case MD HPI narrative: 74-year-old male presents with midepigastric pain worse with eating more severe over the past day. No dark or melanotic stools reported. Related Data Home Medications ?Medication ?Instructions ?Recorded ?Confirmed atorvastatin 80 mg tablet 80 mg PO DAILY 08/05/20 09/07/24 blood pressure test kit-large #1 ea 08/05/20 09/07/24 lisinopril 20 mg tablet 20 mg PO DAILY 08/05/20 09/07/24 metformin 500 mg tablet 500 mg PO 08/05/20 09/07/24 sitagliptin phosphate 100 mg tablet 100 mg PO DAILY 08/05/20 09/07/24 zolpidem 10 mg tablet 10 mg PO BEDTIME PRN insomnia 08/05/20 09/07/24 omeprazole 40 mg capsule,delayed 40 mg PO DAILY 09/07/24 09/07/24 release Previous Rx's ?Medication ?Instructions ?Recorded diclofenac sodium 3 % topical gel 1 appl topical BID #100 grams 04/01/22 oxycodone-acetaminophen 5 mg-325 1 tab PO DAILY PRN pain (scale 03/18/23 mg tablet (Percocet) score 4-6) 28 days #28 tabs ciprofloxacin HCl 500 mg tablet 500 mg PO Q12H 7 days #14 tabs 11/18/24 famotidine 20 mg tablet 20 mg PO BID 2 weeks #28 tabs 11/18/24 metronidazole 500 mg tablet 500 mg PO TID 7 days #21 tabs 11/18/24 ondansetron 4 mg disintegrating 4 mg PO Q8H PRN nausea and 11/18/24 tablet vomiting #7 tabs Allergies Allergy/AdvReac Type Severity Reaction Status Date / Time atorvastatin (Lipitor) Allergy Unknown unknown Verified 11/17/24 20:07 [facility] Past Medical History Medical History Palpitations Mass of left side of neck Surgical History History of cholecystectomy Family History Family History Sister History of pancreatic cancer Social History Social History Alcohol intake: current Alcohol intake frequency: holidays/special occasions only Alcohol type: beer and hard liquor Patient Tobacco Use Status: Never used Tobacco Smoked in Last 30 Days: No Use of substances other than those prescribed or required for medical reasons: No Advance Directives: No Advance Directives Information Provided: Yes Do you have a plan to hurt others: No Plan Current occupational status: disabled Current occupation: right hand dominant Physical Exam ED Vital Signs: BMI result Body Mass Index 22.4 Const Other: EXAM: Gen: Alert, awake, well appearing, well hydrated. Head: Atraumatic Eyes: Anicteric, Normal conjunctiva. ENT: Moist mucosa, no pallor. ? Neck: Supple. Skin: ?No observable rash or bruising on exposed or examined skin Respiratory: Breathing comfortably, No distress.Clear to auscultation bilaterally, symmetric chest expansion, No wheeze, rales, ronchi. Cardiovascular: Regular rate and rhythm. No murmurs or rub. Well perfused periphery, warm extremities. No edema. ? Abdominal: Moderate upper abdominal tenderness mostly in the midepigastrium less so in the right upper. Soft, no objective distension. No palpable masses or obvious organomegaly. ?No guarding, no rebound tenderness or other peritoneal findings. : No flank tenderness. Neuro: Alert. Gross movement of all extremities intact. ? Psych: Calm. Cooperative. MSK: No grossly visible deformity. Vital signs: See flowsheet Course Course Course Narrative: This is an RME: Additional HPI, ROS, PE not included below will be deferred to primary provider. RME assessment and note performed by: Yolanda Luna PA-C This is a 74 year old male, with a past medical history of hypertension, GERD, who presents emergency department accompanied by his son via EMS with complaints of abdominal pain. Denies any nausea or vomiting, unable to eat much food secondary to the pain. Patient was seen here 2 days ago and was diagnosed with a large hiatal hernia, was discharged from the emergency room and instructed to follow-up with surgeon. reporting he is unable to eat or drink anything due to the pain. Also reporting chest pain. Plan: Labs, EKG, xr, further ER eval needed Medical Decision Making Medical Decision Making MDM Narrative: 74-year-old male with midepigastric tenderness. The patient had quite a dramatic presentation with severe level of pain. Although recent abdominal CT negative he did have a quite a big hiatal hernia given his age comorbid conditions and severity of pain I decided to scan chest and abdomen with contrast. No acute pathology identified on this. Reassuring lab work pain well controlled. Differential Diagnosis PUD, gastritis, hiatal hernia, constipation, gastroenteritis, colitis, SBO Lab Data 11/17/24 20:42 11/17/24 20:41 Labs: Lab Results 11/17/24 11/17/24 Range/Units 20:41 20:42 WBC 7.7 (4.8-10.8) X10*3/uL RBC 4.19 L (4.60-5.80) X10*6/uL Hgb 12.2 L (14.0-18.0) g/dl Hct 36.2 L (42.0-52.0) % MCV 86.4 (80.0-98.0) fL MCH 29.1 (27.0-33.0) pg MCHC 33.7 (31.0-36.0) g/dl RDW 13.8 (11.0-16.0) % Plt Count 231 (160-400) X10*3/uL MPV 10.0 (9.4-12.4) fL Immature Gran % (Auto) 0.3 (0.0-0.4) % Neut % (Auto) 62.9 (45-73) % Lymph % (Auto) 23.4 (20-40) % [place] % (Auto) 9.4 (2-11) % Eos % (Auto) 3.3 (0-4) % Baso % (Auto) 0.7 (0-2) % Lymph # (Auto) 1.8 (1.2-4.9) X10*3/uL [place] # (Auto) 0.7 (0.1-1.2) X10*3/uL Eos # (Auto) 0.3 (0.0-0.4) X10*3/uL Baso # (Auto) 0.1 (0.0-0.2) X10*3/uL Abs Immat Gran (auto) 0.02 (0.00-0.03) X10*3/uL Absolute Neuts (auto) 4.8 (2.0-8.3) x10*3/uL Absolute Nucleated RBC 0.000 (0.0-0.012) X10*3/uL Nucleated RBC % (auto) 0.0 (0.0-0.2) /100WBC Sodium 136 (135-145) mmol/L Potassium 5.0 (3.3-5.1) mmol/L Chloride 104 (96-108) mmol/L Carbon Dioxide 24 (22-29) mmol/L Anion Gap 13 (12-20) BUN 36 H (9-16) mg/dL Creatinine 2.04 H (0.5-1.4) mg/dL Estim Creat Clear Calc 28.2 Estimated GFR 32 Random Glucose 155 H (60-115) mg/dL Calcium 8.7 D (8.4-10.2) mg/dL Magnesium 2.2 (1.6-2.6) mg/dL Total Bilirubin 0.5 (0.0-1.0) mg/dL Direct Bilirubin 0.2 (0.0-0.5) mg/dL AST 25 (5-37) U/L ALT 24 (0-40) U/L Alkaline Phosphatase 65 (39-117) U/L Troponin I High Sens < 2.7 (<3.5-35.0) ng/L Total Protein 7.2 (6.5-8.0) g/dL Albumin 4.5 (3.5-5.0) g/dL Medications Administered Discontinued Medications Generic Name Dose Route Start Last Admin Trade Name Freq PRN Reason Stop Dose Admin Al Hydroxide/Mg Hydroxide 30 ml 11/17/24 22:59 11/17/24 23:35 Magnesium Hydrox/Alum Hydrox 30 Ml Oral.Susp PO 11/17/24 23:00 30 ml ONCE ONE Administration Sodium Chloride 1,000 mls @ 999 mls/hr 11/18/24 01:00 11/18/24 01:12 Ns IV 11/18/24 02:00 999 mls/hr .Q1H1M MELINDA Administration Iohexol 100 ml 11/18/24 00:15 11/18/24 00:16 Iohexol 350 Mg/Ml 100 Ml Infus..Btl IV 11/18/24 00:16 85 ml ONCE ONE Administration Morphine Sulfate 5 mg 11/17/24 22:59 11/17/24 23:35 Morphine Sulfate 10 Mg/Ml Cartridge IVPUSH 11/17/24 23:00 5 mg ONCE ONE Administration Protocol Pantoprazole Sodium 80 mg 11/17/24 22:59 11/17/24 23:35 Pantoprazole Sodium 40 Mg/10 Ml Vial IVPUSH 11/17/24 23:00 80 mg ONCE ONE Administration Discharge Plan Discharge Clinical Impression: Colitis Patient Disposition: Home, Self-Care Instructions: Colitis (ED) Additional Instructions: DISCHARGE DIAGNOSES: Colitis, inflammation and thickening of the large intestinal wall. This could be from an infection possibly viral less likely bacterial. It could also be malignancy or cancer. This needs to be evaluated thoroughly with colonoscopy HISTORY OF PRESENTATION: ?Abdominal pain left upper quadrant. Decreased oral intake and nausea EMERGENCY DEPARTMENT COURSE,TESTS, TREATMENTS: While in the ED today you had reassuring lab work. You had no fever and your vital signs were reassuring you were found to have significant tenderness in left upper quadrant of your abdomen. You would a repeat CT scan this time we used IV contrast and obtained a full CT of the chest. Your kidney function had slightly worsened from the day prior it went from 1.16 creatinine to 2.04. In order to fully exclude serious or life-threatening pathology we used IV contrast which can sometimes cause worsening of this elevated creatinine and worsening kidney function however we gave intravenous fluid to try to avoid this. You will need to have a repeat blood chemistry test to check for this within a week from your primary doctor. We gave multiple medications including Maalox, antacid medication and morphine. As above discussed there was no other significant pathology found however there was signs of thickening of the large intestine which could be colitis DISCHARGE MEDICATIONS: ?[We have made no changes to your regular medication regimen] however we have added an antacid medication as well as antibiotics in case this is an infectious process with your intestine. We also gave nausea medicine FOLLOW-UP: ?Call your primary or general physician soon as possible to discuss your symptoms, your ED visit and to discuss follow up plans Call your primary doctor you will need to schedule outpatient colonoscopy with some urgency to rule out alternative causes of thickening of the colon. You will also need creatinine kidney function test repeated within a week INSTRUCTIONS ?& RETURN PRECAUTIONS: If any symptoms change first call your primary physician, if it is after-hours your primary doctors office should have a provider solution professional you can speak with. If the symptoms are severe or very concerning to you then call 911 or return to the ED. [[id number]] Jorge Case MD Emergency Physician [facility] Prescriptions: New ciprofloxacin HCl 500 mg tablet 500 mg PO Q12H 7 Days Qty: 14 0RF metronidazole 500 mg tablet 500 mg PO TID 7 Days Qty: 21 0RF ondansetron 4 mg tablet,disintegrating 4 mg PO Q8H PRN (Reason: nausea and vomiting) Qty: 7 0RF famotidine 20 mg tablet 20 mg PO BID 14 Days Qty: 28 0RF No Action diclofenac sodium 3 % gel 1 appl topical BID Qty: 100 0RF lisinopril 20 mg tablet 20 mg PO DAILY zolpidem 10 mg tablet 10 mg PO BEDTIME PRN (Reason: insomnia) metformin 500 mg tablet 500 mg PO sitagliptin phosphate 100 mg tablet 100 mg PO DAILY (DME) blood pressure test kit-large Kit See Rx Instructions .ROUTE .MEDSUPPLY Qty: 1 Rx Instructions: As directed atorvastatin 80 mg tablet 80 mg PO DAILY omeprazole 40 mg capsule,delayed release(DR/EC) 40 mg PO DAILY oxycodone-acetaminophen [Percocet] 5-325 mg tablet 1 tab PO DAILY PRN (Reason: pain (scale score 4-6)) 28 Days Qty: 28 0RF Rx Instructions: Partial Fill upon patient request. Interventions: ED Discharge Assessment Last Done: 11/18/24 02:10 Discharge Date/Time: 11/18/24 02:11 Print Language: Croatian
--- NOTE | 2024-11-17 20:09 | ECG_ITS ---
Test Reason : chest pain Blood Pressure : */* mmHG Vent. Rate : 67 BPM Atrial Rate : 67 BPM P-R Int : 152 ms QRS Dur : 92 ms QT Int : 374 ms P-R-T Axes : 29 27 30 degrees QTcB Int : 395 ms Normal sinus rhythm Normal ECG When compared with ECG of 15-Nov-2024 14:12, No significant change was found Referred By: Yolanda Luna Electronically Signed By: SORAYA ALMONTE MD
[2024-11-17 20:47] LABS: MANUAL DIFF FLAG NO
[2024-11-17 20:49] LABS: Basophils Absolute Auto 0.1 X10*3/uL (0.0-0.2); Basophils Percent Auto 0.7 % (0-2); Eosinophils Absolute Auto 0.3 X10*3/uL (0.0-0.4); Eosinophils Percent Auto 3.3 % (0-4); Hematocrit 36.2 % (42.0-52.0); Hemoglobin 12.2 g/dl (14.0-18.0); Imm Gran Abs Auto 0.02 X10*3/uL (0.00-0.03); Imm Gran Pct Auto 0.3 % (0.0-0.4); Lymphocytes Absolute Auto 1.8 X10*3/uL (1.2-4.9); Lymphocytes Percent Auto 23.4 % (20-40); Mean Corpuscular HGB Conc 33.7 g/dl (31.0-36.0); Mean Corpuscular Hemoglobin 29.1 pg (27.0-33.0); Mean Corpuscular Volume 86.4 fL (80.0-98.0); Monocytes Absolute Auto 0.7 X10*3/uL (0.1-1.2); Monocytes Percent Auto 9.4 % (2-11); Neutrophils Absolute Auto 4.8 x10*3/uL (2.0-8.3); Neutrophils Percent Auto 62.9 % (45-73); Platelet Count 231 X10*3/uL (160-400); Red Blood Count 4.19 X10*6/uL (4.60-5.80); Red Cell Distribution Width 13.8 % (11.0-16.0); White Blood Count 7.7 X10*3/uL (4.8-10.8)
[2024-11-17 21:03] LABS: Alanine Aminotransferase 24 U/L (0-40); Albumin Level 4.5 g/dL (3.5-5.0); Alkaline Phosphatase 65 U/L (39-117); Anion Gap 13 (12-20); Aspartate Amino Transferase 25 U/L (5-37); Bilirubin Direct 0.2 mg/dL (0.0-0.5); Bilirubin Total 0.5 mg/dL (0.0-1.0); Blood Urea Nitrogen 36 mg/dL (9-16); Calcium 8.7 mg/dL (8.4-10.2); Carbon Dioxide 24 mmol/L (22-29); Chloride 104 mmol/L (96-108); Creatinine Clr Calc Pharmacy 28.2; Estimated Glomerular Filt Rate 32; Glucose Random 155 mg/dL (60-115); Magnesium 2.2 mg/dL (1.6-2.6); Sodium 136 mmol/L (135-145); Total Protein 7.2 g/dL (6.5-8.0)
[2024-11-17 21:10] LABS: Troponin-I High Sensitivity < 2.7 ng/L (<3.5-35.0)
[2024-11-17 22:00] VITALS: BP 126/70; PULSE 63; RESP 16; TEMP 36.3; O2SAT 98
[2024-11-17 23:33] VITALS: BP 139/73; PULSE 72; RESP 16; TEMP 36.8; O2SAT 98
[2024-11-17 23:35] VITALS: RESP 18
[2024-11-17] MEDS: Magnesium Hydrox/Alum Hydrox 30 ML ORAL.SUSP PO (23:35)
[2024-11-17] MEDS: Morphine Sulfate 10 MG/ML CARTRIDGE 5 MG IVPUSH (23:35)
[2024-11-17] MEDS: Pantoprazole Sodium 40 MG/10 ML VIAL 80 MG IVPUSH (23:35)
[2024-11-18] MEDS: iohexoL 350 MG/ML 100 ML INFUS..BTL IV (00:16)
--- NOTE | 2024-11-18 00:44 | PC.NURSE ---
Line placed, pt tolerated well. Pt medicated per AUG. Pt ambulatory to b/r.
[2024-11-18] MEDS: 0.9 % Sodium Chloride 1,000 ML 999 ML IV (01:12)
[2024-11-18 02:09] VITALS: BP 149/71; PULSE 62; RESP 16; TEMP 36.9; O2SAT 97
[2024-11-18 02:10] VITALS: BP 149/71; PULSE 62; RESP 16; TEMP 36.9; O2SAT 97
--- NOTE | 2024-11-23 21:49 | PC.NURSE ---
Addendum entered by Tiffany Thompson 11/23/24 21:51: 800ml infused at time of discharge Original Note: IVF infused prior to discharge. pt tolerated well. cc aware
== END 2024-11-18 02:11 | disposition home or self-care (01) ==
PROVIDERS: Physician Assistant Medical; Emergency Provider Emergency Medicine; PCP Family Medicine
DX: K52.9 Noninfective gastroenteritis and colitis, unspecified (principal); R10.13 Epigastric pain; R10.12 Left upper quadrant pain; Z79.899 Other long term (current) drug therapy
CPT/HCPCS: 36415; 71046; 71260; 74018; 74177; 80048; 80076; 83735; 84484; 85025; 93005; 96374; 96375; 99284; 99285; J2270; J2470; Q9967

== ENCOUNTER → 2024-11-17 20:09 | Outpatient (BNV) | payer OTHER, SELFPAY | PROVIDERS: Emergency Provider Emergency Medicine; PCP Family Medicine; Visit Provider Internal Medicine Cardiovascular Disease | DX: R07.9 Chest pain, unspecified (principal) | CPT/HCPCS: 93010 ==

== ENCOUNTER → 2024-11-17 20:11 | Outpatient (BNV) | payer OTHER, SELFPAY | PROVIDERS: Visit Provider Radiology Neuroradiology | DX: R07.9 Chest pain, unspecified (principal); R06.02 Shortness of breath | CPT/HCPCS: 71046; 71260; 74018; 74177 ==

== ENCOUNTER 2024-12-05 09:51 | Emergency (ER) | payer OTHER, SELFPAY ==
--- NOTE | ~2024-12-05 | XR_ITS ---
EXAMINATION: XR CHEST CLINICAL INFORMATION: evaluate hiatal hernia COMPARISON: November 17, 2024. TECHNIQUE: Frontal view of the chest was obtained. FINDINGS: Small to moderate volume hiatal hernia or (the lower cardiomediastinal silhouette. Pulmonary reticular pattern. No consolidation pleural effusion or pneumothorax. Multilevel thoracic spondylosis. Radiopaque anchors in the right humerus no fully included in the [id number]. XR/XR chest 1V IMPRESSION: Hiatal hernia, small to moderate volume. Similar since prior exam. Electronically signed by: Mendez Barger MD 12/05/2024 11:04 AM EDT
[2024-12-05 10:22] VITALS: BP 146/74; PULSE 71; RESP 14; TEMP 36.9; O2SAT 98; BMI 21.7
--- NOTE | 2024-12-05 10:35 | ED.ABDPAIN ---
HPI - Abdominal Pain General Chief Complaint: Abdominal Pain Stated Complaint: Not Feeling Well Time Seen by Provider: 12/05/24 10:35 Source: RN notes reviewed and old records reviewed Limitations: language barrier History of Present Illness ED Provider: Akanksha Mathias PA-C HPI narrative: 74-year-old male with past medical history significant for hiatal hernia, GERD, hypertension presenting to the ED today for evaluation of abdominal pain. This is his 3rd visit here in less than 30 days. First presented on 11/15 when he was diagnosed with a large hiatal hernia and then again 2 days later on 11/17 and diagnosed with colitis after receiving a chest and abdomen CT with contrast. His lab work on was reassuring showing no leukocytosis. It is recommended that he follow up outpatient with Gastroenterology for colonoscopy he was given Maalox antacid medicine and morphine. Patient drove himself to the emergency department today as he is still exhibiting the epigastric pain and it limits his ability to tolerate eating. He is still drinking and voiding regularly. Reports last bowel movement this morning nonpainful and nonbloody. He denies having any vomiting but does intermittently feel nauseous. He states he does have an upcoming GI appointment but he is not sure if that is on December 11 or December 21 and he does not know what it is for. Patient has no family history of colon or gastric cancer. He denies any weight loss. He still is denying any fevers or chills or respiratory symptoms no new onset of body aches or joint pain. His abdomen does not feel distended just as a constant crampy dull ache worse with food. Patient has denied any painful urination to me despite this being in his triage complaint. No trouble initiating a stream and no testicular pain or swelling This history and physical is obtained utilizing a formal medical stenographer in person. MD elicited complaint: abdominal pain Pertinent past history: other (hiatal hernia, colitis) Pain Consistency: constant and colicky Location: epigastric Severity: moderate Quality: aching and fullness Radiation: none Migration to: no migration Exacerbating factors: eating Relieving factors: medication Associated symptoms: nausea Related Data Home Medications ?Medication ?Instructions ?Recorded ?Confirmed atorvastatin 80 mg tablet 80 mg PO DAILY 08/05/20 09/07/24 blood pressure test kit-large #1 ea 08/05/20 09/07/24 lisinopril 20 mg tablet 20 mg PO DAILY 08/05/20 09/07/24 metformin 500 mg tablet 500 mg PO 08/05/20 09/07/24 sitagliptin phosphate 100 mg tablet 100 mg PO DAILY 08/05/20 09/07/24 zolpidem 10 mg tablet 10 mg PO BEDTIME PRN insomnia 08/05/20 09/07/24 omeprazole 40 mg capsule,delayed 40 mg PO DAILY 09/07/24 09/07/24 release Previous Rx's ?Medication ?Instructions ?Recorded diclofenac sodium 3 % topical gel 1 appl topical BID #100 grams 04/01/22 oxycodone-acetaminophen 5 mg-325 1 tab PO DAILY PRN pain (scale 03/18/23 mg tablet (Percocet) score 4-6) 28 days #28 tabs ciprofloxacin HCl 500 mg tablet 500 mg PO Q12H 7 days #14 tabs 11/18/24 famotidine 20 mg tablet 20 mg PO BID 2 weeks #28 tabs 11/18/24 metronidazole 500 mg tablet 500 mg PO TID 7 days #21 tabs 11/18/24 ondansetron 4 mg disintegrating 4 mg PO Q8H PRN nausea and 11/18/24 tablet vomiting #7 tabs sucralfate 1 gram tablet 1 g PO Q6H #28 tabs 12/05/24 Allergies Allergy/AdvReac Type Severity Reaction Status Date / Time atorvastatin (Lipitor) Allergy Unknown unknown Verified 12/05/24 10:23 Review of Systems Review of Systems Yes all other systems are reviewed and are negative [facility] Past Medical History Attestation statement: The following information was validated with the patient. 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) Medical History Palpitations Mass of left side of neck Surgical History History of cholecystectomy Family History Family History Sister History of pancreatic cancer Social History Social History Alcohol intake: current Alcohol intake frequency: holidays/special occasions only Alcohol type: beer and hard liquor Patient Tobacco Use Status: Never used Tobacco Current occupational status: disabled Current occupation: right hand dominant Physical Exam ED Vital Signs: Vital Signs - 24 hr 12/05/24 10:22 12/05/24 12:49 Temperature 98.5 F 98.4 F Pulse Rate 71 70 Respiratory Rate 14 16 Blood Pressure 146/74 H 122/58 L Pulse Oximetry 98 99 Oxygen Delivery Method Room Air Room Air BMI result Body Mass Index 21.7 Const General: cooperative, comfortable, no acute distress, well developed, alert, awake and well groomed Nutritional Appearance: average body habitus Orientation/consciousness: patient oriented x3 Limitations: language barrier HENMT Head: Yes normal to inspection Ears: hearing grossly normal bilaterally General nose exam: Normal external nose present Face and sinus: Yes normal facial exam Mouth: Normal oral and palatal mucosa present, lip normal, tongue normal, oropharynx normal and moist mucous membranes Throat: Yes posterior oropharynx normal Eyes General: appearance normal, both eyes and all related structures Periorbital: periorbital findings normal Eyelids: Yes eyelids normal Conjunctivae: conjunctivae normal Sclerae: sclerae normal Corneas: corneas normal Neck Neck: Yes normal visual inspection Lymphatic: no lymphadenopathy noted Chest Chest palpation & inspection: normal inspection of the chest Resp Effort & Inspection: normal respiratory effort and able to speak in complete sentences Auscultation: clear to auscultation bilaterally Cardio Jugular venous distension: no JVD Rate: regular rate Rhythm: regular rhythm Heart sounds: S1 normal heart sound present and S2 normal heart sound present Peripheral pulses: Peripheral pulses 2+ throughout GI Inspection: Yes normal to inspection Palpation (GI): Tenderness to palpation present (GI) in the epigastrum Auscultation: normal bowel sounds Rectal Exam - Male: Yes deferred General: Yes bladder normal to palpation Neuro General: patient oriented x3 Medical Decision Making Medical Decision Making MDM Narrative: 74-year-old male with history of hiatal hernia presenting back to the emergency department today for re-evaluation of his epigastric pain. Utilizing a formal medical stenographer patient was not able to describe to me what exactly his condition is or what to expect moving forward with it. For this reason I thoroughly discussed both hiatal hernia as well as GERD and gastritis with the patient and the pathophysiology of these and how it affects and can cause his pain. Patient's symptoms have not worsened and he subjectively is reporting the same since his last visit for this reason I repeated abdominal labs and did a chest x-ray to see if the hiatal hernia change in any it. He is not guarding and has no peritoneal signs and does not look sick or ill on exam. Lab work reviewed as below. As his lower abdomen is nontender no leukocytosis likely resolving colitis but not contributory to his epigastric pain today. Epigastric pain today is likely due still to his hiatal hernia and poorly-controlled esophageal reflux. Discussed the importance of dietary modifications as well as adequate follow-up for further endoscopy and colonoscopy. Discussed ED precautions with him. Patient will seek medical attention for any concerns as he is stable no new medical issues identified today to warrant further intervention he was discharged home Differential Diagnosis Differential Diagnoses: The differential diagnosis associated with the presentation includes worsening hiatal hernia gastritis, GERD hepatobiliary disease/ pancreatitis Admission/Observation Consideration of admission/observation: Escalation of care including admission/observation considered Patient would have been admitted to the hospital had his work up had any findings where hospital admission was appropriate and his clinical presentation warranted hospital admission. Lab Data MDM Lab Attestation statement: I reviewed the patient's lab results. Kidney function improved from 11/17, BUNCr is now 19/ 0.95 vs 34/2.01 respectively from his last visit. Baseline microcyctic anemia noted, does not meet transfusion criteria and no hematochezia, melena, or BRBPR today. No leukocytosis (reassuring in setting of recent colitis dx). 12/05/24 10:33 12/05/24 10:33 Labs: Lab Results 12/05/24 Range/Units 10:33 WBC 5.5 (4.8-10.8) X10*3/uL RBC 4.09 L (4.60-5.80) X10*6/uL Hgb 12.0 L (14.0-18.0) g/dl Hct 34.8 L (42.0-52.0) % MCV 85.1 (80.0-98.0) fL MCH 29.3 (27.0-33.0) pg MCHC 34.5 (31.0-36.0) g/dl RDW 13.4 (11.0-16.0) % Plt Count 250 (160-400) X10*3/uL MPV 9.5 (9.4-12.4) fL Immature Gran % (Auto) 0.2 (0.0-0.4) % Neut % (Auto) 61.2 (45-73) % Lymph % (Auto) 23.5 (20-40) % Louisa % (Auto) 8.2 (2-11) % Eos % (Auto) 6.0 H (0-4) % Baso % (Auto) 0.9 (0-2) % Lymph # (Auto) 1.3 (1.2-4.9) X10*3/uL Louisa # (Auto) 0.5 (0.1-1.2) X10*3/uL Eos # (Auto) 0.3 (0.0-0.4) X10*3/uL Baso # (Auto) 0.1 (0.0-0.2) X10*3/uL Abs Immat Gran (auto) 0.01 (0.00-0.03) X10*3/uL Absolute Neuts (auto) 3.4 (2.0-8.3) x10*3/uL Absolute Nucleated RBC 0.000 (0.0-0.012) X10*3/uL Nucleated RBC % (auto) 0.0 (0.0-0.2) /100WBC Sodium 140 (135-145) mmol/L Potassium 4.0 (3.3-5.1) mmol/L Chloride 108 (96-108) mmol/L Carbon Dioxide 22 (22-29) mmol/L Anion Gap 14 (12-20) BUN 19 H (9-16) mg/dL Creatinine 0.95 (0.5-1.4) mg/dL Estim Creat Clear Calc 58.7 Estimated GFR > 60 Random Glucose 160 H (60-115) mg/dL Calcium 8.7 (8.4-10.2) mg/dL Total Bilirubin 0.5 (0.0-1.0) mg/dL Direct Bilirubin 0.1 (0.0-0.5) mg/dL AST 31 (5-37) U/L ALT 22 (0-40) U/L Alkaline Phosphatase 55 (39-117) U/L Total Protein 6.7 (6.5-8.0) g/dL Albumin 4.1 (3.5-5.0) g/dL Lipase 48 (8-78) U/L Independent Interpretation I performed an independent interpretation of an: EKG and Plain X-Ray Interpretation: CXR no significant sized hiatal hernia impeding in lungs, likely small. EK bpm, NSR, no QT prolongation (reassuring in setting of zofran/morphine). Radiology Impression Discussion of test interpretation with radiology: I have reviewed the radiologist's reading. Radiologist Impression: Hiatal hernia, small to moderate volume. Similar since prior exam. External Record Review External record reviewed: Outpatient record Tests considered The following testing was considered but not selected: CT abd/pelvis- there was no guarding on exam today no complaints of a GI bleed or leukocytosis on labs to warrant repeat of the CT scan that was just done 2 weeks ago. Prescription Management I considered prescription management with: Pain Medication and Other Discussed with patient that further pain medicine would worsen any constipation and that ideally he needs to make dietary changes we will give sucralfate Chronic Conditions Patient?s care impacted by: Other (hiatal hernia) Social Determinants Patient?s care significantly limited by Social Determinants of Health including: Other Social Determinant of Health Medications Administered Discontinued Medications Generic Name Dose Route Start Last Admin Trade Name Freq PRN Reason Stop Dose Admin Morphine Sulfate 2 mg 12/05/24 11:19 12/05/24 11:31 Morphine Sulfate 2 Mg/Ml Cartridge IVPUSH 12/05/24 11:20 2 mg ONCE ONE Administration Protocol Ondansetron HCl 4 mg 12/05/24 11:19 12/05/24 11:31 Ondansetron Hcl 4 Mg/2 Ml Vial IVPUSH 12/05/24 11:20 4 mg ONCE ONE Administration Discharge Plan Discharge Clinical Impression: Hernia, hiatal Abdominal pain Qualifiers: Abdominal location: epigastric Qualified Code(s): R10.13 - Epigastric pain Patient Disposition: Home, Self-Care Instructions: Hiatal Hernia (ED), Gastritis (ED), GERD (Gastroesophageal Reflux Disease) (DC) Additional Instructions: You were seen the emergency department today for continued epigastric pain. You have a known hiatal hernia in this area which is not causing any current obstruction or infection. We discussed the importance of dietary modification. I have put you on a medicine which will help reduce and he will any type of erosion or irritation of your stomach from reflux. -AVOID alcohol, spicy foods, Motrin/Aleve medications, and eating past 8:00 at night. -You may take antacids such as Maalox or Tums for acute symptoms but realize that these medications will not prevent your symptoms. -Remain upright for at least 45 minutes following meals. -Follow-up with your primary care doctor or gastroenterology. -Return to ED if you develop fever, chills, increased pain, vomiting. Other things to do to prevent symptoms: -Lose weight (if you are overweight) -Raise the head of your bed by 6 to 8 inches (for example, by putting blocks of wood or rubber under 2 legs of the bed or a Styrofoam wedge under the mattress) -Avoid foods that make your symptoms worse (examples include coffee, chocolate, alcohol, peppermint, and fatty foods) -Cut down on the amount of alcohol you drink -Stop smoking, if you smoke -Eat a bunch of small meals each day, rather than 2 or 3 big meals -Avoid lying down for 3 hours after a meal Should you start to notice blood in your stool or worsening epigastric pain that is more than her baseline right now please seek medical attention again emergently in the emergency department otherwise please keep your follow-up with gastroenterology as scheduled on December 26 at 2:00 pm. Prescriptions: New sucralfate 1 gram tablet 1 g PO Q6H Qty: 28 0RF No Action diclofenac sodium 3 % gel 1 appl topical BID Qty: 100 0RF ciprofloxacin HCl 500 mg tablet 500 mg PO Q12H 7 Days Qty: 14 0RF metronidazole 500 mg tablet 500 mg PO TID 7 Days Qty: 21 0RF ondansetron 4 mg tablet,disintegrating 4 mg PO Q8H PRN (Reason: nausea and vomiting) Qty: 7 0RF famotidine 20 mg tablet 20 mg PO BID 14 Days Qty: 28 0RF lisinopril 20 mg tablet 20 mg PO DAILY zolpidem 10 mg tablet 10 mg PO BEDTIME PRN (Reason: insomnia) metformin 500 mg tablet 500 mg PO sitagliptin phosphate 100 mg tablet 100 mg PO DAILY (DME) blood pressure test kit-large Kit See Rx Instructions .ROUTE .MEDSUPPLY Qty: 1 Rx Instructions: As directed atorvastatin 80 mg tablet 80 mg PO DAILY omeprazole 40 mg capsule,delayed release(DR/EC) 40 mg PO DAILY oxycodone-acetaminophen [Percocet] 5-325 mg tablet 1 tab PO DAILY PRN (Reason: pain (scale score 4-6)) 28 Days Qty: 28 0RF Rx Instructions: Partial Fill upon patient request. Referrals: Ras Montiel MD [Physician, Gastroenterology] - 12/26/24 2:00 pm Discharge Date/Time: 12/05/24 12:59 Print Language: Unable To Collect
[2024-12-05 10:38] LABS: MANUAL DIFF FLAG NO
[2024-12-05 10:39] LABS: Hematocrit 34.8 % (42.0-52.0); Hemoglobin 12.0 g/dl (14.0-18.0); Imm Gran Abs Auto 0.01 X10*3/uL (0.00-0.03); Imm Gran Pct Auto 0.2 % (0.0-0.4); Lymphocytes Absolute Auto 1.3 X10*3/uL (1.2-4.9); Mean Corpuscular HGB Conc 34.5 g/dl (31.0-36.0); Mean Corpuscular Hemoglobin 29.3 pg (27.0-33.0); Mean Corpuscular Volume 85.1 fL (80.0-98.0); NRBC Abs Auto 0.000 X10*3/uL (0.0-0.012); NRBC Pct Auto 0.0 /100WBC (0.0-0.2); Platelet Count 250 X10*3/uL (160-400); Red Blood Count 4.09 X10*6/uL (4.60-5.80); White Blood Count 5.5 X10*3/uL (4.8-10.8)
--- NOTE | 2024-12-05 10:41 | PC.NURSE ---
Addendum entered by Lore Moon RN 12/05/24 10:45: patient states he has not vomiting, poor po intake due to nausea. states he had normal BM this morning. patient endorses dysuria Original Note: patient presented to the ED with abd pain. patient states he was told her has a hernia, his MD called him last week telling him his hernia did not look good, and that he had to go to the hospital because if it burst it would be very bad . patient states he came today because the pain is so bad. patient states he recently was in [place] and flew back last night. patient states pain is his whole abd and is described as something is eating me from inside pain 03/16. #20 started in [facility], labs obtained and sent. 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
[2024-12-05 10:59] LABS: Alanine Aminotransferase 22 U/L (0-40); Albumin Level 4.1 g/dL (3.5-5.0); Alkaline Phosphatase 55 U/L (39-117); Anion Gap 14 (12-20); Aspartate Amino Transferase 31 U/L (5-37); Blood Urea Nitrogen 19 mg/dL (9-16); Calcium 8.7 mg/dL (8.4-10.2); Carbon Dioxide 22 mmol/L (22-29); Chloride 108 mmol/L (96-108); Creatinine Clr Calc Pharmacy 58.7; Estimated Glomerular Filt Rate > 60; Lipase 48 U/L (8-78); Potassium 4.0 mmol/L (3.3-5.1); Sodium 140 mmol/L (135-145); Total Protein 6.7 g/dL (6.5-8.0)
--- NOTE | 2024-12-05 11:20 | ECG_ITS ---
Test Reason : ABD PAIN Blood Pressure : */* mmHG Vent. Rate : 70 BPM Atrial Rate : 70 BPM P-R Int : 168 ms QRS Dur : 94 ms QT Int : 372 ms P-R-T Axes : 56 35 37 degrees QTcB Int : 401 ms Normal sinus rhythm Normal ECG When compared with ECG of 17-Nov-2024 20:26, No significant change was found Referred By: Akanksha Mathias Electronically Signed By: SORAYA ALMONTE MD
--- OUTSIDE RECORDS SUMMARY | 2024-12-05 11:51 | XMS_ITS | Encounter Summary ---
Author Organization [employer] Address [address] [place] [address] Care Team Providers Care Vice President Of Finance Name Role Phone Amanda Barragan DO Primary Care Provider [phone]- [phone] Reason for Visit * Reason Comments Med Refill Encounter Details Date Type Department Care Team (Late st Contact Info) Description 11/17/2024 Refill [facility] [address] [place], [place] [phone] Amanda Barragan DO [address] [place], [place] [phone] Chronic right shoulder pain Social History Tobacco [...] as of this encounter Plan of Treatment Upcoming Encounters Date Type Department Care Team (Late st Contact Info) Description 12/11/2024 11:30 AM EDT Office Visit [address] [address] Amanda Barragan DO [address] [place] [id number] 01/04/2025 10:00 AM EDT Clinical Support [address] [address] Tiffany Savage, VERO documented as of this encounter Visit Diagnoses Diagnosis Chronic right shoulder pain Pain in joint, shoulder region documented in this encounter Care Teams Vice President Of Finance Relationship Specialty Start Date End Date Amanda Barragan DO [address] [place] [phone] PCP - General Family Medicine 12/26/22 documented as of this encounter
--- OUTSIDE RECORDS SUMMARY | 2024-12-05 11:51 | XMS_ITS | Clinical Summary ---
Author Organization [facility] [address] [address] Address [address] [place] [address] Phone Care Team Providers Care Long Chain Quiller Tender Name Role Phone Amanda Barragan DO Primary Care Provider [phone] Social History Tobacco Use Types Packs/Day Years Used Date Smoking Tobacco: Never Assessed Sex and Gender Information Value Date Recorded Sex Assigned at Not on file Legal Sex Male 10:56 AM EDT Gender Identity Not on file Sexual Orientation Not on file Plan of Treatment Upcoming Encounters Date Type Department Care Team (Late st Contact Info) Description 12/14/2024 3:00 PM EDT Consult Thoracic Surgery - [place] [address] [id number] Ashish Salazar MD [address] [address] Health Maintenance Due Date Last Done Comments DTaP,Tdap,and Td Vaccines (1 - Tdap) 08/17/1971 Pneumococcal Vaccine: 50+ Ye ars (1 of 1 - PCV) 2002 Zoster Vaccines (1 of 2) 2002 COVID-19 Vaccine ( - 2023-2 5 season) 2024 Abdominal Aortic Aneurysm (A AA) Screen 12/01/2024 Cholesterol Screening (Lipid Panel) 12/01/2024 Colorectal Cancer Screening: Colonoscopy 12/01/2024 Depression Screening 12/01/2024 Falls Risk Assessment 12/01/2024 Hepatitis C Screening 12/01/2024 Social Influencers of Health Screening 12/01/2024 Influenza Vaccine (#1) 2025 RSV Immunization Adult Patie nts (1 - 1-dose 75+ series) 08/17/2027 HIB Vaccines Aged Out No longer eligi ble based on patient's age to complete this topic HPV Vaccines Aged Out No longer eligi ble based on patient's age to complete this topic Hepatitis A Vaccines Aged Out No long er eligible based on patient's age to complete this topic Hepatitis B Vaccines Aged Out No long er eligible based on patient's age to complete this topic IPV Vaccines Aged Out No longer eligi ble based on patient's age to complete this topic MMR Vaccines Aged Out No longer eligi ble based on patient's age to complete this topic Meningococcal ACWY Vaccine Aged Out N o longer eligible based on patient's age to complete this topic Meningococcal B Vaccine Aged Out No l onger eligible based on patient's age to complete this topic RSV Immunization Patients Un luanne 20 months Aged Out No longer eligible b ased on patient's age to complete this topic Varicella Vaccines Aged Out No longer eligible based on patient's age to complete this topic Insurance MEDICAID - [place] [facility] Member Subscriber Plan / Payer (Ef fective 2017-Present) Name:Adria Barnett Relation to Subscriber:Self Name:Adria Barnett Payer ID:[id number] Group ID:[id number] Type:Not on file Address: [address] [place] [address] Care Teams Long Chain Quiller Tender Relationship Specialty Start Date End Date Amanda Barragan DO [address] [place] [address] PCP - General Family Medicine 11/30/24
[2024-12-05 12:49] VITALS: BP 122/58; PULSE 70; RESP 16; TEMP 36.9; O2SAT 99
== END 2024-12-05 12:59 | disposition home or self-care (01) ==
PROVIDERS: Emergency Provider Emergency Medicine; PCP Family Medicine
DX: K44.9 Diaphragmatic hernia without obstruction or gangrene (principal); R10.13 Epigastric pain; R10.2 Pelvic and perineal pain; R11.0 Nausea; I10 Essential (primary) hypertension; Z80.0 Family history of malignant neoplasm of digestive organs; Z79.899 Other long term (current) drug therapy
CPT/HCPCS: 36415; 71045; 80053; 82248; 83690; 85025; 93005; 96374; 96375; 99284; J2270; J2405

== ENCOUNTER → 2024-12-05 10:44 | Outpatient (BNV) | payer OTHER, SELFPAY | PROVIDERS: Emergency Provider Emergency Medicine; PCP Family Medicine; Visit Provider Radiology Diagnostic Radiology | DX: K44.9 Diaphragmatic hernia without obstruction or gangrene (principal) | CPT/HCPCS: 71045 ==

== ENCOUNTER → 2024-12-05 11:20 | Outpatient (BNV) | payer OTHER, SELFPAY | PROVIDERS: Emergency Provider Emergency Medicine; PCP Family Medicine; Visit Provider Internal Medicine Cardiovascular Disease | DX: R10.9 Unspecified abdominal pain (principal) | CPT/HCPCS: 93010 ==

== ENCOUNTER 2025-04-09 07:17 | Day surgery (SDC) | payer OTHER, SELFPAY ==
--- OUTSIDE RECORDS SUMMARY | 2025-04-04 12:54 | XMS_ITS | Encounter Summary ---
Author Organization [employer] Address [address] [place] [address] Care Team Providers Care Manager Gas Name Role Phone Haven Stiles MD Primary Care Provider [phone] Amanda Barragan DO Primary Care Provider [phone] Reason for Visit * Reason Onset Date Comments Med Refill Tramadol Refused by PCP 10/06/2022 See note Encounter Details Date Type Department Care Team (Late st Contact Info) Description 10/06/2022 Refill [facility] [address] [place], [place] [phone] Haven Stiles MD [address] [place], [place] [phone] Chronic right shoulder pain Social History Tobacco [...] - 10/06/2022 3:39 PM EDT TC via P/I#[id number], pt c/o he was busy and cant speak right now. Pt notified that his PCP will not be refilling his Tramadol prescription, If he has further questions he can call back at a more convenient time and speak with me about it. Pt stated he will call me back tomorrow. documented in this encounter Plan of Treatment Upcoming Encounters Date Type Department Care Team (Late st Contact Info) Description 04/19/2025 1:00 PM EST Clinical Support [facility] [address] [place] [address] Tiffany Savage RN 04/23/2025 2:30 PM EST Office Visit [facility] [address] [place] [address] Kayden, Sally, OD [address] [place] [address] documented as of this encounter Visit Diagnoses Diagnosis Chronic right shoulder pain Pain in joint, shoulder region documented in this encounter Care Teams Manager Gas Relationship Specialty Start Date End Date Haven Stiles MD [address] [place] [id number] PCP - General Family Medicine 06/25/20 12/25/22 Amanda Barragan DO [address] [place] [id number] PCP - General Family Medicine 12/26/22 documented as of this encounter
--- OUTSIDE RECORDS SUMMARY | 2025-04-04 12:54 | XMS_ITS | Encounter Summary ---
Author Organization [employer] Address [address] [place] [address] Care Team Providers Care Cake Tester Name Role Phone Amanda Barragan DO Primary Care Provider [phone]- [phone] Reason for Visit * Reason Onset Date Comments Med Refill 04/20/2024 Encounter Details Date Type Department Care Team ([facility] st Contact Info) Description 04/20/2024 Telephone [facility] MEDICINE [address] [place], [place] [phone] Amanda Barragan DO [address] [place], [place] [phone] Med Refill Social History Tobacco Use Types [...] EST 04/13/24: Per PCP no refills until SENIOR NET DEVELOPER ARCHITECT appt. Pt was [facility] for 04/13/24, 03/29/24, 03/01/24 SENIOR NET DEVELOPER ARCHITECT appts. TC to patient @ both numbers, no answer. L/M asking him to call me back regarding his refill request. * Telephone Encounter - Anthony Chandler - 04/20/2024 12:42 PM EST TC from pt requesting medication refill. Medications needing refill : oxyCODONE (Roxicodone) 5 MG immediate release tablet To be sent to: [facility] documented in this encounter Plan of Treatment Upcoming Encounters Date Type Department Care Team (Late st Contact Info) Description 04/19/2025 1:00 PM EST Clinical Support [facility] MEDICINE [address] [place] [address] Tiffany Savage RN 04/23/2025 2:30 PM EST Office Visit [facility] OPT[facility] [address] [place] [address] Sally Monique, OD [address] [place] [address] documented as of this encounter Visit Diagnoses Not on filedocumented in this encounter Care Teams Cake Tester Relationship Specialty Start Date End Date Amanda Barragan DO [address] [place] [address] PCP - General Family Medicine 12/26/22 documented as of this encounter
--- OUTSIDE RECORDS SUMMARY | 2025-04-04 12:54 | XMS_ITS | Encounter Summary ---
Author Organization [employer] Address [address] [place] [address] Care Team Providers Care Electric Motor Assembler And Tester Name Role Phone Amanda Barragan DO Primary Care Provider [phone]- [phone] Reason for Visit * Reason Comments Med Refill Encounter Details Date Type Department Care Team (Late st Contact Info) Description 02/11/2024 Refill [facility] MED & PEDS [address] [place], [place] [phone] Amanda Barragan DO [address] [place], [place] [phone] Chronic right shoulder pain Social History Tobacco [...] Description 04/19/2025 1:00 PM EST Clinical Support [facility] MEDICINE [address] [place] [address] Tiffany Savage RN 04/23/2025 2:30 PM EST Office Visit [facility] OPTOMETRY [address] [place] [address] Kayden, Sally, OD [address] [place] [address] documented as of this encounter Visit Diagnoses Diagnosis Chronic right shoulder pain Pain in joint, shoulder region documented in this encounter Care Teams Electric Motor Assembler And Tester Relationship Specialty Start Date End Date Amanda Barragan DO [address] [place] [address] PCP - General Family Medicine 12/26/22 documented as of this encounter
--- OUTSIDE RECORDS SUMMARY | 2025-04-04 12:54 | XMS_ITS | Encounter Summary ---
Author Organization [employer] Address [address] [place] [address] Care Team Providers Care Hostel Parent Name Role Phone Amanda Barragan DO Primary Care Provider [phone]- [phone] Reason for Visit * Reason Comments Med Refill Encounter Details Date Type Department Care Team ([facility] st Contact Info) Description 03/13/2024 Refill [facility] MED & PEDS [address] [place] [address] Amanda Barragan DO [address] [place], [place] [phone] Chronic right shoulder pain Social History Tobacco [...] Description 04/19/2025 1:00 PM EST Clinical Support [facility] MEDICINE [address] [place] [address] Tiffany Savage RN 04/23/2025 2:30 PM EST Office Visit [facility] OPTOMET[facility] [address] [place] [address] Kayden, Sally, OD [address] [place] [address] documented as of this encounter Visit Diagnoses Diagnosis Chronic right shoulder pain Pain in joint, shoulder region documented in this encounter Care Teams Hostel Parent Relationship Specialty Start Date End Date Amanda Barragan DO [address] [place] [address] PCP - General Family Medicine 12/26/22 documented as of this encounter
--- OUTSIDE RECORDS SUMMARY | 2025-04-04 12:54 | XMS_ITS | Encounter Summary ---
Author Organization [employer] Address [address] [place] [address] Care Team Providers Care Country Director Name Role Phone Amanda Barragan DO Primary Care Provider [phone] Reason for Visit * Reason Comments Med Refill Encounter Details Date Type Department Care Team ([facility] st Contact Info) Description 03/19/2025 Refill [facility] MEDICINE [address] [place], [place] [phone] Amanda Barragan DO [address] [place], [place] [phone] Chronic right shoulder pain Social History Tobacco Use Types Packs/Day Years Used Date Smoking Tobacco: Never Passive Smoke Exposure: Never Smokeless Tobacco: Never Alcohol Use Standard Drinks/Week Comments Never 0 (1 standard drink = 0.6 oz pur e alcohol) Depression Answer Date Recorded Patient Health Questionnaire-9 Score 16 11/22/2024 Patient Health Questionnaire-9 Score 16 11/22/2024 Last PHQ-9: Questionnaire Data Not on file 0 11/22/2024 Housing Stability Answer Date Recorded What is your housing situation today? I have danish brooke 11/22/[address] you li ve. Do you have problems with any of the following? None of the above 11/22/2024 Food Insecurity Answer Date Recorded Within the past 12 months, y ou worried that your food would run out before you got money to buy more: Never True 11/22/2024 Within the past 12 months,th e food you bought just didn't last and you didn't have enough money to get more: Never True Transportation Answer Date Recorded In the past 12 months, has l ack of transportation kept you from medical appts, meetings, work or from getting things needed for daily living? No 11/22/2024 Utilities Answer Date Recorded In the past 12 months, has t he electric, gas, oil or water company threatened to shut off services in your home? No 11/22/2024 Depression Answer Date Recorded Patient Health Questionnaire-2 Score 4 11/22/2024 Internet Access Answer Date Recorded Internet Access Q1 Yes 11/22/2024 Internet Access Q2 Not on file 11/22/2024 Sex and Gender Information Value Date Recorded Sex Assigned at Male 04/06/2022 10:14 AM EDT Legal Sex Male 10:14 AM EDT Gender Identity Male 04/06/2022 10:14 AM EDT Sexual Orientation Straight 04/06/2022 10 :14 AM EDT documented as of this encounter Plan of Treatment Upcoming Encounters Date Type Department Care Team (Late st Contact Info) Description 04/19/2025 1:00 PM EST Clinical Support [facility] MEDICINE [address] [place] [address] Tiffany Savage RN 04/23/2025 2:30 PM EST Office Visit [facility] OPTOMETRY [address] [place] [address] Sally Monique, OD [address] [place] [address] documented as of this encounter Visit Diagnoses Diagnosis Chronic right shoulder pain Pain in joint, shoulder region documented in this encounter Additional Health Concerns Assessment Noted Time PHQ-9 Depression Total Score: 16 025 2:42 PM EDT documented as of this encounter Care Teams Country Director Relationship Specialty Start Date End Date Amanda Barragan DO [address] [place] [address] PCP - General Family Medicine 12/26/22 documented as of this encounter
--- OUTSIDE RECORDS SUMMARY | 2025-04-04 12:54 | XMS_ITS | Encounter Summary ---
Author Organization [employer] Address [address] [place] [address] Care Team Providers Care Surveyor Helper Rod Name Role Phone Amanda Barragan DO Primary Care Provider + [phone] Reason for Visit * Reason Comments Med Refill Encounter Details Date Type Department Care Team ([facility] st Contact Info) Description 04/05/2023 Refill [facility] MEDICINE [address] [place] [address] Tatyana Oakley MD Social History Tobacco Use [...] Description 04/19/2025 1:00 PM EST Clinical Support [facility] MEDICINE [address] [place] [address] Tiffany Savage RN 04/23/2025 2:30 PM EST Office Visit [facility] OPTOMETRY [address] [place] [address] Sally Monique, OD [address] [place] [address] documented as of this encounter Visit Diagnoses Not on filedocumented in this encounter Care Teams Surveyor Helper Rod Relationship Specialty Start Date End Date Amanda Barragan DO [address] [place] [address] PCP - General Family Medicine 12/26/22 documented as of this encounter
--- OUTSIDE RECORDS SUMMARY | 2025-04-04 12:54 | XMS_ITS | Clinical Summary ---
Author Organization [facility] [address] [facility] Address [address] [place] [address] Phone Care Team Providers Care Hide Stretcher Hand Name Role Phone Amanda Barragan DO Primary Care Provider [phone] Allergies No known active allergies Medications atorvastatin (LIPITOR) 80 mg tablet Take 1 tablet (80 mg total) by mouth. 10/25/2024 Active FiberCon 625 mg tablet Take 1 tablet (625 mg total) by mouth 2 times daily. 11/20/2024 11/21/19 26 Active famotidine (PEPCID) 20 mg tablet TOME NURIA TABLETA POR V A ORAL DOS VECES AL D A FOR 2 WEEKS 11/18/2024 Active metFORMIN (GLUCOPHAGE) 500 mg tablet Take 1 tablet (500 mg total) by mouth 1 (one) time each day with breakfast. 10/25/2024 Active lisinopriL (PRINIVIL,ZESTR IL) 20 mg tablet Take 1 tablet (20 mg total) by mouth 1 (one) time each day. Active polyethylene glycol (PEG) 17 gram/dose oral powder MIX 1 CAPFUL (17 GRAMS) IN 8 TO 12 OUNCES OF WATER AND TAKE THREE TIMES DAILY IN THE MORNING, AT NOON, AND IN THE EVENING UNTIL LOOSE STOOL THEN DECREASE TO EVERY DAY 12/06/2024 Active sucralfate (CARAFATE) 1 gram tablet 12/05/2024 Active zolpidem (AMBIEN) 5 mg tablet Take 1 tablet (5 mg total) by mouth at bedtime as needed for sleep. Max Daily Amount: 5 mg Active senna-docusate (PERICOLACE) 8.6-50 mg per tablet Take 2 tablets by mouth 1 (one) time each day. 60 each 01/24/2025 01/25/20 26 Active Active Problems Problem Noted Date Diagnosed Date S/P repair of paraesophageal hernia 01/22/2025 Assessment & Plan (02/19/2025 2:04 PM EDT): 74-year-old male who on 01/08/2025 underwent a EGD and paraesophageal hernia repair with mesh and gastropexy. He has been tolerating his mechanical soft diet well and in fact been eating foods that are not on that diet. He does say that he feels that he gets heartburn occasionally with the sensation that food is getting stuck however that it eventually goes down and denies any regurgitation. Barium swallow study shows no evidence of extravasation or leakage with postoperative edema. He was informed to advance to a regular diet with small frequent meals throughout the day. He is to contact the thoracic surgery department moving forward on as-needed basis. Assessment & Plan (01/25/2025 3:38 PM EDT): 74-year-old male who on underwent a EGD and eventually paraesophageal hernia repair with mesh and gastropexy. He was informed that he would be being advanced to a mechanical soft diet today and to continue to abstain from any carbonated beverages and that he now may swallow his p.o. medication whole. I sent over a prescription of oxycodone 5 mg tablets to be used 1 to 2 tablets every 4 hours as needed for his postoperative pain. His PCP did stop prescribing him his chronic oxycodone as we would be managing his postoperative pain moving forward. He was also sent a prescription of senna for stool softeners to be used while on oxycodone. He will return to the office in 2 weeks time with a barium swallow study for review and assessment of his diet tolerance. Constipation 12/14/2024 Resolved Problems Problem Noted Date Diagnosed Date Resolved Date Paraesophageal hernia with o bstruction but no gangrene 12/14/2024 01/09/2025 Encounters Date Type Department Care Team Description 02/19/2025 11:15 AM EDT Office Visit Thoracic Surgery - [address] [address] Demetrius Dee, PA S/P repair of paraesophageal hernia (Primary Dx) 02/19/2025 9:59 AM EDT - 02/19/2025 11:59 PM EDT Hospital Encounter [facility] Xray [address] [place] [address] Paraesophageal hernia with obstruction but no gangrene Discharge Disposition: Home or Self Care 02/12/2025 Telephone Thoracic Surgery - [address] [phone] Mackenzie Enriquez DC 01/24/2025 1:00 PM EDT Office Visit Thoracic Surgery [address] [address] Demetrius Dee, CAR S/P repair of paraesophageal hernia (Primary Dx) 01/17/2025 Telephone Thoracic Surgery - [address] [address] Demetrius Dee PA 01/17/2025 Telephone Thoracic Surgery - [address] [address] Demetrius Dee PA 01/17/2025 Telephone Thoracic Surgery - [address] [phone] Norma Maynard, VERO 01/17/2025 Telephone Thoracic Surgery - [address] [phone] Norma Maynard, RN 01/16/2025 Telephone Pulmonology - [address] [address] Norma Maynard, RN 01/08/2025 7:30 AM EDT - 01/08/2025 12:[address] [facility] Main OR [address] [place] [address] Ashish Salazar MD DAVINCI paraesophageal hernia repair with mesh and gastropexy [88780 (CPT )] 01/08/2025 7:21 AM EDT Anesthesia Event [facility] Main OR [address] [place] [phone] Joel Griffin MD Hard, Shannon, CRNA 01/08/2025 6:14 AM EDT - 01/09/2025 4:07 PM EDT Hospital Encounter [facility] Unit [address] [place] [phone] Ashish Salazar MD Santoyo-Pacheco, Omar D, MD Paraesophageal hernia with obstruction but no gangrene Discharge Disposition: Home or Self Care from Last 3 Months Surgical History Surgery Date Site/Laterality Comments CHOLECYSTECTOMY PARAESOPHAGEAL HERNIA REPAIR 01/08/2025 N/A with mesh & gastropexy Medical History Medical History Date Comments Diabetes mellitus (CMS/HCC V24, CMS/HCC V28) Hyperlipidemia Anxiety Hiatal hernia Chronic constipation Family History Medical History Relation Name Comments Cancer Daughter Breast Diabetes type II Father Hyperlipidemia Father Diabetes type II Mother Hyperlipidemia Mother Cancer Sister Stomach Relation Name Status Comments Daughter Other Father Mother Sister Social History Tobacco Use Types Packs/Day Years Used Date Smoking Tobacco: Never Smokeless Tobacco: Never Tobacco Cessation:Counseling Given: Not Answered Food Risk Answer Date Recorded Within the past 12 months we worried whether our food would run out before we got money to buy more. Not asked 01/09/2025 Within the past 12 months th e food we bought just didn't last and we didn't have money to get more. Not asked 01/09/2025 Interpersonal Safety Answer Date Record ed Physical Abuse Unrecognized value 01/08/2025 Verbal Abuse Unrecognized value 01/08/2025 Sex and Gender Information Value Date Recorded Sex Assigned at Male 12/15/2024 12:38 PM EDT Legal Sex Male 10:56 AM EDT Gender Identity Male 12/15/2024 12:38 PM EDT Sexual Orientation Straight 12/15/2024 12 :38 PM EDT Obstetrics History Last Filed Vital Signs Vital Sign Reading Time Taken Comments Blood Pressure 169/68 02/19/2025 11:08 AM EDT Pulse 73 02/19/2025 11:08 AM EDT Temperature 36.8 C (98.2 F) 02/19/2025 11:08 AM EDT Respiratory Rate 16 02/19/2025 11:0 8 AM EDT Oxygen Saturation 99% 02/19/2025 11: 08 AM EDT Inhaled Oxygen Concentration - - Weight 58.8 kg (129 lb 11.2 oz) 025 11:08 AM EDT Height 162.6 cm (5' 4 ) 02/19/2025 11:0 8 AM EDT Body Mass Index 22.26 02/19/2025 11:08 AM EDT Plan of Treatment Health Maintenance Due Date Last Done Comments Colorectal Cancer Screening: Colonoscopy 1952 Diabetes: Annual Foot Exam 1962 Diabetes: Annual Retina Eye Exam 1962 Zoster Vaccines (2 of 3) 08/11/2016 06/16/2016 Hepatitis B Vaccines (2 of 3 - 19+ 3-dose series) 04/28/2024 03/31/2024 Depression Screening 06/07/2024 Medicare Annual Wellness Visit 12/01/2024 Diabetes: Annual Urine Albumin-Creatinine Ratio (uACR) 12/14/2024 COVID-19 Vaccine ( season) 2025 03/09/2024, 05/28/2023, 05/19/2021, Additional history exists Influenza Vaccine (#1) 2025 , 05/28/2023, 04/18/2021, Additional history exists Diabetes: Blood Sugar Control Test (HGBA1C) 05/24/2025 11/22/2024 DTaP,Tdap,and Td Vaccines (3 - Td or Tdap) 08/11/2025 08/12/2015, 08/12/2015 Diabetes: Annual GFR (Glomerular Filtration Rate) 01/09/2026 01/09/2025, 01/08/2025, 01/02/2025, Additional history exists Falls Risk Assessment 01/09/2026 01/09/2025 Hypertension/CHF/CAD Annual BMP Blood Test 01/09/2026 01/09/2025, 01/08/2025, 01/02/2025, Additional history exists Social Influencers of Health Screening 01/09/2026 01/09/2025 RSV Immunization Adult Patients (1 - 1-dose 75+ series) 08/17/2027 Cholesterol Screening (Lipid Panel) 04/20/2028 04/20/2023 Hepatitis C Screening Completed 04/20/2023 Pneumococcal Vaccine: 50+ Years Completed 03/31/2024, 09/27/2017, [...] to complete this topic RSV Immunization Patients Under 20 months Aged Out No longer eligible based on patient's age to complete this topic Varicella Vaccines Aged Out No longer eligible based on patient's age to complete this topic Medical Devices Implanted Type Area Religious Education Teacher Device Identifier Shelf Expiration Date Model / Serial / Lot Sealant Fibrin Vistaseal 10ml - [id number] - [id number] Implanted:Qty: 1 on 01/08/2025 by Ashish Salazar MD at [facility] Hemostasis N/A: Abdomen [employer] [id number] 07/04/2026 VST10 / [id number] / [id number] Graft Mesh Enform Biomaterial Lp 8x16cm - [id number] - [id number] Implanted:Qty: 1 on 01/08/2025 by Ashish Salazar MD at [facility] Surgical Mesh Sling Implants N/A: Abdomen [employer] [id number] 03/26/2027 [id number] / [id number] / N/A Procedures Procedure Name Priority Date/Time Associated Diagnosis Comments XR ESOPHAGRAM Routine 02/19/2025 11:05 AM EDT Paraesophageal hernia with obstruction but no gangrene POCT GLUCOSE BLOOD Routine 01/09/2025 11 :50 AM EDT XR ESOPHAGRAM Routine 01/09/2025 9:04 AM EDT POCT GLUCOSE BLOOD Routine 01/09/2025 5: 40 AM EDT COMPLETE BLOOD COUNT Timed 01/09/2025 5:38 AM EDT BASIC METABOLIC PANEL Routine 01/09/2025 5:38 AM EDT POCT GLUCOSE BLOOD Routine 01/09/2025 2: 36 AM EDT POCT GLUCOSE BLOOD Routine 01/08/2025 11 :48 PM EDT POCT GLUCOSE BLOOD Routine 01/08/2025 11 :12 PM EDT POCT GLUCOSE BLOOD Routine 01/08/2025 4: 30 PM EDT CREATININE, SERUM STAT 01/08/2025 11: 58 AM EDT POCT GLUCOSE BLOOD Routine 01/08/2025 11 :40 AM EDT TISSUE EXAM Routine 01/08/2025 9:20 AM EDT Paraesophageal hernia with obstruction but no gangrene TH AN ENDOTRACHEAL(NO CHARGE) Routine 01/08/2025 7:42 AM EDT MO EGD FLEXIBLE TRANSORAL W/ BIOPSY SINGLE/MULTIPLE 01/08/2025 7:20 AM EDT Paraesophageal hernia with obstruction but no gangrene MO LAPAROSCOPY SURG REPAIR PARAESOPHAGEAL HERNIA INCL FUNDOPLASTY W MESH 01/08/2025 7:20 AM EDT Paraesophageal hernia with obstruction but no gangrene POCT GLUCOSE BLOOD Routine 01/08/2025 6: 42 AM EDT PROCEDURAL ECG Routine 01/02/2025 1:24 PM EDT Paraesophageal hernia with obstruction but no gangrene CBC WITH AUTO DIFFERENTIAL Routine 01/02/2025 1:14 PM EDT Paraesophageal hernia with obstruction but no gangrene BASIC METABOLIC PANEL Routine 01/02/2025 1:14 PM EDT Paraesophageal hernia with obstruction but no gangrene CBC AND DIFFERENTIAL Routine 01/02/2025 1:14 PM EDT Paraesophageal hernia with obstruction but no gangrene PROTHROMBIN TIME WITH INR Routine 01/02/2025 1:14 PM EDT Paraesophageal hernia with obstruction but no gangrene ACTIVATED PARTIAL THROMBOPLASTIN TIME Routine 01/02/2025 1:14 PM EDT Paraesophageal hernia with obstruction but no gangrene TYPE AND SCREEN Routine 01/02/2025 1:14 PM EDT Paraesophageal hernia with obstruction but no gangrene from Last 3 Months Results * XR Esophagram (02/19/2025 11:05 AM EDT) Only the most recent of2 resultswithin the time period is included. Anatomical Region Laterality Modality Head and Neck Radiographic Chantal ging 02/19/2025 11:1 1 AM EDT Impressions 02/19/2025 11:29 AM EDT 1.Moderate amount of narrowing at the area of the diaphragmatic hiatus, overall unchanged when compared to prior imaging from January 09, 2025, consistent with recent hiatal hernia repair. Patient was unable to swallow 13 mm barium tablet to better assess degree of restriction within this area. 2.No evidence of contrast leak, extravasation, obstruction or residual hernia. -------- FINAL REPORT -------- Dictated By: Ina Nair Dictated Date: 02/19/2025 11:11 ET Assigned Physician: James Blandon Reviewed and Electronically Signed By: James Blandon Signed Date: 02/19/2025 11:29 ET Workstation ID: [id number] Transcribed By: Self Edit Transcribed Date: 02/19/2025 11:22 ET Resident/PA/CIVIL ENGINEER IN TRAINING: Joanie Ina Narrative 02/19/2025 11:29 AM EDT FINDINGS: Double contrast esophagram performed. COMPARISON: Prior esophagram imaging January 09, 2025 and December 18, 2024 HISTORY: Patient is a 74-year-old male with history of hiatal hernia repair January 08, 2025 Padded Box Sewer radiographs: 1 view chest radiograph demonstrates cardiac and mediastinal contours within normal limits. Lungs are clear bilaterally. Costophrenic angles are sharp. Right lower lobe consolidation and trace pneumoperitoneum seen on prior imaging from January 09, 2025 have since resolved. Cholecystectomy clips are present to the right upper quadrant. Surgical anchors noted to the right humeral head. Cholecystectomy clips are noted. Lateral radiograph of the neck demonstrates no prevertebral soft tissue swelling. The included portion of the airway is widely patent. There are mild degenerative changes of the cervical spine. Thin barium was administered orally under fluoroscopic control. Thoracic esophagus demonstrates normal distensibility and mucosal pattern without evidence of ulceration, stricture or mass formation. There is moderate narrowing of the distal esophagus at the area of the diaphragmatic hiatus, overall unchanged compared to prior imaging from January 09, 2025. Patient was unable to swallow 13 mm barium tablet to better evaluate degree of restriction within this area. There is no evidence of contrast extravasation, leak or residual hernia. There is no obstruction. Air Kerma: 15.66mGy Procedure Note James Blandon MD - 02/19/2025 FINDINGS: Double contrast esophagram performed. COMPARISON: Prior esophagram imaging January 09, 2025 and December 18, 2024 HISTORY: Patient is a 74-year-old male with history of hiatal herniarepair January 08, 2025 Padded Box Sewer radiographs: 1 view chest radiograph demonstrates cardiac andmediastinal contours within normal limits. Lungs are clear bilaterally.Costophrenic angles are sharp. Right lower lobe consolidation and tracepneumoperitoneum seen on prior imaging from January 09, 2025 have sinceresolved. Cholecystectomy clips are present to the right upper quadrant.Surgical anchors noted to the right humeral head. Cholecystectomy clipsare noted. Lateral radiograph of the neck demonstrates no prevertebralsoft tissue swelling. The included portion of the airway is widely patent.There are mild degenerative changes of the cervical spine. Thin barium was administered orally under fluoroscopic control. Thoracic esophagus demonstrates normal distensibility and mucosal patternwithout evidence of ulceration, stricture or mass formation. There ismoderate narrowing of the distal esophagus at the area of thediaphragmatic hiatus, overall unchanged compared to prior imaging fromJanuary 09, 2025. Patient was unable to swallow 13 mm barium tablet tobetter evaluate degree of restriction within this area. There is noevidence of contrast extravasation, leak or residual hernia. There is noobstruction. Air Kerma: 15.66mGy IMPRESSION: 1.Moderate amount of narrowing at the area of the diaphragmatic hiatus,overall unchanged when compared to prior imaging from January 09, 2025,consistent with recent hiatal hernia repair. Patient was unable to mm barium tablet to better assess degree of restriction within thisarea. 2.No evidence of contrast leak, extravasation, obstruction or residualhernia. -------- FINAL REPORT -------- Dictated By: Ina Nair Dictated Date: 02/19/2025 11:11 ET Assigned Physician: James Blandon Reviewed and Electronically Signed By: James Blandon Signed Date: 02/19/2025 11:29 ET Workstation ID: [id number] Transcribed By: Self Edit Transcribed Date: 02/19/2025 11:22 ET Resident/PA/CIVIL ENGINEER IN TRAINING: Ina Nair Ashwini Stephens NP IMG FLUOROSCOPY PROCEDURES Final Result * (ABNORMAL) POCT Glucose, blood (01/09/2025 11:50 AM EDT) Only the most recent of8 resultswithin the time period is included. Pathologist [facility] Glucose POCT 104(H) 70 - 100 mg/dL 01/09/2025 11:53 AM EDT [facility] Blood Capillary blood specimen / Unknown 01/09/2025 11:50 AM EDT 01/09/2025 11:56 AM EDT Attila Guillermo MD LAB POINT OF C ARE TEST DOCKED DEVICE UNSOLICITED RESULTS Final Result [facility] [address] [place] [address], * (ABNORMAL) CBC - Every 3 Days (01/09/2025 5:38 AM EDT) [facility] [address] WBC 10.5 4.8 - 10.8 K/mcL LAB HEMETOLOGY METHOD [facility]/09[facility]2025 6[facility] RBC 3.80(L) 4.50 - 5.50 M/mcL LAB HEMETOLOGY METHOD 01/09/2025 6:[facility] Hemoglobin 10.9(L) 13.5 - 17.5 g/dL LAB HEMETOLOGY METHOD 01/09/2025 6:24 AM [facility] Hematocrit 32.9(L) 42.0 - 54.0 % LAB HEMETOLOGY METHOD 01/09/2025 6:24 AM [facility] MCV 87.5 79.0 - 98.0 FL LAB HEMETOLOGY METHOD 01/09/2025 6:24 AM [facility] MCH 29.0 27.0 - 32.0 pcg LAB HEMETOLOGY METHOD 01/09/2025 6:24 AM [facility] MCHC 33.1 32.0 - 37.0 g/dL LAB HEMETOLOGY METHOD 01/09/2025 6:24 AM [facility] RDW 13.0 11.0 - 15.0 % LAB HEMETOLOGY METHOD 01/09/2025 6:24 AM [facility] Platelets 204 130 - 400 K/mcL LAB HEMETOLOGY METHOD 01/09/2025 6:24 AM [facility] MPV 10.2 7.0 - 11.0 FL LAB HEMETOLOGY METHOD 01/09/2025 6:24 AM [facility] NRBC 0.0 <1.0 % LAB HEMETOLOGY METHOD 01/09/2025 6:24 AM EDT [facility] NRBC Absolute 0.00 <0.10 K/mcL LAB HEMETOLOGY METHOD 01/09/2025 6:24 AM [facility] Blood Venous blood specimen / Unknown Venipuncture / Unknown 01/09/2025 5:38 AM EDT 01/09/2025 6:11 AM EDT us Demetrius YOON LAB BLOOD ORDERABLES Fin al Result [facility] [address] [place] [address], * (ABNORMAL) Basic metabolic panel (01/09/2025 5:38 AM EDT) Only the most recent of2 resultswithin the time period is included. Sodium 136 133 - 145 mmol/L LAB CHEMISTRY METHOD 01/09/2025 7:13 AM [facility] Potassium 5.0 3.5 - 5.5 mmol/L LAB CHEMISTRY METHOD 01/09/2025 7:13 AM [facility] Chloride 105 96 - 110 mmol/L LAB CHEMISTRY METHOD 01/09/2025 7:13 AM [facility] CO2 27 21 - 32 mmol/L LAB CHEMISTRY METHOD 01/09/2025 7:13 AM [facility] Anion Gap 4 3 - 11 LAB CHEMISTRY METHOD 01/09/2025 7:13 AM [facility] Glucose 122(H) 70 - 100 mg/dL LAB CHEMISTRY METHOD 01/09/2025 7:13 AM [facility] BUN 29(H) 5 - 25 mg/dL LAB CHEMISTRY METHOD 01/09/2025 7:13 AM [facility] Creatinine 1.17 0.70 - 1.30 mg/dL LAB CHEMISTRY METHOD 01/09/2025 7:13 AM EDT [facility] eGFR 66 >=60 mL/min/1. 73m2 LAB CHEMISTRY METHOD 01/09/2025 7:13 AM EDT [facility] Comment:Calculation based on the Chronic Kidney Disease Epidemiology Collaboration (CKD-EPI) equation refit without adjustment for race. BUN/Creatinine Ratio 24.8 LAB CHEMISTRY METHOD 01/09/2025 7:13 AM EDT [facility] Calcium 9.2 8.5 - 10.5 mg/dL LAB CHEMISTRY METHOD 01/09/2025 7:13 AM EDT [facility] Blood Venous blood specimen / Unknown Venipuncture / Unknown 01/09/2025 5:38 AM EDT 01/09/2025 6:11 AM EDT Demetrius YOON LAB BLOOD ORDERABLES Fin al Result Performing Organization Address [facility]/ZIP Co de Phone Number [facility] [address] [place] [address], [place] [phone] * (ABNORMAL) Creatinine, Serum - STAT (01/08/2025 11:58 AM EDT) Creatinine 1.30 0.70 - 1.30 mg/dL LAB CHEMISTRY METHOD 01/08/2025 12:31 PM EDT [facility] eGFR 58(L) >=60 mL/min/1. 73m2 LAB CHEMISTRY METHOD 01/08/2025 12:31 PM EDT [facility] Comment:Calculation based on the Chronic Kidney Disease Epidemiology Collaboration (CKD-EPI) equation refit without adjustment for race. Blood Venous blood specimen / Unknown Venipuncture / Unknown 01/08/2025 11:58 AM EDT 01/08/2025 12:04 PM EDT us Demetrius YOON LAB BLOOD ORDERABLES Fin al Result [facility] [address] [place] [address], [place] [phone] * Tissue exam (01/08/2025 9:20 AM EDT) Final Diagnosis Paraesophageal hernia- repair: -HERNIA SAC 01/09/2025 12:08 PM EDT [facility] Gross Description A. Abdominal Wall, Paraesophageal hernia sac: Labeled paraesoph ABD wall . Received in red, blood-stained formalin is a 5.0 x 4.0 x 2.0 cm aggregate of soft to rubbery yellow to red lobular portions of fibrovascular adipose tissue with attached soft, palacio-pink to red fibromembranous tissue. Within the aggregate is a palacio-red, 0.4 cm in greatest diameter lymph node. Acute Specialist sections are submitted in one cassette including the lymph node in toto. TS 01/09/2025 12:08 PM EDT [facility] Disclaimer Unless otherwise specified, all tissue is 10% NB formalin fixed and paraffin embedded. 01/09/2025 12:08 PM EDT [facility] Tissue Structure of abdominopelvic wall / Unknown 01/08/2025 9:20 AM EDT 01/08/2025 11:53 AM EDT Ashish Salazar MD LAB PATHOLOGY ORDERABLES Final R esult [facility] [address] [place] [address], [place] [phone] * TH AN ENDOTRACHEAL(NO CHARGE) (01/08/2025 7:42 AM EDT) Temitope Schmitz CRNA - 01/08/2025 7:42 AM EDT Temitope Pike CRNA 01/08/2025 7:42 AM General Information and Staff Patient location during procedure: OR Anesthesiologist: Joel Griffin MD Resident/GRAIN PICKER: Temitope Pike CRNA Performed: resident/GRAIN PICKER/CAA Performed by: Temitope Hard, GRAIN PICKER Authorized by: Joel Griffin MD Intubation Airway not difficult Urgency: elective Final Airway Details Successful airway: ETT Cuffed: yes Successful intubation technique: direct laryngoscopy Endotracheal tube insertion site: oral Blade: Niels Blade size: #3 ETT size (mm): 7.5 Cormack-Lehane Classification: grade I - full view of glottis Placement verified by: chest auscultation and capnometry Measured from: lips ETT to lips (cm): 22 Number of attempts at approach: 1 Number of other approaches attempted: 0Final airway type: endotracheal airway Indications and Patient Condition Indications for airway management: anesthesia Spontaneous ventilation: present Sedation level: Yes Preoxygenated: yes Soft Tissue Damage: No Dentition Unchanged: Yes Patient position: sniffing Mask difficulty assessment: 0 - not attempted Start Time: 01/08/2025 7:42 AMStop Time: 01/08/2025 7:42 AM us Joel Griffin MD ANESTHESIA ORDERABLES Final Re sult * ECG 12 lead - Procedural (No Charge) (01/02/2025 1:24 PM EDT) Ventricular Rate ECG 74 BPM GEMUSE Atrial Rate 74 BPM GEMUSE P-R Interval 150 ms GEMUSE QRS Duration 92 ms GEMUSE Q-T Interval 358 ms GEMUSE QTc 397 ms GEMUSE P Wave [place] 44 degrees GEMUSE R [place] 40 degrees GEMUSE T [place] 40 degrees GEMUSE ECG Interpretation Normal sinus rhythm Normal ECG No previous ECGs available Confirmed by MD Duron Christopher ([id number]) on 01/02/2025 9:50:45 PM GEMUSE 01/02/2025 1:24 PM EDT 01/02/2025 9:50 PM EDT us Ashish Salazar MD ECG ORDERABLES Final Result GEMUSE * (ABNORMAL) CBC auto differential (01/02/2025 1:14 PM EDT) WBC 5.7 4.8 - 10.8 K/mcL LAB HEMETOLOGY METHOD 01/02/2025 1:50 PM EDT [facility] RBC 4.40(L) 4.50 - 5.50 M/mcL LAB HEMETOLOGY METHOD 01/02/2025 1:50 PM EDT [facility] Hemoglobin 12.8(L) 13.5 - 17.5 g/dL LAB HEMETOLOGY METHOD 01/02/2025 1:50 PM EDT [facility] Hematocrit 37.9(L) 42.0 - 54.0 % LAB HEMETOLOGY METHOD 01/02/2025 1:50 PM EDT [facility] MCV 86.3 79.0 - 98.0 FL LAB HEMETOLOGY METHOD 01/02/2025 1:50 PM [facility] MCH 29.2 27.0 - 32.0 pcg LAB HEMETOLOGY METHOD 01/02/2025 1:50 PM [facility] MCHC 33.8 32.0 - 37.0 g/dL LAB HEMETOLOGY METHOD 01/02/2025 1:50 PM [facility] RDW 13.0 11.0 - 15.0 % LAB HEMETOLOGY METHOD 01/02/2025 1:50 PM [facility] Platelets 255 130 - 400 K/mcL LAB HEMETOLOGY METHOD 01/02/2025 1:50 PM EDT [facility] MPV 9.7 7.0 - 11.0 FL LAB HEMETOLOGY METHOD 01/02/2025 1:50 PM EDT [facility] NRBC 0.0 <1.0 % LAB HEMETOLOGY METHOD 01/02/2025 1:50 PM EDT [facility] NRBC Absolute 0.00 <0.10 K/mcL LAB HEMETOLOGY METHOD 01/02/2025 1:50 PM EDT [facility] Neutrophils Relative 57.5 % LAB HEMETOLOGY METHOD 01/02/2025 1:50 PM EDT [facility] Lymphocytes Relative 30.4 % LAB HEMETOLOGY METHOD 01/02/2025 1:50 PM EDT [facility] Monocytes Relative 6.8 % LAB HEMETOLOGY METHOD 01/02/2025 1:50 PM EDT [facility] Eosinophils Relative 4.4 % LAB HEMETOLOGY METHOD 01/02/2025 1:50 PM EDT [facility] Basophils Relative 0.7 % LAB HEMETOLOGY METHOD 01/02/2025 1:50 PM EDT [facility] Immature Granulocytes Relative 0.2 % LAB HEMETOLOGY METHOD 01/02/2025 1:50 PM [facility] Neutrophils Absolute 3.28 1.50 - 7.00 K/mcL LAB HEMETOLOGY METHOD 01/02/2025 1:50 PM [facility] Lymphocytes Absolute 1.73 1.00 - 5.00 K/mcL LAB HEMETOLOGY METHOD 01/02/2025 1:50 PM EDT [facility] Monocytes Absolute 0.39 0.20 - 1.00 K/mcL LAB HEMETOLOGY METHOD 01/02/2025 1:50 PM EDT [facility] Eosinophils Absolute 0.25 0.00 - 0.50 K/mcL LAB HEMETOLOGY METHOD 01/02/2025 1:50 PM EDT [facility] Basophils Absolute 0.04 0.00 - 0.20 K/mcL LAB HEMETOLOGY METHOD 01/02/2025 1:50 PM EDT [facility] Immature Granulocytes Absolute 0.01 0.00 - 0.03 K/mcL LAB HEMETOLOGY METHOD 01/02/2025 1:50 PM [facility] Blood Venous blood specimen / Unknown Venipuncture / Unknown 01/02/2025 1:14 PM EDT 01/02/2025 1:41 PM EDT us Ashish Salazar MD LAB BLOOD ORDERABLES Final Resul t Performing Organization Address City/[facility]/ZIP Co de Phone Number [facility] [address] [place] [address], [place] [phone] * Activated partial thromboplastin time (01/02/2025 1:14 PM EDT) aPTT 34.1 24.1 - 39.3 sec LAB COAGULATION METHOD 01/02/2025 1:53 PM EDT [facility] Blood Venous blood specimen / Unknown Venipuncture / Unknown 01/02/2025 1:14 PM EDT 01/02/2025 1:41 PM EDT us Ashish Salazar MD LAB BLOOD ORDERABLES Final Resul t Performing Organization Address [facility] Co de Phone Number [facility] [address] [place] [address], [place] [phone] * Prothrombin time with INR (01/02/2025 1:14 PM EDT) [facility] [address] Protime 12.0 10.6 - 13.9 sec LAB COAGULATION METHOD 01/02/2025 1:53 PM EDT [facility] INR 1.0 LAB COAGULATION METHOD 01/02/2025 1:53 PM EDT [facility] Blood Venous blood specimen / Unknown Venipuncture / Unknown 01/02/2025 1:14 PM EDT 01/02/2025 1:41 PM EDT us Ashish Salazar MD LAB BLOOD ORDERABLES Final Resul t Performing Organization Address [facility] Co de Phone Number [facility] [address] [place] [address], [place] [phone] * Type and screen (01/02/2025 1:14 PM EDT) ABO Group O 01/02/2025 2:51 PM EDT [facility] Rh Type Positive 01/02/2025 2:51 PM EDT [facility] Antibody Screen Negative 01/02/2025 2:51 PM EDT [facility] Blood Venous blood specimen / Unknown Venipuncture / Unknown 01/02/2025 1:14 PM EDT 01/02/2025 1:41 PM EDT us Ashish Salazar MD LAB BLOOD BANK TEST ORDERABLES F inal Result [facility] [address] [place] [address], [place] [phone] from Last 3 Months Insurance [facility] MEDICARE Member Subscriber Plan / Payer (Ef fective 2017-Present) Name:Carlos Arriaga Relation to Subscriber:Self Name:Carlos Arriaga Payer ID:[id number] Group ID:[id number] Type:Not on file Address: [place] [address] [address] [id number] Advance Directives * Full Code - Default (Latest Code Status on File) Date Activated Date Inactivated Comments 01/08/2025 11:05 AM 01/09/2025 6:08 PM This is order is used when code status has not been discussed with the patient, or code status is otherwise unknown/unconfirmed To update the patient's code status, place a code status order. Do not modify or discontinue any currently active code status orders. * Full Code - Default Date Activated Date Inactivated Comments 01/08/2025 6:57 AM 01/08/2025 11:05 AM This is order is used when code status has not been discussed with the patient, or code status is otherwise unknown/unconfirmed To update the patient's code status, place a code status order. Do not modify or discontinue any currently active code status orders. Care Teams Hide Stretcher Hand Relationship Specialty Start Date End Date Amanda Barragan DO [address] [place] [address] PCP - General Family Medicine 11/30/24
--- OUTSIDE RECORDS SUMMARY | 2025-04-04 12:54 | XMS_ITS | Encounter Summary ---
Author Organization [employer] Address [address] [facility] [address] 7[address] [place] [address] Care Team Providers Care Linemarker Name Role Phone Amanda Barragan DO Primary Care Provider +- [phone] Reason for Visit * Reason Comments Med Refill Encounter Details Date Type Department Care Team (Late st Contact Info) Description 11/16/2024 Refill [facility] [address] [place], [place] [phone] Amanda Barragan DO [address] [place], [place] [phone] Chronic right shoulder pain Social History Tobacco [...] Description 04/19/2025 1:00 PM EST Clinical Support [facility] [address] [place] [address] Tiffany Savage RN 04/23/2025 2:30 PM EST Office Visit [facility] [address] [place] [address] Kayden, Sally, OD [address] [place] [address] documented as of this encounter Visit Diagnoses Diagnosis Chronic right shoulder pain Pain in joint, shoulder region documented in this encounter Care Teams Linemarker Relationship Specialty Start Date End Date Amanda Barragan DO [address] [place] [address] PCP - General Family Medicine 12/26/22 documented as of this encounter
--- OUTSIDE RECORDS SUMMARY | 2025-04-04 12:54 | XMS_ITS | Encounter Summary ---
Author Organization [employer] Address [address] [facility] [address] [facility] [address] 7[address] [place] [address] Care Team Providers Care Hotel Front Desk Clerk Name Role Phone Amanda Barragan DO Primary Care Provider +- [phone] Reason for Visit * Reason Comments Med Refill Encounter Details Date Type Department Care Team ([facility] st Contact Info) Description 09/01/2024 Refill [facility] MED [facility] PEDS [address] [place], [place] [phone] Amanda Barragan DO [address] [place], [place] [phone] Primary insomnia Social History Tobacco Use Types [...] Description 04/19/2025 1:00 PM EST Clinical Support [facility] MEDICINE [address] [place] [address] Tiffany Savage RN 04/23/2025 2:30 PM EST Office Visit [facility] OPTOMET[facility] [address] [place] [address] Kayden, Sally, OD [address] [place] [address] documented as of this encounter Visit Diagnoses Diagnosis Primary insomnia Persistent disorder of initiating or maintaining sleep documented in this encounter Care Teams Hotel Front Desk Clerk Relationship Specialty Start Date End Date Amanda Barragan DO [address] [place] [address] PCP - General Family Medicine 12/26/22 documented as of this encounter
--- OUTSIDE RECORDS SUMMARY | 2025-04-04 12:54 | XMS_ITS | Encounter Summary ---
Author Organization [email or web address] Address [address] [facility] 7t [place] [address] Care Team Providers Care Mucker Operator Name Role Phone Amanda Barragan DO Primary Care Provider [phone]- [phone] Reason for Visit * Reason Onset Date Comments Med Refill 02/19/2025 Encounter Details Date Type Department Care Team (Late st Contact Info) Description 02/19/2025 Refill [facility] [address] [place] [address] Amanda Barragan DO [address] [place], [place] [phone] Primary insomnia Social History Tobacco Use Types [...] your housing situation today? I have danish edwardo 11/22/[address] you li [...] Description 04/19/2025 1:00 PM EST Clinical Support [facility] MEDICINE [address] [place] [address] Tiffany Savage RN 04/23/2025 2:30 PM EST Office Visit [facility] OPTOMETRY [address] [place] [address] Kayden, Sally, OD [address] [place] [address] documented as of this encounter Visit Diagnoses Diagnosis Primary insomnia Persistent disorder of initiating or maintaining sleep documented in this encounter Additional Health Concerns Assessment Noted Time PHQ-9 Depression Total Score: 16 025 2:42 PM EDT documented as of this encounter Care Teams Mucker Operator Relationship Specialty Start Date End Date Amanda Barragan DO [address] [place] [address] PCP - General Family Medicine 12/26/22 documented as of this encounter
--- OUTSIDE RECORDS SUMMARY | 2025-04-04 12:54 | XMS_ITS | Encounter Summary ---
Author Organization [employer] Address [address] [place] [address] Care Team Providers Care Priest Name Role Phone Amanda Barragan DO Primary Care Provider +- [phone] Reason for Visit * Reason Comments Med Refill Encounter Details Date Type Department Care Team ([facility] st Contact Info) Description 04/02/2023 Refill [facility] MED & PEDS [address] [place] [address] Amanda Barragan DO [address] [place], [place] [phone] Primary insomnia Social History Tobacco Use Types [...] Description 04/19/2025 1:00 PM EST Clinical Support [facility] MEDICINE [address] [place] [address] Tiffany Savage RN 04/23/2025 2:30 PM EST Office Visit [facility] OPTOMETRY [address] [place] [address] Kayden, Sally, OD [address] [place] [address] documented as of this encounter Visit Diagnoses Diagnosis Primary insomnia Persistent disorder of initiating or maintaining sleep documented in this encounter Care Teams Priest Relationship Specialty Start Date End Date Amanda Barragan DO [address] [place] [address] PCP - General Family Medicine 12/26/22 documented as of this encounter
--- OUTSIDE RECORDS SUMMARY | 2025-04-04 12:54 | XMS_ITS | Encounter Summary ---
Author Organization [employer] Address [address] [facility] 7t [place] [address] Care Team Providers Care Principal Administrative Clerk Name Role Phone Amanda Barragan DO Primary Care Provider [phone]- [phone] Reason for Visit * Reason Comments Med Refill Encounter Details Date Type Department Care Team ([facility] st Contact Info) Description 03/15/2025 Refill [facility] MED[facility] [address] [place], [place] [phone] Amanda Barragan DO [address] [place], [place] [phone] Chronic right shoulder pain Social History Tobacco [...] Description 04/19/2025 1:00 PM EST Clinical Support [facility] MEDICINE [address] [place] [address] Tiffany Savage RN 04/23/2025 2:30 PM EST Office Visit [facility] OPTOMETRY [address] [place] [address] Sally Monique, OD [address] [place] [address] documented as of this encounter Visit Diagnoses Diagnosis Chronic right shoulder pain Pain in joint, shoulder region documented in this encounter Additional Health Concerns Assessment Noted Time PHQ-9 Depression Total Score: 16 025 2:42 PM EDT documented as of this encounter Care Teams Principal Administrative Clerk Relationship Specialty Start Date End Date Amanda Barragan DO [address] [place] [address] PCP - General Family Medicine 12/26/22 documented as of this encounter
--- OUTSIDE RECORDS SUMMARY | 2025-04-04 12:54 | XMS_ITS | Encounter Summary ---
Author Organization [employer] Address [address] [facility] [address] [place] [address] Care Team Providers Care E Commerce Solution Architect Name Role Phone Amanda Barragan DO Primary Care Provider +- [phone] Reason for Visit * Reason Comments Med Refill Encounter Details Date Type Department Care Team (Late st Contact Info) Description 11/17/2024 Refill [facility] [address] [place], [place] [phone] Amanda Barragan DO [address] [place], [place] [phone] Chronic right shoulder pain Social History Tobacco [...] 1:00 PM EST Clinical Support [facility] MED[facility]INE [address] [place] [address] Tiffany Savage RN 04/23/2025 2:30 PM EST Office Visit [facility] OPTOMETRY [address] [place] [address] Kayden, Sally, OD [address] [place] [address] documented as of this encounter Visit Diagnoses Diagnosis Chronic right shoulder pain Pain in joint, shoulder region documented in this encounter Care Teams E Commerce Solution Architect Relationship Specialty Start Date End Date Amanda Barragan DO [address] [place] [address] PCP - General Family Medicine 12/26/22 documented as of this encounter
--- OUTSIDE RECORDS SUMMARY | 2025-04-04 12:54 | XMS_ITS | Encounter Summary ---
Author Organization [employer] Address [address] 7[address] [place] [address] Care Team Providers Care Dowel Pin Man Name Role Phone Amanda Barragan DO Primary Care Provider + [phone] Encounter Details Date Type Department Care Team ([facility] st Contact Info) Description 10/18/2023 Orders Only [facility] MEDICINE [address] [place] [address] ProviderSandeep MD Social History Tobacco Use Types Packs/Day Years Used Date Smoking Tobacco: Never Passive Smoke Exposure: Never Smokeless Tobacco: Never Alcohol Use Standard Drinks/Week Comments Never 0 (1 standard drink = 0.6 oz pur e alcohol) PHQ-2 Answer Date Recorded Patient Health Questionnaire-2 Score 0 07/20/2022 Housing Stability Answer Date Recorded What is your housing situation today? I have danish edwardo 03/22/[address] you li [...] Description 04/19/2025 1:00 PM EST Clinical Support [facility] MEDICINE [address] [place], [place] [phone] Tiffany Savage RN 04/23/2025 2:30 PM EST Office Visit [facility] OPTOMETRY [address] [place], [place] [phone] Sally Monique, OD [address] [place] [address] documented as of this encounter Procedures Procedure [...] PM EDT Narrative 11/09/2023 5:13 PM EDT [facility] [address] [place] [address] XRay Report Signed Patient: Carlos Arriaga MR#: [id number] : 1950 Acct:[id number] Age/Sex: 73 / M ADM Date: 11/09/23 Loc: HO.ED Attending Dr: Ordering Physician: Jil Loza Date of Service: 11/09/23 Procedure(s): XR lumbar spine 2-3V Accession Number(s): [id number] cc: Amanda Barragan DO; Jil Loza X-RAY [...] in OV> 11/09/23 1709 DD/ 1459 TD/TT: Tube Sorter: Procedure Note Donotuseinterpreter, Image - 11/09/[address] [address] XRay Report Signed Patient: Horace Arriaga#: [id number] : 1950cct:[id number] Age/Sex: 73 / MADM Date: 11/09/23 Loc: HO.ED Attending Dr: Ordering Physician: Jil Loza Date of Service: 11/09/23 Procedure(s): XR lumbar spine 2-3V Accession Number(s): [id number] cc: Amanda Barragan DO; Jil Loza X-RAY [...] in OV> 11/09/23 1709 DD/ 1459 TD/TT: Tube Sorter: [facility] External Provider IMG XR PROCEDURES Final Result * XR Thoracic Spine 2 Views (11/09/2023 2:59 PM EDT) Anatomical Region Laterality Modality Spine, T-spine Radiographic Chantal ging 11/09/2023 2:59 PM EDT Narrative 11/09/2023 5:13 PM EDT [address] [address] XRay Report Signed Patient: Carlos Arriaga MR#: [id number] : 1950 Acct:[id number] Age/Sex: 73 / M ADM Date: 11/09/23 Loc: HO.ED Attending Dr: Ordering Physician: Jil Loza Date of Service: 11/09/23 Procedure(s): XR thoracic spine 2V Accession Number(s): [id number] cc: Amanda Barragan DO; Jil Loza X-RAY [...] in OV> 11/09/23 1709 DD/ 1459 TD/TT: Tube Sorter: Procedure Note Donotuseinterpreter, Image - 11/09/2023 [place] [address] XRay Report Signed Patient: Horace Arriaga#: [id number] : [id number]:[id number] Age/Sex: 73 / MADM Date: 11/09/23 Loc: HO.ED Attending Dr: Ordering Physician: Jil Loza Date of Service: 11/09/23 Procedure(s): XR thoracic spine 2V Accession Number(s): [id number] cc: Amanda Barragan DO; Jil Loza X-RAY [...] in OV> 11/09/23 1709 DD/ 1459 TD/TT: Tube Sorter: [facility] External Provider IMG XR PROCEDURES Final Result * CT Head w/o Contrast (11/09/2023 1:30 PM EDT) Anatomical Region Laterality Modality Head, Neck Computed Tomogra phy 11/09/2023 1:30 PM EDT Narrative 11/09/2023 2:05 PM EDT [place] [address] CT Scan Report Signed Patient: Carlos Arriaga MR#: [id number] : 1950 Acct:[id number] Age/Sex: 73 / M ADM Date: 11/09/23 Loc: HO.ED Attending Dr: Ordering Physician: Jil Loza Date of Service: 11/09/23 Procedure(s): CT head/brain wo IV con Accession Number(s): [id number] cc: Amanda Barragan DO; Jil Loza EXAMINATION: [...] in OV> 11/09/23 1401 DD/ 1330 TD/TT: Tube Sorter: SHYANN Procedure Note Donotuseinterpreter, Image - 11/09/[address] [address] [address] Scan Report Signed Patient: Horace Arriaga#: [id number] : 1950cct:[id number] Age/Sex: 73 / MADM Date: 11/09/23 Loc: HO.ED Attending Dr: Ordering Physician: Jil Loza Date of Service: 11/09/23 Procedure(s): CT head/brain wo IV con Accession Number(s): [id number] cc: Amanda Barragan DO; Jil Loza EXAMINATION: [...] in OV> 11/09/23 1401 DD/ 1330 TD/TT: Tube Sorter: SHYANN [facility] External Provider IMG CT PROCEDURES Final Result * Hm Colonoscopy (04/24/2015 9:07 AM EST) Historical Provider HEALTH MAINTENANCE Final Result documented in this encounter Visit Diagnoses Not on filedocumented in this encounter Care Teams Dowel Pin Man Relationship Specialty Start Date End Date Amanda Barragan DO [address] [place] [address] PCP - General Family Medicine 12/26/22 documented as of this encounter
--- OUTSIDE RECORDS SUMMARY | 2025-04-04 12:54 | XMS_ITS | Encounter Summary ---
Author Organization [employer] Address [address] [facility] [address] [place] [address] Care Team Providers Care Industrial Custodian Name Role Phone Amanda Barragan DO Primary Care Provider [phone]- [phone] Reason for Visit * Reason Comments Med Refill Encounter Details Date Type Department Care Team ([facility] st Contact Info) Description 05/18/2024 Refill [facility] MED & PEDS [address] [place] [address] Amanda Barragan DO [address] [place], [place] [phone] Chronic right shoulder pain Social History Tobacco [...] Description 04/19/2025 1:00 PM EST Clinical Support [facility] MEDICINE [address] [place] [address] Tiffany Savage RN 04/23/2025 2:30 PM EST Office Visit [facility] OPTOMETRY [address] [place] [address] Kayden, Sally, OD [address] [place] [address] documented as of this encounter Visit Diagnoses Diagnosis Chronic right shoulder pain Pain in joint, shoulder region documented in this encounter Care Teams Industrial Custodian Relationship Specialty Start Date End Date Amanda Barragan DO [address] [place] [address] PCP - General Family Medicine 12/26/22 documented as of this encounter
--- OUTSIDE RECORDS SUMMARY | 2025-04-04 12:54 | XMS_ITS | Encounter Summary ---
Author Organization [employer] Address [address] [facility] 7t [place] [address] Care Team Providers Care Governor Assembler Hydraulic Name Role Phone Amanda Barragan DO Primary Care Provider [phone]- [phone] Reason for Visit * Reason Comments Med Refill Encounter Details Date Type Department Care Team ([facility] st Contact Info) Description 03/14/2025 Refill [facility] MEDICINE [address] [place], [place] [phone] Amanda Barragan DO [address] [place], [place] [phone] Chronic right shoulder pain Social History Tobacco [...] Description 04/19/2025 1:00 PM EST Clinical Support [facility] MEDICINE [address] [place] [address] Tiffany Savage RN 04/23/2025 2:30 PM EST Office Visit [facility] OPTOMETRY [address] [place] [address] Sally Monique, OD [address] [place] [address] documented as of this encounter Visit Diagnoses Diagnosis Chronic right shoulder pain Pain in joint, shoulder region documented in this encounter Additional Health Concerns Assessment Noted Time PHQ-9 Depression Total Score: 16 025 2:42 PM EDT documented as of this encounter Care Teams Governor Assembler Hydraulic Relationship Specialty Start Date End Date Amanda Barragan DO [address] [place] [address] PCP - General Family Medicine 12/26/22 documented as of this encounter
--- OUTSIDE RECORDS SUMMARY | 2025-04-04 12:54 | XMS_ITS | Encounter Summary ---
Author Organization [employer] Address [address] [place] [address] Care Team Providers Care Legal Editor Name Role Phone Amanda Barragan DO Primary Care Provider + [phone] Reason for Visit * Reason Comments Med Refill Encounter Details Date Type Department Care Team ([facility] st Contact Info) Description 04/13/2024 Refill [facility] MEDICINE [address] [place], [place] [phone] [facility] [address] [place] [address] Social History Tobacco Use Types Packs/Day Years [...] Description 04/19/2025 1:00 PM EST Clinical Support [facility] MEDICINE [address] [place] [address] Tiffany Savage RN 04/23/2025 2:30 PM EST Office Visit [facility] OPTOMETRY [address] [place] [address] Kayden, Sally, OD 230 [place] [address] documented as of this encounter Visit Diagnoses Not on filedocumented in this encounter Care Teams Legal Editor Relationship Specialty Start Date End Date Amanda Barragan DO [address] [place] [address] PCP - General Family Medicine 12/26/22 documented as of this encounter
--- OUTSIDE RECORDS SUMMARY | 2025-04-04 12:54 | XMS_ITS | Encounter Summary ---
Author Organization [employer] Address [address] [facility] 7t [place] [address] Care Team Providers Care Extract Puller Name Role Phone Amanda Barragan DO Primary Care Provider [phone] Reason for Visit * Reason Comments Med Refill Encounter Details Date Type Department Care Team ([facility] st Contact Info) Description 03/12/2025 Refill [facility] MEDICINE [address] [place], [place] [phone] Amanda Barragan DO [address] [place], [place] [phone] Chronic right shoulder pain Social History Tobacco [...] Description 04/19/2025 1:00 PM EST Clinical Support [facility] MEDICINE [address] [place] [address] Tiffany Savage RN 04/23/2025 2:30 PM EST Office Visit [facility] OPTOMETRY [address] [place] [address] Sally Monique, OD [address] [place] [address] documented as of this encounter Visit Diagnoses Diagnosis Chronic right shoulder pain Pain in joint, shoulder region documented in this encounter Additional Health Concerns Assessment Noted Time PHQ-9 Depression Total Score: 16 025 2:42 PM EDT documented as of this encounter Care Teams Extract Puller Relationship Specialty Start Date End Date Amanda Barragan DO [address] [place] [address] PCP - General Family Medicine 12/26/22 documented as of this encounter
--- OUTSIDE RECORDS SUMMARY | 2025-04-04 12:54 | XMS_ITS | Encounter Summary ---
Author Organization [employer] Address 75 [facility] 7t [place] [address] Care Team Providers Care Local Operator Name Role Phone Amanda Barragan DO Primary Care Provider +1- [phone] Reason for Visit * Reason Onset Date Comments Med Refill 03/02/2025 Encounter Details Date Type Department Care Team (Late st Contact Info) Description 03/02/2025 Refill [facility] [address] [place] [address] Amanda Barragan DO [address] [place], [place] [phone] Social History Tobacco Use Types Packs/Day Years [...] Description 04/19/2025 1:00 PM EST Clinical Support [facility] [address] [place] [address] Tiffany Savage RN 04/23/2025 2:30 PM EST Office Visit [facility] [address] [place] [address] Sally Monique, OD [address] [place] [address] documented as of this encounter Visit Diagnoses Not on filedocumented in this encounter Additional Health Concerns Assessment Noted Time PHQ-9 Depression Total Score: 16 025 2:42 PM EDT documented as of this encounter Care Teams Local Operator Relationship Specialty Start Date End Date Amanda Barragan DO [address] [place] [address] PCP - General Family Medicine 12/26/22 documented as of this encounter
--- OUTSIDE RECORDS SUMMARY | 2025-04-04 12:54 | XMS_ITS | Encounter Summary ---
Author Organization [employer] Address 75 [facility] 7t [place] [address] Care Team Providers Care Belt Measurer Name Role Phone Amanda Barragan DO Primary Care Provider [phone]- [phone] Reason for Visit * Reason Onset Date Comments Med Refill 02/08/2025 Encounter Details Date Type Department Care Team (Late st Contact Info) Description 02/08/2025 Refill [facility] MED[facility]INE [address] [place], [place] [phone] Amanda Barragan DO [address] [place], [place] [phone] Chronic right shoulder pain Social History Tobacco [...] Clinical Support [facility] [address] [place] [address] Tiffany Savage, VERO 04/23/2025 2:30 PM EST Office Visit [facility] [address] [place] [address] Kayden, Sally, OD 230 [place] [address] documented as of this encounter Visit Diagnoses Diagnosis Chronic right shoulder pain Pain in joint, shoulder region documented in this encounter Additional Health Concerns Assessment Noted Time PHQ-9 Depression Total Score: 16 025 2:42 PM EDT documented as of this encounter Care Teams Belt Measurer Relationship Specialty Start Date End Date Amanda Barragan DO [address] [place] [address] PCP - General Family Medicine 12/26/22 documented as of this encounter
--- OUTSIDE RECORDS SUMMARY | 2025-04-04 12:54 | XMS_ITS | Encounter Summary ---
Author Organization [email or web address] Address 75 [facility] 7t [place] [address] Care Team Providers Care Manager Medicare Marketing Name Role Phone Amanda Barragan DO Primary Care Provider [phone]- [phone] Reason for Visit * Reason Onset Date Comments Med Refill 03/02/2025 Encounter Details Date Type Department Care Team (Late st Contact Info) Description 03/02/2025 Refill [facility] MEDICINE [address] [place], [place] [phone] Amanda Barragan DO [address] [place], [place] [phone] Primary insomnia Social History Tobacco Use Types [...] Description 04/19/2025 1:00 PM EST Clinical Support [facility] MEDICINE [address] [place] [address] Tiffany Savage RN 04/23/2025 2:30 PM EST Office Visit [facility] [address] [place] [address] Kayden, Sally, OD 230 [place] [address] documented as of this encounter Visit Diagnoses Diagnosis Primary insomnia Persistent disorder of initiating or maintaining sleep documented in this encounter Additional Health Concerns Assessment Noted Time PHQ-9 Depression Total Score: 16 025 2:42 PM EDT documented as of this encounter Care Teams Manager Medicare Marketing Relationship Specialty Start Date End Date Amanda Barragan DO [address] [place] [address] PCP - General Family Medicine 12/26/22 documented as of this encounter
--- OUTSIDE RECORDS SUMMARY | 2025-04-04 12:54 | XMS_ITS | Encounter Summary ---
Author Organization [employer] Address [address] [facility] 7t [place] [address] Care Team Providers Care Research Methods Instructor Name Role Phone Amanda Barragan DO Primary Care Provider [phone]- [phone] Encounter Details Date Type Department Care Team (Late Contact Info) Description 02/09/2023 Abstract [facility] MEDICINE [address] [place] [phone] Amanda Barragan DO 230 [place] [address] Social History Tobacco Use Types Packs/Day Years [...] Description 04/19/2025 1:00 PM EST Clinical Support [facility] [address] [place] [address] Tiffany Savage RN 04/23/2025 2:30 PM EST Office Visit [facility] [address] [place], [place] [phone] Sally Monique, OD 230 [place], [place] [phone] documented as of this encounter Visit Diagnoses Not on filedocumented in this encounter Care Teams Research Methods Instructor Relationship Specialty Start Date End Date Amanda Barragan DO [address] [place], [place] [phone] PCP - General Family Medicine 12/26/22 documented as of this encounter
--- OUTSIDE RECORDS SUMMARY | 2025-04-04 12:54 | XMS_ITS | Clinical Summary ---
Author Organization [employer] Address 75 [facility] 7t [place] [address] Care Team Providers Care Setter Cold Rolling Machine Name Role Phone Amanda Barragan DO Primary Care Provider +1- [phone] Allergies No known active allergies Medications glucose blood (FREESTYLE LITE) test strip USE TO TEST BLOOD SUGAR THREE TIMES DAILY 100 strip 6 06/30/19 24 Active glucose 4 g chewable tablet Chew 4 tablets (16 g) if needed for low blood sugar. 50 tablet 5 03/09/20 24 Active Blood Glucose Monitoring Suppl (FreeStyle Orchard Lite) w/Device kit Use to test blood sugar 2 times daily 1 kit 03/09/20 24 Active dicyclomine (Bentyl) 20 MG tablet Take 20 mg by mouth 3 times daily. 03/24/20 24 Active SITagliptin (Januvia) 100 MG tablet Take 1 tablet by mouth Once per day. Active acetaminophen (Tylenol 8 Hour) 650 MG ER tablet TAKE 1 TABLET BY MOUTH EVERY 8 HOURS NEEDED FOR MILD PAIN, DO NOT BREAK, CRUSH, DISSOLVE OR CHEW 50 tablet 1 04/21/20 24 Active metFORMIN (Glucophage) 500 MG tablet TAKE 1 TABLET BY MOUTH TWICE DAILY IN THE MORNING AND IN THE EVENING WITH MEALS 180 tablet 1 10/26/19 25 Active atorvastatin (Lipitor) 80 MG tablet TAKE 1 TABLET BY MOUTH AT BEDTIME 90 tablet 1 10/26/19 25 Active polycarbophil (FiberCon) 625 MG tablet Take 1 tablet (625 mg) by mouth 2 times daily. 180 tablet 3 11/21/19 25 026 Active docusate sodium (Colace) 100 MG capsule Take 1 capsule (100 mg) by mouth 2 times daily. 180 capsule 3 11/21/19 25 026 Active omeprazole (PriLOSEC) [address] capsule Take 1 capsule (40 mg) by mouth before breakfast and before evening meal. 60 capsule 11 12/12/19 25 026 Active hydrOXYzine pamoate (Vistaril) 25 MG capsuleIndicat ions:Anxiety Take 1 capsule (25 mg) by mouth if needed in the morning and at bedtime for anxiety. 30 capsule 12/12/19 25 026 Active zolpidem (Ambien) 10 MG tabletIndicati ons:Primary insomnia TAKE 1 TABLET BY MOUTH AT BEDTIME NEEDED FOR SLEEP 30 tablet 3 01/16/20 25 Active methylcellulos e oral powder Take 1 packet by mouth if needed in the morning and at bedtime (constipation ). 454 g 2 03/05/20 25 Active lisinopril 20 MG tablet Take 1 tablet (20 mg) by mouth Once per day. 90 tablet 1 03/05/20 25 Active escitalopram (Lexapro) 5 MG tablet TAKE 1 TABLET BY MOUTH EVERY DAY 30 tablet 2 03/12/20 25 Active oxyCODONE (Roxicodone) 5 MG immediate release tabletIndicati ons:Chronic right shoulder pain Take 1 tablet (5 mg) by mouth every 8 (eight) hours if needed for severe pain for up to 28 days. 84 tablet 03/19/20 25 025 Active escitalopram (Lexapro) 5 MG tablet Take 1 tablet (5 mg) by mouth Once per day. 30 tablet 2 12/12/19 25 025 Discontinued oxyCODONE (Roxicodone) 5 MG immediate release tabletIndicati ons:Chronic right shoulder pain Take 1 tablet (5 mg) by mouth every 8 (eight) hours if needed for severe pain for up to 28 days. Do not start before February 22, 2025. 84 tablet 02/23/20 25 025 Discontinued(Re order (will not trigger notification to Pharmacy)) Active Problems Problem Noted Date Diagnosed Date Long-term current use of opiate analgesic 2024 Diverticulosis 03/09/2024 Cerebral microvascular disease 03/09/2024 Chronic [...] Eye Exam: missed, needs to reschedule at [facility] Lipid panel: today ASCVD: Calculate pending updated [...] Encounters Date Type Department Care Team Description 03/19/2025 11:30 AM EDT Clinical Support [facility] MEDICINE [address] [place] [address] Tiffany Savage RN Long-term current use of opiate analgesic (Primary Dx) 03/19/2025 Refill [facility] MEDICINE [address] [place] [address] Amanda Barragan DO Chronic right shoulder pain 03/19/2025 Refill [facility] MEDICINE [address] [place] [address] Tiffany Savage, speech pathology assistant right shoulder pain 03/19/2025 Travel 03/15/2025 Refill [facility] MEDICINE [address] [place] [address] Amanda Barragan DO Chronic right shoulder pain 03/14/2025 Refill [facility] MEDICINE [address] [place] [address] Jurcsak, Amanda, DO Chronic right shoulder pain 03/12/2025 Refill [facility] MEDICINE [address] [place], [place] [address] Amanda Barragan, Chronic right shoulder pain 03/11/2025 Refill [facility] MEDICINE [address] [place], [place] [address] Amanda Barragan, 03/02/2025 Refill [facility] [place] [place] [address] Amanda Barragan, DO 03/02/2025 Refill [facility] [address] [place], [place] [address] Amanda Barragan, DO Primary insomnia 03/02/2025 Refill [facility] MEDICINE [address] [place], [place] [address] Amanda Barragan, 02/20/2025 1:00 PM EDT Clinical Support [facility] MEDICINE [address] [facility] [place] [address] Tiffany Savage RN Long-term current use of opiate analgesic (Primary Dx) 02/20/2025 Travel 02/19/2025 Refill [facility] MEDICINE [address] [place], [place] [address] Amanda Barragan, DO Primary insomnia 02/16/2025 Refill [facility] MED[facility]INE [address] [facility] [place] [address] Amanda Barragan, Chronic right shoulder pain 02/08/2025 Refill [facility] MED[facility]INE [address] [facility] [place] [place] [address] Amanda Barragan, Chronic right shoulder pain 02/06/2025 Telephone [facility] MEDICINE [address] [place], [place] [address] Amanda Barragan, Med Refill 02/02/2025 Refill [facility] MEDICINE [address] [place] [address] Tiffany Savage, speech pathology assistant right shoulder pain (Primary Dx) 01/18/2025 2:00 PM EDT Clinical Support [facility] [address] [facility] [place] [place] [address] JanetteTiffany RN Long-term current use of opiate analgesic (Primary Dx) 01/18/2025 Travel 01/16/2025 Telephone [facility] MEDICINE [address] [place] [address] Amanda Barragan, DO Med Refill 01/15/2025 Refill [facility] [address] [place] [address] Amanda Barragan, DO Chronic right shoulder pain 01/15/2025 Refill [facility] MEDICINE [address] [place] [address] Amanda Barragan, DO Primary insomnia 01/15/2025 Refill [facility] MEDICINE [address] [place] [address] Amanda Barragan, 01/14/2025 Refill [facility] [address] [place] [address] Amanda Barragan, DO Primary insomnia 01/12/2025 Telephone [facility] MEDICINE [address] [place] [address] Amanda Barragan, DO Med Refill 01/11/[address] [address] Tiffany Savage RN Postop Pain management clarification 01/04/2025 10:00 AM EDT Clinical Support [address] [address] Tiffany Savage, RN Long-term current use of opiate analgesic (Primary Dx) 01/04/[address] [address] Tiffany Savage, VERO PHOTO EDITOR Agreement renewed today; Forgot oxycodone 01/04/2025 Travel from Last 3 Months Immunizations Immunization Administration Dates Next Due Hep B, adult [...] Sign Reading Time Taken Comments Blood Pressure 122/72 12/11/2024 12:01 PM EDT Pulse 76 12/11/2024 12:01 PM EDT Temperature 36 C (96.8 F) 12/11/2024 12:01 PM EDT Respiratory Rate 16 12/11/2024 12:01 PM EDT Oxygen Saturation 97% 11/22/2024 11:16 AM EDT Inhaled Oxygen Concentration - - Weight 58.3 kg (128 lb 9.6 oz) 03/19/2025 11:17 AM EDT Height 165.1 cm (5' 5 ) 12/11/2024 12:01 PM EDT Body Mass Index 21.4 12/11/2024 12:01 PM EDT Plan of Treatment Upcoming Encounters Date Type Department Care Team (Late st Contact Info) Description 04/19/2025 1:00 PM EST Clinical Support [facility] MEDICINE [address] [place] [address] Tiffany Savage, RN 04/23/2025 2:30 PM EST Office Visit [facility] OPTOMETRY [address] [place] [address] Kayden, Sally, OD [address] [place] [address] Health Maintenance Due Date Last Done Comments CT Colonography 1952 FIT DNA/Cologuard 1952 FIT 1952 FOBT 1950 Sigmoidoscopy 1952 Diabetes: Foot Exam 1962 RSV Patients and Patients Aged 60 years or older (1 - Risk 60-74 years 1-dose series) 2012 Zoster Vaccines (2 of 3) 08/11/2016 06/16/2016 Diabetes: Urine Protein Screening 04/20/2024 04/20/2023, 07/20/2022, 03/02/2022, Additional history exists Lipid Panel 04/20/2024 04/20/2023, 07/08, 11/27/2020, Additional history exists Hepatitis B Vaccines (2 of 3 - 19+ 3-dose series) 04/28/2024 03/31/2024 COVID-19 Vaccine (6 - 2023- season) 2025 03/09/2024, 05/28/2023, 05/19/2021, Additional history exists Influenza Vaccine (#1) 2025 , 05/28/2023, 04/18/2021, Additional history exists Diabetes: Hemoglobin A1C 02/22/2025 025, 03/09/2024, 08/31/2023, Additional history exists Colonoscopy 04/24/2025 04/24/2015 Colorectal Cancer Screening 04/24/2025 Depression Monitoring 05/24/2025 11/22/2024, 025 Eye Exam 06/18/2025 06/18/2023, 06/07, 06/18/2023, Additional history exists DTaP/Tdap/Td Vaccines (2 - Td or Tdap) 08/11/2025 08/12/2015, 08/12/2015 Alcohol/Substance Use Screening 11/22/2025 11/22/2024 SDOH Screening 11/22/2025 11/22/2024 Tobacco Screening 12/11/2025 12/11/2024 Hepatitis C Screening Completed 04/20/2023 Pneumococcal Vaccine: [...] Comments POCT ARBEN-14 URINE DRUG SCREEN Routine 03/19/2025 11:18 AM EDT Long-term current use of opiate analgesic POCT ARBEN-14 URINE DRUG SCREEN Routine 02/20/2025 1:03 PM EDT Long-term current use of opiate analgesic POCT ARBEN-14 URINE DRUG SCREEN Routine 01/18/2025 2:06 PM EDT Long-term current use of opiate analgesic POCT ARBEN-14 URINE DRUG SCREEN Routine 01/04/2025 10:02 AM EDT Long-term current use of opiate analgesic POCT GLYCATED HEMOGLOBIN, TOTAL Routine 11/22/2024 11:19 AM EDT Type 2 diabetes mellitus with hyperglycemia, [...] Results * POCT ARBEN-14 Urine Drug Screen (03/19/2025 11:18 AM EDT) Only the most recent of4 resultswithin the time period is included. THC Negative Negative Cocaine Screen, Urine Negative Negative Opiate Screen, Urine Negative Negative Methamphetamine Screen Urine Negative Negative Amphetamine Screen, Urine Negative Negative Benzodiazepines Screen, Urine Negative Negative Barbiturate Screen, Urine Negative Negative Methadone Screen, Urine Negative Negative Buprenophine Screen, Urine Negative Negative TCA, Urine Negative Negative MDMA Urine Negative Negative ng/mL Oxycodone Screen, Urine Negative Negative Comment:PHOTO EDITOR pt, no oxy for o rob 48 hours Phencyclidine (PCP), Urine Negative Negative Propoxyphene, Urine Negative Negative Fentanyl, Urine Negative Negative Urine Urine specimen obtained by clean catch procedure / Unknown 03/19/2025 11:18 AM EDT Narrative Tiffany Savage RN - 03/19/2025 11:18 AM EDT UTOX cup Lot#[id number] Exp. 03/13/26 Internal Pass Control Amanda Barragan DO POINT OF CARE TEST ENTER/NOREEN T ORDERABLES Final Result * (ABNORMAL) POCT HGB A1C (11/22/2024 11:19 AM EDT) Hemoglobin A1C 7.4(A) 4.0 - 6.0 % QC Media Lot # [id number] Lot# Expiration Date Blood 11/22/2024 11:1 9 AM EDT Amanda Barragan DO POINT OF CARE TEST ENTER/NOREEN T ORDERABLES Final Result * Albumin, Random Urine W/Creatinine (04/20/2023 9:01 AM EST) Creatinine, Urine 122.74 mg/dL [facility] Microalbumin Urine 5.0 mg/L [facility] Microalbum Creatinine Ratio Ur 4.0 <30 ug/mg cr [facility] Comment:Albumin/Creatinine R atio Reference Ranges: Normal: < 30 ug/mg creatinine Microalbuminuria: 30 - 300 ug/mg creatinineClinical Albuminuria: > 300 ug/mg creatinine 04/20/2023 9:01 AM EST 04/20/2023 11:20 AM EST Amanda Barragan DO LAB URINE ORDERABLES Final R esult [facility] [address] [place] [phone] * Hepatitis C Antibody with Reflex to HCV, RNA, Quantitative, Real-Time PCR (04/20/2023 8:54 AM EST) Hepatitis C Antibody Nonreactive Nonreactive [facility] Comment:Antibodies to HCV no t detected; does not exclude early acuteHCV infection. 04/20/2023 8:54 AM EST 04/20/2023 11:32 AM EST Amanda Barragan DO LAB BLOOD ORDERABLES Final R esult [facility] [address] [place] [phone] * (ABNORMAL) Lipid Panel, Standard (04/20/2023 8:54 AM EST) Triglycerides 194(H) <150 mg/dL [facility] Comment:Desirable Triglyceri de: less than 150 mg/dLBorderline High Triglyceride 150-199 mg/dLHigh Triglyceride: 200-499 mg/dLVery High Triglyceride: greater than or equal to 5OO mg/dL Cholesterol 249(H) <200 mg/dL [facility] Comment:Desirable Cholestero l: less than 200 mg/dLBorderline High Cholesterol: 200-239 mg/dLHigh Cholesterol: greater than 239 mg/dL LDL Cholesterol Calculated 166(H) <100 mg/dL [facility] Comment:Desirable LDL: less than 100 mg/dLNear Optimal/Above Optimal LDL: 110- 129 mg/dLBorderline High LDL: 130-159 mg/dLHigh LDL: 160-189 mg/dLVery High LDL: greater than or equal to 190 mg/dL HDL Cholesterol 45 >40 mg/dL [facility] Comment:Desirable HDL: great er than 40 mg/dL Note: This HDL assay may give artificially low results in patients with liver disease. Blood Venous blood specimen / Unknown 04/20/2023 8:54 AM EST 04/20/2023 11:32 AM EST Amanda Barragan DO LAB BLOOD ORDERABLES Final R esult [facility] [address] [place] [address] [phone] * Hm Colonoscopy (04/24/2015 9:07 AM EST) us Historical Provider HEALTH MAINTENANCE Final Result from Last 3 Months or Most Recently Relevant to Health Maintenance Insurance [facility] OPT[employer] (HMO D-SNP) [place] [id number] Care Teams Setter Cold Rolling Machine Relationship Specialty Start Date End Date Amanda Barragan DO [address] [place] [address] PCP - General Family Medicine 12/26/22
--- OUTSIDE RECORDS SUMMARY | 2025-04-04 12:55 | XMS_ITS | Encounter Summary ---
Author Organization [email or web address] Address 75 [facility] 7t [place] [address] Care Team Providers Care Ornamental Ironworker Name Role Phone Amanda Barragan DO Primary Care Provider +1- [phone] Reason for Visit * Reason Onset Date Comments Med Refill Reschedule [facility] SUPPORT MANAGER appt 10/26/24 10/27/2024 Encounter Details Date Type Department Care Team ([facility] st Contact Info) Description 10/27/2024 Telephone [facility] [address] [place], [place] [phone] Amanda Barragan DO [address] [place], [place] [phone] Med Refill; Reschedule [facility] SUPPORT MANAGER appt 10/26/24 Social History Tobacco Use Types Packs/Day Years [...] Telephone Encounter - Tiffany Savage RN - 10/27/2024 11:34 AM EDT Per PCP response to telephone message from 10/26/24: RN note reviewed. Please advise pt that he needs to come in and be seen in order to continue to receive any further rx. Thank you. 10/26/24 - [facility] SUPPORT MANAGER RV, called X2 - left messages X 2, no response. 05/29/24 - [facility] SUPPORT MANAGER RV, left message, no response. Last time seen in SUPPORT MANAGER was 04/26/24. TC via P/I#[id number], pt stated he was to busy for the call. Apartment House Manager relayed above message about his refill not being done until he comes for his SUPPORT MANAGER appt. SUPPORT MANAGER appt rescheduled again for 11/16/24 @ 1:30pm. Pt stated he will try to make the appt. Reminded him that he needs to come to this appt before he can get a refill, he stated ok. documented in this encounter Plan of Treatment Upcoming Encounters Date Type Department Care Team (Late st Contact Info) Description 04/19/2025 1:00 PM EST Clinical Support [address] [address] Tiffany Savage, VERO 04/23/2025 2:30 PM EST Office Visit [facility] [address] [place], [place] [phone] Sally Monique, OD [address] [place] [address] documented as of this encounter Visit Diagnoses Diagnosis Chronic right shoulder pain Pain in joint, shoulder region documented in this encounter Care Teams Ornamental Ironworker Relationship Specialty Start Date End Date Amanda Barragan DO [address] [place] [address] PCP - General Family Medicine 12/26/22 documented as of this encounter
--- OUTSIDE RECORDS SUMMARY | 2025-04-04 12:55 | XMS_ITS | Encounter Summary ---
Author Organization [employer] Address [address] [facility] 7t [place] [address] Care Team Providers Care Passenger Relations Representative Name Role Phone Amanda Barragan DO Primary Care Provider [phone]- [phone] Reason for Visit * Reason Onset Date Comments Med Refill 12/06/2024 Encounter Details Date Type Department Care Team (Late st Contact Info) Description 12/06/2024 Refill [facility] MEDICINE [address] [place] [address] Amanda Barragan DO [address] [place], [place] [phone] Social History Tobacco Use Types Packs/Day Years [...] Description 04/19/2025 1:00 PM EST Clinical Support [facility] MEDICINE [address] [place] [address] Tiffany Savage RN 04/23/2025 2:30 PM EST Office Visit [facility] OPT[facility] [address] [place] [address] Sally Monique, OD [address] [place] [address] documented as of this encounter Visit Diagnoses Not on filedocumented in this encounter Additional Health Concerns Assessment Noted Time PHQ-9 Depression Total Score: 16 025 2:42 PM EDT documented as of this encounter Care Teams Passenger Relations Representative Relationship Specialty Start Date End Date Amanda Barragan DO [address] [place] [address] PCP - General Family Medicine 12/26/22 documented as of this encounter
--- OUTSIDE RECORDS SUMMARY | 2025-04-04 12:55 | XMS_ITS | Encounter Summary ---
Author Organization [email or web address] Address [address] [facility] 7t [place] [address] Care Team Providers Care Renewable Energy Engineer Name Role Phone Amanda Barragan DO Primary Care Provider [phone] Reason for Visit * Reason Onset Date Comments Med Refill 01/15/2025 Encounter Details Date Type Department Care Team (Late st Contact Info) Description 01/15/2025 Refill [facility] [address] [place] [address] Amanda Barragan DO [address] [place], [place] [phone] Primary insomnia Social History Tobacco Use Types [...] EST Clinical Support [facility] [address] [place] [address] Tiffany Savage RN 04/23/2025 2:30 PM EST Office Visit [facility] [address] [place] [address] Kayden, Sally, OD [address] [place] [address] documented as of this encounter Visit Diagnoses Diagnosis Primary insomnia Persistent disorder of initiating or maintaining sleep documented in this encounter Additional Health Concerns Assessment Noted Time PHQ-9 Depression Total Score: 16 025 2:42 PM EDT documented as of this encounter Care Teams Renewable Energy Engineer Relationship Specialty Start Date End Date Amanda Barragan DO [address] [place] [address] PCP - General Family Medicine 12/26/22 documented as of this encounter
--- OUTSIDE RECORDS SUMMARY | 2025-04-04 12:55 | XMS_ITS | Encounter Summary ---
Author Organization [employer] Address [address] [facility] 7t [place] [address] Care Team Providers Care Insurance Consultant Name Role Phone Amanda Barragan DO Primary Care Provider [phone] Reason for Visit * Reason Onset Date Comments Med Refill 01/15/2025 Encounter Details Date Type Department Care Team (Late st Contact Info) Description 01/15/2025 Refill [facility] [address] [place] [address] Amanda Barragan DO [address] [place], [place] [phone] Social History Tobacco Use Types Packs/Day Years [...] Description 04/19/2025 1:00 PM EST Clinical Support [facility] [address] [place] [address] Tiffany Savage RN 04/23/2025 2:30 PM EST Office Visit [facility] [address] [place] [address] Sally Monique, OD [address] [place] [address] documented as of this encounter Visit Diagnoses Not on filedocumented in this encounter Additional Health Concerns Assessment Noted Time PHQ-9 Depression Total Score: 16 025 2:42 PM EDT documented as of this encounter Care Teams Insurance Consultant Relationship Specialty Start Date End Date Amanda Barragan DO [address] [place] [address] PCP - General Family Medicine 12/26/22 documented as of this encounter
--- OUTSIDE RECORDS SUMMARY | 2025-04-04 12:55 | XMS_ITS | Encounter Summary ---
Author Organization [employer] Address [address] [facility] [address] [place] [address] Care Team Providers Care Design Printing Machine Set Up Operator Name Role Phone Haven Stiles MD Primary Care Provider [phone] Amanda Barragan DO Primary Care Provider [phone] Reason for Visit * Reason Comments Med Refill Encounter Details Date Type Department Care Team (Late st Contact Info) Description 07/20/2022 Refill [facility] [address] [place], [place] [phone] Haven Stiles MD [address] [place], [place] [phone] Chronic right shoulder pain Social History Tobacco [...] PM EST documented as of this encounter Functional Status * Over the past 2 weeks, how often have you been bothered by any of the following problems? Question Answer Date of Assessment Author Little interest or pleasure in doing things Not at all 07/20/2022 2:39 PM EST Betsey Price MA Feeling down, depressed, or hopeless Not at all 07/20/2022 2:39 PM EST Betsey Price MA Patient Health Questionnaire-2 Score 0 07/20/2022 2:39 PM EST Vicenta Price [place] documented as of this encounter Plan of Treatment Upcoming Encounters Date Type Department Care Team (Late st Contact Info) Description 04/19/2025 1:00 PM EST Clinical Support [facility] [address] [place] [address] Tiffany Savage, VERO 04/23/2025 2:30 PM EST Office Visit [facility] [address] [place], [place] [phone] Sally Monique, OD [address] [place] [address] documented as of this encounter Visit Diagnoses Diagnosis Chronic right shoulder pain Pain in joint, shoulder region documented in this encounter Care Teams Design Printing Machine Set Up Operator Relationship Specialty Start Date End Date Haven Stiles MD [address] [place] [address] PCP - General Family Medicine 06/25/20 12/25/22 Amanda Barragan DO [address] [place] [address] PCP - General Family Medicine 12/26/22 documented as of this encounter
--- OUTSIDE RECORDS SUMMARY | 2025-04-04 12:55 | XMS_ITS | Encounter Summary ---
Author Organization [employer] Address [address] [facility] 7t [place] [address] Care Team Providers Care Foster Winder Name Role Phone Haven Stiles MD Primary Care Provider [phone] Amanda Barragan DO Primary Care Provider [phone] Reason for Visit * Reason Onset Date Comments Med Refill 08/11/2022 Encounter Details Date Type Department Care Team (Late st Contact Info) Description 08/11/2022 Refill [facility] [address] [place], [place] [phone] Haven Stiles MD [address] [place] [address] Chronic right shoulder pain Social History Tobacco [...] Pt wants medication to be send to [facility] pharmacy. documented in this encounter Plan of Treatment Upcoming Encounters Date Type Department Care Team (Late st Contact Info) Description 04/19/2025 1:00 PM EST Clinical Support [facility] [address] [place] [address] Tiffany Savage RN 04/23/2025 2:30 PM EST Office Visit [facility] [address] [place] [address] Sally Monique, OD [address] [place] [address] documented as of this encounter Visit Diagnoses Diagnosis Chronic right shoulder pain Pain in joint, shoulder region documented in this encounter Care Teams Foster Winder Relationship Specialty Start Date End Date Haven Stiles MD [address] [place] [address] PCP - General Family Medicine 06/25/20 12/25/22 Amanda Barragan DO [address] [place] [address] PCP - General Family Medicine 12/26/22 documented as of this encounter
--- OUTSIDE RECORDS SUMMARY | 2025-04-04 12:55 | XMS_ITS | Encounter Summary ---
Author Organization [employer] Address [address] [facility] [address] [place] [address] Care Team Providers Care Laborer Beam House Name Role Phone Haven Stiles MD Primary Care Provider [phone] Amanda Barragan DO Primary Care Provider [phone] Reason for Visit * Reason Onset Date Comments Med Refill 08/11/2022 Encounter Details Date Type Department Care Team (Late st Contact Info) Description 08/11/2022 Telephone [facility]INE 230 [place], [place] [phone] Haven Stiles MD [address] [place] [address] Med Refill Social History Tobacco Use Types [...] requesting for medication to be send to [facility] pharmacy documented in this encounter Plan of Treatment Upcoming Encounters Date Type Department Care Team (Late st Contact Info) Description 04/19/2025 1:00 PM EST Clinical Support [facility] [address] [place] [address] Tiffany Savage RN 04/23/2025 2:30 PM EST Office Visit [facility] [address] [place] [address] Kayden, Sally, OD [address] [place] [address] documented as of this encounter Visit Diagnoses Not on filedocumented in this encounter Care Teams Laborer Beam House Relationship Specialty Start Date End Date Haven Stiles MD [address] [place] [address] PCP - General Family Medicine 06/25/20 12/25/22 Amanda Barragan DO [address] [place] [address] PCP - General Family Medicine 12/26/22 documented as of this encounter
--- OUTSIDE RECORDS SUMMARY | 2025-04-04 12:55 | XMS_ITS | Encounter Summary ---
Author Organization [employer] Address [address] [facility] [address] [place] [address] Care Team Providers Care Histologist Name Role Phone Haven Stiles MD Primary Care Provider [phone] Amanda Barragan DO Primary Care Provider [phone] Reason for Visit * Reason Comments Med Refill Encounter Details Date Type Department Care Team (Late st Contact Info) Description 10/12/2022 Refill [facility] [address] [place], [place] [phone] Dimple Finley MD [address] [place], [place] [phone] Chronic right shoulder pain Social History Tobacco [...] Description 04/19/2025 1:00 PM EST Clinical Support [facility] [address] [place] [address] Tiffany Savage RN 04/23/2025 2:30 PM EST Office Visit [facility] [address] [place], [place] [phone] Sally Monique, OD [address] [place] [address] documented as of this encounter Visit Diagnoses Diagnosis Chronic right shoulder pain Pain in joint, shoulder region documented in this encounter Care Teams Histologist Relationship Specialty Start Date End Date Haven Stiles MD [address] [place] [address] PCP - General Family Medicine 06/25/20 12/25/22 Amanda Barragan DO [address] [place] [address] PCP - General Family Medicine 12/26/22 documented as of this encounter
--- OUTSIDE RECORDS SUMMARY | 2025-04-04 12:55 | XMS_ITS | Encounter Summary ---
Author Organization [employer] Address [address] [facility] [address] [place] [address] Care Team Providers Care Feed Mill Tender Name Role Phone Amanda Barragan DO Primary Care Provider [phone] Reason for Visit * Reason Comments Med Refill Encounter Details Date Type Department Care Team (Late st Contact Info) Description 11/03/2024 Refill [facility] [address] [place], [place] [phone] Amanda Barragan DO [address] [place], [place] [phone] Chronic right shoulder pain Social History Tobacco [...] Description 04/19/2025 1:00 PM EST Clinical Support [facility] [address] [place] [address] Tiffany Savage RN 04/23/2025 2:30 PM EST Office Visit [facility] [address] [place] [address] Kayden, Sally, OD [address] [place] [address] documented as of this encounter Visit Diagnoses Diagnosis Chronic right shoulder pain Pain in joint, shoulder region documented in this encounter Care Teams Feed Mill Tender Relationship Specialty Start Date End Date Amanda Barragan DO [address] [place] [address] PCP - General Family Medicine 12/26/22 documented as of this encounter
[2025-04-05 12:38] VITALS: BMI 21.7
[2025-04-09 07:47] LABS: Glucose, Whole Blood 119 mg/dL (60-115)
[2025-04-09 07:50] VITALS: BP 134/73; PULSE 82; RESP 16; TEMP 36.6; O2SAT 99
[2025-04-09] MEDS: Lactated Ringers 1,000 ML 100 ML IVCONT (07:51)
--- NOTE | 2025-04-09 08:01 | HO.ANESPROP2 ---
Documented by User: Maddie Kilgore NP 04/05/25 10:21 HPI - Anesthesia Eval Consult details Narrative: 74yo M for Colonoscopy Anesthesia Pre-Procedure Meds Is the patient on any of the following meds?: GLP1/DPP4 PMFSH Active Problems Active Problems: All Active Problems Normal colposcopy (Acute) Bladder wall thickening (Acute) Enlarged prostate (Acute) Numbness and tingling in right hand (Acute) Status post right rotator cuff repair (Acute) Right rotator cuff tear (Acute) Rotator cuff tendonitis (Acute) Biceps tendonitis on right (Acute) Osteoarthritis of right shoulder (Acute) Mass of left side of neck (Acute) Past Medical History Medical History (Updated 04/05/25 @ 12:38 by Opal Bazzi RN) Arthritis Paraesophageal hernia CAD (coronary artery disease) DM2 (diabetes mellitus, type 2) Hypertensive retinopathy HLD (hyperlipidemia) HTN (hypertension) Palpitations Family History Family History Sister History of pancreatic cancer Family history of problems with anesthesia: No Surgical History Surgical History (Updated 04/05/25 @ 12:30 by Opal Bazzi RN) Hx of repair of rotator cuff History of cholecystectomy History of Problems with Anesthesia: No Social History Social History Are you a primary critical care physician assistant to a significant other at home: No Do you presently have visiting nurse or other home services: No Alcohol intake: current Alcohol intake frequency: holidays/special occasions only Alcohol type: beer and hard liquor Patient Tobacco Use Status: Never used Tobacco Second Hand Smoke Exposure: No Use of substances other than those prescribed or required for medical reasons: No Have you been hit, kicked, punched, or otherwise hurt by someone within the past year? If so, by whom?: No Are you DNR?: No Advance Directives: No Advance Directives Information Provided: Yes Advance Directives on File: No Current occupational status: disabled Current occupation: right hand dominant Meds Allergies Allergy/AdvReac Type Severity Reaction Status Date / Time atorvastatin (Lipitor) Allergy Unknown unknown Verified 12/05/24 10:23 Home Medications ?Medication ?Instructions ?Recorded ?Confirmed ?Last Taken ?Type atorvastatin 80 mg tablet 80 mg PO DAILY 08/05/20 04/05/25 Unknown History blood pressure test kit-large #1 ea 08/05/20 09/07/24 Unknown History lisinopril 20 mg tablet 20 mg PO DAILY 08/05/20 04/05/25 Unknown History metformin 500 mg tablet 500 mg PO BID 08/05/20 04/05/25 Unknown History sitagliptin phosphate 100 mg tablet 100 mg PO DAILY 08/05/20 04/05/25 Unknown History zolpidem 10 mg tablet 10 mg PO BEDTIME PRN insomnia 08/05/20 04/05/25 Unknown History omeprazole 40 mg capsule,delayed 40 mg PO DAILY 09/07/24 04/05/25 Unknown History release aspirin 81 mg tablet,delayed 81 mg PO DAILY 04/05/25 04/05/25 Unknown History release escitalopram oxalate 5 mg tablet 5 mg PO DAILY 04/05/25 04/05/25 Unknown History Assessment and Plan Assessment Anesthesia Assessment: Chart Reviewed Final Anesthetic Review Family History of Problems with Anesthesia: No History of Problems with Anesthesia: No Documented by User: Evelyn Whitfield DO 04/09/25 08:02 HPI - Anesthesia Eval Anesthesia Pre-Procedure Meds Is the patient on any of the following meds?: GLP1/DPP4 [facility] Past Medical History Medical History (Updated 04/05/25 @ 12:38 by Opal Bazzi RN) Arthritis Paraesophageal hernia CAD (coronary artery disease) DM2 (diabetes mellitus, type 2) Hypertensive retinopathy HLD (hyperlipidemia) HTN (hypertension) Palpitations Family History Family History Sister History of pancreatic cancer Family history of problems with anesthesia: No Surgical History Surgical History (Updated 04/05/25 @ 12:30 by Opal Bazzi RN) Hx of repair of rotator cuff History of cholecystectomy History of Problems with Anesthesia: No Social History Social History Are you a primary critical care physician assistant to a significant other at home: No Do you presently have visiting nurse or other home services: No Alcohol intake: current Alcohol intake frequency: holidays/special occasions only Alcohol type: beer and hard liquor Patient Tobacco Use Status: Never used Tobacco Second Hand Smoke Exposure: No Use of substances other than those prescribed or required for medical reasons: No Have you been hit, kicked, punched, or otherwise hurt by someone within the past year? If so, by whom?: No Are you DNR?: No Advance Directives: No Advance Directives Information Provided: Yes Advance Directives on File: No Current occupational status: disabled Current occupation: right hand dominant Meds Allergies Allergy/AdvReac Type Severity Reaction Status Date / Time atorvastatin (Lipitor) Allergy Unknown unknown Verified 12/05/24 10:23 Home Medications ?Medication ?Instructions ?Recorded ?Confirmed ?Last Taken ?Type atorvastatin 80 mg tablet 80 mg PO DAILY 08/05/20 04/05/25 Unknown History blood pressure test kit-large #1 ea 08/05/20 09/07/24 Unknown History lisinopril 20 mg tablet 20 mg PO DAILY 08/05/20 04/05/25 Unknown History metformin 500 mg tablet 500 mg PO BID 08/05/20 04/05/25 Unknown History sitagliptin phosphate 100 mg tablet 100 mg PO DAILY 08/05/20 04/05/25 Unknown History zolpidem 10 mg tablet 10 mg PO BEDTIME PRN insomnia 08/05/20 04/05/25 Unknown History omeprazole 40 mg capsule,delayed 40 mg PO DAILY 09/07/24 04/05/25 Unknown History release aspirin 81 mg tablet,delayed 81 mg PO DAILY 04/05/25 04/05/25 Unknown History release escitalopram oxalate 5 mg tablet 5 mg PO DAILY 04/05/25 04/05/25 Unknown History Exam Exam Date and Time: 04/09/25 0800 Height,Weight and Vital Signs: Height 5 ft 5 in Weight 59.239 kg Vital Signs Temperature 97.8 F 04/09/25 07:50 Pulse Rate 82 04/09/25 07:50 Respiratory Rate 16 04/09/25 07:50 Blood Pressure 134/73 04/09/25 07:50 Pulse Oximetry 99 04/09/25 07:50 Oxygen Delivery Method Room Air 04/09/25 07:50 Temperature 97.8 F 04/09/25 07:50 Pulse Rate 82 04/09/25 07:50 Respiratory Rate 16 04/09/25 07:50 Blood Pressure 134/73 04/09/25 07:50 Pulse Oximetry 99 04/09/25 07:50 Oxygen Delivery Method Room Air 04/09/25 07:50 Airway Mallampati Class: II TM Dist: >3cm Neck ROM: Full Loose/Missing/Broken Teeth: Yes (1 chipped tooth right front lower jaw and 1 loose molar left side) Heart: S1S2 Lungs: CTAB Assessment and Plan Assessment Anesthesia Assessment: Anesthesia Plan Discussed and Chart Reviewed Final Anesthetic Review Family History of Problems with Anesthesia: No History of Problems with Anesthesia: No NPO: Yes ASA Class: II Final Preanesthetic Review: No Changes in Pt Med Stat, Meds/Allgs Chart Reviewed, Consent Obtained/Reviewed and Anes Risks/Benef Reviewed Patient Risk: Low Procedure Risk: Low Anesthetic Plan Anesthetic Plan: MAC: and Agree w/ Assess. and Plan Disposition: Standard PACU
[2025-04-09 09:29] VITALS: BP 92/51; PULSE 82; RESP 16; TEMP 36.3; O2SAT 97
--- NOTE | 2025-04-09 09:33 | PM.OP ---
Brief Operative Note Date of Service: 04/09/25 Pre-op diagnosis: Screening Post-op diagnosis: other (Polyp) Procedure: Colonoscopy to the cecum with bx/removal of polyp Surgeon: Ras Montiel MD Anesthesia: MAC Was an Cloth Laminating Supervisor used for this Procedure?: No Estimated blood loss (mL): 2.0 Pathology: other (A. Cecal polyp) Condition: stable Disposition: PACU
[2025-04-09 09:42] VITALS: BP 124/60; PULSE 71; RESP 16; TEMP 36.3; O2SAT 99
--- NOTE | 2025-04-09 10:32 | OP_ITS ---
DATE OF SERVICE: 04/09/2025 SURGEON: Ras Montiel MD INDICATIONS: The patient presents for evaluation of colorectal cancer screening and personal history of tubular adenoma of the colon. Full consent has been obtained from him for this, including risks of bleeding and perforation. PREOPERATIVE DIAGNOSIS: POSTOPERATIVE DIAGNOSIS: PROCEDURE PERFORMED: Colonoscopy to cecum with biopsy and removal of polyp. ESTIMATED BLOOD LOSS: COMPLICATIONS: ANESTHESIA: Medication used, monitored anesthesia care. ASSISTANTS: SPECIMENS: PREOPERATIVE DIAGNOSES: Colorectal cancer screening, personal history of tubular adenoma of the colon. POSTOPERATIVE DIAGNOSES: Colorectal cancer screening, personal history of tubular adenoma of the colon, small colon polyp, diverticulosis, and internal hemorrhoids. DESCRIPTION OF PROCEDURE: The patient was placed in the left lateral decubitus position. The digital rectal exam revealed no abnormalities. The Olympus video pediatric colonoscope was entered into the rectum and advanced easily to the cecum. Once in the cecum, I did identify cecal pouch with a normal appearing appearing ileocecal valve. There was transillumination of light deep in the right lower quadrant. For the most part the entire cecum was well visualized, although there were small areas of stool which were difficult to remove. In the cecum was a flat, approximately 3 or 4 mm polyp, which was biopsied and removed with cold biopsy forceps. The scope was slowly withdrawn, assessing all mucosal surfaces carefully. For the most part preparation was good throughout the colon, although again there were some small areas of stool. I did not visualize any other polyps, colitis, nor angiodysplasia. There was a moderate amount of sigmoid diverticulosis. In the rectum scope was retroflexed visualizing internal hemorrhoids, but no other pathology. The rectal mucosa appeared normal. The scope was straightened and withdrawn from the patient. He tolerated the procedure well and was returned to the recovery area in stable condition. IMPRESSION: 1. Small colon polyp 2. Diverticulosis. 3. Internal hemorrhoids. PLAN: Given these findings and his age I would not recommend any further screening colonoscopies. He also had a negative colonoscopy in 2014, other than a small polyp, and also had a colonoscopy in 2010 as well. He has no family history of colorectal cancer. As such, he will see me on a p.r.n. basis. MD ELLIOT Frank/JUSTO / [id number] CACHORRO
== END 2025-04-09 10:27 | disposition home or self-care (01) ==
PROVIDERS: PCP Family Medicine; Visit Provider Internal Medicine
PROC: 0DJD8ZZ Inspection of Lower Intestinal Tract, Via Natural or Artificial Opening Endoscopic (ICD-10-PCS; CPT 45378; principal; 2025-04-09 08:30)
DX: Z12.11 Encounter for screening for malignant neoplasm of colon (principal); Z86.0101 Personal history of adenomatous and serrated colon polyps; K63.5 Polyp of colon; K57.30 Diverticulosis of large intestine without perforation or abscess without bleeding; K64.8 Other hemorrhoids; K59.00 Constipation, unspecified; I10 Essential (primary) hypertension; E11.9 Type 2 diabetes mellitus without complications; E78.5 Hyperlipidemia, unspecified; Z79.82 Long term (current) use of aspirin; Z79.84 Long term (current) use of oral hypoglycemic drugs; Z79.899 Other long term (current) drug therapy; Z88.8 Allergy status to other drugs, medicaments and biological substances; Z98.890 Other specified postprocedural states; Z90.49 Acquired absence of other specified parts of digestive tract; Z87.891 Personal history of nicotine dependence
CPT/HCPCS: 45380; 82947; 88305; J2003; J2704